=== PATIENT | male | born 1960 | race Caucasian/White ===

== ENCOUNTER 2016-10-22 09:05 | Emergency (ER) | payer BC, OTHER ==
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
[2016-10-22 10:42] VITALS: RESP 18
--- NOTE | 2016-10-22 10:48 | US ---
EXAMINATION TYPE: US scrotum with Doppler. DATE OF EXAM: 10/22/2016 COMPARISON: NONE CLINICAL HISTORY: 56-year-old male Pain. EC patient with Right scrotal swelling x 3 days; heavy lifting with job; initially had right scrotal pain with touch. TECHNIQUE: Multiple sonographic images of the scrotum were obtained. Color Doppler and spectral wavef orm analysis of the testicular arteries and veins. FINDINGS: EXAM MEASUREMENTS: TESTICLES: Right Testicle: 4.5 x 2.5 x 2.0 cm for a volume of 11.6 mL. Left Testicle: 3.6 x 2.8 x 1.8 cm for a volume of 9.3 mL. Normal homogeneous echotexture of both testes. Satisfactory arterial and venous flow on both sides. EPIDIDYMIS HEAD: Right Epididymis: 1.2 x 0.9 x 0.4 cm Left Epididymis: 1.1 x 2.4 x 1.3 cm with 2 cysts measuring up to 1 cm. Presence of hydroceles: Small amount of fluid noted inferior to right testicle with mobile internal echoes noted; pocket size = 1.8 x 2.3 x 1.4cm. Small amount of fluid is noted superior to left epididymis = 0.5 x 0.6 x 0.7cm. Presence of varicoceles: Multiple varices noted in left scrotal sac with vein at neutral = 2.6mm and with Valsalva Maneuver = 2.8mm ( normal vein size < or =2.5mm). Larger tortuous veins noted mid and lower left scrotal sac wit h one measured at 3.2mm. Patient stated has varicose veins bilateral legs. IMPRESSION: 1. No sonographic evidence for testicular torsion or epididymoorchitis. 2. Small right greater than left hydroceles containing debris. 3. Left-sided varicocele. 4. Incidental couple left epididymal head cysts measuring up to 1 cm.
[2016-10-22] MEDS ORDERED: cefTRIAXone 250 MG VIAL IM STA (11:26)
[2016-10-22] MEDS ORDERED: cefTRIAXone 1,000 MG VIAL (IM USE) IM STA (11:34)
[2016-10-22 11:49] VITALS: BP 159/95; PULSE 70; TEMP 98
== END 2016-10-22 11:49 | disposition home or self-care (01) ==
LOC: EC 09:05
DX: N45.1 Epididymitis (principal); K21.9 Gastro-esophageal reflux disease without esophagitis; E78.5 Hyperlipidemia, unspecified; I25.2 Old myocardial infarction; I10 Essential (primary) hypertension; M06.9 Rheumatoid arthritis, unspecified; F17.200 Nicotine dependence, unspecified, uncomplicated; Z86.14 Personal history of Methicillin resistant Staphylococcus aureus infection; Z79.52 Long term (current) use of systemic steroids; Z79.899 Other long term (current) drug therapy; Z88.1 Allergy status to other antibiotic agents; Z91.018 Allergy to other foods
CPT/HCPCS: 93975; 76870; 99283; 96372; J0696

== ENCOUNTER → 2017-06-02 | Outpatient (CLI) | payer OTHER ==
[2017-06-02 12:00] LABS: Basophils # (A) 0.1 k/uL (0-0.2); Basophils % (A) 1 %; Eosinophils # (A) 0.3 k/uL (0-0.7); Eosinophils % (A) 4 %; HCT 45.4 % (39.0-53.0); HGB 15.2 gm/dL (13.0-17.5); Lymphocytes % (A) 41 %; MCH 31.5 pg (25.0-35.0); MCHC 33.4 g/dL (31.0-37.0); MCV 94.2 fL (80.0-100.0); Monocytes # (A) 0.7 k/uL (0-1.0); Monocytes % (A) 10 %; Neutrophils % (A) 42 %; Platelet Count 184 k/uL (150-450); RBC 4.82 m/uL (4.30-5.90); RDW 12.6 % (11.5-15.5); WBC 7.2 k/uL (3.8-10.6)
[2017-06-02 12:17] LABS: ALT 25 U/L (21-72); AST 21 U/L (17-59); Albumin 3.7 g/dL (3.5-5.0); Alkaline Phosphatase 74 U/L (38-126); Anion Gap 10 mmol/L; Blood Urea Nitrogen 17 mg/dL (9-20); Calcium 9.1 mg/dL (8.4-10.2); Carbon Dioxide 26 mmol/L (22-30); Chloride 104 mmol/L (98-107); Glucose 103 mg/dL (74-99); Potassium 4.6 mmol/L (3.5-5.1); Sodium 140 mmol/L (137-145); Total Bilirubin 0.5 mg/dL (0.2-1.3); Total Protein 6.6 g/dL (6.3-8.2)
[2017-06-02 17:00] LABS: Vitamin D 25 Hydroxy 15.5 ng/mL (30.0-100.0)
[2017-06-02 17:03] LABS: Folate, Serum 10.3 ng/mL
== END | disposition home or self-care (01) ==
LOC: LABWHC1 11:32
PROVIDERS: ATTEND Family Medicine
DX: G40.89 Other seizures (principal); G62.9 Polyneuropathy, unspecified; L82.1 Other seborrheic keratosis; Z68.29 Body mass index [BMI] 29.0-29.9, adult
CPT/HCPCS: 36415; 80053; 82306; 82746; 84443; 85025

== ENCOUNTER → 2017-09-07 | Outpatient (CLI) | payer OTHER ==
--- NOTE | 2017-09-07 23:41 | MR ---
EXAMINATION TYPE: MR brain wo con DATE OF EXAM: 09/07/2017 COMPARISON: NONE HISTORY: Problems sleeping, tremors Standard multiplanar, multisequence MRI departmental protocol Multiplanar, multisequence images of the brain were acquired. Diffusion weighted imaging was performe d. FINDINGS: Ventricles and sulci appear normal. There is no mass effect nor midline shift. There is no evidence of cerebral edema. Brainstem appears normal. There are multiple scattered foci of increased signal at the penny-white matter junction of both cerebral hemispheres. Total number is less than 20. These measure up to 7 mm. The sella turcica appears normal. Corpus callosum has normal size. IMPRESSION: Numerous small white matter lesions. These do not have typical pattern of demyelinating disease and a re peripheral of the periventricular white matter. This is more likely chronic small vessel ischemia. No cortical infarct.
== END | disposition home or self-care (01) ==
LOC: RADMRIMAIN 20:42
PROVIDERS: ATTEND Psychiatry & Neurology Neurology
DX: G93.9 Disorder of brain, unspecified (principal); R90.82 White matter disease, unspecified; R25.9 Unspecified abnormal involuntary movements
CPT/HCPCS: 70551

== ENCOUNTER → 2018-11-24 | Outpatient (CLI) | payer OTHER ==
[2018-11-24 16:33] LABS: ALT 27 U/L (10-49); AST 21 U/L (14-35); Albumin/Globulin Ratio 1.95 (1.60-3.17); Alkaline Phosphatase 80 U/L (41-126); Bilirubin, Conjugated <0.20 mg/dL (0.20-0.40); Cholesterol 199 mg/dL (0-200); Globulin 2.2 g/dL (1.6-3.3); LDL Cholesterol,Calculated 99.8 mg/dL (0.0-131.0); Total Bilirubin 0.6 mg/dL (0.3-1.2); Total Protein 6.5 g/dL (6.2-8.2)
== END | disposition home or self-care (01) ==
LOC: LABWHC1 08:02
PROVIDERS: ATTEND Family Medicine
DX: E78.5 Hyperlipidemia, unspecified (principal); I10 Essential (primary) hypertension
CPT/HCPCS: 36415; 80061; 80076

== ENCOUNTER → 2020-04-07 | Outpatient (CLI) | payer OTHER ==
--- NOTE | 2020-04-08 10:30 | CTL ---
EXAMINATION TYPE: CT Low Dose Lung DATE OF EXAM ORDERED: 04/07/2020 HISTORY: Z 87.891. Lung cancer screening CT DLP: 67.[address] CTDI: 2.2 mGy Automated exposure control for dose reduction was used. SCREENING VISIT: 1 COMPARISON: None TECHNIQUE: Low dose computed tomography scan was performed through the chest at 1 mm thick sections a nd reconstructed images in the coronal plane at [address] DIAGNOSTIC QUALITY: Satisfactory FINDINGS: LUNG NODULES: None. LUNGS: COPD: Severity: Mild Fibrosis: Severity: None Lymph nodes: None Other findings: None RIGHT PLEURAL SPACE: Effusion: None Calcification: None Thickening: None Pneumothorax: None LEFT PLEURAL SPACE: Effusion: None Calcification: None Thickening: None Pneumothorax: None HEART: Heart Size: Normal Coronary calcification: Moderate Pericardial effusion: None OTHER FINDINGS: Upper abdomen: Unremarkable Bony thorax: There is thoracic spondylosis. Sternoclavicular joints show osteoarthritic change. Supraclavicular region: Unremarkable Other: There are changes of gynecomastia. Ascending aorta measures 4.1 cm. Pulmonary arteries mildly prominent. IMPRESSION: Negative CT LUNG RAD AND CT CHEST RECOMMENDATION: 1 year S Modifier (other clinically significant findings): Aortic aneurysm, coronary artery disease, conside r pulmonary artery hypertension
== END | disposition home or self-care (01) ==
LOC: RADCTMAIN 17:17
PROVIDERS: ATTEND Family Medicine
DX: Z12.2 Encounter for screening for malignant neoplasm of respiratory organs (principal); F17.210 Nicotine dependence, cigarettes, uncomplicated

== ENCOUNTER 2021-03-30 08:31 | Emergency (ER) | payer OTHER ==
[2021-03-30] MEDS ORDERED: ONDANSETRON 4 MG/2 ML VIAL IVP STA ×2 (09:10→12:01)
[2021-03-30] MEDS ORDERED: SODIUM CHLORIDE 0.9% 2,000 ML IV ONE (09:11)
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
--- NOTE | 2021-03-30 10:13 | XR ---
EXAMINATION TYPE: XR chest 2V DATE OF EXAM: 03/30/2021 COMPARISON: None HISTORY: 60-year-old male abdominal pain, shortness of breath, difficulty breathing TECHNIQUE: PA and lateral views FINDINGS: Heart normal size. Aorta and pulmonary vasculature within normal limits. Increased patchy peripheral interstitial opacities bilaterally. No ray consolidation or pleural effusion. IMPRESSION: Suggestion of subtle underlying peripheral interstitial infiltrates. Consider early/mild COVID pneumo michelle.
--- NOTE | 2021-03-30 10:14 | XR ---
EXAMINATION TYPE: XR KUB DATE OF EXAM: 03/30/2021 Comparison: None Clinical History: 60-year-old male Abdominal pain Findings: Lung bases are clear. No evidence for free intraperitoneal air. Scattered small air-fluid levels within both the colon and small bowel. No dilated small bowel loops. No suspicious calcifications are seen. Impression: Some scattered air-fluid levels within the small bowel and colon. Consider an enteritis or mild gener alized ileus. No evidence for free air or bowel obstruction.
[2021-03-30 10:15] LABS: Basophils % (A) 1 %; Eosinophils % (A) 0 %; HCT 49.2 % (39.0-53.0); HGB 16.8 gm/dL (13.0-17.5); Lymphocytes # (A) 1.4 k/uL (1.0-4.8); Lymphocytes % (A) 33 %; MCH 32.9 pg (25.0-35.0); MCHC 34.1 g/dL (31.0-37.0); MCV 96.3 fL (80.0-100.0); Mean Platelet Volume 7.9; Monocytes # (A) 0.5 k/uL (0-1.0); Monocytes % (A) 11 %; Neutrophils # (A) 2.3 k/uL (1.3-7.7); Neutrophils % (A) 54 %; Platelet Count 159 k/uL (150-450); RBC 5.11 m/uL (4.30-5.90); RDW 11.9 % (11.5-15.5); WBC 4.3 k/uL (3.8-10.6)
[2021-03-30 10:25] LABS: ALT 34 U/L (4-49); AST 42 U/L (17-59); African American GFR (CKD) >90 (>60 ml/min/1.73 sqM); Albumin 3.9 g/dL (3.5-5.0); Alkaline Phosphatase 76 U/L (38-126); Anion Gap 8 mmol/L; Blood Urea Nitrogen 16 mg/dL (9-20); Calcium 8.5 mg/dL (8.4-10.2); Carbon Dioxide 28 mmol/L (22-30); Chloride 99 mmol/L (98-107); Glucose 102 mg/dL (74-99); Non-African American GFR(CKD) >90 (>60 ml/min/1.73 sqM); Sodium 135 mmol/L (137-145); Total Bilirubin 0.6 mg/dL (0.2-1.3); Total Protein 6.8 g/dL (6.3-8.2)
[2021-03-30] MEDS ORDERED: DEXAMETHASONE SOD PHOSPHATE 10 MG/ML 1 ML VIAL IVP STA (11:52)
[2021-03-30 12:20] VITALS: BP 134/85; PULSE 90; RESP 18; TEMP 99
== END 2021-03-30 12:19 | disposition home or self-care (01) ==
LOC: EC 08:31
DX: U07.1 COVID-19 (principal); E86.0 Dehydration; I25.2 Old myocardial infarction; I10 Essential (primary) hypertension; E78.5 Hyperlipidemia, unspecified; J45.909 Unspecified asthma, uncomplicated; K21.9 Gastro-esophageal reflux disease without esophagitis; Z88.1 Allergy status to other antibiotic agents; Z91.018 Allergy to other foods; Z87.891 Personal history of nicotine dependence
CPT/HCPCS: 36415; 80053; 85025; 71046; 74018; 99285; 96376; 96374; 96361; J2405

== ENCOUNTER → 2021-05-24 | Outpatient (CLI) | payer OTHER ==
[2021-05-24 19:06] LABS: Basophils # (A) 0.07 X 10*3/uL (0.00-0.10); Basophils % (A) 0.8 %; Eosinophils # (A) 0.11 X 10*3/uL (0.04-0.35); Eosinophils % (A) 1.3 %; HGB 13.7 g/dL (13.0-17.0); Immature Grans, Automated 0.6 %; Lymphocytes # (A) 2.82 X 10*3/uL (0.90-5.00); Lymphocytes % (A) 33.6 %; MCH 32.1 pg (27.0-32.0); MCHC 32.6 g/dL (32.0-37.0); MCV 98.4 fL (80.0-97.0); Mean Platelet Volume 10.5 fL (9.5-12.2); Monocytes # (A) 0.76 X 10*3/uL (0.20-1.00); NRBC Per 100 WBC 0 /100 WBCS (0.0-0.0); Neutrophils # (A) 4.59 X 10*3/uL (1.80-7.70); Neutrophils % (A) 54.7 %; Platelet Count 218 X 10*3/uL (140-440); RBC 4.27 X 10*6/uL (4.40-5.60); RDW 14.1 % (11.5-14.5)
[2021-05-24 19:15] LABS: Immunoglobulin M 25.9 mg/dL (40.0-280.0)
[2021-05-24 22:06] LABS: Erythrocyte Sedimentation Rate 8 mm/Hr (0-20)
[2021-05-25 02:01] LABS: ALT 15 U/L (10-49); AST 18 U/L (14-35); Blood Urea Nitrogen 12.1 mg/dL (9.0-27.0); C Reactive Protein <0.30 mg/dL (0.00-0.80); Non-African American GFR(CKD) 91.4 (60.0-200.0)
== END | disposition home or self-care (01) ==
LOC: LABWHC1 11:49
PROVIDERS: ATTEND Internal Medicine Rheumatology
DX: M25.50 Pain in unspecified joint (principal); M06.4 Inflammatory polyarthropathy
CPT/HCPCS: 36415; 82565; 82784; 84450; 84460; 84520; 85025; 85652; 86140

== ENCOUNTER 2021-07-20 18:55 | Emergency (ER) | payer OTHER ==
[2021-07-20 19:04] VITALS: TEMP 98
[2021-07-20] MEDS ORDERED: SODIUM CHLORIDE 0.9% 1,000 ML IV ONE (19:31)
[2021-07-20] MEDS ORDERED: MORPHINE SULFATE 4 MG/ML SYRINGE IV STA ×2 (19:31→20:43)
[2021-07-20] MEDS ORDERED: ONDANSETRON 4 MG/2 ML VIAL IVP STA (19:31)
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
[2021-07-20 19:55] LABS: Chloride 104 mmol/L (98-107)
[2021-07-20 19:57] LABS: Anion Gap 8 mmol/L; Blood Urea Nitrogen 14 mg/dL (9-20); Carbon Dioxide 24 mmol/L (22-30); Glucose 99 mg/dL (74-99); Potassium 3.6 mmol/L (3.5-5.1); Sodium 136 mmol/L (137-145)
[2021-07-20 19:58] LABS: ALT 19 U/L (4-49); AST 36 U/L (17-59); African American GFR (CKD) >90 (>60 ml/min/1.73 sqM); Albumin 4.1 g/dL (3.5-5.0); Alkaline Phosphatase 76 U/L (38-126); Basophils % (A) 0 %; Calcium 8.6 mg/dL (8.4-10.2); Eosinophils # (A) 0.1 k/uL (0-0.7); Eosinophils % (A) 1 %; HCT 44.5 % (39.0-53.0); HGB 14.6 gm/dL (13.0-17.5); Lymphocytes # (A) 2.3 k/uL (1.0-4.8); Lymphocytes % (A) 17 %; MCH 32.4 pg (25.0-35.0); MCHC 32.9 g/dL (31.0-37.0); MCV 98.6 fL (80.0-100.0); Mean Platelet Volume 7.5; Monocytes # (A) 0.7 k/uL (0-1.0); Monocytes % (A) 5 %; Neutrophils # (A) 10.1 k/uL (1.3-7.7); Neutrophils % (A) 76 %; Non-African American GFR(CKD) >90 (>60 ml/min/1.73 sqM); Platelet Count 220 k/uL (150-450); RBC 4.51 m/uL (4.30-5.90); RDW 13.7 % (11.5-15.5); Total Protein 6.9 g/dL (6.3-8.2); WBC 13.4 k/uL (3.8-10.6)
[2021-07-20 20:03] LABS: Partial Thromboplastin Time 23.5 sec (22.0-30.0); Prothrombin Time 10.6 sec (9.0-12.0)
[2021-07-20 20:50] VITALS: RESP 16
--- NOTE | 2021-07-20 20:59 | XR ---
EXAMINATION TYPE: XR pelvis AP view DATE OF EXAM: 07/20/2021 CLINICAL HISTORY: Pain after injury. TECHNIQUE: A single AP view of the pelvis is obtained. COMPARISON: None. FINDINGS: There is no acute fracture/dislocation evident in the pelvis. The hip and sacroiliac join ts appear symmetric and unremarkable. Pubic symphysis is intact. The overlying soft tissue appears un remarkable. IMPRESSION: There is no acute displaced pelvic fracture.
--- NOTE | 2021-07-20 21:00 | XR ---
EXAMINATION TYPE: XR chest 1V portable DATE OF EXAM: 07/20/2021 COMPARISON: Chest x-ray March 30, 2021 HISTORY: Fall injury with pain. TECHNIQUE: Single frontal upright view of the chest is obtained. FINDINGS: Somewhat low lung volumes redemonstrated. There is no suspicious focal air space opacity, p leural effusion, or pneumothorax seen. The cardiac silhouette size is mildly enlarged on current diana dy. The osseous structures are intact. IMPRESSION: Mild cardiomegaly without acute pulmonary process.
--- NOTE | 2021-07-20 21:03 | CT ---
EXAMINATION TYPE: CT brain cspine wo con DATE OF EXAM: 07/20/2021 COMPARISON: MRI brain September 07, 2017 HISTORY: FALL FROM ROOF with headache and neck pain. CT DLP: 1556.5 mGycm. Automated Exposure Control for Dose Reduction was Utilized. TECHNIQUE: CT scan of the head and cervical spine are performed without contrast. FINDINGS: There is no acute intracranial hemorrhage, mass effect, or midline shift identified. The ventricles and sulci are within normal limits in size for patient's age. Some scattered areas of low attenuation throughout the white matter bilaterally are redemonstrated. The calvarium is intact. The globes are intact and the visualized sinuses are clear. Cervical spine is visualized in its entirety from C1 through upper thoracic levels and demonstrates l oss of normal cervical curvature without evidence of acute fracture or dislocation. Prevertebral sof t tissue appears within normal limits. The C1-C2 articulation is within normal limits on the coronal images. There is grade 1 anterolisthesis C4 on C5. There is subtle grade 1 retrolisthesis C6 on C7. Vertebral body heights are maintained. Moderate disc space narrowing C6-C7 level with moderate anter ior spurring. Posterior disc herniations annular spur disc complexes efface the anterior thecal sac C 4-C5 through the C6-C7 levels on axial images. Thyroid gland appears within normal limits. Lung apice s show no pneumothorax IMPRESSION: 1. There is no acute fracture or dislocation evident in the cervical spine. 2. No acute intracranial hemorrhage or midline shift is seen.
--- NOTE | 2021-07-20 22:02 | CT ---
EXAMINATION TYPE: CT ChestAbdPelvis w con DATE OF EXAM: 07/20/2021 COMPARISON: None. HISTORY: PAIN FROM FALL CT DLP: 1200.3 mGycm. Automated Exposure Control for Dose Reduction was Utilized. CONTRAST: CT scan of the thorax, abdomen and pelvis is performed with IV Contrast, patient injected with 100ML mL of Isovue 300. Trauma protocol. FINDINGS: LUNGS: Some faint small focal areas of groundglass opacity in the periphery of the superior aspect ri ght lower lobe axial image 27 for reference. No pleural effusion or pneumothorax seen bilaterally. No concerning nodules or masses. MEDIASTINUM: There are no greater than 1 cm hilar or mediastinal lymph nodes. No cardiomegaly peric ardial effusion is seen. Ascending aorta measures up to 3.9 cm in diameter. Coronary artery calcific ations are present which is noted marker of underlying coronary artery disease. Moderate aortic valvu lar calcifications. OTHER: Rounded subareolar gynecomastia is present bilaterally. LIVER/GB: Visualized liver is heterogeneously hypodense consistent with diffuse fatty infiltration. PANCREAS: No significant abnormality is seen. SPLEEN: No significant abnormality is seen. ADRENALS: No significant abnormality is seen. KIDNEYS: No significant abnormality is seen. BOWEL: No significant abnormality is seen. GENITAL ORGANS: No gross abnormality seen. LYMPH NODES: No greater than 1cm abdominal or pelvic lymph nodes are appreciated. OSSEOUS STRUCTURES: No significant abnormality is seen. OTHER: Mild mixed plaque in the abdominal aorta extends into branch vessels. IMPRESSION: Tiny focal areas of groundglass opacity in the periphery of the right upper lobe could r eflect edema from pulmonary contusion injury in appropriate setting. Correlate clinically. No acute d isplaced osseous fracture. No posttraumatic finding in the abdomen or pelvis identified.
[2021-07-20 22:30] VITALS: BP 144/89; PULSE 74
== END 2021-07-20 22:39 | disposition home or self-care (01) ==
LOC: EC 18:55
DX: S09.90XA Unspecified injury of head, initial encounter (principal); S16.1XXA Strain of muscle, fascia and tendon at neck level, initial encounter; S20.219A Contusion of unspecified front wall of thorax, initial encounter; I10 Essential (primary) hypertension; I25.2 Old myocardial infarction; K21.9 Gastro-esophageal reflux disease without esophagitis; Z79.1 Long term (current) use of non-steroidal anti-inflammatories (NSAID); Z87.891 Personal history of nicotine dependence; Z88.1 Allergy status to other antibiotic agents; Z91.018 Allergy to other foods; W13.2XXA Fall from, out of or through roof, initial encounter; Y92.019 Unspecified place in single-family (private) house as the place of occurrence of the external cause
CPT/HCPCS: 36415; 93005; 86900; 86901; 80053; 84484; 85025; 85610; 85730; 86850; 72170; 71045; 72125; 70450; 71260; 74177; 99285; 96374; 96375; 96376; 96361; J2270; J2405; Q9967

== ENCOUNTER 2022-04-03 02:28 | Inpatient (IN) | payer OTHER ==
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
[2022-04-03 02:50] LABS: Basophils % (A) 0 %; Eosinophils # (A) 0.1 k/uL (0-0.7); Eosinophils % (A) 1 %; HCT 42.2 % (39.0-53.0); HGB 14.3 gm/dL (13.0-17.5); Lymphocytes # (A) 0.9 k/uL (1.0-4.8); Lymphocytes % (A) 11 %; MCH 32.9 pg (25.0-35.0); MCV 96.8 fL (80.0-100.0); Mean Platelet Volume 8.3; Monocytes # (A) 0.4 k/uL (0-1.0); Monocytes % (A) 5 %; Neutrophils # (A) 7.4 k/uL (1.3-7.7); Neutrophils % (A) 83 %; Platelet Count 190 k/uL (150-450); RBC 4.36 m/uL (4.30-5.90); WBC 8.9 k/uL (3.8-10.6)
--- NOTE | 2022-04-03 02:55 | XR ---
EXAMINATION TYPE: XR chest 1V portable DATE OF EXAM: 04/03/2022 COMPARISON: 07/21/2021 HISTORY: Chest pain TECHNIQUE: Single view FINDINGS: Heart and mediastinum are normal. Lungs are clear. Diaphragm is normal. Bony thorax is inta ct. IMPRESSION: Normal chest. No change.
[2022-04-03 02:59] LABS: Partial Thromboplastin Time 23.5 sec (22.0-30.0); Prothrombin Time 10.2 sec (9.0-12.0)
[2022-04-03 03:11] LABS: ALT 20 U/L (4-49); AST 24 U/L (17-59); African American GFR (CKD) >90 (>60 ml/min/1.73 sqM); Albumin 3.7 g/dL (3.5-5.0); Alkaline Phosphatase 108 U/L (38-126); Anion Gap 7 mmol/L; Blood Urea Nitrogen 17 mg/dL (9-20); Calcium 8.3 mg/dL (8.4-10.2); Carbon Dioxide 23 mmol/L (22-30); Chloride 109 mmol/L (98-107); Glucose 130 mg/dL (74-99); Lipase 120 U/L (23-300); Magnesium 2.1 mg/dL (1.6-2.3); Non-African American GFR(CKD) >90 (>60 ml/min/1.73 sqM); Potassium 4.6 mmol/L (3.5-5.1); Sodium 139 mmol/L (137-145); Total Bilirubin 0.4 mg/dL (0.2-1.3)
[2022-04-03] MEDS ORDERED: HEPARIN SODIUM 1,000 UN/ML (10ML VL) IV ONE ×2 (04:03→14:28)
[2022-04-03] MEDS ORDERED: NITROGLYCERIN SL TABS 0.4 MG TAB SUBLINGUAL PRN ×3 (04:03→15:14)
[2022-04-03] MEDS: ASPIRIN 81 MG PO STA ×2 (04:12→07:47)
[2022-04-03] MEDS ORDERED: HEPARIN SOD,PORK IN 0.45% NACL 25,000 UNIT in 0.45% NACL 1 250ML.BAG IV SCH (04:15)
[2022-04-03 06:41] LABS: Mean Platelet Volume 8.5; Platelet Count 229 k/uL (150-450)
[2022-04-03] MEDS: METOPROLOL TARTRATE 25 MG TAB PO SCH ×2 (07:47→21:59)
[2022-04-03] MEDS: ATORVASTATIN 80 MG TAB PO SCH (07:48)
[2022-04-03] MEDS ORDERED: ALPRAZolam 0.25 MG TAB PO PRN (10:26)
[2022-04-03] MEDS ORDERED: ALPRAZolam 0.5 MG TAB PO PRN (10:26)
[2022-04-03] MEDS ORDERED: ATORVASTATIN 80 MG TAB PO STA (10:26)
[2022-04-03] MEDS ORDERED: ASPIRIN 325 MG TAB PO STA (10:26)
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
[2022-04-03 11:05] LABS: Glucose,Whole Blood 88 mg/dL (70-110)
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
[2022-04-03] MEDS ORDERED: fentaNYL (PF) 50 MCG/ML 2 ML AMP ONE (14:00)
[2022-04-03] MEDS ORDERED: HEPARIN SODIUM 1,000 UN/ML (10ML VL) ONE (14:00)
[2022-04-03] MEDS ORDERED: fentaNYL (PF) 50 MCG/1 ML VIAL IVP ONE (14:18)
[2022-04-03] MEDS ORDERED: LIDOCAINE 1% INJ 10MG/ML (5 ML VIAL-PF) SQ ONE (14:22)
[2022-04-03] MEDS ORDERED: SODIUM CHLORIDE 0.9% 1,000 ML IV ONE (14:25)
[2022-04-03] MEDS ORDERED: VERAPAMIL SYRINGE (5 MG/10 ML) INTRAARTER ONE (14:25)
[2022-04-03] MEDS ORDERED: PRASUGREL 10 MG TAB ONE (14:35)
[2022-04-03] MEDS ORDERED: PRASUGREL 10 MG TAB PO ONE (14:38)
[2022-04-03] MEDS ORDERED: IOPAMIDOL-370 125ML BTL INJ ONE (14:54)
[2022-04-03] MEDS ORDERED: IOPAMIDOL-370 100ML BTL INJ ONE (15:05)
[2022-04-03] MEDS ORDERED: RX INFO: IV CONTRAST WAS GIVEN 1 EACH MISC MISCELLANE PRN (15:14)
[2022-04-03] MEDS ORDERED: ATROPINE SULFATE 0.1 MG/ML 10ML SYRINGE IV PRN (15:14)
[2022-04-03] MEDS ORDERED: MAG HYDROX/AL HYDROX/SIMETH 30 ML CUP PO PRN (15:14)
[2022-04-03] MEDS ORDERED: ZOLPIDEM 5 MG TAB PO PRN (15:14)
[2022-04-03] MEDS ORDERED: SODIUM CHLORIDE 0.9% 1,000 ML in EMPTY BAG 1 BAG IV SCH (15:15)
--- NOTE | 2022-04-03 15:24 | P.CARDCATH ---
Date of Procedure: 04/03/22 Description of Procedure: Cardiac Catheterization: The patient is a 61-year-old female with a known history of hypertension, hyperlipidemia, chronic tobacco use and history of CAD who presented with symptoms of chest discomfort consistent with unstable angina and troponin elevation. Recommendations were made regarding cardiac catheterization, the risks and the complications were discussed with the patient who is in full understanding and agreement. Procedure Description: Patient was brought to lab support service tech in fasting semi-sedated state after receiving Fentanyl and Benadryl achieiving moderate conscious sedated state. Using Xylocaine Anesthesia and Seldinger technique, a 6-Telugu sheath was introduced in the right radial artery . Subsequently, selective coronary angiography was performed using a 5-Telugu 3.5 bend Jalil catheter. Multiple views of the coronary artery including hemiaxial views were obtained. The 5-Telugu pigtail catheter was used to cross the aortic valve and LVEDP was calculated. After removing the catheters a 6-Telugu JR4 guiding catheter was introduced into system, after cannulating the ostium of the RCA a 0.014 BMW J-wire was positioned in the distal RCA. Subsequently a 2.5 X 12 mm NC Treck was advanced and inflation at 8 fanta was done. Following that a 3.25 x 23 mm Xience myesha point was advanced but could not be advanced in the mid segment, the stent was removed and a 6-Telugu [employer] Formul[employer] catheter was advanced and with the help of the catheter the stent was advanced positioned and deployed at 16 fanta. After removing the balloon 3.5X12 mm NC Treck was advanced and one inflation at 10 fanta was done. After removing the balloon images were obtained and revealed stable successful stenting. Following that, catheter and sheath were removed. Hemostasis was obtained with deployment of TR band . There was no immediate complication. Patient was returned to room in stable condition. Of note, the patient received a total of 4000 units of intravenous heparin as well as intra-arterial verapamil. He received an oral loading dose of Effient. His ACT was monitored. He had EKG changes and chest discomfort that resolved at the end of the procedure. Findings: Left main: This is a large-size vessel, trifurcating into LAD, left circumflex and ramus intermedius, left main has no high-grade stenosis. LAD: This is a large-size vessel, tapers in the distal third, it has a 40% plaque at the ostium with mild disease in the midsegment of 20-30%, the rest of the vessel has no high-grade stenosis. Left circumflex: This is a nondominant vessel, giving rise to 2 obtuse margin branch, the left circumflex prior to the bifurcation of This major branch has a 50-60% lesion. RCA: This is a large dominant vessel, bifurcating into PDA and PLV. In the midsegment there is an ulcerated plaque with a 90% stenosis, the distal vessel has no high-grade stenosis. There is a 30% plaque at the ostium. Ramus intermedius: This is a large-size vessel that has no evidence of high- grade stenosis was mild intimal disease Left Ventriculogram: Not performed Hemodynamics: There is no gradient across the aortic valve, LVEDP was 15-18 mmHg Conclusion: 1. Critical stenosis in an ulcerated plaque in the mid RCA 2. Moderate disease in the ostium of the LAD 3. Mild to moderate disease in the left circumflex and ramus intermedius 4. Successful stenting of the mid RCA with reduction of stenosis from 90% to less than 5% Recommendations: The patient will be continued on aspirin and Effient for 1 year in addition to aggressive coronary risks modifications. The findings and the recommendations were discussed with the patient and the family and they were in full understanding and agreement. Duration of sedation is 46 minutes.
[2022-04-03] MEDS ORDERED: ALBUTEROL NEBULIZED 2.5 MG/3 ML INHALATION PRN (18:19)
[2022-04-03] MEDS: GABAPENTIN 400 MG CAP PO SCH ×2 (18:46→21:58)
[2022-04-03] MEDS: VALSARTAN 40 MG TAB PO SCH (21:59)
[2022-04-04] MEDS: PANTOPRAZOLE 40 MG TABLET PO SCH (06:30)
[2022-04-04] MEDS ORDERED: HEPARIN SODIUM,PORCINE 10,000 UNIT in SODIUM CHLORIDE 0.9% 1,000 ML IRRIGATION PRN (07:00)
[2022-04-04] MEDS ORDERED: HEPARIN SODIUM,PORCINE 2,500 UNIT in SODIUM CHLORIDE 0.9% 250 ML IRRIGATION PRN (07:00)
[2022-04-04 08:11] LABS: Mean Platelet Volume 8.5; Platelet Count 194 k/uL (150-450)
[2022-04-04 08:11] LABS: African American GFR (CKD) >90 (>60 ml/min/1.73 sqM); Anion Gap 6 mmol/L; Blood Urea Nitrogen 13 mg/dL (9-20); Calcium 8.5 mg/dL (8.4-10.2); Carbon Dioxide 22 mmol/L (22-30); Chloride 108 mmol/L (98-107); Glucose 120 mg/dL (74-99); Non-African American GFR(CKD) >90 (>60 ml/min/1.73 sqM); Potassium 4.1 mmol/L (3.5-5.1); Sodium 136 mmol/L (137-145)
[2022-04-04] MEDS: METOPROLOL TARTRATE 25 MG TAB PO SCH ×2 (08:36→19:48)
[2022-04-04] MEDS: ASPIRIN 81 MG PO SCH (08:36)
[2022-04-04] MEDS: predniSONE 10 MG TAB PO SCH (08:36)
[2022-04-04] MEDS: lisinopriL 10 MG TAB PO SCH (08:36)
[2022-04-04] MEDS: ATORVASTATIN 80 MG TAB PO SCH (08:36)
[2022-04-04] MEDS: PRASUGREL 10 MG TAB PO SCH (08:36)
[2022-04-04] MEDS: VALSARTAN 40 MG TAB PO SCH ×2 (08:37→19:48)
[2022-04-04] MEDS: valACYclovir HCL 500 MG TAB PO SCH (08:37)
[2022-04-04] MEDS ORDERED: ASPIRIN 325 MG TAB PO SCH (09:00)
--- NOTE | 2022-04-04 10:29 | P.PN ---
Subjective History of Present Illness: The patient is a 61-year-old male with known history of hypertension, hyperlipidemia and chronic tobacco use as well as a known history of CAD post myocardial infarction 20 years ago at that time was treated medically and was told he has a 60% lesion who presented with symptoms of chest discomfort. His symptoms started on Monday, exertional, reoccurred until last night at rest. He had radiation to the jaw and left arm with dyspnea. In the emergency room he was noted to have mild troponin evaluation. He felt better after he received nitroglycerin. He has been followed by Dr. Lr in the past but was last seen over a year ago. He is active physically usually without chest discomfort until recently. He has a cough and episode of dyspnea, he smokes about a pack a day and drinks about 2 beers a day. He has no history of diabetes or CHF. Medications: Lisinopril 10 mg daily, Crestor 20 mg daily 04/04 Patient seen and examined. Patient underwent heart catheterization with stenting of the RCA yesterday. Denies any further chest pain or pressure. Admits he feels well today. Slept well. Denies any lightheadedness or dizziness. Did have some asymptomatic sinus bradycardia with heart rates in the 40s overnight while sleeping. Echo performed however results pending. Physical Examination: Vitals reviewed Head: Normocephalic. Eyes: Sclerae nonicteric. Neck: Good carotid upstroke, no bruit, no jugular venous distention. Lungs: Clear to auscultation with mild decrease in the hearing change. Heart: Regular rate and rhythm, S1-S2, no S3, no rub. No murmur. Abdomen: Soft nontender, positive bowel sounds no organomegaly. Extremities: No edema, intact distal pulses. Impression: 1. NSTEMI, s/p PCI RCA 04/03 2. Prior history of CAD 3. Hypertension 4. Hyperlipidemia 5. Chronic tobacco use 6. Daily alcohol intake 7. Asymptomatic sinus bradycardia at night Plan: 1. Await echocardiogram with Doppler 2. Continue dual antiplatelets for 12 months 3. Continue to monitor until 04/05 on current regimen and likely discharge home if patient remains stable. Objective - Vital Signs Vital signs: Vital Signs Temp 98.2 F 04/04/22 08:31 Pulse 62 04/04/22 10:02 Resp 18 04/04/22 10:02 BP 150/82 04/04/22 08:31 Pulse Ox 95 04/04/22 08:31 FiO2 Intake & Output 04/03/22 04/04/22 04/04/22 18:59 06:59 18:59 Intake Total 160.331 240 Balance 160.331 240 Weight 79.379 kg 79.6 kg Intake: IV 50 Intake, IV Titration 110.331 Amount Heparin Sod,Pork in 0.45% 110.331 NaCl 25,000 unit In 0.45 % NaCl 1 250ml.bag @ 12 UNITS/KG/HR 9.525 mls/hr IV .Q24H [facility] Rx#: [id number] Oral 240 Other: Voiding Method Toilet # Voids 2 - Labs CBC & Chem 7: 04/04/22 05:34 04/04/22 07:00 Labs: Abnormal Lab Results - Last 24 Hours (Table) 04/03/22 04/03/22 04/03/22 Range/Units 12:05 12:10 16:16 APTT 32.1 H 51.8 H (22.0-30.0) sec Sodium (137-145) mmol/L Chloride (98-107) mmol/L Glucose (74-99) mg/dL Troponin I 0.087 H* (0.000-0.034) ng/mL 04/04/22 Range/Units 07:00 APTT (22.0-30.0) sec Sodium 136 L (137-145) mmol/L Chloride 108 H (98-107) mmol/L Glucose 120 H (74-99) mg/dL Troponin I (0.000-0.034) ng/mL
--- NOTE | 2022-04-04 12:28 | CA ---
Transthoracic Echo Report Name: Christ Valdez Age: 61 Gender: M : 1960 Exam Date: 04/04/2022 09:45 Exam Location: [place] [facility] Ht (in): 67 Wt (lb): 175 Ordering Physician: Kingston Gudino DO Attending/Referring Phys: [id number], Shahab Eyeglass Cutter Cynthia Gonzales, JADIEL Procedure CPT: Indications: CP Cardiac Hx: Technical Quality: Contrast 1: Total Dose (mL): Contrast 2: Total Dose (mL): MEASUREMENTS (Male / Female) Normal Values 2D ECHO LV Diastolic Diameter PLAX 4.8 cm 4.2 - 5.9 / 3.9 - 5.3 cm LV Systolic Diameter PLAX 3.4 cm IVS Diastolic Thickness 1.0 cm 0.6 - 1.0 / 0.6 - 0.9 cm LVPW Diastolic Thickness 1.1 cm 0.6 - 1.0 / 0.6 - 0.9 cm LV Relative Wall Thickness 0.4 RV Internal Dim ED PLAX 2.3 cm LA Systolic Diameter LX 3.5 cm 3.0 - 4.0 / 2.7 - 3.8 cm LA Volume 74.2 cm??? 18 - 58 / 22 - 52 cm??? M-MODE Aortic Root Diameter MM 2.6 cm LA Systolic Diameter MM 4.0 cm LA Ao Ratio MM 1.5 MV E Point Septal Separation 0.9 cm AV Cusp Separation MM 1.7 cm DOPPLER MV Area PHT 2.8 cm??? Mitral E Point Velocity 56.7 cm/s Mitral A Point Velocity 71.8 cm/s Mitral E to A Ratio 0.8 MV Deceleration Time 270.3 ms MV E' Velocity 9.1 cm/s Mitral E to MV E' Ratio 6.3 FINDINGS Left Ventricle Left ventricular ejection fraction is estimated at 55%. Mildly increased left ventricular wall thickness. Right Ventricle Normal right ventricular size and function. Right ventricular systolic pressure within normal limits. Right Atrium Normal right atrial size. Left Atrium Moderately increased left atrial volume. Mildly increased left atrial area. Mitral Valve Structurally normal mitral valve. Mild mitral regurgitation. Aortic Valve Cannot rule out bicuspid aortic valve. Aortic valve sclerosis. Tricuspid Valve Structurally normal tricuspid valve. Mild tricuspid regurgitation. Pulmonic Valve Structurally normal pulmonic valve. Pericardium Normal pericardium. Aorta Normal size aortic root and proximal ascending aorta. CONCLUSIONS Normal left ventricular dimension and systolic function Aortic sclerosis. Cannot rule out bicuspid aortic valve Previewed by: Dr. Gabe Alex MD (Electronically Signed) Final Date: 04 April 2022 12:27
[2022-04-04 14:57] VITALS: BMI 27.4
--- NOTE | 2022-04-04 16:51 | P.PN ---
Subjective Progress Note Date: 04/04/22 H&P Date: 04/03/22 Chief Complaint: Chest pain shortness of breath Mr. Valdez is a patient well-known to Dr. Pinto, presents with hypertension hyperlipidemia chronic tobacco use known history of coronary artery disease post myocardial infarction 20 years ago that time he was treated medically and was told he had a 60% lesion presents today with chest discomfort. Symptoms initiated on Monday patient complains of exertional dyspnea and chest pain recurred Monday recurred again last night. It radiated to the jaw left arm. In the emergency room he was noted to have mild troponin elevation the symptoms improved with nitroglycerin. And he has been relatively active of recent, chest discomfort shortness of breath have been new within the last week 04/04/2022 underwent cardiac catheterization with stenting of the RCA, tolerated procedure well. Echo results pending. Denies any further chest pain, palpitations or shortness of breath. Denies lightheadedness dizziness or focal deficits. Sinus bradycardia throughout the night with heart rates in the 40s, asymptomatic. Objective - Vital Signs Vital signs: Vital Signs Temp 98.2 F 04/04/22 08:31 Pulse 58 L 04/04/22 15:20 Resp 18 04/04/22 15:20 BP 119/80 04/04/22 12:03 Pulse Ox 93 L 04/04/22 12:03 FiO2 Intake & Output 04/03/22 04/04/22 04/04/22 18:59 06:59 18:59 Intake Total 160.331 358 Balance 160.331 358 Weight 79.379 kg 79.6 kg 79.6 kg Intake: IV 50 Intake, IV Titration 110.331 Amount Heparin Sod,Pork in 0.45% 110.331 NaCl 25,000 unit In 0.45 % NaCl 1 250ml.bag @ 12 UNITS/KG/HR 9.525 mls/hr IV .Q24H [facility] Rx#: [id number] Oral 358 Other: Voiding Method Toilet # Voids 2 - Exam General: [Patient awake, alert and oriented times 3. no acute distress.] HEENT: [PERRL. EOMI. No pharyngeal erythema or exudate.] Neck: Supple, no JVD Cardiac: [Heart regular in rate and rhythm. No S3. No S4. No clicks, rubs. No murmur.] Lungs: Unlabored,clear to auscultation bilaterally. Abdomen: [No mass. No organomegaly. Bowel sounds presnt and normoactive in all 4 quadrants.] Extremes: [No edema no cyanosis no claudication normal pulses Skin: [Warm and dry, No rash.] Neurologic: [No lateralizing deficits. CN II - XII grossly intact.] - Labs CBC & Chem 7: 04/04/22 05:34 04/04/22 07:00 Labs: Abnormal Lab Results - Last 24 Hours (Table) 04/03/22 04/04/22 04/04/22 Range/Units 16:16 05:34 07:00 APTT 51.8 H (22.0-30.0) sec Sodium 136 L (137-145) mmol/L Chloride 108 H (98-107) mmol/L Glucose 120 H (74-99) mg/dL Triglycerides 304.00 H (0.00-149.00) mg/dL Cholesterol 221.00 H (0.00-200.00) mg/dL VLDL Cholesterol, Calc 60.80 H (5.00-40.00) mg/dL Assessment and Plan Assessment: (1) Elevated troponin Current Visit: Yes Status: Acute Code(s): R77.8 - OTHER SPECIFIED ABNORMALITIES OF PLASMA PROTEINS SNOMED Code(s): 962709663 (2) Atypical chest pain Current Visit: Yes Status: Acute Code(s): R07.89 - OTHER CHEST PAIN SNOMED Code(s): 190864078 (3) Chest pain, NSTEMI status post PCI ,RCA Current Visit: Yes Status: Acute Code(s): R07.9 - CHEST PAIN, UNSPECIFIED SNOMED Code(s): 00952173 (4) CAD (coronary artery disease) Current Visit: No Status: Chronic Code(s): I25.10 - ATHSCL HEART DISEASE OF [place] CORONARY ARTERY W/O ANG PCTRS SNOMED Code(s): 41991418 (5) Hyperlipemia Current Visit: No Status: Chronic Code(s): E78.5 - HYPERLIPIDEMIA, UNSPECIFIED SNOMED Code(s): 32198727 (6) Hypertension Current Visit: No Status: Chronic Code(s): I10 - ESSENTIAL (PRIMARY) HYPERTENSION SNOMED Code(s): 90184601 Plan: Continue on current medication regime ,monitoring and symptomatic treatment. Maintained on dual antiplatelet therapy. Echo pending. Further medication adjustments with overnight monitoring as per cardiology. Discharge planning in progress for tomorrow ,pending final DC recommendations and clearance per cardiology. The impression and plan of care has been dictated as directed. : I performed a history and examination of this patient, discussed the same with the dictator. I agree with the dictator's note ,documented as a scribe. Any additional findings or plans will be noted.
[2022-04-04] MEDS: GABAPENTIN 400 MG CAP PO SCH (19:47)
[2022-04-05 05:49] VITALS: TEMP 98.1
[2022-04-05] MEDS: PANTOPRAZOLE 40 MG TABLET PO SCH (06:55)
[2022-04-05 07:50] LABS: Platelet Count 235 k/uL (150-450)
[2022-04-05] MEDS: ATORVASTATIN 80 MG TAB PO SCH (09:57)
[2022-04-05] MEDS: predniSONE 10 MG TAB PO SCH (09:57)
[2022-04-05] MEDS: VALSARTAN 40 MG TAB PO SCH (09:57)
[2022-04-05] MEDS: PRASUGREL 10 MG TAB PO SCH (09:57)
[2022-04-05] MEDS: lisinopriL 10 MG TAB PO SCH (09:57)
[2022-04-05] MEDS: METOPROLOL TARTRATE 25 MG TAB PO SCH (09:57)
[2022-04-05] MEDS: valACYclovir HCL 500 MG TAB PO SCH (09:57)
[2022-04-05] MEDS: ASPIRIN 81 MG PO SCH (09:57)
[2022-04-05 10:15] VITALS: BP 133/84; PULSE 62; RESP 16
--- NOTE | 2022-04-05 10:24 | P.PN ---
Subjective History of Present Illness: The patient is a 61-year-old male with known history of hypertension, hyperlipidemia and chronic tobacco use as well as a known history of CAD post myocardial infarction 20 years ago at that time was treated medically and was told he has a 60% lesion who presented with symptoms of chest discomfort. His symptoms started on Monday, exertional, reoccurred until last night at rest. He had radiation to the jaw and left arm with dyspnea. In the emergency room he was noted to have mild troponin evaluation. He felt better after he received nitroglycerin. He has been followed by Dr. Lr in the past but was last seen over a year ago. He is active physically usually without chest discomfort until recently. He has a cough and episode of dyspnea, he smokes about a pack a day and drinks about 2 beers a day. He has no history of diabetes or CHF. Medications: Lisinopril 10 mg daily, Crestor 20 mg daily 04/04 Patient seen and examined. Patient underwent heart catheterization with stenting of the RCA yesterday. Denies any further chest pain or pressure. Admits he feels well today. Slept well. Denies any lightheadedness or dizziness. Did have some asymptomatic sinus bradycardia with heart rates in the 40s overnight while sleeping. Echo performed however results pending. 04/05 Patient seen and examined. Denies any chest pain or pressure. Patient may just to go home. He is asking about going on rheumatoid arthritis medications with concern of possible blood clots. He does report a history of prior pulmonary embolism in the past. Physical Examination: Vitals reviewed Head: Normocephalic. Eyes: Sclerae nonicteric. Neck: Good carotid upstroke, no bruit, no jugular venous distention. Lungs: Clear to auscultation with mild decrease in the hearing change. Heart: Regular rate and rhythm, S1-S2, no S3, no rub. No murmur. Abdomen: Soft nontender, positive bowel sounds no organomegaly. Extremities: No edema, intact distal pulses. Impression: 1. NSTEMI, s/p PCI RCA 04/03 2. Prior history of CAD 3. Hypertension 4. Hyperlipidemia 5. Chronic tobacco use 6. Daily alcohol intake 7. Asymptomatic sinus bradycardia at night 8. History of pulmonary embolism in past Plan: Patient appears stable for discharge home. Discussed tobacco cessation. Continue dual antiplatelets. Follow-up in office in 1 week. Echo reviewed with preserved EF without significant valvular disease. Objective - Vital Signs Vital signs: Vital Signs Temp 98.1 F 04/05/22 09:55 Pulse 62 04/05/22 09:55 Resp 16 04/05/22 09:55 BP 133/84 04/05/22 09:55 Pulse Ox 99 04/05/22 09:55 FiO2 Intake & Output 04/04/22 04/05/22 04/05/22 18:59 06:59 18:59 Intake Total 596 480 Balance 596 480 Weight 79.6 kg 79.2 kg Intake: Oral 596 480 Other: Voiding Method Toilet Toilet Toilet # Voids 2 1 - Labs CBC & Chem 7: 04/05/22 07:34 04/04/22 07:00 Labs: Abnormal Lab Results - Last 24 Hours (Table) 04/04/22 Range/Units 05:34 Triglycerides 304.00 H (0.00-149.00) mg/dL Cholesterol 221.00 H (0.00-200.00) mg/dL VLDL Cholesterol, Calc 60.80 H (5.00-40.00) mg/dL
--- NOTE | 2022-04-05 15:26 | P.DS ---
Providers Date of admission: 04/03/22 04:05 Expected date of discharge: 04/05/22 Attending physician: Harris Pinto Consults: 04/03/22 04:03 Consult Physician Urgent Consulting Provider: Bao Catalan Consult Reason/Comments: cp Do you want consulting provider notified?: Yes 04/03/22 15:14 Consult Physician Routine Consulting Provider: [facility] Consult Reason/Comments: Post Interventional Patient Do you want consulting provider notified?: Already Contacted Primary care physician: Harris Pinto Hospital Course: Final Diagnoses: (1) Elevated troponin Current Visit: Yes Status: Acute Code(s): R77.8 - OTHER SPECIFIED ABNORMALITIES OF PLASMA PROTEINS SNOMED Code(s): 281683630 (2) Atypical chest pain Current Visit: Yes Status: Acute Code(s): R07.89 - OTHER CHEST PAIN SNOMED Code(s): 917033978 (3) Chest pain, NSTEMI status post PCI ,RCA Current Visit: Yes Status: Acute Code(s): R07.9 - CHEST PAIN, UNSPECIFIED SNOMED Code(s): 73515836 (4) CAD (coronary artery disease) Current Visit: No Status: Chronic Code(s): I25.10 - ATHSCL HEART DISEASE OF [place] CORONARY ARTERY W/O ANG PCTRS SNOMED Code(s): 15945510 (5) Hyperlipemia Current Visit: No Status: Chronic Code(s): E78.5 - HYPERLIPIDEMIA, UNSPECIFIED SNOMED Code(s): 73807009 (6) Hypertension Current Visit: No Status: Chronic Code(s): I10 - ESSENTIAL (PRIMARY) HYPERTENSION SNOMED Code(s): 38853780 Hospital course: H&P Date: 04/03/22 Chief Complaint: Chest pain shortness of breath Mr. Valdez is a patient well-known to Dr. Pinto, presents with hypertension hyperlipidemia chronic tobacco use known history of coronary artery disease post myocardial infarction 20 years ago that time he was treated medically and was told he had a 60% lesion presents today with chest discomfort. Symptoms initi ated on Monday patient complains of exertional dyspnea and chest pain recurred Monday recurred again last night. It radiated to the jaw left arm. In the emergency room he was noted to have mild troponin elevation the symptoms improved with nitroglycerin. And he has been relatively active of recent, chest discomfort shortness of breath have been new within the last week 04/04/2022 underwent cardiac catheterization with stenting of the RCA, tolerated procedure well. Echo results pending. Denies any further chest pain, palpitations or shortness of breath. Denies lightheadedness dizziness or focal deficits. Sinus bradycardia throughout the night with heart rates in the 40s, asymptomatic. Significant clinical improvement. Echo reviewed by cardiology reporting preserved EF without significant valvular disease and cleared for discharge. Patient will be discharged home today in stable condition with guarded prognosis. The impression and plan of care has been dictated as directed. : I performed a history and examination of this patient, discussed the same with the dictator. I agree with the dictator's note ,documented as a scribe. Any additional findings or plans will be noted. Patient Condition at Discharge: Stable Plan - Discharge Summary Discharge Rx Participant: Yes New Discharge Prescriptions: New Prasugrel [Effient] 10 mg PO DAILY #30 tab Atorvastatin [Lipitor] 80 mg PO DAILY #30 tab Nitroglycerin Sl Tabs [Nitrostat] 0.4 mg SUBLINGUAL Q5M PRN #100 tab PRN Reason: Chest Pain Valsartan [Diovan] 40 mg PO BID #60 tab Aspirin EC [Ecotrin Low Dose] 81 mg PO DAILY #30 tab Metoprolol Tartrate [Lopressor] 25 mg PO BID #60 tab Continue valACYclovir HCL [Valtrex] 500 mg PO DAILY Omeprazole 40 mg PO DAILY lisinopriL [Zestril] 10 mg PO DAILY HYDROcodone/APAP 7.5-325MG [[place] 7.5-325] 1 tab PO Q6HR PRN PRN Reason: Pain Mupirocin 2% Oint [Bactroban 2% Oint] 1 applic TOPICAL DAILY PRN PRN Reason: SKIN ISSUES Fluticasone/Umeclidin/Vilanter [Trelegy Ellipta 100-62.5-25] 1 puff INHALATION RT-DAILY PRN PRN Reason: Shortness Of Breath Albuterol Inhaler [Ventolin Hfa Inhaler] 2 puff INHALATION RT-QID PRN PRN Reason: Shortness Of Breath Betamethasone Dipropionate [Diprolene AF 0.05% Cream] 1 applic TOPICAL DAILY predniSONE 10 mg PO DAILY Gabapentin 2,400 mg PO HS Discontinued Valsartan 80 mg PO DAILY Discharge Medication List Omeprazole 40 mg PO DAILY 05/23/14 [History] lisinopriL [Zestril] 10 mg PO DAILY 05/23/14 [History] valACYclovir HCL [Valtrex] 500 mg PO DAILY 05/23/14 [History] predniSONE 10 mg PO DAILY 03/30/21 [History] HYDROcodone/APAP 7.5-325MG [[place] 7.5-325] 1 tab PO Q6HR PRN 07/21/21 [History] Albuterol Inhaler [Ventolin Hfa Inhaler] 2 puff INHALATION RT-QID PRN 04/03/22 [History] Betamethasone Dipropionate [Diprolene AF 0.05% Cream] 1 applic TOPICAL DAILY 04/03/22 [History] Fluticasone/Umeclidin/Vilanter [Trelegy Ellipta 100-62.5-25] 1 puff INHALATION RT-DAILY PRN 04/03/22 [History] Gabapentin 2,400 mg PO HS 04/03/22 [History] Mupirocin 2% Oint [Bactroban 2% Oint] 1 applic TOPICAL DAILY PRN 04/03/22 [History] Aspirin EC [Ecotrin Low Dose] 81 mg PO DAILY #30 tab 04/05/22 [Rx] Atorvastatin [Lipitor] 80 mg PO DAILY #30 tab 04/05/22 [Rx] Metoprolol Tartrate [Lopressor] 25 mg PO BID #60 tab 04/05/22 [Rx] Nitroglycerin Sl Tabs [Nitrostat] 0.4 mg SUBLINGUAL Q5M PRN #100 tab 04/05/22 [R x] Prasugrel [Effient] 10 mg PO DAILY #30 tab 04/05/22 [Rx] Valsartan [Diovan] 40 mg PO BID #60 tab 04/05/22 [Rx] Follow up Appointment(s)/Referral(s): Dae Garza DO [STAFF PHYSICIAN] - 1 Week (OFFICE WILL CONTACT YOU WITH APPOINTMENT DATE AND TIME.) Harris Pinto MD [Primary Care Provider] - 1 Week (PLEASE CALL AND SCHEDULE APPOINTMENT.) Patient Instructions/Handouts: *Surgery [facility] - After Heart Catheterization - Frame Changer Instructions, Metoprolol (By mouth), Aspirin (By mouth), Nitroglycerin, Rapid Release (By mouth), Atorvastatin (By mouth), Valsartan (By mouth), Prasugrel (By mouth), Heart Attack (DC), After Radial Heart Catheterization (GEN) Activity/Diet/Wound Care/Special Instructions: Smoking cessation and alcohol abstinence reinforced Discharge Disposition: HOME SELF-CARE
== END 2022-04-05 11:42 | disposition home or self-care (01) | DRG 247 ==
LOC: EC 02:28 → 3SCARD 04:05
PROVIDERS: ADMIT Family Medicine; ATTEND Family Medicine
PROC: B2111ZZ Fluoroscopy of Multiple Coronary Arteries using Low Osmolar Contrast (ICD-10-PCS; 2022-04-03)
PROC: 027034Z Dilation of Coronary Artery, One Artery with Drug-eluting Intraluminal Device, Percutaneous Approach (ICD-10-PCS; principal; 2022-04-03 13:42)
PROC: 4A023N7 Measurement of Cardiac Sampling and Pressure, Left Heart, Percutaneous Approach (ICD-10-PCS; 2022-04-03 13:42)
DX: I21.4 Non-ST elevation (NSTEMI) myocardial infarction (principal); Q23.1 Congenital insufficiency of aortic valve; I10 Essential (primary) hypertension; M06.9 Rheumatoid arthritis, unspecified; I08.1 Rheumatic disorders of both mitral and tricuspid valves; E78.5 Hyperlipidemia, unspecified; E73.9 Lactose intolerance, unspecified; F17.210 Nicotine dependence, cigarettes, uncomplicated; R05.3 Chronic cough; R00.1 Bradycardia, unspecified; F10.90 Alcohol use, unspecified, uncomplicated; I25.110 Atherosclerotic heart disease of native coronary artery with unstable angina pectoris; Z79.899 Other long term (current) drug therapy; Z79.51 Long term (current) use of inhaled steroids; Z88.1 Allergy status to other antibiotic agents; Z91.048 Other nonmedicinal substance allergy status; I25.2 Old myocardial infarction; Z91.82 Personal history of military deployment; Z86.14 Personal history of Methicillin resistant Staphylococcus aureus infection; Z86.711 Personal history of pulmonary embolism; Z28.310 Unvaccinated for COVID-19
CPT/HCPCS: 36415; 71045; 80048; 80053; 80061; 83690; 83735; 83880; 84484; 85025; 85049; 85610; 85730; 93005; 93306; 93458; 96365; 96366; 96376; 99285

== ENCOUNTER 2022-04-14 09:16 | Day surgery (SDC) | payer OTHER ==
[~2022-04-14 09:16] MED LIST: ALPRAZolam 0.25 MG TAB PO PRN; ALPRAZolam 0.5 MG TAB PO PRN; ASPIRIN 325 MG TAB PO STA; NITROGLYCERIN SL TABS 0.4 MG TAB SUBLINGUAL PRN; SODIUM CHLORIDE 0.9% 1,000 ML in EMPTY BAG 1 BAG IV SCH
[2022-04-14 10:03] VITALS: RESP 16; TEMP 97.7
[2022-04-14] MEDS ORDERED: SODIUM CHLORIDE 0.9% 1,000 ML IV ONE (10:05)
[2022-04-14 10:13] LABS: Basophils # (A) 0.1 k/uL (0-0.2); Basophils % (A) 0 %; Eosinophils # (A) 0.2 k/uL (0-0.7); Eosinophils % (A) 2 %; HGB 14.3 gm/dL (13.0-17.5); Lymphocytes # (A) 2.2 k/uL (1.0-4.8); Lymphocytes % (A) 20 %; MCH 32.3 pg (25.0-35.0); MCHC 33.9 g/dL (31.0-37.0); MCV 95.2 fL (80.0-100.0); Mean Platelet Volume 8.3; Monocytes # (A) 0.8 k/uL (0-1.0); Monocytes % (A) 7 %; Neutrophils # (A) 7.9 k/uL (1.3-7.7); Neutrophils % (A) 70 %; Platelet Count 201 k/uL (150-450); RBC 4.42 m/uL (4.30-5.90); RDW 12.9 % (11.5-15.5); WBC 11.3 k/uL (3.8-10.6)
[2022-04-14 10:24] LABS: African American GFR (CKD) >90 (>60 ml/min/1.73 sqM); Anion Gap 3 mmol/L; Blood Urea Nitrogen 18 mg/dL (9-20); Calcium 8.5 mg/dL (8.4-10.2); Carbon Dioxide 31 mmol/L (22-30); Chloride 105 mmol/L (98-107); Glucose 86 mg/dL (74-99); Non-African American GFR(CKD) >90 (>60 ml/min/1.73 sqM); Potassium 4.2 mmol/L (3.5-5.1); Sodium 139 mmol/L (137-145)
[2022-04-14] MEDS ORDERED: VERAPAMIL 2.5 MG/ML 2 ML AMP ONE (10:35)
[2022-04-14] MEDS ORDERED: fentaNYL (PF) 50 MCG/ML 2 ML AMP ONE (10:37)
[2022-04-14] MEDS ORDERED: HEPARIN SODIUM 1,000 UN/ML (10ML VL) ONE (10:38)
[2022-04-14] MEDS ORDERED: LIDOCAINE 1% INJ 10MG/ML (5 ML VIAL-PF) SQ ONE (10:49)
[2022-04-14] MEDS ORDERED: fentaNYL (PF) 50 MCG/ML 2 ML AMP IV ONE (10:49)
[2022-04-14] MEDS ORDERED: VERAPAMIL SYRINGE (5 MG/10 ML) INTRAARTER ONE (10:51)
[2022-04-14] MEDS ORDERED: HEPARIN SODIUM 1,000 UN/ML (10ML VL) IV ONE (10:54)
[2022-04-14] MEDS ORDERED: IOPAMIDOL-370 125ML BTL INJ ONE (11:03)
[2022-04-14] MEDS ORDERED: RX INFO: IV CONTRAST WAS GIVEN 1 EACH MISC MISCELLANE PRN (11:11)
[2022-04-14] MEDS ORDERED: SODIUM CHLORIDE 0.9% 1,000 ML IV SCH (11:15)
--- NOTE | 2022-04-14 11:18 | P.CARDCATH ---
Date of Procedure: 04/14/22 Description of Procedure: Cardiac Catheterization: The patient is a 61-year-old male with a known history of CAD, status post stenting of the RCA on April 03 when he presented with acute coronary syndrome, history of hypertension, hyperlipidemia and chronic tobacco use who started complaining of chest discomfort, improved with nitroglycerin. Recommendations were made regarding cardiac catheterization, the risks and the complications were discussed with the patient who is in full understanding and agreement. Procedure Description: Patient was brought to medical laboratory technicians in fasting semi-sedated state after receiving Fentanyl and Benadryl achieiving moderate conscious sedated state. Using Xylocaine Anesthesia and Seldinger technique, a 6[place] sheath was introduced in the right radial artery . Subsequently, selective coronary angiography was performed using a 5-[place] 3.5 bend Jalil catheter. Multiple views of the coronary artery including hemiaxial views were obtained. The 5[place] pigtail catheter was used to cross the aortic valve and LVEDP was calculated. Following that, catheter and sheath were removed. Hemostasis was obtained with deployment of TR band . There was no immediate complication. Patient was returned to room in stable condition. Of note, the patient received a total of 4000 units of intravenous heparin as well as intra-arterial verapamil. Findings: Left main: This is a large size vessel, trifurcating into LAD, left circumflex and ramus intermedius, left main has no high-grade stenosis. LAD: This is a large size vessel, tapers down in the distal third, gives rise to a moderately sized diagonal branch in the mid segment. The ostium has a 50% plaque, the mid LAD has a 30% plaque the rest of the vessel has no high-grade stenosis. Left circumflex: This is a nondominant vessel giving rise to 2 small obtuse marginal branch, the proximal left circumflex has 20-30% disease RCA: This is a large dominant vessel, bifurcating distally into PDA and PLV. The stented segment is patent with no evidence of in-stent restenosis. The proximal RCA has a 20% plaque, the ostium has about a 30% stenosis. Ramus intermedius: This is a large size vessel, reaching to the apical lateral wall, has a 40-50% tubular lesion in the midsegment, the rest of the vessel has no high-grade stenosis. Left Ventriculogram: Not performed Hemodynamics: There was no gradient across the aortic valve, LVEDP was 15-18 mmHg Conclusion: 1. Patent stent in the right coronary artery 2. Moderate disease in the ostium of the LAD 3. Mild to moderate disease in the ramus intermedius and left circumflex with no progression 4. Right dominance Recommendations: At this time I will continue medical therapy with aggressive coronary risks modification. The findings and the recommendations were discussed with the patient and the family and they were in full understanding and agreement. Duration of sedation is 17 minutes.
[2022-04-14 15:33] VITALS: BP 130/71; PULSE 67
[2022-04-14] MEDS ORDERED: NON FORMULARY DRUG (Gabapentin [Gabapentin] 800 MG Tablet) PO SCH (21:00)
[2022-04-14] MEDS ORDERED: METOPROLOL TARTRATE 25 MG TAB PO SCH (21:00)
[2022-04-15] MEDS ORDERED: NON FORMULARY DRUG (Omeprazole [Omeprazole] 40 MG Capsule.Dr) PO SCH (09:00)
[2022-04-15] MEDS ORDERED: NON FORMULARY DRUG (Aspirin Ec 81 MG Tablet) PO SCH (09:00)
[2022-04-15] MEDS ORDERED: predniSONE 10 MG TAB PO SCH (09:00)
[2022-04-15] MEDS ORDERED: ATORVASTATIN 80 MG TAB PO SCH (09:00)
[2022-04-15] MEDS ORDERED: VALSARTAN 40 MG TAB PO SCH (09:00)
[2022-04-15] MEDS ORDERED: PRASUGREL 10 MG TAB PO SCH (09:00)
== END 2022-04-14 14:31 | disposition home or self-care (01) ==
LOC: CATHCVL 09:16
PROVIDERS: ATTEND Internal Medicine Interventional Cardiology
DX: I25.10 Atherosclerotic heart disease of native coronary artery without angina pectoris (principal); I24.9 Acute ischemic heart disease, unspecified; I10 Essential (primary) hypertension; F17.210 Nicotine dependence, cigarettes, uncomplicated; Z79.810 Long term (current) use of selective estrogen receptor modulators (SERMs); Z79.811 Long term (current) use of aromatase inhibitors; Z79.01 Long term (current) use of anticoagulants; Z79.02 Long term (current) use of antithrombotics/antiplatelets; Z79.899 Other long term (current) drug therapy; Z82.49 Family history of ischemic heart disease and other diseases of the circulatory system; Z79.82 Long term (current) use of aspirin; I25.2 Old myocardial infarction; Z79.891 Long term (current) use of opiate analgesic; Z79.52 Long term (current) use of systemic steroids; Z88.1 Allergy status to other antibiotic agents; K21.9 Gastro-esophageal reflux disease without esophagitis; M19.90 Unspecified osteoarthritis, unspecified site; Z98.890 Other specified postprocedural states; F10.20 Alcohol dependence, uncomplicated; Z98.61 Coronary angioplasty status; E78.2 Mixed hyperlipidemia
CPT/HCPCS: 93458; 80048; 85025; C1894; C1769; J2001; J3010; J1644; Q9967

== ENCOUNTER → 2022-05-02 | Outpatient (CLI) | payer OTHER ==
[2022-05-02 17:58] LABS: Blood Urea Nitrogen 11.9 mg/dL (9.0-27.0)
[2022-05-02 18:04] LABS: Basophils # (A) 0.07 X 10*3/uL (0.00-0.10); Basophils % (A) 0.6 %; Eosinophils # (A) 0.12 X 10*3/uL (0.04-0.35); Eosinophils % (A) 1.1 %; HCT 42.9 % (39.6-50.0); Immature Grans, Automated 0.5 %; Lymphocytes # (A) 3.33 X 10*3/uL (0.90-5.00); Lymphocytes % (A) 30.6 %; MCH 31.4 pg (27.0-32.0); MCHC 32.6 g/dL (32.0-37.0); MCV 96.2 fL (80.0-97.0); Mean Platelet Volume 10.3 fL (9.5-12.2); Monocytes # (A) 0.62 X 10*3/uL (0.20-1.00); Monocytes % (A) 5.7 %; NRBC Per 100 WBC 0 /100 WBCS (0.0-0.0); Neutrophils % (A) 61.5 %; Platelet Count 207 X 10*3/uL (140-440); RBC 4.46 X 10*6/uL (4.40-5.60); RDW 12.9 % (11.5-14.5); WBC 10.89 X 10*3/uL (4.50-10.00)
[2022-05-02 18:38] LABS: Erythrocyte Sedimentation Rate 7 mm/Hr (0-20)
== END ==
LOC: LABWHC1 10:16
PROVIDERS: ATTEND Internal Medicine Rheumatology
DX: M25.50 Pain in unspecified joint (principal); M06.4 Inflammatory polyarthropathy
CPT/HCPCS: 36415; 84450; 84460; 84520; 85025; 85652

== ENCOUNTER 2022-07-25 17:59 | Inpatient (IN) | payer OTHER ==
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
[2022-07-25 19:01] LABS: ALT 22 U/L (4-49); AST 24 U/L (17-59); African American GFR (CKD) >90 (>60 ml/min/1.73 sqM); Albumin 4.1 g/dL (3.5-5.0); Alkaline Phosphatase 69 U/L (38-126); Anion Gap 11 mmol/L; Blood Urea Nitrogen 17 mg/dL (9-20); Calcium 8.5 mg/dL (8.4-10.2); Carbon Dioxide 24 mmol/L (22-30); Chloride 103 mmol/L (98-107); Glucose 87 mg/dL (74-99); Magnesium 2.1 mg/dL (1.6-2.3); Non-African American GFR(CKD) 89 (>60 ml/min/1.73 sqM); Sodium 138 mmol/L (137-145); Total Bilirubin 0.6 mg/dL (0.2-1.3); Total Protein 6.6 g/dL (6.3-8.2)
[2022-07-25 19:06] LABS: Partial Thromboplastin Time 23.3 sec (22.0-30.0); Prothrombin Time 10.8 sec (9.0-12.0)
--- NOTE | 2022-07-25 19:18 | XR ---
EXAMINATION TYPE: XR chest 2V DATE OF EXAM: 07/25/2022 COMPARISON: 04/03/2022 INDICATION: Chest pain TECHNIQUE: Frontal and lateral views of the chest are obtained. FINDINGS: The heart size is normal. The pulmonary vasculature is normal. The lungs are clear. IMPRESSION: 1. No acute pulmonary process.
[2022-07-25 19:24] LABS: Basophils # (A) 0.1 k/uL (0-0.2); Basophils % (A) 1 %; Eosinophils # (A) 0.1 k/uL (0-0.7); Eosinophils % (A) 1 %; HCT 39.4 % (39.0-53.0); HGB 13.4 gm/dL (13.0-17.5); Lymphocytes # (A) 3.2 k/uL (1.0-4.8); Lymphocytes % (A) 33 %; MCH 32.1 pg (25.0-35.0); MCHC 34.1 g/dL (31.0-37.0); MCV 94.1 fL (80.0-100.0); Mean Platelet Volume 7.4; Monocytes # (A) 0.7 k/uL (0-1.0); Monocytes % (A) 8 %; Neutrophils # (A) 5.4 k/uL (1.3-7.7); Neutrophils % (A) 55 %; Platelet Count 207 k/uL (150-450); RBC 4.18 m/uL (4.30-5.90); RDW 13.1 % (11.5-15.5); WBC 9.7 k/uL (3.8-10.6)
[2022-07-25 19:39] LABS: Potassium 3.9 mmol/L (3.5-5.1)
[2022-07-25] MEDS ORDERED: HEPARIN SODIUM 1,000 UN/ML (10ML VL) IV ONE (19:49)
[2022-07-25] MEDS ORDERED: HEPARIN SODIUM 1,000 UN/ML (10ML VL) IV PRN (19:49)
[2022-07-25] MEDS: HEPARIN SOD,PORK IN 0.45% NACL 25,000 UNIT in 0.45% NACL 1 250ML.BAG IV SCH (20:04)
[2022-07-25] MEDS ORDERED: NITROGLYCERIN SL TABS 0.4 MG TAB SUBLINGUAL PRN (20:42)
[2022-07-25] MEDS ORDERED: HYDROcodone/APAP 7.5-325MG 1 EACH TAB PO PRN (20:45)
[2022-07-25 20:46] LABS: Basophils % (A) 1 %; Eosinophils # (A) 0.1 k/uL (0-0.7); Eosinophils % (A) 2 %; HCT 38.4 % (39.0-53.0); HGB 13.1 gm/dL (13.0-17.5); Lymphocytes % (A) 37 %; MCH 32.5 pg (25.0-35.0); MCHC 34.1 g/dL (31.0-37.0); MCV 95.2 fL (80.0-100.0); Mean Platelet Volume 7.6; Monocytes # (A) 0.6 k/uL (0-1.0); Monocytes % (A) 8 %; Neutrophils # (A) 4.1 k/uL (1.3-7.7); Neutrophils % (A) 51 %; Platelet Count 193 k/uL (150-450); RBC 4.03 m/uL (4.30-5.90); RDW 13.1 % (11.5-15.5)
[2022-07-25 21:31] LABS: INR 1.2 (<1.2); Prothrombin Time 12.1 sec (9.0-12.0)
[2022-07-25 21:35] LABS: Partial Thromboplastin Time 154.7 sec (22.0-30.0)
[2022-07-25] MEDS: GABAPENTIN 400 MG CAP PO SCH (22:29)
[2022-07-25] MEDS: METOPROLOL TARTRATE 25 MG TAB PO SCH (22:30)
[2022-07-26] MEDS: SODIUM CHLORIDE 0.9% 1,000 ML IV SCH ×2 (00:28→21:04)
[2022-07-26 02:08] LABS: Basophils % (A) 0 %; Eosinophils # (A) 0.1 k/uL (0-0.7); Eosinophils % (A) 2 %; HCT 38.7 % (39.0-53.0); HGB 13.6 gm/dL (13.0-17.5); Lymphocytes % (A) 42 %; MCH 32.9 pg (25.0-35.0); MCV 93.9 fL (80.0-100.0); Mean Platelet Volume 7.9; Monocytes # (A) 0.6 k/uL (0-1.0); Monocytes % (A) 8 %; Neutrophils # (A) 3.1 k/uL (1.3-7.7); Neutrophils % (A) 44 %; Platelet Count 188 k/uL (150-450); RBC 4.13 m/uL (4.30-5.90); RDW 13.6 % (11.5-15.5); WBC 7.1 k/uL (3.8-10.6)
[2022-07-26 02:18] LABS: INR 1.1 (<1.2); Partial Thromboplastin Time 41.6 sec (22.0-30.0); Prothrombin Time 11.4 sec (9.0-12.0)
[2022-07-26] MEDS: HEPARIN SOD,PORK IN 0.45% NACL 25,000 UNIT in 0.45% NACL 1 250ML.BAG IV SCH ×2 (02:32→20:25)
[2022-07-26] MEDS ORDERED: AMINOPHYLLINE 500 MG/20 ML VIAL IV PRN (09:05)
[2022-07-26] MEDS ORDERED: REGADENOSON 0.4 MG/5 ML SYRINGE IV PRN (09:05)
[2022-07-26] MEDS ORDERED: CAFFEINE CITRATE 60 MG/3 ML VIAL IV PRN (09:05)
--- NOTE | 2022-07-26 12:09 | CONS ---
CONSULTATION HISTORY OF PRESENT ILLNESS: Christ Valdez is a gentleman, who has a known history of CAD, previous mid RCA stent, and his last catheterization from March 2022, revealed 50% ostial LAD, 45% mid ramus, and 30% proximal circumflex disease. His RCA was stented on April 03, 2022. It was patent on April 14. He came into the hospital with complaints of nondescript burning sensation in the neck, and he took nitroglycerins and did not seem to get immediate relief. However, he came in with these symptoms. He is resting comfortably. His troponins are normal. He is a fairly active person and does quite a bit of physical work. He has history of hypertension and hyperlipidemia as well. At the time of my evaluation, he is asymptomatic and resting comfortably. PAST MEDICAL HISTORY: 1. CAD with a history of previous PCI of mid RCA with moderate disease in other vessels. Procedure was performed on April 03, 2022. 2. Hypertension. 3. Hyperlipidemia. MEDICATIONS AT HOME: Include: 1. Imdur 30 mg daily. 2. Lipitor 80 mg daily. 3. Aspirin 81 mg daily. 4. Hydrochlorothiazide 25 mg daily. 5. Metoprolol tartrate 25 mg b.i.d. 6. Prasugrel 10 mg daily. 7. Omeprazole 20 mg daily. PHYSICAL EXAMINATION: VITAL SIGNS: Blood pressure is 130/80. Pulse rate is 60 per minute, regular. HEENT: Unremarkable. Fundus was not examined by me. NECK: Supple. No JVD. I do not hear a carotid bruit. There is no thyromegaly. HEART: Reveals S1 and S2 heard normally. No significant murmurs. LUNGS: Reveal bilateral decent air entry. ABDOMEN: Soft and nontender. EXTREMITIES: Lower extremities reveal normal pulses. No edema. CENTRAL NERVOUS SYSTEM: Normal. DIAGNOSTIC STUDIES: EKG revealed sinus mechanism, no acute changes. LABORATORY DATA: Reveal that his 3 sets of troponins are normal. Hemoglobin, platelet count, and renal function are also within normal limits. His troponin profile is flat with 0.05, 0.06, and 0.04. IMPRESSION: 1. Chest pain syndrome. 2. History of coronary artery disease with prior right coronary artery percutaneous coronary intervention with moderate disease in other vessels. 3. Hypertension. 4. Hyperlipidemia. RECOMMENDATIONS: I am recommending that we will do a Lexiscan stress test, and based on the findings, I will make further recommendations. If abnormal, I will perform cardiac catheterization. If it is normal, he will be discharged home. Discussed my thoughts in detail with the patient. Advised to continue his current medical regimen for now. ARMOND / MIGUEL ANGEL: [id number] /
[2022-07-26] MEDS: PANTOPRAZOLE 40 MG TABLET PO SCH (12:18)
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
--- NOTE | 2022-07-26 12:23 | NM ---
EXAMINATION TYPE: NM stress lexiscan cardiolite DATE OF EXAM: 07/26/2022 COMPARISON: NONE HISTORY: Chest pain TECHNIQUE: After the intravenous administration of 10.06 mCi Tc 99m Sestamibi - Cardiolite resting S PECT images acquired 45 minutes post injection. The patient received 0.4mg Lexiscan, 24.7 mCi Tc 99m Sestamibi - Stress images obtained [address] injection FINDINGS: Review of stress and rest SPECT images demonstrates stress-induced reversibility involving the apical septal and anteroapical portion of the myocardium with additional areas of fixed defect to suggest p rior infarction. Corresponding wall motion reduction.. Gated analysis an estimated left ventricular ejection fraction of 63 %. Report called to the patient's nurse 12:20 PM 07/26/2022. IMPRESSION: A large area of fixed defect involving the myocardial septum with areas of stress-induced reversible ischemia suspected involving the apical septal and apical anterior portion of the myocardium.
[2022-07-26] MEDS: ASPIRIN 325 MG TAB PO SCH (12:29)
[2022-07-26] MEDS: ATORVASTATIN 80 MG TAB PO SCH (12:29)
[2022-07-26] MEDS: VALSARTAN 80 MG TAB PO SCH (12:29)
[2022-07-26] MEDS: METOPROLOL TARTRATE 25 MG TAB PO SCH ×2 (12:29→20:48)
[2022-07-26] MEDS ORDERED: NITROGLYCERIN SL TABS 0.4 MG TAB SUBLINGUAL PRN (13:33)
[2022-07-26] MEDS ORDERED: ALPRAZolam 0.25 MG TAB PO PRN (13:33)
[2022-07-26] MEDS ORDERED: ALPRAZolam 0.5 MG TAB PO PRN (13:33)
[2022-07-26] MEDS ORDERED: ASPIRIN 325 MG TAB PO STA (13:33)
--- NOTE | 2022-07-26 14:37 | US ---
EXAMINATION TYPE: US carotid duplex BILAT DATE OF EXAM: 07/26/2022 COMPARISON: NONE CLINICAL HISTORY: history of PVD. Hx of PVD. Current smoker, hypertension,hyperlipidemia. TECHNIQUE: Carotid duplex ultrasound examination. Indirect Doppler criteria was utilized. 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 Stenosis seen within left proxi mal ICA. Elevated velocity up to 448.2 cm/s at proximal left ICA. ICA/CCA ratio was 6.0 on the left . Plaque seen within bilateral bulbs and bifurcations. IMPRESSION: Bilateral atherosclerotic plaque with findings suggestive of a gravity than 70% severe stenosis of th e proximal left ICA. Criteria for Assigning % of Stenosis / Diameter reduction (Estimation based on the indirect measurements of the internal carotid artery velocities (ICA PSV). 1. Normal (no stenosis)=ICA PSV < 125 cm/s: ratio < 2.0: ICA EDV<40 cm/s. 2. Less than 50% stenosis=ICA PSV < 125 cm/s: ratio < 2.0: ICA EDV<40 cm/s. 3. 50 to 69% stenosis=ICA PSV of 125 to 230 cm/s: ration 2.0 ? 4.0: ICA EDV 40-100 cm/s. 4. Greater than 70% stenosis to near occlusion= ICA PSV > 230 cm/s: ratio > 4.0: ICA EDV > 100 cm/s. 5. Near occlusion= ICA PSV velocities may be low or undetectable: variable ratio and ICA EDV. 6. Total occlusion=unable to detect flow.
[2022-07-26 15:55] LABS: Chol/HDL Ratio 3.25 Ratio; LDL Cholesterol,Calculated 55.8 mg/dL (0.0-131.0)
--- NOTE | 2022-07-26 18:25 | CA ---
Lexiscan Nuclear Stress Test Report Name: Christ Valdez Exam Date: 07/26/2022 10:33 Exam Location: [facility] Ht (in): 67 Wt (lb): 193 BSA: 1.99 Ordering Phys: Trinity Navas Referring Phys: [id number], Technologist: DERIC,, Age: 62 Gender: M : 1960 Procedure CPT: Indications: Reflex order-Stress test ICD-10 Codes: Patient History: Chest pain Medications: Meds past 24 hrs: Pretest Chest Pain: STRESS TEST Lexiscan Protocol Exercise Duration (min:sec): 01:[address] Depressions (mm): Angina Score: Quarles Score: Resting HR (bpm): 56 Peak HR (bpm): 89 Resting BP (mmHg): 152 / 81 Peak BP (mmHg): 139 / 72 MPHR: 157 Target HR: 133 % MPHR: 57 METS: 1.0 Total Dose: Peak Dose: Atropine: Double Product: 99508 BP Response: Stress Termination: INFUSION COMPLETE Stress Symptoms: STOMACH ACHE Stress Summary: ECG ANALYSIS Resting ECG: Stress ECG: CONCLUSIONS Lexiscan Cardilate stress test Baseline 12-lead EKG showed sinus mechanism with early repolarization abnormality inferolaterally Baseline heart rate 56 beats a minute, Baseline blood pressure 152/81 mmHg No significant change in heart rate. Normal blood pressure response Patient complained of abdominal discomfort There was no procedures for ischemia 1 sinus pauses noted, asymptomatic Nuclear portion will be reported separately Dr. Manish Modi MD (Electronically Signed) Final Date: 26 July 2022 18:24
[2022-07-26] MEDS: GABAPENTIN 400 MG CAP PO SCH (20:26)
[2022-07-27] MEDS ORDERED: ASPIRIN 325 MG TAB PO ONE (05:00)
[2022-07-27] MEDS ORDERED: ATORVASTATIN 80 MG TAB PO ONE (05:00)
[2022-07-27 06:19] LABS: Glucose,Whole Blood 111 mg/dL (70-110)
[2022-07-27] MEDS: ASPIRIN 325 MG TAB PO SCH ×2 (06:59→13:39)
[2022-07-27] MEDS: ATORVASTATIN 80 MG TAB PO SCH ×2 (06:59→13:39)
[2022-07-27] MEDS ORDERED: HEPARIN SODIUM,PORCINE 10,000 UNIT in SODIUM CHLORIDE 0.9% 1,000 ML IRRIGATION PRN (07:00)
[2022-07-27] MEDS ORDERED: HEPARIN SODIUM,PORCINE 2,500 UNIT in SODIUM CHLORIDE 0.9% 250 ML IRRIGATION PRN (07:00)
[2022-07-27] MEDS: METOPROLOL TARTRATE 25 MG TAB PO SCH ×2 (07:03→20:17)
[2022-07-27] MEDS: VALSARTAN 80 MG TAB PO SCH (07:03)
[2022-07-27] MEDS: PANTOPRAZOLE 40 MG TABLET PO SCH (07:03)
--- NOTE | 2022-07-27 11:32 | P.PN ---
Subjective Progress Note Date: 07/27/22 History of present illness: This is a 62-year-old patient of Dr. Valderrama with past medical history of CAD with previous RCA stent March 2022 with cardiac catheterization revealed 50% ostial LAD, 45% mid ramus and 30% proximal circumflex disease. RCA was stented on 04/03/2022. He had a repeat catheterization on April 14 which showed patent stent. Patient presented to the hospital with burning sensation in the neck and took nitroglycerin that seemed to give him some relief. Yesterday, patient underwent a stress test which came back abnormal and he is scheduled for cardiac catheterization today with Dr. Catalan. Carotid ultrasound revealed bilateral plaque 70% severe stenosis of the proximal left ICA. Assessment: Chest pain syndrome with abnormal Lexiscan stress test History of coronary artery disease and prior PCI with moderate disease in other vessels Hypertension Hyperlipidemia Plan: Patient is scheduled for cardiac catheterization today Further recommendations to follow based upon clinical course Nurse practitioner note has been reviewed, I agree with documented findings and plan of care. Patient was seen and examined. Objective - Vital Signs Vital signs: Vital Signs Temp 97.9 F 07/27/22 11:07 Pulse 46 L 07/27/22 11:07 Resp 18 07/27/22 11:07 BP 115/65 07/27/22 11:07 Pulse Ox 97 07/27/22 11:07 FiO2 Intake & Output 07/26/22 07/27/22 07/27/22 18:59 06:59 18:59 Intake Total 180 210.147 Balance 180 210.147 Intake: Intake, IV Titration 210.147 Amount Heparin Sod,Pork in 0.45% 210.147 NaCl 25,000 unit In 0.45 % NaCl 1 250ml.bag @ 11. 423 UNITS/KG/HR 10 mls/hr IV .Q24H [facility] Rx#: [id number] Oral 180 0 Other: Voiding Method Toilet Toilet # Voids 1 1 - Labs CBC & Chem 7: 07/26/22 01:36 07/25/22 18:35 Labs: Abnormal Lab Results - Last 24 Hours (Table) 07/26/22 07/26/22 07/27/22 Range/Units 08:40 18:36 03:02 APTT 36.1 H 67.8 H (22.0-30.0) sec POC Glucose (mg/dL) (70-110) mg/dL Triglycerides 296.00 H (0.00-149.00) mg/dL VLDL Cholesterol, Calc 59.20 H (5.00-40.00) mg/dL 07/27/22 Range/Units 06:18 APTT (22.0-30.0) sec POC Glucose (mg/dL) 111 H (70-110) mg/dL Triglycerides (0.00-149.00) mg/dL VLDL Cholesterol, Calc (5.00-40.00) mg/dL
[2022-07-27] MEDS ORDERED: ALPRAZolam 0.25 MG TAB PO PRN (13:28)
[2022-07-27] MEDS: HEPARIN SOD,PORK IN 0.45% NACL 25,000 UNIT in 0.45% NACL 1 250ML.BAG IV SCH (13:28)
[2022-07-27] MEDS ORDERED: ALPRAZolam 0.5 MG TAB PO PRN (13:28)
[2022-07-27] MEDS ORDERED: NITROGLYCERIN SL TABS 0.4 MG TAB SUBLINGUAL PRN (13:28)
--- NOTE | 2022-07-27 15:42 | P.PN ---
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 Reports PCP was attempting to acquire insurance authorization for carotid Doppler. Denies diaphoresis ,fever or chills. Denies nausea, vomiting, diarrhea or abdominal pain. Reports since March he has taken over 100 nitroglycerin sublinguals in addition to being on his long-acting Imdur. Reports he has decreased his nicotine intake from 2 packs a day to 1 pack a day, usually drinks 2-3 beers sometimes 5 daily. Reports strong family history of CAD, father with CABG, aneurysms and carotid stenosis. Chest x-ray reported no acute pulmonary process. EKG reported sinus rhythm, troponin 0.054, 0.061, 0.044. Afebrile, normal WBC. Hemoglobin 13.6, platelets 188, MCV 93.9, INR 1.1, sodium 138, potassium 3.9, bicarb 24, BUN 17, creatinine 0.91, magnesium 2.1. Evaluated by cardiology, patient is scheduled for Lexiscan stress test, carotid Doppler. 08/26/2022 yesterday completed Lexiscan stress test-reported abnormal. Scheduled for cardiac catheterization today. Carotid ultrasound reported bilateral plaque 70% severe stenosis of the proximal left ICA. Maintained on heparin drip. Denies any further chest pain while at rest. Objective - Vital Signs Vital signs: Vital Signs Temp 97.9 F 07/27/22 11:07 Pulse 46 L 07/27/22 11:07 Resp 18 07/27/22 13:20 BP 115/65 07/27/22 11:07 Pulse Ox 97 07/27/22 11:07 FiO2 Intake & Output 04/11/23 04/12/23 04/12/23 18:59 06:59 18:59 Intake Total 180 210.147 750 Balance 180 210.147 750 Intake: Intake, IV Titration 210.147 250 Amount Heparin Sod,Pork in 0.45% 210.147 250 NaCl 25,000 unit In 0.45 % NaCl 1 250ml.bag @ 11. 423 UNITS/KG/HR 10 mls/hr IV .Q24H [facility] Rx#: [id number] Oral 180 0 500 Other: Voiding Method Toilet Toilet # Voids 1 1 1 - Exam - Exam General: Sitting up at side of bed, alert and oriented 3, no acute distress HEENT: [Atraumatic ,PERRL. EOMI. ] Neck: Supple, no JVD Cardiac: [Heart regular in rate and rhythm. No S3. No S4. No clicks, rubs. No m urmur.] Lungs: Unlabored,clear to auscultation bilaterally. Abdomen: [No mass. No organomegaly. Bowel sounds presnt and normoactive in all 4 quadrants.] Extremes: [No edema no cyanosis, normal pulses Skin: [Warm and dry, No rash.] Neurologic: [ CN II - XII grossly intact. No focal deficits] - Labs CBC & Chem 7: 07/26/22 01:36 07/25/22 18:35 Labs: Abnormal Lab Results - Last 24 Hours (Table) 07/26/22 07/26/22 07/27/22 Range/Units 08:40 18:36 03:02 APTT 36.1 H 67.8 H (22.0-30.0) sec POC Glucose (mg/dL) (70-110) mg/dL Triglycerides 296.00 H (0.00-149.00) mg/dL VLDL Cholesterol, Calc 59.20 H (5.00-40.00) mg/dL 07/27/22 07/27/22 Range/Units 06:18 10:43 APTT 74.2 H (22.0-30.0) sec POC Glucose (mg/dL) 111 H (70-110) mg/dL Triglycerides (0.00-149.00) mg/dL VLDL Cholesterol, Calc (5.00-40.00) mg/dL Assessment and Plan Assessment: Chest pain, midsternal With bilateral carotid burning pressure ,elevated tro ponins, abnormal Lexiscan stress test, cardiac catheterization pending CAD, history of recent NSTEMI,s/p PCI RCA 04/03/22 Proximal left ICA 70% severe stenosis Hypertension Hyperlipidemia Gastroesophageal reflux disease Obesity, BMI 30.4 Ongoing nicotine dependence, decreased from 2 packs to 1 pack per day Daily alcohol intake History of PE Plan: Continue on current medication regime ,monitoring and symptomatic treatment. Maintain anticoagulation with heparin drip. Cardiac catheterization pending. Smoking cessation reinforced. Vascular surgery consulted for carotid stenosis. Prognosis guarded given multiple complex medical issues. The impression and plan of care has been dictated as directed. : I performed a history and examination of this patient, discussed the same with the dictator. I agree with the dictator's note ,documented as a scribe. Any additional findings or plans will be noted.
[2022-07-27] MEDS: GABAPENTIN 400 MG CAP PO SCH (20:17)
[2022-07-27] MEDS: predniSONE 10 MG TAB PO SCH (20:17)
[2022-07-27] MEDS ORDERED: ISOSORBIDE MONONITRATE ER 30 MG TAB.ER.24H PO SCH (21:00)
[2022-07-28] MEDS ORDERED: ATORVASTATIN 80 MG TAB PO ONE (05:00)
[2022-07-28] MEDS ORDERED: ASPIRIN 325 MG TAB PO ONE (05:00)
[2022-07-28] MEDS: METOPROLOL TARTRATE 25 MG TAB PO SCH ×4 (05:40→20:58)
[2022-07-28] MEDS: HEPARIN SOD,PORK IN 0.45% NACL 25,000 UNIT in 0.45% NACL 1 250ML.BAG IV SCH ×2 (05:41→10:45)
[2022-07-28] MEDS: SODIUM CHLORIDE 0.9% 1,000 ML IV SCH ×2 (05:41→18:11)
[2022-07-28 06:08] LABS: Glucose,Whole Blood 140 mg/dL (70-110)
[2022-07-28] MEDS: PANTOPRAZOLE 40 MG TABLET PO SCH (06:27)
[2022-07-28] MEDS: VALSARTAN 80 MG TAB PO SCH (06:28)
[2022-07-28] MEDS ORDERED: VERAPAMIL 2.5 MG/ML 2 ML AMP ONE (06:52)
[2022-07-28] MEDS ORDERED: fentaNYL (PF) 50 MCG/ML 2 ML AMP ONE (06:52)
[2022-07-28] MEDS ORDERED: HEPARIN SODIUM 1,000 UN/ML (10ML VL) ONE (06:52)
[2022-07-28] MEDS ORDERED: fentaNYL (PF) 50 MCG/ML 2 ML AMP IVP ONE (07:00)
[2022-07-28] MEDS ORDERED: HEPARIN SODIUM,PORCINE 2,500 UNIT in SODIUM CHLORIDE 0.9% 250 ML IRRIGATION PRN (07:00)
[2022-07-28] MEDS ORDERED: SODIUM CHLORIDE 0.9% 1,000 ML IV ONE (07:00)
[2022-07-28] MEDS ORDERED: HEPARIN SODIUM,PORCINE 10,000 UNIT in SODIUM CHLORIDE 0.9% 1,000 ML IRRIGATION PRN (07:00)
[2022-07-28] MEDS ORDERED: LIDOCAINE 1% INJ 10MG/ML (5 ML VIAL-PF) SQ ONE (07:02)
[2022-07-28] MEDS ORDERED: VERAPAMIL SYRINGE (5 MG/10 ML) INTRAARTER ONE (07:03)
[2022-07-28] MEDS ORDERED: HEPARIN SODIUM 1,000 UN/ML (10ML VL) IVP ONE (07:07)
[2022-07-28] MEDS ORDERED: SODIUM CHLORIDE 0.9% 1,000 ML IV SCH (07:30)
[2022-07-28] MEDS ORDERED: RX INFO: IV CONTRAST WAS GIVEN 1 EACH MISC MISCELLANE PRN (07:30)
[2022-07-28] MEDS ORDERED: HEPARIN SODIUM 1,000 UN/ML (10ML VL) IV PRN (07:32)
--- NOTE | 2022-07-28 07:41 | P.CARDCATH ---
Date of Procedure: 07/28/22 Description of Procedure: Cardiac Catheterization: The patient is a 62-year-old male with a known history of CAD, status post inferior wall myocardial infarction in March 2022, history of hypertension, hyperlipidemia and diabetes mellitus who presented with non-STEMI and had an abnormal MPI. Recommendations were made regarding cardiac catheterization, the risks and the complications were discussed with the patient who is in full understanding and agreement. Procedure Description: Patient was brought to can labeler in fasting semi-sedated state after receiving Fentanyl and Benadryl achieiving moderate conscious sedated state. Using Xylocaine Anesthesia and Seldinger technique, a 6-[place] sheath was introduced in the right radial artery . Subsequently, selective coronary angiography was performed using a 5-[place] 3.5 bend Jalil catheter. Multiple views of the coronary artery including hemiaxial views were obtained. The 5-[place] right Jalil catheter was used to cross the aortic valve and LVEDP was calculated. Following that, catheter and sheath were removed. Hemostasis was obtained with deployment of TR band . There was no immediate complication. Patient was returned to room in stable condition. Of note, the patient received a total of 4500 units of intravenous heparin as well as intra-arterial verapamil. Findings: Fluoroscopy: Calcifications involving the coronary arteries was noted Left main: This is a large size vessel, trifurcating into LAD, left circumflex and ramus intermedius, the left main has 10-20% plaque distally LAD: This is a large sided vessel, reaching to the apex giving rise to moderately sized diagonal branch in the mid segment, the ostium of the left circ umflex has 99% stenosis with slow flow that improved after intra-coronary nitroglycerin. There is another plaque prior to the septal hotel administrative assistant takeoff of about 50%. The rest of the vessel has no evidence of high-grade stenosis Left circumflex: This is a nondominant vessel giving rise to 2 obtuse marginal branch the proximal left circumflex has 95% stenosis, the rest of the vessel has no high-grade stenosis RCA: This is a large dominant vessel, bifurcating into PDA and PLV. The stented segment in the mid RCA is patent. There is a 30% plaque in the midsegment, the rest of the vessel has no high-grade stenosis. Ramus intermedius: This is a large size vessel reaching to the apical lateral wall of the proximal segment of the ramus intermedius has a 60-70% stenosis Collaterals: There is septal collateral from the right PDA towards the LAD Left Ventriculogram: Not performed Hemodynamics: There was no gradient across the aortic valve , LVEDP was 12-15 mmHg Conclusion: 1. Severe stenosis involving the ostium of the LAD and the proximal left circumflex 2. Significant disease in the ramus intermedius 3. Mild disease in the RCA with patent stent 4. 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 The findings and the recommendations were discussed with the patient and the family and they were in full understanding and agreement. Duration of sedation is 17 minutes.
[2022-07-28 08:47] LABS: Basophils % (A) 0 %; Eosinophils # (A) 0.1 k/uL (0-0.7); Eosinophils % (A) 2 %; HCT 39.1 % (39.0-53.0); HGB 13.3 gm/dL (13.0-17.5); Lymphocytes # (A) 1.7 k/uL (1.0-4.8); Lymphocytes % (A) 24 %; MCH 32.6 pg (25.0-35.0); MCHC 33.9 g/dL (31.0-37.0); Mean Platelet Volume 7.9; Monocytes # (A) 0.5 k/uL (0-1.0); Monocytes % (A) 7 %; Neutrophils # (A) 4.6 k/uL (1.3-7.7); Neutrophils % (A) 65 %; Platelet Count 168 k/uL (150-450); RBC 4.08 m/uL (4.30-5.90); RDW 13.6 % (11.5-15.5)
[2022-07-28] MEDS ORDERED: MD COMMUNICATION TO PHARMACY 1 EACH MISC PO ONE ×2 (08:56→16:27)
[2022-07-28] MEDS ORDERED: PRASUGREL 10 MG TAB PO SCH (09:00)
[2022-07-28 09:05] LABS: INR 1.1 (<1.2); Partial Thromboplastin Time 89.6 sec (22.0-30.0); Prothrombin Time 11.1 sec (9.0-12.0)
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
[2022-07-28] MEDS: NITROGLYCERIN OINT 1 INCH/GM PACKET TOPICAL SCH ×3 (10:44→23:58)
[2022-07-28] MEDS: NICOTINE 21MG/24HR PATCH TRANSDERM SCH (10:44)
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
[2022-07-28 11:46] LABS: ALT 21 U/L (4-49); AST 24 U/L (17-59); African American GFR (CKD) >90 (>60 ml/min/1.73 sqM); Albumin 3.7 g/dL (3.5-5.0); Alkaline Phosphatase 64 U/L (38-126); Anion Gap 6 mmol/L; Blood Urea Nitrogen 15 mg/dL (9-20); Calcium 8.2 mg/dL (8.4-10.2); Carbon Dioxide 22 mmol/L (22-30); Chloride 109 mmol/L (98-107); Glucose 117 mg/dL (74-99); Non-African American GFR(CKD) >90 (>60 ml/min/1.73 sqM); Potassium 4.7 mmol/L (3.5-5.1); Sodium 137 mmol/L (137-145); Total Bilirubin 0.8 mg/dL (0.2-1.3)
--- NOTE | 2022-07-28 12:02 | P.PN ---
Subjective Progress Note Date: 07/28/22 H&P Date: 07/26/22 Chief Complaint: Chest pain History and Physical and Discharge Summary: This is a 62-year-old gentleman, works for [employer], with past medical history significant for recent NSTEMI,S/P PCI RCA 04/03/22,CAD, preserved EF ,hypertension, hyperlipidemia, chronic nicotine dependence, daily alcohol of 2-3 beers daily and multiple other medical issues presented to the ER with complaints of ongoing worsening midsternal and anterior neck including carotid burning pressure-"all occurring at the same time together -no radiation, occurs with climbing stairs, bending over,-feels like previous heart attack" since March. Reports PCP was attempting to acquire insurance authorization for carotid Doppler. Denies diaphoresis ,fever or chills. Denies nausea, vomiting, diarrhea or abdominal pain. Reports since March he has taken over 100 nitroglycerin sublinguals in addition to being on his long-acting Imdur. Reports he has decreased his nicotine intake from 2 packs a day to 1 pack a day, usually drinks 2-3 beers sometimes 5 daily. Reports strong family history of CAD, father with CABG, aneurysms and carotid stenosis. Chest x-ray reported no acute pulmonary process. EKG reported sinus rhythm, troponin 0.054, 0.061, 0.044. Afebrile, normal WBC. Hemoglobin 13.6, platelets 188, MCV 93.9, INR 1.1, sodium 138, potassium 3.9, bicarb 24, BUN 17, creatinine 0.91, magnesium 2.1. Evaluated by cardiology, patient is scheduled for Lexiscan stress test, carotid Doppler. 08/26/2022 yesterday completed Lexiscan stress test-reported abnormal. Scheduled for cardiac catheterization today. Carotid ultrasound reported bilateral plaque 70% severe stenosis of the proximal left ICA. Maintained on heparin drip. Denies any further chest pain while at rest. 07/28/2022 completed cardiac catheterization this morning, reporting severe stenosis involving the ostium of the LAD in the proximal left circumflex, significant disease in the ramus intermedius, mild disease in the RCA with pat ent stent and collaterals from the right coronary artery through the septals attendant [employer]. Cardiothoracic surgery consulted regarding further evaluation for CABG. maintained on heparin drip.Evaluated by vascular surgery regarding left high-grade ICA stenosis greater than 70% per carotid duplex. Renal function stable postcardiac catheterization and CTA of head and neck ordered as per vascular surgery. Denies chest pain, palpitations or shortness of breath. Objective - Vital Signs Vital signs: Vital Signs Temp 97.2 F L 07/28/22 07:48 Pulse 59 L 07/28/22 10:02 Resp 16 07/28/22 10:02 BP 123/59 07/28/22 08:55 Pulse Ox 95 07/28/22 08:10 FiO2 Intake & Output 07/27/22 07/28/22 07/28/22 18:59 06:59 18:59 Intake Total 868 438.957 50 Output Total 300 300 Balance 868 138.957 -250 Intake: IV 50 Intake, IV Titration 250 218.957 Amount Heparin Sod,Pork in 0.45% 250 218.957 NaCl 25,000 unit In 0.45 % NaCl 1 250ml.bag @ 11. 423 UNITS/KG/HR 10 mls/hr IV .Q24H [facility] Rx#: [id number] Oral 618 220 Output: Urine 300 300 Other: Voiding Method Toilet Toilet # Voids 1 2 - Exam - Exam General: Laying in bed, alert and oriented 3, no acute distress HEENT: [Atraumatic ,PERRL. EOMI. ] Neck: Supple, no JVD Cardiac: [Heart regular in rate and rhythm. No S3. No S4. No clicks, rubs. No murmur.] Lungs: Unlabored,clear to auscultation bilaterally. Abdomen: [Soft,No mass. No organomegaly.+BS. No guarding, no rigidity. Extremes: [No edema no cyanosis, normal pulses Skin: [Warm and dry, No rash.] Neurologic: [ CN II - XII grossly intact. No focal deficits] - Labs CBC & Chem 7: 07/28/22 08:34 07/25/22 18:35 Labs: Abnormal Lab Results - Last 24 Hours (Table) 07/27/22 07/28/22 07/28/22 Range/Units 10:43 06:06 08:34 RBC (4.30-5.90) m/uL APTT 74.2 H 89.6 H (22.0-30.0) sec POC Glucose (mg/dL) 140 H (70-110) mg/dL 07/28/22 Range/Units 08:34 RBC 4.08 L (4.30-5.90) m/uL APTT (22.0-30.0) sec POC Glucose (mg/dL) (70-110) mg/dL Assessment and Plan Assessment: Chest pain, midsternal With bilateral carotid burning pressure ,elevated troponins, abnormal Lexiscan stress test, cardiac catheterization reporting severe stenosis involving the ostium of the LAD and proximal left circumflex with significant disease in the ramus intermedius NSTEMI this admission CAD, history of recent NSTEMI,s/p PCI RCA 04/03/22 Proximal left ICA 70% severe stenosis Hypertension Hyperlipidemia Gastroesophageal reflux disease Obesity, BMI 30.4 Ongoing nicotine dependence, decreased from 2 packs to 1 pack per day, smoking cessation reinforced COPD, stable Daily alcohol dependence History of PE Plan: Continue on current medication regime ,monitoring and symptomatic treatment. CTS evaluation in progress. Maintain anticoagulation with heparin drip. CTA head and neck pending as per vascular surgery.Smoking cessation reinforced.Prognosis guarded given multiple complex medical issues. The impression and plan of care has been dictated as directed. : I performed a history and examination of this patient, discussed the same with the dictator. I agree with the dictator's note ,documented as a scribe. Any additional findings or plans will be noted.
[2022-07-28 12:51] LABS: Magnesium 2.4 mg/dL (1.6-2.3)
--- NOTE | 2022-07-28 14:57 | P.PN ---
Subjective Progress Note Date: 07/28/22 History of present illness: This is a 62-year-old patient of Dr. Valderrama with past medical history of CAD with previous RCA stent March 2022 with cardiac catheterization revealed 50% ostial LAD, 45% mid ramus and 30% proximal circumflex disease. RCA was stented on 04/03/2022. He had a repeat catheterization on April 14 which showed patent stent. Patient presented to the hospital with burning sensation in the neck and took nitroglycerin that seemed to give him some relief. Yesterday, patient underwent a stress test which came back abnormal and he is scheduled for cardiac catheterization today with Dr. Catalan. Carotid ultrasound revealed bilateral plaque 70% severe stenosis of the proximal left ICA. 07/28 Yesterday, patient underwent cardiac catheterization with Dr. Catalan which found severe stenosis involving the ostium of the LAD and proximal left circumflex. Significant disease in the ramus intermedius. Mild disease in the RCA with patent stent. Collaterals from the right coronary artery through the septals or freighter. Recommendation was for cardiothoracic surgery evaluation for CABG. Patient is seen today on the cardiac stepdown unit. Has been seen by cardiothoracic team Physical Examination Gen: This is a 62-year-old male sitting on the edge of the bed. Appears to be in no acute distress. HEENT: Head is atraumatic, normocephalic. Pupils equal, round. Sclerae is anicteric. NECK: Supple. No JVD. LUNGS: Bilateral air entry. No intercostal retractions. HEART: Regular rate and rhythm. No murmur. ABDOMEN: Soft. Bowel sounds are present. No masses. No tenderness. EXTREMITIES: No pedal edema. Dorsalis pedis palpable bilaterally. NEUROLOGICAL: Patient is awake, alert and oriented x3. Assessment: Chest pain syndrome with abnormal Lexiscan stress test secondary to multivessel coronary artery disease found on heart catheterization History of coronary artery disease and prior PCI with moderate disease in other vessels Hypertension Hyperlipidemia Carotid artery disease, 70% stenosis of the proximal left ICA Plan: Continue current cardiac medications Obtain 2-D echocardiogram today Further recommendations to follow based upon clinical course Nurse practitioner note has been reviewed, I agree with documented findings and plan of care. Patient was seen and examined. Objective - Vital Signs Vital signs: Vital Signs Temp 97.2 F L 07/28/22 07:48 Pulse 51 L 07/28/22 08:10 Resp 16 07/28/22 08:10 BP 127/67 07/28/22 08:10 Pulse Ox 95 07/28/22 08:10 FiO2 Intake & Output 07/27/22 07/28/22 07/28/22 18:59 06:59 18:59 Intake Total 868 438.957 50 Output Total 300 300 Balance 868 138.957 -250 Intake: IV 50 Intake, IV Titration 250 218.957 Amount Heparin Sod,Pork in 0.45% 250 218.957 NaCl 25,000 unit In 0.45 % NaCl 1 250ml.bag @ 11. 423 UNITS/KG/HR 10 mls/hr IV .Q24H [facility] Rx#: [id number] Oral 618 220 Output: Urine 300 300 Other: Voiding Method Toilet Toilet # Voids 1 2 - Labs CBC & Chem 7: 07/28/22 08:34 07/28/22 10:39 Labs: Abnormal Lab Results - Last 24 Hours (Table) 07/27/22 07/28/22 07/28/22 Range/Units 10:43 06:06 08:34 RBC 4.08 L (4.30-5.90) m/uL APTT 74.2 H (22.0-30.0) sec POC Glucose (mg/dL) 140 H (70-110) mg/dL
--- NOTE | 2022-07-28 15:55 | CA ---
Transthoracic Echo Report Name: Christ Valdez Age: 62 Gender: M : 1960 Exam Date: 07/28/2022 09:18 Exam Location: [facility] Ht (in): 67 Wt (lb): 194 Ordering Physician: Trinity Navas Attending/Referring Phys: [id number], Yosef Superintendent [employer] Moon Brown RDCS Procedure CPT: Indications: LVH Cardiac Hx: Technical Quality: Fair Contrast 1: Total Dose (mL): Contrast 2: Total Dose (mL): MEASUREMENTS (Male / Female) Normal Values M-MODE Aortic Root Diameter MM 2.9 cm AV Cusp Separation MM 1.7 cm DOPPLER AV Peak Velocity 194.2 cm/s AV Peak Gradient 15.1 mmHg LVOT Peak Velocity 146.0 cm/s LVOT Peak Gradient 8.5 mmHg MV Area PHT 3.5 cm??? MR Peak Velocity 354.2 cm/s MR Peak Gradient 50.2 mmHg Mitral E Point Velocity 84.2 cm/s Mitral A Point Velocity 110.6 cm/s Mitral E to A Ratio 0.8 MV Deceleration Time 217.1 ms FINDINGS Left Ventricle Left ventricular cavity size normal. Left ventricular wall thickness normal. Left ventricular ejection fraction is estimated at 55-60 %. Right Ventricle Normal right ventricular size. Normal right ventricular global systolic function. Right ventricular systolic pressure within normal limits. Right Atrium Normal right atrial size. Left Atrium Normal left atrial size. Mitral Valve Structurally normal mitral valve. Mild mitral regurgitation. Aortic Valve Trileaflet aortic valve. Aortic valve sclerosis. No aortic regurgitation. No aortic stenosis. Tricuspid Valve Structurally normal tricuspid valve. Pulmonic Valve Structurally normal pulmonic valve. Pericardium No pericardial or pleural effusion. Aorta Normal size aortic root and proximal ascending aorta. CONCLUSIONS Normal LV systolic function Previewed by: Dr. Manish Modi MD (Electronically Signed) Final Date: 28 July 2022 15:54
[2022-07-28 15:56] LABS: Hepatitis A Antibody IgM Nonreactive (Nonreactive); Hepatitis B Core IgM Nonreactive (Nonreactive); Hepatitis B Surface Antigen Nonreactive (Nonreactive); Hepatitis C IgG Antibody Nonreactive (Nonreactive)
[2022-07-28 16:03] LABS: Appearance,Urine Clear (Clear); Bilirubin,Urine Negative (Negative); Blood,Urine Negative (Negative); Color,Urine Yellow; Glucose,Urine (UA) Negative (Negative); Ketones,Urine Negative (Negative); Leukocyte Esterase,Urine Negative (Negative); Nitrite,Urine Negative (Negative); Protein,Urine Negative (Negative); Specific Gravity,Urine 1.038 (1.001-1.035); Urobilinogen,Urine <2.0 mg/dL (<2.0)
[2022-07-28] MEDS: SIMETHICONE 80 MG CHEWABLE PO SCH ×2 (16:42→20:58)
--- NOTE | 2022-07-28 18:00 | P.PN ---
Progress Note - Text Progress Note Date: 07/28/22 A 5 m walk test was completed with the patient, tolerated well without any complaints, time 1: 2.55 seconds, time 2: 1.87 seconds, time 3: 1.97 seconds.
--- NOTE | 2022-07-28 20:56 | XR ---
EXAMINATION TYPE: XR KUB DATE OF EXAM: 07/28/2022 4:57 PM CLINICAL HISTORY: Pain TECHNIQUE: 2 upright views COMPARISON: None. FINDINGS: Scattered gas is seen in non-distended small bowel loops. Gas and fecal material is seen in non-distended colon. There is no visceromegaly, pneumoperitoneum, or abnormal calcification apprecia andre. The lung bases are clear and the osseous structures are intact. IMPRESSION: No acute radiographic process, although mildly prominent colonic stool volume noted.
[2022-07-28] MEDS: predniSONE 10 MG TAB PO SCH (20:59)
[2022-07-28] MEDS: GABAPENTIN 400 MG CAP PO SCH (20:59)
[2022-07-28] MEDS: MUPIROCIN 2% OINT 22 GM TUBE NASAL SCH (20:59)
--- NOTE | 2022-07-29 08:42 | US ---
EXAMINATION TYPE: US vein mapping BIL DATE OF EXAM: 07/28/2022 2:30 PM COMPARISON: NONE CLINICAL HISTORY: PreOp Cardiac Surgery. Pre op cardiac surgery. SIDE PERFORMED: Bilateral TECHNIQUE: Lower extremity saphenous vein is examined and measured utilizing real time linear array sonography. Patient History: Hx of multiple heart attacks* Smoker: Yes Heart Disease: Yes Previous DVT: Pt states he had a blood clot in his lung. Vascular Surgery: Discoloration: No Hypertension: Yes Diabetes: No Paralysis: Pt states numbness in feet. Varicosities: No Edema: No DUPLEX FINDINGS: Greater Saphenous: Color flow seen Measurements in mm: Right Greater Saphenous: Groin: 6.5 x 4.5 mm High Thigh: 4.7 x 3.3 mm Mid Thigh: 3.8 x 2.9 mm Above Knee: 4.6 x 3.2 mm Knee: 2.3 x 1.8 mm Below Knee: 4.2 x 3.2 mm Mid Calf: 3.5 x 2.6 mm At Ankle: 3.4 x 3.0 mm Left Greater Saphenous: Groin: 5.6 x 5.2 mm High Thigh: 4.6 x 3.5 mm Mid Thigh: 4.4 x 3.3 mm Above Knee: 4.8 x 3.6 mm Knee: 4.5 x 3.2 mm Below Knee: 3.3 x 2.7 mm Mid Calf: 4.0 x 2.9 mm At Ankle: 4.6 x 3.4 mm No thrombosis of the bilateral greater saphenous veins. IMPRESSION: 1. Bilateral GSV measurements listed above. 2. Performing surgeon to determine viability as conduit.
[2022-07-29] MEDS: METOPROLOL TARTRATE 25 MG TAB PO SCH ×3 (08:46→21:50)
[2022-07-29] MEDS: VALSARTAN 80 MG TAB PO SCH (08:46)
[2022-07-29] MEDS: NICOTINE 21MG/24HR PATCH TRANSDERM SCH (08:46)
[2022-07-29] MEDS: MULTIVITAMINS, THERA 1 EACH TAB PO SCH (08:46)
[2022-07-29] MEDS: VITAMIN A 10,000 UNIT (3000 MCG) CAPSULE PO SCH (08:46)
[2022-07-29] MEDS: NITROGLYCERIN OINT 1 INCH/GM PACKET TOPICAL SCH ×2 (08:46→17:03)
[2022-07-29] MEDS: ATORVASTATIN 80 MG TAB PO SCH (08:46)
[2022-07-29] MEDS: FOLIC ACID 1 MG TAB PO SCH (08:46)
[2022-07-29] MEDS: ASPIRIN 81 MG PO SCH (08:46)
[2022-07-29] MEDS: SIMETHICONE 80 MG CHEWABLE PO SCH ×3 (08:47→18:01)
[2022-07-29] MEDS: MUPIROCIN 2% OINT 22 GM TUBE NASAL SCH ×2 (08:49→21:50)
[2022-07-29] MEDS: HEPARIN SOD,PORK IN 0.45% NACL 25,000 UNIT in 0.45% NACL 1 250ML.BAG IV SCH (08:54)
--- NOTE | 2022-07-29 08:54 | P.PN ---
Subjective Progress Note Date: 07/29/22 Principal diagnosis: Coronary artery disease, non-STEMI this admission, left internal carotid stenosis greater than 70%. History of coronary artery disease with previous PCI to the RCA 03/2022, hypertension, hyperlipidemia, pulmonary embolism, rheumatoid arthritis on chronic Rituxan and prednisone, obstructive sleep apnea without home CPAP use, chronic ongoing tobacco dependence, COPD, PTSD as [place] war , peripheral neuropathy, COVID-19 infection in 2020, irritable bowel syndrome, GERD, family history of premature coronary artery disease (father diagnosed with myocardial infarction 44 years old) The patient was seen and examined this morning sitting up in bed in the cardiac stepdown unit in no acute distress eating breakfast. Denies any current chest pain or shortness of breath. No new questions regarding surgery. Anticipate CTA of the head and neck today to evaluate left carotid stenosis. No other new concerns. Objective - Vital Signs Vital signs: Vital Signs Temp 97.9 F 07/29/22 07:28 Pulse 61 07/29/22 07:28 Resp 16 07/29/22 07:28 BP 139/67 07/29/22 07:28 Pulse Ox 96 07/29/22 07:28 FiO2 Intake & Output 07/28/22 07/29/22 07/29/22 18:59 06:59 18:59 Intake Total 361.144 Output Total 500 Balance -138.856 Intake: IV 50 Intake, IV Titration 75.144 Amount Heparin Sod,Pork in 0.45% 75.144 NaCl 25,000 unit In 0.45 % NaCl 1 250ml.bag @ 11. 36 UNITS/KG/HR 9.997 mls/ hr IV .Q24H [facility] Rx#: [id number] Oral 236 Output: Urine 500 Other: Voiding Method Toilet - Exam CONSTITUTIONAL: Appears comfortable, cooperative, no acute distress RESPIRATORY: Lungs sounds diminished bilaterally. Respirations even, nonlabored. Currently on room air with oxygen saturation 96%. Able to achieve 2000 mL on incentive spirometry. Strong cough. CARDIOVASCULAR: S1, S2 present. Regular rate and rhythm, sinus rhythm on telemetry. Palpable peripheral pulses bilaterally. No edema present. No calf pain or tenderness noted. GASTROINTESTINAL: Abdomen soft, nontender, nondistended. Active bowel sounds present 4 quadrants. Tolerating diet. GENITOURINARY: Continues to void INTEGUMENTARY: Skin is warm and dry with evidence of good perfusion NEUROLOGIC: Cranial nerves II through XII intact MUSKULOSKELETAL: Able to move all extremities, strength equal bilaterally, gait normal PSYCHIATRIC: Alert and oriented to person place and time, appropriate affect, intact judgment and insight - Labs CBC & Chem 7: 07/28/22 08:34 07/28/22 10:39 Labs: Abnormal Lab Results - Last 24 Hours (Table) 07/28/22 07/28/22 07/28/22 Range/Units 08:34 08:34 10:39 RBC 4.08 L (4.30-5.90) m/uL APTT 89.6 H (22.0-30.0) sec Chloride 109 H (98-107) mmol/L Glucose 117 H (74-99) mg/dL Calcium 8.2 L (8.4-10.2) mg/dL Magnesium (1.6-2.3) mg/dL Total Protein 6.0 L (6.3-8.2) g/dL Ur Specific [place] (1.001-1.035) 07/28/22 07/28/22 07/28/22 Range/Units 10:39 15:23 16:46 RBC (4.30-5.90) m/uL APTT 33.3 H (22.0-30.0) sec Chloride (98-107) mmol/L Glucose (74-99) mg/dL Calcium (8.4-10.2) mg/dL Magnesium 2.4 H (1.6-2.3) mg/dL Total Protein (6.3-8.2) g/dL Ur Specific [place] 1.038 H (1.001-1.035) 07/28/22 Range/Units 23:20 RBC (4.30-5.90) m/uL APTT 73.9 H (22.0-30.0) sec Chloride (98-107) mmol/L Glucose (74-99) mg/dL Calcium (8.4-10.2) mg/dL Magnesium (1.6-2.3) mg/dL Total Protein (6.3-8.2) g/dL Ur Specific [place] (1.001-1.035) Microbiology - Last 24 Hours (Table) 07/28/22 16:33 Nasal Screen MRSA/MSSA - Preliminary Nasal Swab Assessment and Plan Assessment: Coronary artery disease, non-STEMI this admission Left internal carotid stenosis greater than 70% per Doppler History of coronary artery disease with previous PCI to the RCA 03/2022 Hypertension Hyperlipidemia, treated, cholesterol 166, LDL 55.8, triglycerides 296 Pulmonary embolism Rheumatoid arthritis on chronic Rituxan and prednisone Obstructive sleep apnea without home CPAP use Chronic ongoing tobacco dependence COPD, FEV1 74% of predicted PTSD as [place] war Peripheral neuropathy COVID-19 infection in 2020 Irritable bowel syndrome GERD Family history of premature coronary artery disease (father diagnosed with myocardial infarction 44 years old) Plan: Our plan is tentatively for coronary artery bypass surgery on August [address] Johns, however this is dependent on vascular surgeons plan for left internal carotid stenosis CTA of the head and neck to be completed today Continue to maximize medical therapy with aspirin, statin, beta hiram, continue to hold Effient Continue preoperative teaching Encourage incentive spirometry use Increase activity as tolerated Smoking cessation counseling and education provided Monitor for EtOH withdrawal Medical management of other comorbidities per internal medicine, cardiology, vascular More recommendations to follow
[2022-07-29] MEDS: PANTOPRAZOLE 40 MG TABLET PO SCH (08:58)
[2022-07-29 09:06] LABS: Basophils % (A) 0 %; Eosinophils # (A) 0.1 k/uL (0-0.7); Eosinophils % (A) 2 %; HCT 38.5 % (39.0-53.0); HGB 12.7 gm/dL (13.0-17.5); Lymphocytes # (A) 2.1 k/uL (1.0-4.8); Lymphocytes % (A) 29 %; MCHC 32.9 g/dL (31.0-37.0); MCV 97.1 fL (80.0-100.0); Mean Platelet Volume 7.8; Monocytes # (A) 0.5 k/uL (0-1.0); Monocytes % (A) 7 %; Neutrophils # (A) 4.5 k/uL (1.3-7.7); Neutrophils % (A) 61 %; Platelet Count 175 k/uL (150-450); RBC 3.97 m/uL (4.30-5.90); RDW 13.2 % (11.5-15.5); WBC 7.4 k/uL (3.8-10.6)
[2022-07-29 09:20] LABS: Prothrombin Time 10.5 sec (9.0-12.0)
--- NOTE | 2022-07-29 09:49 | P.PN ---
Subjective Progress Note Date: 07/29/22 Principal diagnosis: Carotid stenosis, coronary artery disease Patient was seen and examined today as a follow-up. He states no acute changes through the night. He denies any shortness of breath or chest pain. No focal deficits. Kidney function came back within normal limits. Cardiothoracic surgical team following for workup for CABG. Objective - Vital Signs Vital signs: Vital Signs Temp 97.9 F 07/29/22 07:28 Pulse 61 07/29/22 08:29 Resp 16 07/29/22 07:28 BP 139/67 07/29/22 07:28 Pulse Ox 96 07/29/22 07:28 FiO2 Intake & Output 07/28/22 07/29/22 07/29/22 18:59 06:59 18:59 Intake Total 361.144 292.856 Output Total 500 Balance -138.856 292.856 Intake: IV 50 Intake, IV Titration 75.144 174.856 Amount Heparin Sod,Pork in 0.45% 75.144 174.856 NaCl 25,000 unit In 0.45 % NaCl 1 250ml.bag @ 11. 36 UNITS/KG/HR 9.997 mls/ hr IV .Q24H [facility] Rx#: [id number] Oral 236 118 Output: Urine 500 Other: Voiding Method Toilet - Exam General appearance: The patient is alert, oriented, appears in no acute distress. HET: Head is normocephalic and atraumatic. Pupils are equal and reactive. Neck: Supple. No audible carotid bruit. Heart: Regular. Lungs: Equal expansion, normal respiratory effort. Abdomen: Soft, nontender, nondistended. Extremities: Normal skin color and turgor. No cyanosis, rash, ulceration, clubbing, or edema. Radial and pedal pulses are 2/4 bilaterally. Neurological: No focal deficits. Alert and oriented. - Labs CBC & Chem 7: 07/28/22 08:34 07/28/22 10:39 Labs: Abnormal Lab Results - Last 24 Hours (Table) 07/28/22 07/28/22 07/28/22 Range/Units 10:39 10:39 15:23 APTT (22.0-30.0) sec Chloride 109 H (98-107) mmol/L Glucose 117 H (74-99) mg/dL Calcium 8.2 L (8.4-10.2) mg/dL Magnesium 2.4 H (1.6-2.3) mg/dL Total Protein 6.0 L (6.3-8.2) g/dL Ur Specific [place] 1.038 H (1.001-1.035) 07/28/22 07/28/22 07/29/22 Range/Units 16:46 23:20 08:46 APTT 33.3 H 73.9 H 47.6 H (22.0-30.0) sec Chloride (98-107) mmol/L Glucose (74-99) mg/dL Calcium (8.4-10.2) mg/dL Magnesium (1.6-2.3) mg/dL Total Protein (6.3-8.2) g/dL Ur Specific [place] (1.001-1.035) Microbiology - Last 24 Hours (Table) 07/28/22 16:33 Nasal Screen MRSA/MSSA - Preliminary Nasal Swab Assessment and Plan Assessment: 1. Coronary artery disease, status post previous PCI of mid LAD March 2022, abnormal cardiac catheterization with severe stenosis involving the ostium of the LAD and proximal left circumflex with significant disease in the ramus intermedius 2. Left high-grade ICA stenosis greater than 70% per carotid duplex 3. Non-ST elevated myocardial infarction this admission 4. COPD 5. Hypertension 6. Hyperlipidemia 7. Nicotine dependence 8. Alcohol dependence Plan: 1. Continue with recommendations from cardiology 2. CT angiogram head and neck ordered 3. Smoking cessation 4. Await recommendations from cardiothoracic surgical team 5. Further recommendations forthcoming from vascular surgeon 6. Thank you for this consultation, we will continue to follow. The impression and plan of care has been dictated as directed. Dr. Hong I performed a history and examination of this patient, discussed the same with the dictator. I agree with the dictator's note ,documented as a scribe. Any additional findings or plans will be noted.
--- NOTE | 2022-07-29 11:11 | CT ---
EXAMINATION TYPE: CT angio head neck CT DLP: 1779.8 mGycm, Automated exposure control for dose reduction was used. DATE OF EXAM: 07/29/2022 10:57 AM COMPARISON: CT brain C-spine 07/20/2021, MRI brain 09/07/2017. Carotid ultrasound 07/26/2022 CLINICAL INDICATION:Male, 62 years old with history of carotid stenosis, CAD; PHH, stenosis TECHNIQUE: Axially acquired helical CT angiogram of the head and neck was obtained with contrast util izing 75 cc of Isovue-[address] head was performed without intravenous contr ast. Axial images are supplemented with 3D reconstructions which were post-processed at an [email or web address] workstation. NASCET criteria used. FINDINGS: CT HEAD: No evidence of acute intracranial hemorrhage, mass effect, or midline shift. The ventricles, sulci, a nd cisterns are unremarkable. No acute osseous abnormality. CTA HEAD: The visualized portions of the internal carotid arteries, middle cerebral arteries, anterior cerebral arteries, and posterior cerebral arteries are patent. The basilar and vertebral arteries are patent. CTA NECK: Right Carotid System: The common carotid artery and external carotid artery are patent. The carotid bifurcation demonstrate s moderate atherosclerotic plaque with less than 50% stenosis at the origin of the internal carotid a rtery. Moderate stenosis of the cavernous portion of the right internal carotid artery secondary to c alcific plaque. Left Carotid System: The common carotid artery and external carotid artery are patent. The carotid bifurcation demonstrate s moderate atherosclerotic plaque with approximately 60 % stenosis at the origin of the internal villalba tid artery. Moderate stenosis of the cavernous portion of the left internal carotid artery secondary to calcific plaque. Vertebral arteries are patent without evidence hemodynamically significant stenosis. There is a three-vessel aortic arch. The origins of the great vessels are patent. Mild stenosis of th e origin of the left common carotid artery secondary to noncalcified plaque. Ectasia of the ascending thoracic aorta measuring up to 3.8 cm. Right thyroid lobe 1.3 cm hypodense nodule. IMPRESSION: 1. Approximately 60 % stenosis at the origin of the left internal carotid artery. 2. Less than 50% stenosis of the origin of the right internal carotid artery. 3. No evidence of intracranial high-grade stenosis or intracranial aneurysm.
[2022-07-29] MEDS ORDERED: polyethylene glycoL 3350 17 GM POWD.PACK PO STA (11:21)
--- NOTE | 2022-07-29 11:30 | P.PN ---
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 Reports PCP was attempting to acquire insurance authorization for carotid Doppler. Denies diaphoresis ,fever or chills. Denies nausea, vomiting, diarrhea or abdominal pain. Reports since March he has taken over 100 nitroglycerin sublinguals in addition to being on his long-acting Imdur. Reports he has decreased his nicotine intake from 2 packs a day to 1 pack a day, usually drinks 2-3 beers sometimes 5 daily. Reports strong family history of CAD, father with CABG, aneurysms and carotid stenosis. Chest x-ray reported no acute pulmonary process. EKG reported sinus rhythm, troponin 0.054, 0.061, 0.044. Afebrile, normal WBC. Hemoglobin 13.6, platelets 188, MCV 93.9, INR 1.1, sodium 138, potassium 3.9, bicarb 24, BUN 17, creatinine 0.91, magnesium 2.1. Evaluated by cardiology, patient is scheduled for Lexiscan stress test, carotid Doppler. 08/26/2022 yesterday completed Lexiscan stress test-reported abnormal. Scheduled for cardiac catheterization today. Carotid ultrasound reported bilateral plaque 70% severe stenosis of the proximal left ICA. Maintained on heparin drip. Denies any further chest pain while at rest. 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 Cardiothoracic surgery consulted regarding further evaluation for CABG. maintained on heparin drip.Evaluated by vascular surgery regarding left high-grade ICA stenosis greater than 70% per carotid duplex. Renal function stable postcardiac catheterization and CTA of head and neck ordered as per vascular surgery. Denies chest pain, palpitations or shortness of breath. 07/29/2022 workup in progress for CABG on Monday as per CTS. Echo reporting normal LV systolic function, EF 55-60% . Telemetry sinus rhythm. denies chest pain, palpitations or shortness of breath. Denies lightheadedness, dizziness or focal deficits. Head/Neck CTA pending. KUB reporting no acute radiographic process, mildly prominent colonic stool volume noted. Objective - Vital Signs Vital signs: Vital Signs Temp 97.9 F 07/29/22 07:28 Pulse 61 07/29/22 08:29 Resp 16 07/29/22 07:28 BP 139/67 07/29/22 07:28 Pulse Ox 96 07/29/22 07:28 FiO2 Intake & Output 07/28/22 07/29/22 07/29/22 18:59 06:59 18:59 Intake Total 361.144 292.856 Output Total 500 Balance -138.856 292.856 Intake: IV 50 Intake, IV Titration 75.144 174.856 Amount Heparin Sod,Pork in 0.45% 75.144 174.856 NaCl 25,000 unit In 0.45 % NaCl 1 250ml.bag @ 11. 36 UNITS/KG/HR 9.997 mls/ hr IV .Q24H [facility] Rx#: [id number] Oral 236 118 Output: Urine 500 Other: Voiding Method Toilet - Exam - Exam General: Sitting up in bed, alert and oriented 3, no acute distress HEENT: [Atraumatic ,PERRL. EOMI. ] Neck: Supple, no JVD Cardiac: [Heart regular in rate and rhythm. No S3. No S4. No clicks, rubs. No mu rmur.] Lungs: Unlabored,clear to auscultation bilaterally. Abdomen: [Soft, nontender, nondistended .No mass. No organomegaly.+BS. No guarding, no rigidity. Extremes: [No edema no cyanosis, normal pulses Skin: [Warm and dry, No rash.] Neurologic: [ CN II - XII grossly intact. No focal deficits] - Labs CBC & Chem 7: 07/29/22 08:46 07/28/22 10:39 Labs: Abnormal Lab Results - Last 24 Hours (Table) 07/28/22 07/28/22 07/28/22 Range/Units 10:39 10:39 15:23 RBC (4.30-5.90) m/uL Hgb (13.0-17.5) gm/dL Hct (39.0-53.0) % APTT (22.0-30.0) sec Chloride 109 H (98-107) mmol/L Glucose 117 H (74-99) mg/dL Calcium 8.2 L (8.4-10.2) mg/dL Magnesium 2.4 H (1.6-2.3) mg/dL Total Protein 6.0 L (6.3-8.2) g/dL Ur Specific [place] 1.038 H (1.001-1.035) 07/28/22 07/28/22 07/29/22 Range/Units 16:46 23:20 08:46 RBC 3.97 L (4.30-5.90) m/uL Hgb 12.7 L (13.0-17.5) gm/dL Hct 38.5 L (39.0-53.0) % APTT 33.3 H 73.9 H (22.0-30.0) sec Chloride (98-107) mmol/L Glucose (74-99) mg/dL Calcium (8.4-10.2) mg/dL Magnesium (1.6-2.3) mg/dL Total Protein (6.3-8.2) g/dL Ur Specific [place] (1.001-1.035) 07/29/22 Range/Units 08:46 RBC (4.30-5.90) m/uL Hgb (13.0-17.5) gm/dL Hct (39.0-53.0) % APTT 47.6 H (22.0-30.0) sec Chloride (98-107) mmol/L Glucose (74-99) mg/dL Calcium (8.4-10.2) mg/dL Magnesium (1.6-2.3) mg/dL Total Protein (6.3-8.2) g/dL Ur Specific [place] (1.001-1.035) Microbiology - Last 24 Hours (Table) 07/28/22 16:33 Nasal Screen MRSA/MSSA - Preliminary Nasal Swab Assessment and Plan Assessment: Chest pain, midsternal With bilateral carotid burning pressure ,elevated troponins, abnormal Lexiscan stress test, cardiac catheterization reporting severe stenosis involving the ostium of the LAD and proximal left circumflex with significant disease in the ramus intermedius NSTEMI this admission CAD, history of recent NSTEMI,s/p PCI RCA 04/03/22 Proximal left ICA 70% severe stenosis Hypertension Hyperlipidemia Gastroesophageal reflux disease Obesity, BMI 30.4 Ongoing nicotine dependence, decreased from 2 packs to 1 pack per day, smoking cessation reinforced COPD, stable Daily alcohol dependence, monitor for Etoh withdrawal. History of PE Plan: Continue on current medication regime ,monitoring and symptomatic treatment. CTS workup in progress.CTA head and neck pending. Vascular surgery and CTS coordinating -CABG tentatively scheduled for Tuesday 08/01. Maintain anticoagulation with heparin drip. Smoking cessation reinforced.Prognosis guarded given multiple complex medical issues. The impression and plan of care has been dictated as directed. : I performed a history and examination of this patient, discussed the same with the dictator. I agree with the dictator's note ,documented as a scribe. Any additional findings or plans will be noted.
[2022-07-29] MEDS ORDERED: LORazepam 1 MG TAB PO PRN (13:07)
[2022-07-29] MEDS ORDERED: LORazepam 2 MG/ML INJ IV PRN (13:07)
[2022-07-29] MEDS ORDERED: LORazepam 0.5 MG TAB PO PRN (13:07)
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
[2022-07-29] MEDS: THIAMINE 100 MG TAB PO SCH (13:26)
--- NOTE | 2022-07-29 13:49 | P.PN ---
Subjective Progress Note Date: 07/29/22 History of present illness: This is a 62-year-old patient of Dr. Valderrama with past medical history of CAD with previous RCA stent March 2022 with cardiac catheterization revealed 50% ostial LAD, 45% mid ramus and 30% proximal circumflex disease. RCA was stented on 04/03/2022. He had a repeat catheterization on April 14 which showed patent stent. Patient presented to the hospital with burning sensation in the neck and took nitroglycerin that seemed to give him some relief. Yesterday, patient underwent a stress test which came back abnormal and he is scheduled for cardiac catheterization today with Dr. Catalan. Carotid ultrasound revealed bilateral plaque 70% severe stenosis of the proximal left ICA. 07/28 Yesterday, patient underwent cardiac catheterization with Dr. Catalan which found severe stenosis involving the ostium of the LAD and proximal left circumflex. Significant disease in the ramus intermedius. Mild disease in the RCA with patent stent. Collaterals from the right coronary artery through the septals or freighter. Recommendation was for cardiothoracic surgery evaluation for CABG. Patient is seen today on the cardiac stepdown unit. Has been seen by cardiothoracic team 07/29 No new concerns from the patient. He is scheduled for CABG on Tuesday 08/01. He is currently on heparin drip along with aspirin, statin, beta hiram and ARB. Patient is seen by vascular surgery as well for carotid artery disease. CT angiogram of the head and neck revealed partially 60% stenosis at the origin of the left internal carotid artery, less than 50% stenosis on the right coronary artery. No evidence of intracranial high-grade stenosis or intracranial aneurysm. Physical Examination Gen: This is a 62-year-old male sitting on the edge of the bed. Appears to be in no acute distress. HEENT: Head is atraumatic, normocephalic. Pupils equal, round. Sclerae is anicteric. NECK: Supple. No JVD. LUNGS: Bilateral air entry. No intercostal retractions. HEART: Regular rate and rhythm. No murmur. ABDOMEN: Soft. Bowel sounds are present. No masses. No tenderness. EXTREMITIES: No pedal edema. Dorsalis pedis palpable bilaterally. NEUROLOGICAL: Patient is awake, alert and oriented x3. Assessment: Chest pain syndrome, non-ST elevated NE with abnormal Lexiscan stress test secondary to multivessel coronary artery disease found on heart catheterization History of coronary artery disease and prior PCI with moderate disease in other vessels Hypertension Hyperlipidemia Carotid artery disease, 70% stenosis of the proximal left ICA COPD Tobacco use and dependence Alcohol dependence Plan: Continue current cardiac medications Smoking cessation Patient scheduled for CABG on 08/01 Further recommendations to follow based upon clinical course Nurse practitioner note has been reviewed, I agree with documented findings and plan of care. Patient was seen and examined. Objective - Vital Signs Vital signs: Vital Signs Temp 97.9 F 07/29/22 07:28 Pulse 61 07/29/22 08:29 Resp 16 07/29/22 07:28 BP 139/67 07/29/22 07:28 Pulse Ox 96 07/29/22 07:28 FiO2 Intake & Output 07/28/22 07/29/22 07/29/22 18:59 06:59 18:59 Intake Total 361.144 292.856 Output Total 500 Balance -138.856 292.856 Intake: IV 50 Intake, IV Titration 75.144 174.856 Amount Heparin Sod,Pork in 0.45% 75.144 174.856 NaCl 25,000 unit In 0.45 % NaCl 1 250ml.bag @ 11. 36 UNITS/KG/HR 9.997 mls/ hr IV .Q24H [facility] Rx#: [id number] Oral 236 118 Output: Urine 500 Other: Voiding Method Toilet - Labs CBC & Chem 7: 07/29/22 08:46 07/28/22 10:39 Labs: Abnormal Lab Results - Last 24 Hours (Table) 07/28/22 07/28/22 07/28/22 Range/Units 08:34 10:39 10:39 APTT 89.6 H (22.0-30.0) sec Chloride 109 H (98-107) mmol/L Glucose 117 H (74-99) mg/dL Calcium 8.2 L (8.4-10.2) mg/dL Magnesium 2.4 H (1.6-2.3) mg/dL Total Protein 6.0 L (6.3-8.2) g/dL Ur Specific [place] (1.001-1.035) 07/28/22 07/28/22 07/28/22 Range/Units 15:23 16:46 23:20 APTT 33.3 H 73.9 H (22.0-30.0) sec Chloride (98-107) mmol/L Glucose (74-99) mg/dL Calcium (8.4-10.2) mg/dL Magnesium (1.6-2.3) mg/dL Total Protein (6.3-8.2) g/dL Ur Specific [place] 1.038 H (1.001-1.035) Microbiology - Last 24 Hours (Table) 07/28/22 16:33 Nasal Screen MRSA/MSSA - Preliminary Nasal Swab
[2022-07-29] MEDS: SODIUM CHLORIDE 0.9% 1,000 ML IV SCH (18:02)
--- NOTE | 2022-07-29 19:18 | US ---
EXAMINATION TYPE: US arterial LE single level DATE OF EXAM: 07/28/2022 7:57 PM CLINICAL HISTORY: Ankle Brachial Index (VON) . Left Brachial Pressure: 102 Ankle-Brachial Indices: Right: 1.22 Left: 1.18 Toe Brachial Indices: Right: Machine malfunction, the machine could not warp picker the wave when trying to get the pressure Left: 1.24 Multiphasic waveforms bilaterally with monophasic waveforms involving both digits. IMPRESSION: Normal ankle brachial index bilaterally. Normal toe brachial index on the left.
[2022-07-29] MEDS: SENNOSIDES-DOCUSATE SODIUM 1 EACH TAB PO SCH (21:50)
[2022-07-29] MEDS: predniSONE 10 MG TAB PO SCH (21:50)
[2022-07-29] MEDS: GABAPENTIN 400 MG CAP PO SCH (21:50)
[2022-07-30] MEDS: NITROGLYCERIN OINT 1 INCH/GM PACKET TOPICAL SCH ×3 (00:20→17:11)
[2022-07-30] MEDS: SIMETHICONE 80 MG CHEWABLE PO SCH ×5 (00:22→20:24)
[2022-07-30] MEDS: HEPARIN SOD,PORK IN 0.45% NACL 25,000 UNIT in 0.45% NACL 1 250ML.BAG IV SCH (08:01)
--- NOTE | 2022-07-30 08:46 | P.PN ---
Subjective Progress Note Date: 07/30/22 Principal diagnosis: Coronary artery disease, non-STEMI this admission, left internal carotid stenosis. History of coronary artery disease with previous PCI to the RCA 03/2022, hypertension, hyperlipidemia, pulmonary embolism, rheumatoid arthritis on chronic Rituxan and prednisone, obstructive sleep apnea without home CPAP use, chronic ongoing tobacco dependence, COPD, PTSD as [place] war , peripheral neuropathy, COVID-19 infection in 2020, irritable bowel syndrome, GERD, family history of premature coronary artery disease (father diagnosed with myocardial infarction 44 years old) The patient was seen and examined this morning sitting up in bed in the cardiac stepdown unit in no acute distress eating breakfast. Denies any current chest pain or shortness of breath, did admit to mild chest pain after getting out of shower yesterday before nitro paste was re-applied, patient did take his own NTG SL with relief. CTA of head and neck was completed yesterday demonstrating 60% stenosis of the left ICA, no need for surgical intervention at this time. Anticipates CABG Monday with Dr. Johns. No new questions regarding surgery. No other new concerns. Objective - Vital Signs Vital signs: Vital Signs Temp 97.5 F L 07/30/22 03:18 Pulse 57 L 07/30/22 03:18 Resp 16 07/30/22 03:18 BP 108/62 07/30/22 03:18 Pulse Ox 97 07/30/22 03:18 FiO2 Intake & Output 07/29/22 07/30/22 07/30/22 18:59 06:59 18:59 Intake Total 1068.856 250 Balance 1068.856 250 Intake: Intake, IV Titration 174.856 250 Amount Heparin Sod,Pork in 0.45% 174.856 250 NaCl 25,000 unit In 0.45 % NaCl 1 250ml.bag @ 11. 36 UNITS/KG/HR 9.997 mls/ hr IV .Q24H [facility] Rx#: [id number] Oral 894 Other: Voiding Method Toilet - Exam CONSTITUTIONAL: Appears comfortable, cooperative, no acute distress RESPIRATORY: Lungs sounds diminished bilaterally. Respirations even, nonla bored. Currently on room air with oxygen saturation 97%. Able to achieve 1500 mL on incentive spirometry. Strong cough. CARDIOVASCULAR: S1, S2 present. Regular rate and rhythm, sinus rhythm on telemetry. Palpable peripheral pulses bilaterally. No edema present. No calf pain or tenderness noted. GASTROINTESTINAL: Abdomen soft, nontender, nondistended. Active bowel sounds present 4 quadrants. Tolerating diet. GENITOURINARY: Continues to void INTEGUMENTARY: Skin is warm and dry with evidence of good perfusion NEUROLOGIC: Cranial nerves II through XII intact MUSKULOSKELETAL: Able to move all extremities, strength equal bilaterally, gait normal PSYCHIATRIC: Alert and oriented to person place and time, appropriate affect, intact judgment and insight - Labs CBC & Chem 7: 07/29/22 08:46 07/28/22 10:39 Labs: Abnormal Lab Results - Last 24 Hours (Table) 07/29/22 07/29/22 07/30/22 Range/Units 08:46 08:46 07:37 RBC 3.97 L (4.30-5.90) m/uL Hgb 12.7 L (13.0-17.5) gm/dL Hct 38.5 L (39.0-53.0) % APTT 47.6 H 40.4 H (22.0-30.0) sec Microbiology - Last 24 Hours (Table) 07/28/22 16:33 Nasal Screen MRSA/MSSA - Preliminary Nasal Swab Assessment and Plan Assessment: Coronary artery disease, non-STEMI this admission Left internal carotid stenosis greater than 70% per Doppler, 60% per CTA of the head and neck History of coronary artery disease with previous PCI to the RCA 03/2022 Hypertension Hyperlipidemia, treated, cholesterol 166, LDL 55.8, triglycerides 296 Pulmonary embolism Rheumatoid arthritis on chronic Rituxan and prednisone Obstructive sleep apnea without home CPAP use Chronic ongoing tobacco dependence COPD, FEV1 74% of predicted PTSD as [place] war Peripheral neuropathy COVID-19 infection in 2020 Irritable bowel syndrome GERD Family history of premature coronary artery disease (father diagnosed with myocardial infarction 44 years old) Plan: Our plan is for coronary artery bypass surgery with left internal mammary artery and left radial artery on August [address] Johns Continue to maximize medical therapy with aspirin, statin, beta hiram, continue to hold Effient. Recommend holding ARB to prevent intra/post operative vasoplegia Continue preoperative teaching Encourage incentive spirometry use Increase activity as tolerated Smoking cessation counseling and education provided Monitor for EtOH withdrawal, CIWA protocol Medical management of other comorbidities per internal medicine, cardiology, vascular More recommendations to follow
--- NOTE | 2022-07-30 09:54 | P.PN ---
Subjective Progress Note Date: 07/30/22 Principal diagnosis: Patient awake alert oriented 3 in good spirits, CABG pending Monday, recent echo normal LV function EF 55-60. Current EKG sinus rhythm currently denying chest pain denying shortness of breath denying heart palpitations denying lightheadedness Objective - Vital Signs Vital signs: Vital Signs Temp 97.5 F L 07/30/22 03:18 Pulse 57 L 07/30/22 03:18 Resp 16 07/30/22 03:18 BP 108/62 07/30/22 03:18 Pulse Ox 97 07/30/22 03:18 FiO2 Intake & Output 07/29/22 07/30/22 07/30/22 18:59 06:59 18:59 Intake Total 1068.856 250 Balance 1068.856 250 Intake: Intake, IV Titration 174.856 250 Amount Heparin Sod,Pork in 0.45% 174.856 250 NaCl 25,000 unit In 0.45 % NaCl 1 250ml.bag @ 11. 36 UNITS/KG/HR 9.997 mls/ hr IV .Q24H [facility] Rx#: [id number] Oral 894 Other: Voiding Method Toilet - Exam General: [Patient awake, alert and oriented times 3. Patient in no acute distress.] HEENT: [PERRL. EOMI. No pharyngeal erythema or exudate.] Neck: [No adenopathy.] Cardiac: [Heart regular in rate and rhythm. No S3. No S4. No clicks, rubs. No murmur.] Lungs: [Clear to auscultation bilaterally.] Abdomen: [No mass. No organomegaly. Bowel sounds presnt and normoactive in all 4 quadrants.] Extremes: [No edema no cyanosis no claudication normal pulses] : Normal male genitalia Musculoskeletal: [No joint erythema, edema or tenderness.] Skin: [No rash.] Neurologic: [No lateralizing deficits. CN II - XII grossly intact.] Lymphatic: [No adenopathy.] - Labs CBC & Chem 7: 07/29/22 08:46 07/28/22 10:39 Labs: Abnormal Lab Results - Last 24 Hours (Table) 07/29/22 07/30/22 Range/Units 08:46 07:37 RBC 3.97 L (4.30-5.90) m/uL Hgb 12.7 L (13.0-17.5) gm/dL Hct 38.5 L (39.0-53.0) % APTT 40.4 H (22.0-30.0) sec Microbiology - Last 24 Hours (Table) 07/28/22 16:33 Nasal Screen MRSA/MSSA - Final Nasal Swab Assessment and Plan (1) Acute chest pain Current Visit: Yes Status: Acute Code(s): R07.9 - CHEST PAIN, UNSPECIFIED SNOMED Code(s): 522853739 (2) Elevated troponin Current Visit: Yes Status: Acute Code(s): R77.8 - OTHER SPECIFIED ABNORMALITIES OF PLASMA PROTEINS SNOMED Code(s): 824705437 (3) Unstable angina pectoris Current Visit: Yes Status: Acute Code(s): I20.0 - UNSTABLE ANGINA SNOMED Code(s): 4715029 (4) Acute non-ST elevation myocardial infarction (NSTEMI) Current Visit: No Status: Acute Code(s): I21.4 - NON-ST ELEVATION (NSTEMI) MYOCARDIAL INFARCTION SNOMED Code(s): 040841162 (5) Atypical chest pain Current Visit: No Status: Acute Code(s): R07.89 - OTHER CHEST PAIN SNOMED Code(s): 264308846 (6) CAD (coronary artery disease) Current Visit: No Status: Chronic Code(s): I25.10 - ATHSCL HEART DISEASE OF [place] CORONARY ARTERY W/O ANG PCTRS SNOMED Code(s): 87836104 (7) Hypertension Current Visit: No Status: Chronic Code(s): I10 - ESSENTIAL (PRIMARY) H YPERTENSION SNOMED Code(s): 65474526 Plan: Coronary artery disease, chest pain, elevated troponins Abnormal Lexiscan scan triple vessel disease noted Non-STEMI this admission Hypertension Hyperlipidemia Obesity, BMI 30.4 Nicotine dependence COPD currently stable Current plan: CABG tentatively scheduled for Monday, possible carotid endarte rectomy, vascular surgery involved Time with Patient: Greater than 30
[2022-07-30] MEDS: ASPIRIN 81 MG PO SCH (10:26)
[2022-07-30] MEDS: MULTIVITAMINS, THERA 1 EACH TAB PO SCH (10:26)
[2022-07-30] MEDS: ATORVASTATIN 80 MG TAB PO SCH (10:26)
[2022-07-30] MEDS: FOLIC ACID 1 MG TAB PO SCH (10:26)
[2022-07-30] MEDS: PANTOPRAZOLE 40 MG TABLET PO SCH (10:26)
[2022-07-30] MEDS: NICOTINE 21MG/24HR PATCH TRANSDERM SCH (10:27)
[2022-07-30] MEDS: METOPROLOL TARTRATE 25 MG TAB PO SCH ×3 (10:27→21:16)
[2022-07-30] MEDS: THIAMINE 100 MG TAB PO SCH (10:27)
[2022-07-30] MEDS: VALSARTAN 80 MG TAB PO SCH (10:31)
[2022-07-30] MEDS: VITAMIN A 10,000 UNIT (3000 MCG) CAPSULE PO SCH (10:31)
[2022-07-30] MEDS: MUPIROCIN 2% OINT 22 GM TUBE NASAL SCH ×2 (10:35→20:25)
--- NOTE | 2022-07-30 11:45 | P.PN ---
Subjective Progress Note Date: 07/30/22 Principal diagnosis: Coronary disease. Pulmonary consult dated 07/29/2022. 62-year-old male seen in consultation today, room 368. The patient is apparently scheduled to have a bypass surgery on Monday, and also, is scheduled to have left carotid artery surgery as well. I'm asked to see the patient for preoperative clearance. The patient did smoke on and off for about 30 years. I did see his pulmonary function tests earlier this week, and his numbers look excellent, and based on his FEV1 and MVV, the patient was thought to be at no increased operative risk. His history includes among other things coronavirus infection and subsequent pulmonary embolism, pneumonia, and previous myocardial infarction with stent. The patient's currently on room air. The patient's ge tting saline at 20 mL an hour, and IV heparin via protocol. Clinically, the patient looks great. Current labs include a white count 7.4, hemoglobin 12.7, hematocrit 38.5, and platelet count is normal. PTT is 47.6. Sodium 137, potassium 4.7, chlorides 109, CO2 22, BUN and creatinine were both normal. Urine was negative. Chest x-ray was normal. Progress note dated 07/30/2022. 62-year-old male seen yesterday in consultation. The patient is seen in room 368. He's on room air. He is receiving IV heparin. The patient is scheduled to have carotid artery surgery, as well as bypass grafting, this coming August 01. He had pulmonary function tests, which showed excellent lung functi on, and based on his FEV1, and MVV, the patient is at no increased operative risk. This is despite the fact that he smoked for about 30 years. No new labs today other than a PTT of 40.4. Objective - Vital Signs Vital signs: Vital Signs Temp 97.5 F L 07/30/22 03:18 Pulse 57 L 07/30/22 03:18 Resp 16 07/30/22 03:18 BP 108/62 07/30/22 03:18 Pulse Ox 97 07/30/22 03:18 FiO2 Intake & Output 07/29/22 07/30/22 07/30/22 18:59 06:59 18:59 Intake Total 1068.856 250 Balance 1068.856 250 Intake: Intake, IV Titration 174.856 250 Amount Heparin Sod,Pork in 0.45% 174.856 250 NaCl 25,000 unit In 0.45 % NaCl 1 250ml.bag @ 11. 36 UNITS/KG/HR 9.997 mls/ hr IV .Q24H [facility] Rx#: [id number] Oral 894 Other: Voiding Method Toilet - Exam No acute distress, oriented 3. No respiratory difficulty or distress. Room air saturation is 97 %. HEENT examination is grossly unremarkable. Neck supple. Full range of motion. No adenopathy thyromegaly or neck vein distention. Cardiovascular examination reveals regular rhythm rate. S1-S2 normal. No S3 or S4. No discernible murmur noted. Heart rate is 57 bpm. Lungs reveal clear breath sounds. Breath sounds are equal bilaterally. No adventitious lung sounds including wheezes rhonchi or crackles. Abdomen soft bowel sounds are heard. No masses or tenderness. Extremities are intact. No cyanosis clubbing or edema. Skin is without rash or lesion. Neurologic examination is brief but nonfocal. - Labs CBC & Chem 7: 07/29/22 08:46 07/28/22 10:39 Labs: Abnormal Lab Results - Last 24 Hours (Table) 07/30/22 Range/Units 07:37 APTT 40.4 H (22.0-30.0) sec Microbiology - Last 24 Hours (Table) 07/28/22 16:33 Nasal Screen MRSA/MSSA - Final Nasal Swab Assessment and Plan Assessment: No evidence of chronic lung disease, despite 30 years of tobacco use. CAD, with anticipated bypass surgery, on 08/01/2022. Left carotid artery stenosis. History of CAD with previous stent placement. History of hypertension. History of hyperlipidemia. History of myocardial infarction. History of rheumatoid arthritis. Gastroesophageal reflux disease. History of PTSD. Plan: Plan dated 07/29/2022. The patient is apparently going to have a procedure on his left carotid artery, and bypass surgery, on 08/01/2022. Pulmonary function tests were completed, and evaluated by me. The patient's FEV1 and MVV were both excellent, and would predict, no increased operative risk from a major surgical procedure. Labs, x-r ays, medications are reviewed. The patient has been smoking on and off for 30+ years. We will continue to follow and make recommendations where appropriate. Prognosis is guarded. Plan dated 07/30/2022. The patient's on room air. He is receiving saline at KVO and IV heparin via protocol. No new labs to report. The patient's lung function have been reviewed. Based on those lung function, the patient said no increased operative risk for surgery on Monday. We will continue to follow make recommendations along the way. Time with Patient: Less than 30
--- NOTE | 2022-07-30 11:54 | P.PN ---
Progress Note - Text Progress Note Date: 07/29/22 Imaging was reviewed. This agree with CT angiogram findings a less than 60%, given velocities of greater than 400 and ratio of greater than 6 along with significant calcific disease at the bulb and proximal internal carotid artery, would suggest a likely greater than 70% stenosis, however this time does remain asymptomatic. Would consider diagnostic angiogram versus going forward with combo procedure versus cardiothoracic recommendations per their data and criteria.
--- NOTE | 2022-07-30 13:49 | P.PN ---
Subjective Progress Note Date: 07/30/22 Patient seen and examined. No complaints. No changes. No new symptomatic issues. No unilateral weakness or other strokelike symptoms. Objective - Vital Signs Vital signs: Vital Signs Temp 97.5 F L 07/30/22 03:18 Pulse 57 L 07/30/22 03:18 Resp 16 07/30/22 03:18 BP 108/62 07/30/22 03:18 Pulse Ox 97 07/30/22 03:18 FiO2 Intake & Output 07/29/22 07/30/22 07/30/22 18:59 06:59 18:59 Intake Total 1068.856 250 47.178 Balance 1068.856 250 47.178 Intake: Intake, IV Titration 174.856 250 47.178 Amount Heparin Sod,Pork in 0.45% 174.856 250 47.178 NaCl 25,000 unit In 0.45 % NaCl 1 250ml.bag @ 11. 36 UNITS/KG/HR 9.997 mls/ hr IV .Q24H [facility] Rx#: [id number] Oral 894 Other: Voiding Method Toilet - Exam No acute distress sitting at the bedside. Nitropatch on chest. Normal mood and affect. Cranial nerves II through XII grossly intact. - Labs CBC & Chem 7: 07/29/22 08:46 07/28/22 10:39 Labs: Abnormal Lab Results - Last 24 Hours (Table) 07/30/22 Range/Units 07:37 APTT 40.4 H (22.0-30.0) sec Microbiology - Last 24 Hours (Table) 07/28/22 16:33 Nasal Screen MRSA/MSSA - Final Nasal Swab Assessment and Plan Assessment: High-grade left internal carotid artery stenosis, greater than 70% Symptomatic coronary artery disease Plan: Discussion had with patient regarding CT findings as well as ultrasound findings. Also discussed with cardiothoracic that we believe the imaging actually supports greater than 70% stenosis however the carotid remains asymptomatic at this time and due to the precarious nature of his cardiac disease the cardio thoracic surgeon feels it is beneficial to undergo cardiac intervention at this time and not as a combination procedure. We will be able to follow up afterwards or be available should further intervention be required. This is all discussed with the patient is seemingly understands.
--- NOTE | 2022-07-30 13:52 | US ---
EXAMINATION TYPE: Pre-Operative Non-Invasive Evaluation of the hand for Potential Radial Artery Nico , Measurements only DATE OF EXAM: 07/30/2022 1:21 PM CLINICAL INDICATION: Male, 62 years old with history of quality and size preop cabg; Pre-Op SIDE PERFORMED: Left TECHNIQUE: Radial artery is measured utilizing real time linear array sonography. Dominant hand: Right Duplex Findings: Radial Artery: Color flow seen Measurements in mm, transverse view: Left Radial: Proximal: 3.2 x 2.9 mm Mid: 2.9 x 3.5 mm Distal: 2.8 x 3.6 mm IMPRESSION: 1. Left radial artery measurements listed above. 2. Performing surgeon to determine viability as conduit.
--- NOTE | 2022-07-30 14:18 | P.PN ---
Subjective Progress Note Date: 07/30/22 History of present illness: This is a 62-year-old patient of Dr. Valderrama with past medical history of CAD with previous RCA stent March 2022 with cardiac catheterization revealed 50% ostial LAD, 45% mid ramus and 30% proximal circumflex disease. RCA was stented on 04/03/2022. He had a repeat catheterization on April 14 which showed patent stent. Patient presented to the hospital with burning sensation in the neck and took nitroglycerin that seemed to give him some relief. Yesterday, patient underwent a stress test which came back abnormal and he is scheduled for cardiac catheterization today with Dr. Catalan. Carotid ultrasound revealed bilateral plaque 70% severe stenosis of the proximal left ICA. 07/28 Yesterday, patient underwent cardiac catheterization with Dr. Catalan which found severe stenosis involving the ostium of the LAD and proximal left circumflex. Significant disease in the ramus intermedius. Mild disease in the RCA with patent stent. Collaterals from the right coronary artery through the septals or freighter. Recommendation was for cardiothoracic surgery evaluation for CABG. Patient is seen today on the cardiac stepdown unit. Has been seen by cardiothoracic team 07/29 No new concerns from the patient. He is scheduled for CABG on Tuesday 08/01. He is currently on heparin drip along with aspirin, statin, beta hiram and ARB. Patient is seen by vascular surgery as well for carotid artery disease. CT angiogram of the head and neck revealed partially 60% stenosis at the origin of the left internal carotid artery, less than 50% stenosis on the right coronary artery. No evidence of intracranial high-grade stenosis or intracranial aneurysm. 07/30 He is doing well, ambulatory in his room. Denies any chest pain or shortness of breath at this time. Physical Examination Gen: This is a 62-year-old male sitting on the edge of the bed. Appears to be in no acute distress. HEENT: Head is atraumatic, normocephalic. Pupils equal, round. Sclerae is an icteric. NECK: Supple. No JVD. LUNGS: Clear. No intercostal retractions. HEART: Regular rate and rhythm. No murmur. ABDOMEN: Soft. Bowel sounds are present. No masses. No tenderness. EXTREMITIES: No pedal edema. Dorsalis pedis palpable bilaterally. NEUROLOGICAL: Patient is awake, alert and oriented x3. Assessment: Chest pain syndrome, non-ST elevated IL with abnormal Lexiscan stress test secondary to multivessel coronary artery disease found on heart catheterization History of coronary artery disease and prior PCI with moderate disease in other vessels Hypertension Hyperlipidemia Carotid artery disease, 70% stenosis of the proximal left ICA COPD Tobacco use and dependence Alcohol dependence Plan: Patient is scheduled for CABG on 08/01. Continue current cardiac medications. Smoking cessation was strongly emphasized. We will follow. Nurse practitioner note has been reviewed, I agree with documented findings and plan of care. Patient was seen and examined. Objective - Vital Signs Vital signs: Vital Signs Temp 97.5 F L 07/30/22 03:18 Pulse 57 L 07/30/22 03:18 Resp 16 07/30/22 03:18 BP 108/62 07/30/22 03:18 Pulse Ox 97 07/30/22 03:18 FiO2 Intake & Output 07/29/22 07/30/22 07/30/22 18:59 06:59 18:59 Intake Total 1068.856 250 Balance 1068.856 250 Intake: Intake, IV Titration 174.856 250 Amount Heparin Sod,Pork in 0.45% 174.856 250 NaCl 25,000 unit In 0.45 % NaCl 1 250ml.bag @ 11. 36 UNITS/KG/HR 9.997 mls/ hr IV .Q24H [facility] Rx#: [id number] Oral 894 Other: Voiding Method Toilet - Labs CBC & Chem 7: 07/29/22 08:46 07/28/22 10:39 Labs: Abnormal Lab Results - Last 24 Hours (Table) 07/30/22 Range/Units 07:37 APTT 40.4 H (22.0-30.0) sec Microbiology - Last 24 Hours (Table) 07/28/22 16:33 Nasal Screen MRSA/MSSA - Final Nasal Swab
[2022-07-30] MEDS: hydrALAZINE HCL 25 MG TAB PO SCH (20:24)
[2022-07-30] MEDS: predniSONE 10 MG TAB PO SCH (20:24)
[2022-07-30] MEDS: GABAPENTIN 400 MG CAP PO SCH (20:25)
[2022-07-30] MEDS: SENNOSIDES-DOCUSATE SODIUM 1 EACH TAB PO SCH (20:25)
[2022-07-31] MEDS: HEPARIN SOD,PORK IN 0.45% NACL 25,000 UNIT in 0.45% NACL 1 250ML.BAG IV SCH (02:08)
[2022-07-31] MEDS: SODIUM CHLORIDE 0.9% 1,000 ML IV SCH ×2 (02:09→21:28)
--- NOTE | 2022-07-31 08:38 | P.PN ---
Subjective Progress Note Date: 07/31/22 Principal diagnosis: Coronary artery disease, non-STEMI this admission, left internal carotid stenosis. History of coronary artery disease with previous PCI to the RCA 03/2022, hypertension, hyperlipidemia, pulmonary embolism, rheumatoid arthritis on chronic Rituxan and prednisone, obstructive sleep apnea without home CPAP use, chronic ongoing tobacco dependence, COPD, PTSD as [place] war , peripheral neuropathy, COVID-19 infection in 2020, irritable bowel syndrome, GERD, family history of premature coronary artery disease (father diagnosed with myocardial infarction 44 years old) The patient was seen and examined this morning sitting up in bed in the cardiac stepdown unit in no acute distress. Denies any current chest pain or shortness of breath. Anticipates CABG tomorrow with Dr. Johns. No new questions regarding surgery. No other new concerns. Objective - Vital Signs Vital signs: Vital Signs Temp 97.6 F 07/31/22 04:00 Pulse 70 07/31/22 04:00 Resp 16 07/31/22 04:00 BP 156/86 07/31/22 04:00 Pulse Ox 96 07/31/22 04:00 FiO2 Intake & Output 07/30/22 07/31/22 07/31/22 18:59 06:59 18:59 Intake Total 365.178 202.822 Balance 365.178 202.822 Intake: Intake, IV Titration 247.178 202.822 Amount Heparin Sod,Pork in 0.45% 47.178 202.822 NaCl 25,000 unit In 0.45 % NaCl 1 250ml.bag @ 11. 36 UNITS/KG/HR 9.997 mls/ hr IV .Q24H [facility] Rx#: [id number] Sodium Chloride 0.9% 1, 200 000 ml @ 20 mls/hr IV . Q24H [facility] Rx#:[id number] Oral 118 Other: Voiding Method Toilet Toilet - Exam CONSTITUTIONAL: Appears comfortable, cooperative, no acute distress RESPIRATORY: Lungs sounds diminished bilaterally. Respirations even, nonlabored. Currently on room air with oxygen saturation 96%. Able to achieve 1500 mL on incentive spirometry. Strong cough. CARDIOVASCULAR: S1, S2 present. Regular rate and rhythm, sinus rhythm on telemetry. Palpable peripheral pulses bilaterally. No edema present. No calf pain or tenderness noted. GASTROINTESTINAL: Abdomen soft, nontender, nondistended. Active bowel sounds present 4 quadrants. Tolerating diet. GENITOURINARY: Continues to void INTEGUMENTARY: Skin is warm and dry with evidence of good perfusion NEUROLOGIC: Cranial nerves II through XII intact MUSKULOSKELETAL: Able to move all extremities, strength equal bilaterally, gait normal PSYCHIATRIC: Alert and oriented to person place and time, appropriate affect, intact judgment and insight - Labs CBC & Chem 7: 07/29/22 08:46 07/28/22 10:39 Labs: Abnormal Lab Results - Last 24 Hours (Table) 07/30/22 Range/Units 17:21 APTT 54.5 H (22.0-30.0) sec Microbiology - Last 24 Hours (Table) 07/28/22 16:33 Nasal Screen MRSA/MSSA - Final Nasal Swab Assessment and Plan Assessment: Coronary artery disease, non-STEMI this admission Left internal carotid stenosis greater than 70% per Doppler, 60% per CTA of the head and neck (although felt to be >70% per vascular and Dr. Johns) History of coronary artery disease with previous PCI to the RCA 03/2022 Hypertension Hyperlipidemia, treated, cholesterol 166, LDL 55.8, triglycerides 296 Pulmonary embolism Rheumatoid arthritis on chronic Rituxan and prednisone Obstructive sleep apnea without home CPAP use Chronic ongoing tobacco dependence COPD, FEV1 74% of predicted PTSD as [place] war Peripheral neuropathy COVID-19 infection in 2020 Irritable bowel syndrome GERD Family history of premature coronary artery disease (father diagnosed with myocardial infarction 44 years old) Plan: Our plan is for coronary artery bypass surgery with left internal mammary artery and left radial artery with ligation of left atrial appendage on July [address] Johns Continue to maximize medical therapy with aspirin, statin, beta hiram, continue to hold Effient. ARB discontinued to prevent intra/post operative vasoplegia, hydralazine added Continue preoperative teaching Encourage incentive spirometry use Increase activity as tolerated Smoking cessation counseling and education provided Monitor for EtOH withdrawal, CIWA protocol Medical management of other comorbidities per internal medicine, cardiology, vascular More recommendations to follow
[2022-07-31] MEDS: NITROGLYCERIN OINT 1 INCH/GM PACKET TOPICAL SCH ×3 (08:47→16:52)
[2022-07-31] MEDS: SIMETHICONE 80 MG CHEWABLE PO SCH ×4 (08:47→22:15)
[2022-07-31] MEDS: FOLIC ACID 1 MG TAB PO SCH (08:47)
[2022-07-31] MEDS: ATORVASTATIN 80 MG TAB PO SCH (08:47)
[2022-07-31] MEDS: ASPIRIN 81 MG PO SCH (08:48)
[2022-07-31] MEDS: PANTOPRAZOLE 40 MG TABLET PO SCH (08:48)
[2022-07-31] MEDS: VITAMIN A 10,000 UNIT (3000 MCG) CAPSULE PO SCH (08:48)
[2022-07-31] MEDS: THIAMINE 100 MG TAB PO SCH (08:48)
[2022-07-31] MEDS: METOPROLOL TARTRATE 25 MG TAB PO SCH ×3 (08:48→21:28)
[2022-07-31] MEDS: hydrALAZINE HCL 25 MG TAB PO SCH ×2 (08:48→21:27)
[2022-07-31 09:59] LABS: HCT 38.5 % (39.0-53.0); HGB 13.2 gm/dL (13.0-17.5); MCH 32.9 pg (25.0-35.0); MCHC 34.3 g/dL (31.0-37.0); MCV 95.8 fL (80.0-100.0); Mean Platelet Volume 9.6; Platelet Count 161 k/uL (150-450); RBC 4.01 m/uL (4.30-5.90); RDW 13.7 % (11.5-15.5); WBC 8.4 k/uL (3.8-10.6)
[2022-07-31 10:08] LABS: Partial Thromboplastin Time 55.2 sec (22.0-30.0); Prothrombin Time 10.5 sec (9.0-12.0)
[2022-07-31 10:13] LABS: African American GFR (CKD) >90 (>60 ml/min/1.73 sqM); Anion Gap 8 mmol/L; Blood Urea Nitrogen 11 mg/dL (9-20); Carbon Dioxide 26 mmol/L (22-30); Chloride 105 mmol/L (98-107); Glucose 97 mg/dL (74-99); Magnesium 2.1 mg/dL (1.6-2.3); Non-African American GFR(CKD) 85 (>60 ml/min/1.73 sqM); Potassium 3.9 mmol/L (3.5-5.1); Sodium 139 mmol/L (137-145)
[2022-07-31] MEDS: MUPIROCIN 2% OINT 22 GM TUBE NASAL SCH ×2 (12:22→21:28)
[2022-07-31] MEDS: NICOTINE 21MG/24HR PATCH TRANSDERM SCH (12:22)
[2022-07-31] MEDS: MULTIVITAMINS, THERA 1 EACH TAB PO SCH (12:22)
--- NOTE | 2022-07-31 12:30 | P.PN ---
Subjective Progress Note Date: 07/31/22 Principal diagnosis: Coronary disease. Pulmonary consult dated 07/29/2022. 62-year-old male seen in consultation today, room 368. The patient is apparently scheduled to have a bypass surgery on Monday, and also, is scheduled to have left carotid artery surgery as well. I'm asked to see the patient for preoperative clearance. The patient did smoke on and off for about 30 years. I did see his pulmonary function tests earlier this week, and his numbers look excellent, and based on his FEV1 and MVV, the patient was thought to be at no increased operative risk. His history includes among other things coronavirus infection and subsequent pulmonary embolism, pneumonia, and previous myocardial infarction with stent. The patient's currently on room air. The patient's ge tting saline at 20 mL an hour, and IV heparin via protocol. Clinically, the patient looks great. Current labs include a white count 7.4, hemoglobin 12.7, hematocrit 38.5, and platelet count is normal. PTT is 47.6. Sodium 137, potassium 4.7, chlorides 109, CO2 22, BUN and creatinine were both normal. Urine was negative. Chest x-ray was normal. Progress note dated 07/30/2022. 62-year-old male seen yesterday in consultation. The patient is seen in room 368. He's on room air. He is receiving IV heparin. The patient is scheduled to have carotid artery surgery, as well as bypass grafting, this coming August 01. He had pulmonary function tests, which showed excellent lung functi on, and based on his FEV1, and MVV, the patient is at no increased operative risk. This is despite the fact that he smoked for about 30 years. No new labs today other than a PTT of 40.4. Progress note dated 07/31/2022. 62-year-old male seen in room 368. The patient is scheduled to have bypass s urgery tomorrow. The patient's on room air. The patient's receiving IV heparin via protocol, and getting saline at 10 mL an hour. The patient was to have some carotid artery surgery as well on the left side, but he tells us today, that he is not going to have that surgery. Anyway, lung function that were done a couple days ago were excellent. White count 8.4, hemoglobin 13.2, hematocrit 38.5, with a normal platelet count. PTT is 55.2. Sodium 139, potassium 3.9, chlorides 105, CO2 26, BUN 11, and creatinine 0.95. Objective - Vital Signs Vital signs: Vital Signs Temp 97.8 F 07/31/22 08:45 Pulse 70 07/31/22 11:00 Resp 16 07/31/22 11:00 BP 123/71 07/31/22 11:00 Pulse Ox 96 07/31/22 11:00 FiO2 Intake & Output 07/30/22 07/31/22 07/31/22 18:59 06:59 18:59 Intake Total 365.178 202.822 360 Balance 365.178 202.822 360 Intake: Intake, IV Titration 247.178 202.822 Amount Heparin Sod,Pork in 0.45% 47.178 202.822 NaCl 25,000 unit In 0.45 % NaCl 1 250ml.bag @ 11. 36 UNITS/KG/HR 9.997 mls/ hr IV .Q24H [facility] Rx#: [id number] Sodium Chloride 0.9% 1, 200 000 ml @ 20 mls/hr IV . Q24H [facility] Rx#:[id number] Oral 118 360 Other: Voiding Method Toilet Toilet Toilet - Exam No acute distress, oriented 3. No respiratory difficulty or distress. Room air saturation is 96 %. HEENT examination is grossly unremarkable. Neck supple. Full range of motion. No adenopathy thyromegaly or neck vein distention. Cardiovascular examination reveals regular rhythm rate. S1-S2 normal. No S3 or S4. No discernible murmur noted. Heart rate is 70 bpm. Lungs reveal clear breath sounds. Breath sounds are equal bilaterally. No adventitious lung sounds including wheezes rhonchi or crackles. Abdomen soft bowel sounds are heard. No masses or tenderness. Extremities are intact. No cyanosis clubbing or edema. Skin is without rash or lesion. Neurologic examination is brief but nonfocal. - Labs CBC & Chem 7: 07/31/22 08:33 07/31/22 08:33 Labs: Abnormal Lab Results - Last 24 Hours (Table) 07/30/22 07/31/22 07/31/22 Range/Units 17:21 08:33 08:33 RBC 4.01 L (4.30-5.90) m/uL Hct 38.5 L (39.0-53.0) % APTT 54.5 H (22.0-30.0) sec Crossmatch See Detail 07/31/22 Range/Units 08:33 RBC (4.30-5.90) m/uL Hct (39.0-53.0) % APTT 55.2 H (22.0-30.0) sec Crossmatch Microbiology - Last 24 Hours (Table) 07/28/22 16:33 Nasal Screen MRSA/MSSA - Final Nasal Swab Assessment and Plan Assessment: No evidence of chronic lung disease, despite 30 years of tobacco use. CAD, with anticipated bypass surgery, on 08/01/2022. Left carotid artery stenosis. History of CAD with previous stent placement. History of hypertension. History of hyperlipidemia. History of myocardial infarction. History of rheumatoid arthritis. Gastroesophageal reflux disease. History of PTSD. Plan: Plan dated 07/29/2022. The patient is apparently going to have a procedure on his left carotid artery, and bypass surgery, on 08/01/2022. Pulmonary function tests were completed, and evaluated by me. The patient's FEV1 and MVV were both excellent, and would predict, no increased operative risk from a major surgical procedure. Labs, x- rays, medications are reviewed. The patient has been smoking on and off for 30+ years. We will continue to follow and make recommendations where appropriate. Prognosis is guarded. Plan dated 07/30/2022. The patient's on room air. He is receiving saline at KVO and IV heparin via protocol. No new labs to report. The patient's lung function have been reviewed. Based on those lung function, the patient said no increased operative risk for surgery on Monday. We will continue to follow make recommendations along the way. Plan dated 07/31/2022. The patient's currently on room air. He continues on IV heparin. The plan is to have him undergo bypass grafting tomorrow, 08/01/2022. Initially, the plan was to deal with the left carotid artery stenosis, but apparently its severity is thought to be less than when initially evaluated. We will continue to follow the patient make recommendations along the way. He had prior lung function which are excellent. Based on the FEV1 and MVV, the patient is thought to be at NO increased operative risk. Time with Patient: Less than 30
--- NOTE | 2022-07-31 13:11 | P.PN ---
Subjective Progress Note Date: 07/31/22 Principal diagnosis: Patient awake alert oriented 3 in good spirits, CABG pending Monday, recent echo normal LV function EF 55-60. Current EKG sinus rhythm currently denying chest pain denying shortness of breath denying heart palpitations denying lightheadedness Entire family is visiting with patient, currently doing well pending CABG tomorrow As above Objective - Vital Signs Vital signs: Vital Signs Temp 97.8 F 07/31/22 08:45 Pulse 70 07/31/22 11:00 Resp 16 07/31/22 11:00 BP 123/71 07/31/22 11:00 Pulse Ox 96 07/31/22 11:00 FiO2 Intake & Output 07/30/22 07/31/22 07/31/22 18:59 06:59 18:59 Intake Total 365.178 202.822 360 Balance 365.178 202.822 360 Intake: Intake, IV Titration 247.178 202.822 Amount Heparin Sod,Pork in 0.45% 47.178 202.822 NaCl 25,000 unit In 0.45 % NaCl 1 250ml.bag @ 11. 36 UNITS/KG/HR 9.997 mls/ hr IV .Q24H [facility] Rx#: [id number] Sodium Chloride 0.9% 1, 200 000 ml @ 20 mls/hr IV . Q24H [facility] Rx#:[id number] Oral 118 360 Other: Voiding Method Toilet Toilet Toilet - Exam General: [Patient awake, alert and oriented times 3. Patient in no acute distress.] HEENT: [PERRL. EOMI. No pharyngeal erythema or exudate.] Neck: [No adenopathy.] Cardiac: [Heart regular in rate and rhythm. No S3. No S4. No clicks, rubs. No murmur.] Lungs: [Clear to auscultation bilaterally.] Abdomen: [No mass. No organomegaly. Bowel sounds presnt and normoactive in all 4 quadrants.] Extremes: [No edema no cyanosis no claudication normal pulses] : Normal male genitalia Musculoskeletal: [No joint erythema, edema or tenderness.] Skin: [No rash.] Neurologic: [No lateralizing deficits. CN II - XII grossly intact.] Lymphatic: [No adenopathy.] - Labs CBC & Chem 7: 07/31/22 08:33 07/31/22 08:33 Labs: Abnormal Lab Results - Last 24 Hours (Table) 07/30/22 07/31/22 07/31/22 Range/Units 17:21 08:33 08:33 RBC 4.01 L (4.30-5.90) m/uL Hct 38.5 L (39.0-53.0) % APTT 54.5 H (22.0-30.0) sec Crossmatch See Detail 07/31/22 Range/Units 08:33 RBC (4.30-5.90) m/uL Hct (39.0-53.0) % APTT 55.2 H (22.0-30.0) sec Crossmatch Assessment and Plan (1) Acute chest pain Current Visit: Yes Status: Acute Code(s): R07.9 - CHEST PAIN, UNSPECIFIED SNOMED Code(s): 245289995 (2) Elevated troponin Current Visit: Yes Status: Acute Code(s): R77.8 - OTHER SPECIFIED ABNORMALITIES OF PLASMA PROTEINS SNOMED Code(s): 571966628 (3) Unstable angina pectoris Current Visit: Yes Status: Acute Code(s): I20.0 - UNSTABLE ANGINA SNOMED Code(s): 6913753 (4) Acute non-ST elevation myocardial infarction (NSTEMI) Current Visit: No Status: Acute Code(s): I21.4 - NON-ST ELEVATION (NSTEMI) MYOCARDIAL INFARCTION SNOMED Code(s): 891043604 (5) Atypical chest pain Current Visit: No Status: Acute Code(s): R07.89 - OTHER CHEST PAIN SNOMED Code(s): 444908353 (6) CAD (coronary artery disease) Current Visit: No Status: Chronic Code(s): I25.10 - ATHSCL HEART DISEASE OF [place] CORONARY ARTERY W/O ANG PCTRS SNOMED Code(s): 30506149 (7) Hypertension Current Visit: No Status: Chronic Code(s): I10 - ESSENTIAL (PRIMARY) HYPERTENSION SNOMED Code(s): 34759362 Plan: Coronary artery disease, chest pain, elevated troponins Abnormal Lexiscan scan triple vessel disease noted Non-STEMI this admission Hypertension Hyperlipidemia Obesity, BMI 30.4 Nicotine dependence COPD currently stable Current plan: CABG tentatively scheduled for Monday, possible carotid endarterectomy, vascular surgery involved Time with Patient: Greater than 30
--- NOTE | 2022-07-31 14:06 | P.PN ---
Subjective Progress Note Date: 07/31/22 History of present illness: This is a 62-year-old patient of Dr. Valderrama with past medical history of CAD with previous RCA stent March 2022 with cardiac catheterization revealed 50% ostial LAD, 45% mid ramus and 30% proximal circumflex disease. RCA was stented on 04/03/2022. He had a repeat catheterization on April 14 which showed patent stent. Patient presented to the hospital with burning sensation in the neck and took nitroglycerin that seemed to give him some relief. Yesterday, patient underwent a stress test which came back abnormal and he is scheduled for cardiac catheterization today with Dr. Catalan. Carotid ultrasound revealed bilateral plaque 70% severe stenosis of the proximal left ICA. 07/28 Yesterday, patient underwent cardiac catheterization with Dr. Catalan which found severe stenosis involving the ostium of the LAD and proximal left circumflex. Significant disease in the ramus intermedius. Mild disease in the RCA with patent stent. Collaterals from the right coronary artery through the septals or freighter. Recommendation was for cardiothoracic surgery evaluation for CABG. Patient is seen today on the cardiac stepdown unit. Has been seen by cardiothoracic team 07/29 No new concerns from the patient. He is scheduled for CABG on Tuesday 08/01. He is currently on heparin drip along with aspirin, statin, beta hiram and ARB. Patient is seen by vascular surgery as well for carotid artery disease. CT angiogram of the head and neck revealed partially 60% stenosis at the origin of the left internal carotid artery, less than 50% stenosis on the right coronary artery. No evidence of intracranial high-grade stenosis or intracranial aneurysm. 07/30 He is doing well, ambulatory in his room. Denies any chest pain or shortness of breath at this time. 07/31 Denies any chest pain or shortness of breath. He is anxious about procedure tomorrow but questions answered. Physical Examination Gen: This is a 62-year-old male sitting on the edge of the bed. Appears to be in no acute distress. HEENT: Head is atraumatic, normocephalic. Pupils equal, round. Sclerae is anicteric. NECK: Supple. No JVD. LUNGS: Clear. No intercostal retractions. HEART: Regular rate and rhythm. No murmur. ABDOMEN: Soft. Bowel sounds are present. No masses. No tenderness. EXTREMITIES: Trace pedal edema. Dorsalis pedis palpable bilaterally. NEUROLOGICAL: Patient is awake, alert and oriented x3. Assessment: Chest pain syndrome, non-ST elevated NE with abnormal Lexiscan stress test secondary to multivessel coronary artery disease found on heart catheterization History of coronary artery disease and prior PCI with moderate disease in other vessels Hypertension Hyperlipidemia Carotid artery disease, 60% stenosis of the proximal left ICA COPD Tobacco use and dependence Alcohol dependence Plan: No new issues overnight. Continue current regimen. Patient is scheduled for CABG tomorrow 08/01. Continue current cardiac medications. Smoking cessation was strongly emphasized. NPO after midnight. We will follow. Objective - Vital Signs Vital signs: Vital Signs Temp 97.8 F 07/31/22 08:45 Pulse 71 07/31/22 08:45 Resp 18 07/31/22 08:45 BP 146/91 07/31/22 08:45 Pulse Ox 97 07/31/22 08:45 FiO2 Intake & Output 07/30/22 07/31/22 07/31/22 18:59 06:59 18:59 Intake Total 365.178 202.822 Balance 365.178 202.822 Intake: Intake, IV Titration 247.178 202.822 Amount Heparin Sod,Pork in 0.45% 47.178 202.822 NaCl 25,000 unit In 0.45 % NaCl 1 250ml.bag @ 11. 36 UNITS/KG/HR 9.997 mls/ hr IV .Q24H [facility] Rx#: [id number] Sodium Chloride 0.9% 1, 200 000 ml @ 20 mls/hr IV . Q24H [facility] Rx#:[id number] Oral 118 Other: Voiding Method Toilet Toilet - Labs CBC & Chem 7: 07/31/22 08:33 07/31/22 08:33 Labs: Abnormal Lab Results - Last 24 Hours (Table) 07/30/22 Range/Units 17:21 APTT 54.5 H (22.0-30.0) sec Microbiology - Last 24 Hours (Table) 07/28/22 16:33 Nasal Screen MRSA/MSSA - Final Nasal Swab
[2022-07-31] MEDS: SENNOSIDES-DOCUSATE SODIUM 1 EACH TAB PO SCH (21:27)
[2022-07-31] MEDS: GABAPENTIN 400 MG CAP PO SCH (21:27)
[2022-07-31] MEDS: predniSONE 10 MG TAB PO SCH (21:27)
[2022-08-01] MEDS: NITROGLYCERIN OINT 1 INCH/GM PACKET TOPICAL SCH (01:37)
[2022-08-01] MEDS ORDERED: LACTATED RINGERS 1,000 ML IV SCH (05:00)
[2022-08-01] MEDS ORDERED: PAPAVERINE 360 MG in SODIUM CHLORIDE 0.9% 90 ML IV ONE (05:00)
[2022-08-01] MEDS ORDERED: ceFAZolin 1,000 MG in SODIUM CHLORIDE 0.9% IRRIGATIO 1,000 ML IRRIGATION ONE (05:00)
[2022-08-01] MEDS ORDERED: NITROGLYCERIN-D5W PMX 25 MG/250 ML BTL IV ONE ×2 (05:00→07:36)
[2022-08-01] MEDS ORDERED: NOREPINEPHRINE 4 MG in SODIUM CHLORIDE 0.9% 250 ML IV SCH (05:00)
[2022-08-01] MEDS ORDERED: CALCIUM CHLORIDE 100 MG/ML 10 ML SYRINGE IVP ONE (05:00)
[2022-08-01] MEDS ORDERED: CLEVIDIPINE BUTYRATE 25 MG in EMPTY BAG 1 BAG IV SCH ×2 (05:00→14:45)
[2022-08-01] MEDS ORDERED: CHLORHEXIDINE GLUCONATE 15 ML CUP MUCOUS MEM ONE (05:00)
[2022-08-01] MEDS ORDERED: HEPARIN SODIUM 1,000 UN/ML (10ML VL) IV ONE (05:00)
[2022-08-01] MEDS ORDERED: SODIUM BICARB 8.4% 50 ML SYR (1 MEQ/ML) IV ONE (05:00)
[2022-08-01] MEDS ORDERED: ASPIRIN 325 MG TAB PO ONE (05:00)
[2022-08-01] MEDS ORDERED: ELECTROLYTE-A SOLUTION 1,000 ML with POTASSIUM CHLORIDE 100 MEQ, MAGNESIUM SULFATE 16 M... IV ONE ×5 (05:00)
[2022-08-01] MEDS ORDERED: PROTAMINE SULFATE 10 MG/ML 25 ML VIAL IV ONE ×2 (05:00→07:36)
[2022-08-01] MEDS ORDERED: ALBUMIN HUMAN 25% 50 ML in EMPTY BAG 1 BAG IVPB ONE (05:00)
[2022-08-01] MEDS ORDERED: PHENYLEPHRINE 40 MG in SODIUM CHLORIDE 0.9% 250 ML IV ONE (05:00)
[2022-08-01] MEDS ORDERED: ATORVASTATIN 10 MG TAB PO ONE (05:00)
[2022-08-01] MEDS ORDERED: MANNITOL 25% 12.5 GM/50 ML VIAL IV ONE ×2 (05:00)
[2022-08-01] MEDS ORDERED: PHENYLEPHRINE 10 MG/ML VIAL IV ONE (05:00)
[2022-08-01] MEDS ORDERED: ELECTROLYTE-A SOLUTION 1,000 ML with POTASSIUM CHLORIDE 40 MEQ, MAGNESIUM SULFATE 16 ME... IV ONE ×5 (05:00)
[2022-08-01] MEDS ORDERED: HEPARIN SODIUM,PORCINE 5,000 UNIT in SODIUM CHLORIDE 0.9% 500 ML 500 ML IV ONE (05:00)
[2022-08-01] MEDS ORDERED: ALBUMIN HUMAN 5% 500 ML in EMPTY BAG 1 BAG IVPB ONE ×6 (05:00)
[2022-08-01] MEDS ORDERED: MAGNESIUM SULFATE 16.24 MEQ in EMPTY SYRINGE 1 SYR IV ONE (05:00)
[2022-08-01] MEDS ORDERED: TRANEXAMIC ACID 2,000 MG in SODIUM CHLORIDE 0.9% 80 ML IV ONE (05:00)
[2022-08-01] MEDS ORDERED: METOPROLOL TARTRATE 12.5 MG TAB PO ONE (05:00)
[2022-08-01] MEDS ORDERED: NITROGLYCERIN-D5W PMX 50 MG in DEXTROSE/WATER 1 250ML.BAG IV SCH ×2 (05:00→14:45)
[2022-08-01] MEDS ORDERED: DILTIAZEM 125 MG in SODIUM CHLORIDE 0.9% 100 ML IV SCH ×2 (05:00→14:45)
[2022-08-01] MEDS ORDERED: INSULIN REGULAR 100 UNIT in SODIUM CHLORIDE 0.9% 100 ML IV SCH ×2 (05:00→14:45)
[2022-08-01] MEDS ORDERED: PROTAMINE SULFATE 250 MG in EMPTY BAG 1 BAG IV ONE (05:00)
[2022-08-01 05:53] LABS: Glucose,Whole Blood 127 mg/dL (70-110)
[2022-08-01] MEDS ORDERED: IV FLUID CONTINUATION 600 ML IV ONE (06:08)
[2022-08-01] MEDS ORDERED: HEPARIN SODIUM,PORCINE 5,000 UNIT/ML 1 ML VIAL ONE (07:36)
[2022-08-01] MEDS ORDERED: HYDROCORTISONE SUCCINATE 100 MG/2 ML VIAL ONE (07:36)
[2022-08-01] MEDS ORDERED: WATER FOR INJECTION, STERILE 10 ML VIAL IV ONE (07:36)
[2022-08-01] MEDS ORDERED: VECURONIUM 10 MG VIAL IV ONE (07:36)
[2022-08-01] MEDS ORDERED: PROPOFOL 10 MG/ML 20 ML VIAL IV ONE (07:36)
[2022-08-01] MEDS ORDERED: fentaNYL (PF) 50 MCG/ML 50 ML VIAL ONE (07:36)
[2022-08-01] MEDS ORDERED: MAGNESIUM SULFATE 4 MEQ/ML 10ML VIAL ONE (07:36)
[2022-08-01] MEDS ORDERED: CALCIUM CHLORIDE 100 MG/ML 10 ML SYRINGE ONE (07:36)
[2022-08-01] MEDS ORDERED: LIDOCAINE 1% INJ 10MG/ML (20 ML MDV) ONE (07:36)
[2022-08-01] MEDS ORDERED: PHENYLEPHRINE-0.9% NACL SYG 1,000 MCG/10 ML SYRINGE ONE (07:36)
[2022-08-01] MEDS ORDERED: MIDAZOLAM HCL 10 MG/10 ML VIAL ONE (07:36)
[2022-08-01] MEDS ORDERED: HEPARIN SODIUM,PORCINE 10,000 UNIT/ML 1 ML VIAL ONE (07:36)
[2022-08-01] MEDS ORDERED: TRANEXAMIC ACID IN NACL,ISO-OS 1,000 MG/100 ML BAG ONE (07:36)
[2022-08-01] MEDS ORDERED: ePHEDrine 50 MG/ML 1 ML VIAL ONE (07:36)
[2022-08-01] MEDS ORDERED: HYDROCORTISONE SUCCINATE 100 MG/2 ML VIAL IV ONE (08:00)
[2022-08-01 08:23] LABS: ABG Base Excess -0.1 mmol/L; ABG Glucose Whole Blood 100 mg/dL (75-99); ABG HCO3 26 mmol/L (21-25); ABG Hematocrit 38 % (34.0-46.0); ABG Ionized Calcium 4.8 mg/dL (4.5-5.3); ABG Lactic Acid Whole Blood 1.1 mmol/L (0.5-1.6); ABG Oxygen Saturation 99.7 % (94-97); ABG PCO2 49 mmHg (35-45); ABG PH 7.34 (7.35-7.45); ABG PO2 228 mmHg (83-108); ABG Potassium Whole Blood 4.5 mmol/L (3.4-4.5); ABG Sodium Whole Blood 143 mmol/L (135-146); ABG TCO2 28 mmol/L (19-24)
--- NOTE | 2022-08-01 09:49 | P.ANPRN ---
Procedure Note - Anesthesia - Invasive Line Right Central Line Time Out Performed: Yes ([id number]) Date of Procedure: 08/01/22 Time of Procedure: 07:08 Location of Patient: Phase I Preparation: Sterile Prep, Sterile Dressing Arterial Line Location: Radial (right) Central Line Location: Internal Jugular Ultrasound Used: Yes Purpose - Visualization and Identification of Vasculature: Yes Needle Guage: 18g angio Image Stored and Saved: Yes Narrative: Central line placement per sterile protocol utilized. +local +angio +jwire +uneventful dilation and introduction right IJ cordis. Bled and flushed. Sterile protocol
--- NOTE | 2022-08-01 09:51 | P.ANPRN ---
Procedure Note - Anesthesia - Invasive Line Right [place] Time Out Performed: Yes ([id number]) Date of Procedure: 08/01/22 Time of Procedure: 07:24 Location of Patient: Phase I Preparation: Sterile Prep, Sterile Dressing [place] Line Location: Internal Jugular (right) Ultrasound Used: No Purpose - Visualization and Identification of Vasculature: No Image Stored and Saved: No Narrative: Central line placement per sterile protocol utilized. swan floated in sheath under sterile protocol in one attempt to PA. Wedge at 53cm. b/d. W/d 6 cm to 47cm.
--- NOTE | 2022-08-01 09:52 | P.ANPRN ---
Procedure Note - Anesthesia - YURIY Intraop Pre Bypass YURIY Intraop - Anesthesia Indication: CABG Date of Procedure: 08/01/22 Pre-operative Diagnosis: CAD Post-operative Diagnosis: Same Surgeon: Prakash Johns Ejection Fraction: Normal Regional Wall Motion Abnormalities: None Left Ventricle Hypertrophy: No R. Ventricle Function: Normal Anatomy: Trileaflet Aortic Stenosis: None Aortic Regurgitation: None Mitral Stenosis: None Mitral Regurgitation: Trace Tricuspid Stenosis: None Tricuspid Regurgitation: None Pulmonic Regurgitation: None R. Atrial Dilation: No L. Atrial Dilation: No Aortic Dissection: No
[2022-08-01 10:11] LABS: ABG Base Excess -0.3 mmol/L; ABG Glucose Whole Blood 108 mg/dL (75-99); ABG HCO3 25 mmol/L (21-25); ABG Hematocrit 35 % (34.0-46.0); ABG Ionized Calcium 4.7 mg/dL (4.5-5.3); ABG Lactic Acid Whole Blood 1.3 mmol/L (0.5-1.6); ABG PCO2 45 mmHg (35-45); ABG PH 7.36 (7.35-7.45); ABG PO2 144 mmHg (83-108); ABG Potassium Whole Blood 4.8 mmol/L (3.4-4.5); ABG Sodium Whole Blood 142 mmol/L (135-146); ABG TCO2 27 mmol/L (19-24)
--- NOTE | 2022-08-01 11:04 | P.PN ---
Subjective Progress Note Date: 08/01/22 Principal diagnosis: Coronary disease. Pulmonary consult dated 07/29/2022. 62-year-old male seen in consultation today, room 368. The patient is apparently scheduled to have a bypass surgery on Monday, and also, is scheduled to have left carotid artery surgery as well. I'm asked to see the patient for preoperative clearance. The patient did smoke on and off for about 30 years. I did see his pulmonary function tests earlier this week, and his numbers look excellent, and based on his FEV1 and MVV, the patient was thought to be at no increased operative risk. His history includes among other things coronavirus infection and subsequent pulmonary embolism, pneumonia, and previous myocardial infarction with stent. The patient's currently on room air. The patient's ge tting saline at 20 mL an hour, and IV heparin via protocol. Clinically, the patient looks great. Current labs include a white count 7.4, hemoglobin 12.7, hematocrit 38.5, and platelet count is normal. PTT is 47.6. Sodium 137, potassium 4.7, chlorides 109, CO2 22, BUN and creatinine were both normal. Urine was negative. Chest x-ray was normal. Progress note dated 07/30/2022. 62-year-old male seen yesterday in consultation. The patient is seen in room 368. He's on room air. He is receiving IV heparin. The patient is scheduled to have carotid artery surgery, as well as bypass grafting, this coming August 01. He had pulmonary function tests, which showed excellent lung functi on, and based on his FEV1, and MVV, the patient is at no increased operative risk. This is despite the fact that he smoked for about 30 years. No new labs today other than a PTT of 40.4. Progress note dated 07/31/2022. 62-year-old male seen in room 368. The patient is scheduled to have bypass s urgery tomorrow. The patient's on room air. The patient's receiving IV heparin via protocol, and getting saline at 10 mL an hour. The patient was to have some carotid artery surgery as well on the left side, but he tells us today, that he is not going to have that surgery. Anyway, lung function that were done a couple days ago were excellent. White count 8.4, hemoglobin 13.2, hematocrit 38.5, with a normal platelet count. PTT is 55.2. Sodium 139, potassium 3.9, chlorides 105, CO2 26, BUN 11, and creatinine 0.95. Progress note dated 08/01/2022. This is a 62-year-old male scheduled for bypass surgery today. Clinically he's been stable. His lung function have been excellent. Up until the time of surgery he was on IV heparin. He was not requiring any supplemental oxygen. In addition, his bedside spirometry were excellent. No labs today. Lab from July 31 have been reviewed. Objective - Vital Signs Vital signs: Vital Signs Temp 97.8 F 07/31/22 20:00 Pulse 55 L 08/01/22 06:13 Resp 18 08/01/22 06:13 BP 122/68 08/01/22 06:13 Pulse Ox 96 08/01/22 06:13 FiO2 Intake & Output 07/31/22 08/01/22 08/01/22 18:59 06:59 18:59 Intake Total 1320 54 Balance 1320 54 Intake: IV 54 Oral 1320 Other: Voiding Method Toilet Toilet # Voids 1 2 # Bowel Movements 0 - Exam No acute distress, oriented 3. No respiratory difficulty or distress. Room air saturation is 97 %. HEENT examination is grossly unremarkable. Neck supple. Full range of motion. No adenopathy thyromegaly or neck vein distention. Cardiovascular examination reveals regular rhythm rate. S1-S2 normal. No S3 or S4. No discernible murmur noted. Heart rate is 65 bpm. Lungs reveal clear breath sounds. Breath sounds are equal bilaterally. No adventitious lung sounds including wheezes rhonchi or crackles. Abdomen soft bowel sounds are heard. No masses or tenderness. Extremities are intact. No cyanosis clubbing or edema. Skin is without rash or lesion. Neurologic examination is brief but nonfocal. - Labs CBC & Chem 7: 07/31/22 08:33 07/31/22 08:33 Labs: Abnormal Lab Results - Last 24 Hours (Table) 07/31/22 08/01/22 Range/Units 08:33 05:51 POC Glucose (mg/dL) 127 H (70-110) mg/dL Crossmatch See Detail Assessment and Plan Assessment: No evidence of chronic lung disease, despite 30 years of tobacco use. CAD, with anticipated bypass surgery, on 08/01/2022. Left carotid artery stenosis. History of CAD with previous stent placement. History of hypertension. History of hyperlipidemia. History of myocardial infarction. History of rheumatoid arthritis. Gastroesophageal reflux disease. History of PTSD. Plan: Plan dated 07/29/2022. The patient is apparently going to have a procedure on his left carotid artery, and bypass surgery, on 08/01/2022. Pulmonary function tests were completed, and evaluated by me. The patient's FEV1 and MVV were both excellent, and would predict, no increased operative risk from a major surgical procedure. Labs, x- rays, medications are reviewed. The patient has been smoking on and off for 30+ years. We will continue to follow and make recommendations where appropriate. Prognosis is guarded. Plan dated 07/30/2022. The patient's on room air. He is receiving saline at KVO and IV heparin via protocol. No new labs to report. The patient's lung function have been revie mon. Based on those lung function, the patient said no increased operative risk for surgery on Monday. We will continue to follow make recommendations along the way. Plan dated 07/31/2022. The patient's currently on room air. He continues on IV heparin. The plan is to have him undergo bypass grafting tomorrow, 08/01/2022. Initially, the plan was to deal with the left carotid artery stenosis, but apparently its severity is thought to be less than when initially evaluated. We will continue to follow the patient make recommendations along the way. He had prior lung function which are excellent. Based on the FEV1 and MVV, the patient is thought to be at NO increased operative risk. Plan dated 08/01/2022. The patient is to have surgery today. The patient is stable from the pulmonary standpoint. His lung function were excellent. The patient was not requiring any supplemental oxygen. He does smoke about a pack a day for 30 years. The patient will be seen after surgery. No additional recommendations are made at this time. Time with Patient: Less than 30
[2022-08-01 11:17] LABS: ABG Base Excess 1.7 mmol/L; ABG Glucose Whole Blood 100 mg/dL (75-99); ABG HCO3 26 mmol/L (21-25); ABG Hematocrit 26 % (34.0-46.0); ABG PCO2 40 mmHg (35-45); ABG PH 7.43 (7.35-7.45); ABG Potassium Whole Blood 4.4 mmol/L (3.4-4.5); ABG Sodium Whole Blood 145 mmol/L (135-146); ABG TCO2 27 mmol/L (19-24)
[2022-08-01 11:48] LABS: ABG Base Excess 2.2 mmol/L; ABG Glucose Whole Blood 107 mg/dL (75-99); ABG HCO3 27 mmol/L (21-25); ABG Hematocrit 26 % (34.0-46.0); ABG Ionized Calcium 4.1 mg/dL (4.5-5.3); ABG PCO2 41 mmHg (35-45); ABG PH 7.42 (7.35-7.45); ABG Sodium Whole Blood 142 mmol/L (135-146); ABG TCO2 28 mmol/L (19-24)
--- NOTE | 2022-08-01 12:08 | P.PN ---
Progress Note - Text Progress Note Date: 08/01/22 Patient not seen, in OR for CABG. The impression and plan of care has been dictated as directed. : I performed a history and examination of this patient, discussed the same with the dictator. I agree with the dictator's note ,documented as a scribe. Any additional findings or plans will be noted.
[2022-08-01 12:21] LABS: ABG Base Excess 1.1 mmol/L; ABG Glucose Whole Blood 118 mg/dL (75-99); ABG HCO3 26 mmol/L (21-25); ABG Hematocrit 26 % (34.0-46.0); ABG Ionized Calcium 4.1 mg/dL (4.5-5.3); ABG PCO2 41 mmHg (35-45); ABG PH 7.41 (7.35-7.45); ABG Potassium Whole Blood 5.5 mmol/L (3.4-4.5); ABG Sodium Whole Blood 141 mmol/L (135-146); ABG TCO2 27 mmol/L (19-24)
[2022-08-01 12:55] LABS: ABG Base Excess -0.3 mmol/L; ABG Glucose Whole Blood 139 mg/dL (75-99); ABG HCO3 25 mmol/L (21-25); ABG Ionized Calcium 4.1 mg/dL (4.5-5.3); ABG PCO2 45 mmHg (35-45); ABG PH 7.36 (7.35-7.45); ABG PO2 401 mmHg (83-108); ABG Potassium Whole Blood 5.5 mmol/L (3.4-4.5); ABG Sodium Whole Blood 141 mmol/L (135-146); ABG TCO2 27 mmol/L (19-24)
[2022-08-01 13:57] LABS: ABG Base Excess -1.9 mmol/L; ABG Glucose Whole Blood 153 mg/dL (75-99); ABG HCO3 25 mmol/L (21-25); ABG Hematocrit 26 % (34.0-46.0); ABG Oxygen Saturation 99.7 % (94-97); ABG PCO2 49 mmHg (35-45); ABG PH 7.31 (7.35-7.45); ABG PO2 215 mmHg (83-108); ABG Potassium Whole Blood 4.2 mmol/L (3.4-4.5); ABG Sodium Whole Blood 143 mmol/L (135-146); ABG TCO2 26 mmol/L (19-24)
[2022-08-01 14:08] LABS: ABG PO2 >420 mmHg (83-108)
[2022-08-01 14:09] LABS: ABG Lactic Acid Whole Blood 2.2 mmol/L (0.5-1.6); ABG PO2 >420 mmHg (83-108)
[2022-08-01 14:11] LABS: ABG PO2 >420 mmHg (83-108)
[2022-08-01 14:18] LABS: ABG Lactic Acid Whole Blood 2.8 mmol/L (0.5-1.6)
[2022-08-01 14:19] LABS: ABG Hematocrit 24 % (34.0-46.0); ABG Lactic Acid Whole Blood 3.5 mmol/L (0.5-1.6)
[2022-08-01 14:23] LABS: ABG Lactic Acid Whole Blood 3.3 mmol/L (0.5-1.6)
[2022-08-01] MEDS ORDERED: BENZOCAINE/MENTHOL LOZENG 1 EACH LOZENGE MUCOUS MEM PRN (14:45)
[2022-08-01] MEDS ORDERED: IPRATROPIUM-ALBUTEROL 3 ML NEB INHALATION PRN (14:45)
[2022-08-01] MEDS ORDERED: DEXTROSE 5% IN WATER 100 ML with AMIODARONE 150 MG IV PRN (14:45)
[2022-08-01] MEDS ORDERED: DEXTROSE 50% SYRINGE 50 ML IVP PRN ×2 (14:45)
[2022-08-01] MEDS ORDERED: hydrALAZINE HCL 20 MG/ML 1 ML VIAL IVP PRN (14:45)
[2022-08-01] MEDS ORDERED: Potassium Replacement Protocol 1 EACH MISC MISCELLANE PRN (14:45)
[2022-08-01] MEDS ORDERED: AMIODARONE 360 MG in DEXTROSE 5% IN WATER 200 ML IV PRN ×2 (14:45)
[2022-08-01] MEDS ORDERED: Magnesium Replacement Protocol 1 EACH MISC MISCELLANE PRN (14:45)
[2022-08-01] MEDS ORDERED: AMIODARONE 450 MG in DEXTROSE 5% IN WATER 250 ML IV PRN ×2 (14:45)
[2022-08-01] MEDS ORDERED: DEXMEDETOMIDINE/0.9% NACL(PMX) 400 MCG in EMPTY BAG 1 BAG IV SCH (14:45)
[2022-08-01] MEDS ORDERED: ONDANSETRON 4 MG/2 ML VIAL IVP PRN (14:45)
[2022-08-01] MEDS: SODIUM CHLORIDE 0.9% 1,000 ML IV SCH (15:00)
--- NOTE | 2022-08-01 15:09 | P.OP ---
Date of Procedure: 08/01/22 Preoperative Diagnosis: Coronary artery disease status post recent stent to his RCA in March 2022, non-ST elevation myocardial infarction, preserved left ventricular function, hypertension, hyperlipidemia, rheumatoid arthritis on steroids, current smoker, left ICA stenosis of around 70%. Postoperative Diagnosis: Same Procedure(s) Performed: 1Triple-vessel coronary artery bypass grafting using the in situ left internal mammary artery to the left anterior descending artery, left radial artery from the aorta to the ramus intermedius artery, reverse saphenous vein graft from the aorta to the RCA and to the proximal posterior descending artery 2Exclusion of the left atrial appendage using a 35 mm AtriCure clip 3Intraoperative graft flow measurement using the KOEZY system 4Endoscopic harvesting of the left radial artery and the left greater saphenous vein 5Intraoperative transesophageal echocardiogram and epi-aortic ultrasound Anesthesia: STEVE Surgeon: Prakash Johns Catering Truck Driver #1: Art Blake Catering Truck Driver #2: Jayden Segundo Estimated Blood Loss (ml): 500 Pathology: none sent Condition: stable Disposition: ICU Indications for Procedure: Patient is a 62's old gentleman who had a recent stent to his RCA in March 2022. He also had a remote history of myocardial infarction 2000. He presented with chest pain and was ruled in for non-ST elevation myocardial infarction. Cardiac catheterization followed and that showed significant disease in the proximal left anterior descending artery with COOPER 1 flow and disease in the ramus intermedius artery with very small distal marginals and a patent stent however there might be some beginning of an in-stent restenosis. Patient has history of rheumatoid arthritis and is on steroids. He was on Effient for his recent stent and we awaited 5 days before proceeding with coronary artery bypass grafting. The STS risk was discussed with him the understood it and agreed to proceed. We discussed the case with cardiology and decision was made to implant the vein graft on the right coronary artery despite the absence of significant flow-limiting lesion at this point. Operative Findings: Internal myocardial vessels. Both conduits. Excellent graft flow measurement at the end of the case. Preserved left ventricular function and no significant valvular abnormality Description of Procedure: Patient had a right internal jugular [place]-Emanuel catheter and a right radial arterial line placed in the preoperative holding area.. Pressure was 52/26 index of 2.4 with a blood pressure 155/83. He had his baseline sinus bradycardia at 50. Subsequently was brought to the operating room where general endotracheal anesthesia was induced uneventfully. He received 100 mg of hydrocortisone intravenously. The received 2 g of cefazolin intravenously. Hong catheter was inserted. The chest abdomen and both lower extremity and the left upper extremity were prepped and draped using ChloraPrep. Ioban was used to cover the skin. Transesophageal echocardiogram confirmed the preoperative finding of preserved left ventricular function and no significant valvular abnormalities. Midline sternotomy was performed and Jean Marie was used. The bone was profusely bleeding probably Due to remaining Effient in the system. The left hemisternum was elevated and the left internal mammary artery was harvested in a semi-sk eletonized fashion. The left pleura was intentionally opened in this process and was drained with a 19-Irish Will drain. There was a clip injury at the base of the first intercostal branch of the mammary artery and that required diligent repair with Prolene 7/0 buttressed with autologous pericardium with control of the bleeding and preserved excellent pulsatile flow from the end of the mammary. The same setting the left radial artery was initially exposed at the wrist and a clamping trial revealed preserved signal in the left index O2 saturation probe. Subsequently the radial artery was harvested endoscopically. The forearm incisions were closed over a drain. The radial artery was prepared by incising the fascia all along its volar aspect and clipping all its branches. It was of excellent quality around 3 mm in diameter. Also in the same setting the left greater saphenous vein was harvested endoscopically from groin to just below knee level. This was done of the administration of 2000 units of heparin. The vein was prepared by tying all its branches. The leg incisions were closed over a drain. The vein appeared to be of good quality around 4 m in diameter. Ankeney retractor was used. Mediastinal fat was transected between 2 ties and epi-aortic scanning revealed absence of atheroma and the ascending aorta. Pericardium was opened in an inverted T fashion and pericardial cradle was created. Findings included a normal soft aorta and a normal size heart with evidence of diffuse coronary artery disease. After systemic heparinization and placement of respective pledgeted pursestring aortic cannulation with a 21-Irish soft flow cannula and venous cannulation via the right is appendage with a 3 stage 29-Irish cannula was performed. Antegrade as well as retrograde cold plegic catheter were placed. Cardio. Bypass was initiated and with the heart empty and beating well at the target. The left anterior descending artery was intramyocardial and emerged di stally. I could identify the middle branching of the ramus intermedius artery which went intramyocardial which would be the sites for bypass. the right coronary artery with some disease at the level of the bifurcation and the anastomosis would be into the distal RCA and into the posterior descending artery. Aorta was clamped and during aortic clamping myocardial protection was achieved with initial dose of 1 L of antegrade cold blood could appear to followed by 400 mL of retrograde cold blood could appear to. All subsequent doses were given retrograde at 15 minutes interval last dose was warm blood via the retrograde route as well performing the last proximal anastomosis. We started by excluding the left atrial appendage by deploying and AtriCure clip 35mm at its base. The first distal anastomosis was 2 and a good segment of vein and the right coronary artery which was opened just before its bifurcation and the arteriotomy was extended into a plaque at the proximal aspect of the posterior descending artery into healthy vessel and the anastomosis was completed using running Prolene 70 in a continuous fashion. The second distal anastomosis to the radial artery was of good quality and the 1.5 m thin-walled middle branch of the ramus intermedius artery just before it went intramyocardial using Prolene 70 in continuous fashion. The third and last the syndesmosis was between the in situ left internal mammary artery that passed and a deep groove the left pleuropericardial fat and anastomosis of the distal left anterior descending artery which was around 1.25 m in diameter thin-walled using Prolene 70 in continuous fashion. Rewarming was started as a punched out 2 buttons of the ascending aorta for millimeter each in the 2 proximal anastomosis of the vein graft and the radial artery were completed using running Prolene respectively. De-airing maneuvers were done and with the patient in Trendelenburg position the aorta was unclamped. He is soon after regained spontaneous sinus rhythm. To mention that with The pressure high on bypass in view of his known left ICA stenosis. The distal anastomosis at the toe of the radial artery required one horizontal mattress 7-0 Prolene with control of active bleeding. After on 15 minutes of reperfusion we were able to wean off cardiac bypass initially with some vasopressor support that was eventually stopped. At this point we proceeded at graft flow measurements using the medISTIM system. A 4 mm probe was selected and the flow into the vein graft to the RCA was 114 mL/m, pulsatility index of 1.4 diastolic filling of 68%. The flow into the radial artery to the ramus intermedius artery was 70 mL/m, pulsatility index of 1.8 diastolic filling of 61%. The flow into the left internal mammary artery to the left anterior descending artery was 43 mL/m, pulsatility index of 1.7 diastolic filling of 66% showing excellent functioning graft. With that we stopped the pump suckers and gave test dose followed by full dose protamine. Decannulation followed. The venous cannulation site required reinforcement with running 4-0 Prolene. 2 monopolar atrial pacer wires were affixed to the respective portion of the right atrium. No ventricular pacing wire was placed. 219-Irish Will drain was left substernally. Mediastinal and pericardial fat were estimated over the graft aorta and partially over the right ventricle. After ensuring adequate hemostasis and hemodynamics and after correct sponge instrument and needle count the sternum was closed using 5 [id number] [place] cable after interposing fibrillar between the sternal edges. Thorough irrigation with cefazolin followed. The rest of the closure proceeded in layers. Skin glue was applied. Patient received 700 mL of Cell Saver blood chest to the ICU on nitroglycerin with excellent with an MX.
[2022-08-01 15:10] LABS: Glucose,Whole Blood 116 mg/dL (70-110)
--- NOTE | 2022-08-01 15:22 | P.PN ---
Subjective Progress Note Date: 08/01/22 PROGRESS NOTE The patient is a 62-year-old male with a known history of CAD, underwent CABG today. He is in the ICU intubated and sedated. He is in sinus mechanism with paced atrium. He received a GUIDRY to the LAD and radial to the ramus saphenous vein grafts to the RCA into the PDA with closure of the left atrial appendage. Medications: Aspirin, Lipitor 40 mg daily, IV Cardizem, Plavix 75 mg daily, metoprolol 12.5 mg twice a day PHYSICAL EXAMINATION: Blood pressure 122/60 heart rate 55, intubated and sedated LUNGS: Clear to auscultation HEART: Regular rate and rhythm, S1, S2. No S3. No systolic murmur ABDOMEN: Soft, nontender, no organomegaly EXTREMETIES: No edema, Joey wrap in place IMPRESSION: 1. Status post CABG 2. History of hypertension 3. History of hyperlipidemia 4. History of carotid obstructive disease PLAN: 1. Routine postoperative care and hopefully wean and extubate soon 2. Adjust the dose of beta hiram as tolerated 3. Continue statin 4. Depending on his progress further recommendations will be made Objective - Vital Signs Vital signs: Vital Signs Temp 97.8 F 07/31/22 20:00 Pulse 55 L 08/01/22 06:13 Resp 18 08/01/22 06:13 BP 122/68 08/01/22 06:13 Pulse Ox 96 08/01/22 06:13 FiO2 100 08/01/22 15:07 Intake & Output 07/31/22 08/01/22 08/01/22 18:59 06:59 18:59 Intake Total 1320 54 Output Total 1250 Balance 1320 -1196 Weight 88 kg Intake: IV 54 Oral 1320 Output: Urine 900 Estimated Blood Loss 350 Other: Voiding Method Toilet Toilet # Voids 1 2 # Bowel Movements 0 - Labs CBC & Chem 7: 07/31/22 08:33 07/31/22 08:33 Labs: Abnormal Lab Results - Last 24 Hours (Table) 07/31/22 08/01/22 08/01/22 Range/Units 08:33 05:51 15:04 POC Glucose (mg/dL) 127 H 116 H (70-110) mg/dL Crossmatch See Detail
--- NOTE | 2022-08-01 15:42 | XR ---
EXAMINATION TYPE: XR chest 1V portable DATE OF EXAM: 08/01/2022 COMPARISON: 07/25/2022 HISTORY: Postop cardiac surgery TECHNIQUE: Single frontal view of the chest is obtained. FINDINGS: There is a right IJ approach [place]-Emanuel catheter with tip likely in the distal right pulmonary artery/ interlobar artery. There is an endotracheal tube terminating approximately 4 cm from the carlos, orog astric tube which extends just past the diaphragm with proximal sidehole located in the distal esopha valorie, multiple median sternotomy wires, and a left atrial appendage clip. The heart size is unchanged. There is prominent vascular distention. There is soft tissue gas within the left axilla and chest wall. There is no appreciable pneumothorax. There are low inspiratory lung volumes. There are increased linear opacities at the left lung base. There is no focal consolidation. IMPRESSION: 1. Hypoventilatory changes without acute cardiopulmonary process. 2. [place]-Emanuel catheter tip likely in the distal right main/interlobar pulmonary artery. 3. Orogastric tube tip at the GE junction. The critical results of this examination were discussed with the patient's nurse, Lorrie, by myself on 08/01/2022 at 1540 hours using 2 patient identifiers.
[2022-08-01 15:47] LABS: Basophils % (A) 0 %; Eosinophils # (A) 0.1 k/uL (0-0.7); Eosinophils % (A) 0 %; HCT 30.5 % (39.0-53.0); Lymphocytes # (A) 0.7 k/uL (1.0-4.8); Lymphocytes % (A) 6 %; MCH 32.5 pg (25.0-35.0); MCHC 33.1 g/dL (31.0-37.0); MCV 98.3 fL (80.0-100.0); Mean Platelet Volume 8.6; Monocytes # (A) 0.8 k/uL (0-1.0); Monocytes % (A) 7 %; Neutrophils # (A) 10.4 k/uL (1.3-7.7); Neutrophils % (A) 87 %; RDW 13.3 % (11.5-15.5)
[2022-08-01 15:52] LABS: ABG Base Excess 0.5 mmol/L; ABG HCO3 26 mmol/L (21-25); ABG Oxygen Saturation 97.3 % (94-97); ABG PCO2 48 mmHg (35-45); ABG PH 7.35 (7.35-7.45); ABG PO2 90 mmHg (83-108); ABG TCO2 28 mmol/L (19-24); Allen Test Performed? Yes
[2022-08-01 15:55] LABS: HGB 10.1 gm/dL (13.0-17.5)
[2022-08-01 15:56] LABS: Glucose,Whole Blood 96 mg/dL (70-110)
[2022-08-01] MEDS ORDERED: IPRATROPIUM-ALBUTEROL 3 ML NEB INHALATION SCH (16:00)
[2022-08-01 16:02] LABS: INR 1.3 (<1.2); Ionized Calcium 5.1 mg/dL (4.5-5.3); Partial Thromboplastin Time 37.9 sec (22.0-30.0); Prothrombin Time 13.1 sec (9.0-12.0)
[2022-08-01 16:11] LABS: ALT 22 U/L (4-49); AST 45 U/L (17-59); African American GFR (CKD) >90 (>60 ml/min/1.73 sqM); Albumin 2.5 g/dL (3.5-5.0); Alkaline Phosphatase 32 U/L (38-126); Anion Gap 3 mmol/L; Blood Urea Nitrogen 14 mg/dL (9-20); Calcium 7.8 mg/dL (8.4-10.2); Carbon Dioxide 26 mmol/L (22-30); Chloride 111 mmol/L (98-107); Glucose 93 mg/dL (74-99); Magnesium 2.6 mg/dL (1.6-2.3); Non-African American GFR(CKD) >90 (>60 ml/min/1.73 sqM); Platelet Count 72 k/uL (150-450); Potassium 4.3 mmol/L (3.5-5.1); Sodium 140 mmol/L (137-145); Total Bilirubin 0.8 mg/dL (0.2-1.3); Total Protein 4.1 g/dL (6.3-8.2)
[2022-08-01 17:16] LABS: Glucose,Whole Blood 155 mg/dL (70-110)
[2022-08-01] MEDS: ALBUMIN HUMAN 5% 250 ML in EMPTY BAG 1 BAG IVPB PRN ×5 (17:21→18:51)
[2022-08-01] MEDS: VITAMIN A 10,000 UNIT (3000 MCG) CAPSULE PO SCH (17:23)
[2022-08-01] MEDS: FOLIC ACID 1 MG TAB PO SCH (17:23)
[2022-08-01] MEDS: MULTIVITAMINS, THERA 1 EACH TAB PO SCH (17:23)
[2022-08-01] MEDS: THIAMINE 100 MG TAB PO SCH (17:23)
[2022-08-01] MEDS: NICOTINE 21MG/24HR PATCH TRANSDERM SCH (17:23)
[2022-08-01 18:14] LABS: Glucose,Whole Blood 130 mg/dL (70-110)
[2022-08-01] MEDS: ACETAMINOPHEN IV (For NPO) 1,000 MG in EMPTY BAG 1 BAG IVPB SCH ×2 (18:23→23:12)
[2022-08-01] MEDS: HEPARIN SODIUM,PORCINE/PF 5,000 UNIT/0.5 ML SYRINGE SQ SCH (18:23)
[2022-08-01 18:28] LABS: Basophils % (A) 0 %; Eosinophils % (A) 0 %; HCT 28.7 % (39.0-53.0); HGB 9.4 gm/dL (13.0-17.5); Lymphocytes # (A) 0.8 k/uL (1.0-4.8); Lymphocytes % (A) 7 %; MCH 32.2 pg (25.0-35.0); MCHC 32.6 g/dL (31.0-37.0); MCV 98.6 fL (80.0-100.0); Mean Platelet Volume 8.6; Monocytes # (A) 0.6 k/uL (0-1.0); Monocytes % (A) 6 %; Neutrophils % (A) 87 %; RBC 2.91 m/uL (4.30-5.90); RDW 13.4 % (11.5-15.5); WBC 11.6 k/uL (3.8-10.6)
[2022-08-01 18:31] LABS: Platelet Count 87 k/uL (150-450)
[2022-08-01 19:01] LABS: Glucose,Whole Blood 121 mg/dL (70-110)
[2022-08-01] MEDS: IPRATROPIUM-ALBUTEROL 3 ML NEB INHALATION SCH (19:44)
[2022-08-01 20:07] LABS: Glucose,Whole Blood 112 mg/dL (70-110)
[2022-08-01 20:57] LABS: Glucose,Whole Blood 130 mg/dL (70-110)
[2022-08-01 21:24] LABS: ABG Base Excess -2.1 mmol/L; ABG HCO3 24 mmol/L (21-25); ABG Oxygen Saturation 94.5 % (94-97); ABG PCO2 45 mmHg (35-45); ABG PH 7.33 (7.35-7.45); ABG PO2 72 mmHg (83-108); ABG TCO2 25 mmol/L (19-24); Allen Test Performed? Yes
[2022-08-01 21:34] LABS: Basophils % (A) 0 %; Eosinophils % (A) 0 %; HCT 25.4 % (39.0-53.0); HGB 8.3 gm/dL (13.0-17.5); Lymphocytes # (A) 1.8 k/uL (1.0-4.8); Lymphocytes % (A) 16 %; MCH 32.5 pg (25.0-35.0); MCHC 32.8 g/dL (31.0-37.0); MCV 98.9 fL (80.0-100.0); Mean Platelet Volume 9.2; Monocytes # (A) 0.7 k/uL (0-1.0); Monocytes % (A) 7 %; Neutrophils # (A) 8.4 k/uL (1.3-7.7); Neutrophils % (A) 76 %; RBC 2.57 m/uL (4.30-5.90); RDW 13.4 % (11.5-15.5); WBC 11.1 k/uL (3.8-10.6)
[2022-08-01 21:51] LABS: Platelet Count 80 k/uL (150-450)
[2022-08-01] MEDS: MORPHINE SULFATE 2 MG/ML SYRINGE IVP PRN (21:56)
[2022-08-01] MEDS ORDERED: HYDROCORTISONE SUCCINATE 100 MG/2 ML VIAL IV STA (22:02)
[2022-08-01] MEDS: predniSONE 10 MG TAB PO SCH (22:02)
[2022-08-01] MEDS: METOPROLOL TARTRATE 12.5 MG TAB PO SCH (22:02)
[2022-08-01 22:12] LABS: Glucose,Whole Blood 147 mg/dL (70-110)
[2022-08-01 23:08] LABS: Glucose,Whole Blood 138 mg/dL (70-110)
[2022-08-02 00:09] LABS: Glucose,Whole Blood 131 mg/dL (70-110)
[2022-08-02] MEDS: HEPARIN SODIUM,PORCINE/PF 5,000 UNIT/0.5 ML SYRINGE SQ SCH (00:15)
[2022-08-02] MEDS: MORPHINE SULFATE 2 MG/ML SYRINGE IVP PRN ×2 (00:28→04:06)
[2022-08-02 01:11] LABS: Glucose,Whole Blood 150 mg/dL (70-110)
[2022-08-02] MEDS ORDERED: HYDROcodone/APAP 7.5-325MG 1 EACH TAB PO PRN (01:34)
[2022-08-02 01:58] LABS: Glucose,Whole Blood 157 mg/dL (70-110)
[2022-08-02] MEDS: HYDROcodone/APAP 10-325MG 1 EACH TAB PO PRN ×6 (02:31→23:32)
[2022-08-02 03:21] LABS: Glucose,Whole Blood 146 mg/dL (70-110)
[2022-08-02 03:58] LABS: Glucose,Whole Blood 134 mg/dL (70-110)
[2022-08-02 04:34] LABS: Basophils % (A) 0 %; Eosinophils % (A) 0 %; HCT 26.5 % (39.0-53.0); HGB 8.7 gm/dL (13.0-17.5); Lymphocytes # (A) 1.2 k/uL (1.0-4.8); Lymphocytes % (A) 11 %; MCH 32.5 pg (25.0-35.0); MCHC 32.8 g/dL (31.0-37.0); MCV 99.1 fL (80.0-100.0); Monocytes # (A) 0.8 k/uL (0-1.0); Monocytes % (A) 7 %; Neutrophils # (A) 8.6 k/uL (1.3-7.7); Neutrophils % (A) 81 %; RBC 2.68 m/uL (4.30-5.90); RDW 13.5 % (11.5-15.5); WBC 10.7 k/uL (3.8-10.6)
[2022-08-02 04:43] LABS: Ionized Calcium 4.7 mg/dL (4.5-5.3)
[2022-08-02 04:44] LABS: Platelet Count 93 k/uL (150-450)
[2022-08-02 04:56] LABS: Glucose,Whole Blood 128 mg/dL (70-110)
[2022-08-02 05:18] LABS: ALT 22 U/L (4-49); AST 54 U/L (17-59); African American GFR (CKD) >90 (>60 ml/min/1.73 sqM); Albumin 3.5 g/dL (3.5-5.0); Alkaline Phosphatase 30 U/L (38-126); Anion Gap 9 mmol/L; Blood Urea Nitrogen 19 mg/dL (9-20); Calcium 7.6 mg/dL (8.4-10.2); Carbon Dioxide 24 mmol/L (22-30); Chloride 107 mmol/L (98-107); Glucose 121 mg/dL (74-99); Magnesium 2.3 mg/dL (1.6-2.3); Non-African American GFR(CKD) 83 (>60 ml/min/1.73 sqM); Sodium 140 mmol/L (137-145); Total Bilirubin 0.7 mg/dL (0.2-1.3); Total Protein 5.1 g/dL (6.3-8.2)
[2022-08-02] MEDS: METOCLOPRAMIDE 5 MG/ML 2 ML VIAL IVP PRN ×2 (05:35→21:31)
[2022-08-02] MEDS: ALBUMIN HUMAN 5% 250 ML in EMPTY BAG 1 BAG IVPB PRN ×2 (05:52→10:56)
[2022-08-02 05:59] LABS: Glucose,Whole Blood 127 mg/dL (70-110)
[2022-08-02 07:09] LABS: Glucose,Whole Blood 118 mg/dL (70-110)
--- NOTE | 2022-08-02 07:14 | P.PN ---
Subjective Progress Note Date: 08/02/22 PROGRESS NOTE The patient is a 62-year-old male with a known history of CAD, underwent CABG today. He is in the ICU intubated and sedated. He is in sinus mechanism with paced atrium. He received a GUIDRY to the LAD and radial to the ramus saphenous vein grafts to the RCA into the PDA with closure of the left atrial appendage. The patient is extubated, sitting up in the chair. He is complaining of sor eness in the chest. He is in sinus mechanism. Hemodynamically he stable on no vasopressors. He denies any dizziness or palpitations. He has no nausea or vomiting. Medications: Aspirin, Lipitor 40 mg daily, IV Cardizem, Plavix 75 mg daily, metoprolol 12.5 mg twice a day PHYSICAL EXAMINATION: Blood pressure 106/50 heart rate 70, LUNGS: Clear to auscultation with mild decrease in the breath sounds at the bases HEART: Regular rate and rhythm, S1, S2. No S3. No systolic murmur, rub noted ABDOMEN: Soft, nontender, no organomegaly EXTREMETIES: No edema, IMPRESSION: 1. Status post CABG, stable extubated 2. History of hypertension 3. History of hyperlipidemia 4. History of carotid obstructive disease PLAN: 1. Increase physical activity and continue incentive spirometry 2. Follow blood pressure and adjust the dose of beta hiram accordingly 3. Follow renal functions 4. Depending on his progress further recommendations will be made Objective - Vital Signs Vital signs: Vital Signs Temp 99.3 F 08/02/22 04:00 Pulse 76 08/02/22 07:00 Resp 25 H 08/02/22 07:00 BP 94/65 08/02/22 06:00 Pulse Ox 96 08/02/22 07:00 FiO2 50 08/01/22 21:02 Intake & Output 08/01/22 08/02/22 08/02/22 18:59 06:59 18:59 Intake Total 3737.952 8343.945 589 Output Total 1960 1020 75 Balance -601.214 642.945 514 Weight 88 kg 93.5 kg Intake: IV 1320 1578 589 ACETAMINOPHEN IV (For NPO 100 100 ) 1,000 mg In Empty Bag 1 bag @ 400 mls/hr IVPB Q6HR [facility] Rx#:[id number] Albumin Human 5% 500 ml 750 500 500 In Empty Bag 1 bag @ 250 mls/hr IVPB ONCE ONE Rx#: [id number] CO/CI 80 220 30 PRESSURE BAGS 36 108 9 Sodium Chloride 0.9% 1, 200 600 50 000 ml @ 50 mls/hr IV . Q20H [facility] Rx#:[id number] ceFAZolin 2 gm In Sodium 100 50 Chloride 0.9% 50 ml @ 100 mls/hr IVPB Q8HR [facility] Rx# :[id number] Intake, IV Titration 38.786 84.945 Amount Dexmedetomidine/0.9% NaCl 11.844 (Pmx) 400 mcg In Empty Bag 1 bag @ Titrate IV . Q0M [facility] Rx#:[id number] Insulin Regular 100 unit 0.682 17.573 In Sodium Chloride 0.9% 100 ml @ Per Protocol IV .Q0M [facility] Rx#:[id number] propofoL 1,000 mg In 38.104 55.528 Empty Bag 1 bag @ Titrate IV .Q0M [facility] Rx#: [id number] Output: Chest Tube Drainage 410 428 50 Chest Tube Mediastinal 260 230 30 Left pleural chest tube 150 198 20 Drainage 40 Left Wrist 40 Urine 1200 552 25 Estimated Blood Loss 350 Other: Voiding Method Indwelling Catheter Indwelling Catheter ABP, PAP, CO, CI - Last Documented Arterial Blood Pressure 106/52 Pulmonary Artery Pressure 39/13 Cardiac Output 6.3 Cardiac Index 3.2 - Labs CBC & Chem 7: 08/02/22 03:57 08/02/22 03:57 Labs: Abnormal Lab Results - Last 24 Hours (Table) 07/31/22 08/01/22 08/01/22 Range/Units 08:33 08:30 10:13 WBC (3.8-10.6) k/uL RBC (4.30-5.90) m/uL Hgb (13.0-17.5) gm/dL Hct (39.0-53.0) % Plt Count (150-450) k/uL Neutrophils # (1.3-7.7) k/uL Lymphocytes # (1.0-4.8) k/uL PT (9.0-12.0) sec INR (<1.2) APTT (22.0-30.0) sec ABG pH 7.34 L (7.35-7.45) ABG pCO2 49 H (35-45) mmHg ABG pO2 228 H 144 H (83-108) mmHg ABG HCO3 26 H (21-25) mmol/L ABG Total CO2 28 H 27 H (19-24) mmol/L ABG O2 Saturation 99.7 H 99.0 H (94-97) % ABG Hematocrit (34.0-46.0) % ABG Potassium 4.8 H (3.4-4.5) mmol/L ABG Ionized Calcium (4.5-5.3) mg/dL ABG Glucose 100 H 108 H (75-99) mg/dL ABG Lactic Acid (0.5-1.6) mmol/L Hemoglobin 12.3 L 11.3 L (13.0-17.5) gm/dL Chloride (98-107) mmol/L Glucose (74-99) mg/dL POC Glucose (mg/dL) (70-110) mg/dL Calcium (8.4-10.2) mg/dL Magnesium (1.6-2.3) mg/dL Alkaline Phosphatase (38-126) U/L Total Protein (6.3-8.2) g/dL Albumin (3.5-5.0) g/dL Arterial Blood Potassium 4.8 H (3.4-4.5) mmol/L Arterial Blood Glucose 100 H 108 H (75-99) mg/dL Crossmatch See Detail 08/01/22 08/01/22 08/01/22 Range/Units 11:50 12:23 12:57 WBC (3.8-10.6) k/uL RBC (4.30-5.90) m/uL Hgb (13.0-17.5) gm/dL Hct (39.0-53.0) % Plt Count (150-450) k/uL Neutrophils # (1.3-7.7) k/uL Lymphocytes # (1.0-4.8) k/uL PT (9.0-12.0) sec INR (<1.2) APTT (22.0-30.0) sec ABG pH (7.35-7.45) ABG pCO2 (35-45) mmHg ABG pO2 >420 H >420 H >420 H (83-108) mmHg ABG HCO3 26 H 27 H 26 H (21-25) mmol/L ABG Total CO2 27 H 28 H 27 H (19-24) mmol/L ABG O2 Saturation 100.0 H 100.0 H 100.0 H (94-97) % ABG Hematocrit 26 L 26 L 26 L (34.0-46.0) % ABG Potassium 5.0 H 5.5 H (3.4-4.5) mmol/L ABG Ionized Calcium 4.0 L 4.1 L 4.1 L (4.5-5.3) mg/dL ABG Glucose 100 H 107 H 118 H (75-99) mg/dL ABG Lactic Acid 2.0 H 2.2 H* 2.8 H* (0.5-1.6) mmol/L Hemoglobin 8.4 L 8.5 L 8.4 L (13.0-17.5) gm/dL Chloride (98-107) mmol/L Glucose (74-99) mg/dL POC Glucose (mg/dL) (70-110) mg/dL Calcium (8.4-10.2) mg/dL Magnesium (1.6-2.3) mg/dL Alkaline Phosphatase (38-126) U/L Total Protein (6.3-8.2) g/dL Albumin (3.5-5.0) g/dL Arterial Blood Potassium 5.0 H 5.5 H (3.4-4.5) mmol/L Arterial Blood Glucose 100 H 107 H 118 H (75-99) mg/dL Crossmatch 08/01/22 08/01/22 08/01/22 Range/Units 12:57 13:59 15:04 WBC (3.8-10.6) k/uL RBC (4.30-5.90) m/uL Hgb (13.0-17.5) gm/dL Hct (39.0-53.0) % Plt Count (150-450) k/uL Neutrophils # (1.3-7.7) k/uL Lymphocytes # (1.0-4.8) k/uL PT (9.0-12.0) sec INR (<1.2) APTT (22.0-30.0) sec ABG pH 7.31 L (7.35-7.45) ABG pCO2 49 H (35-45) mmHg ABG pO2 401 H 215 H (83-108) mmHg ABG HCO3 (21-25) mmol/L ABG Total CO2 27 H 26 H (19-24) mmol/L ABG O2 Saturation 100.0 H 99.7 H (94-97) % ABG Hematocrit 24 L 26 L (34.0-46.0) % ABG Potassium 5.5 H (3.4-4.5) mmol/L ABG Ionized Calcium 4.1 L (4.5-5.3) mg/dL ABG Glucose 139 H 153 H (75-99) mg/dL ABG Lactic Acid 3.5 H* 3.3 H* (0.5-1.6) mmol/L Hemoglobin 7.8 L 8.4 L (13.0-17.5) gm/dL Chloride (98-107) mmol/L Glucose (74-99) mg/dL POC Glucose (mg/dL) 116 H (70-110) mg/dL Calcium (8.4-10.2) mg/dL Magnesium (1.6-2.3) mg/dL Alkaline Phosphatase (38-126) U/L Total Protein (6.3-8.2) g/dL Albumin (3.5-5.0) g/dL Arterial Blood Potassium 5.5 H (3.4-4.5) mmol/L Arterial Blood Glucose 139 H 153 H (75-99) mg/dL Crossmatch 08/01/22 08/01/22 08/01/22 Range/Units 15:10 15:10 15:10 WBC 12.0 H (3.8-10.6) k/uL RBC 3.10 L (4.30-5.90) m/uL Hgb 10.1 L D (13.0-17.5) gm/dL Hct 30.5 L (39.0-53.0) % Plt Count 72 L D (150-450) k/uL Neutrophils # 10.4 H (1.3-7.7) k/uL Lymphocytes # 0.7 L (1.0-4.8) k/uL PT 13.1 H (9.0-12.0) sec INR 1.3 H (<1.2) APTT 37.9 H (22.0-30.0) sec ABG pH (7.35-7.45) ABG pCO2 (35-45) mmHg ABG pO2 (83-108) mmHg ABG HCO3 (21-25) mmol/L ABG Total CO2 (19-24) mmol/L ABG O2 Saturation (94-97) % ABG Hematocrit (34.0-46.0) % ABG Potassium (3.4-4.5) mmol/L ABG Ionized Calcium (4.5-5.3) mg/dL ABG Glucose (75-99) mg/dL ABG Lactic Acid (0.5-1.6) mmol/L Hemoglobin (13.0-17.5) gm/dL Chloride 111 H (98-107) mmol/L Glucose (74-99) mg/dL POC Glucose (mg/dL) (70-110) mg/dL Calcium 7.8 L (8.4-10.2) mg/dL Magnesium 2.6 H (1.6-2.3) mg/dL Alkaline Phosphatase 32 L (38-126) U/L Total Protein 4.1 L (6.3-8.2) g/dL Albumin 2.5 L (3.5-5.0) g/dL Arterial Blood Potassium (3.4-4.5) mmol/L Arterial Blood Glucose (75-99) mg/dL Crossmatch 08/01/22 08/01/22 08/01/22 Range/Units 15:47 17:15 18:12 WBC (3.8-10.6) k/uL RBC (4.30-5.90) m/uL Hgb (13.0-17.5) gm/dL Hct (39.0-53.0) % Plt Count (150-450) k/uL Neutrophils # (1.3-7.7) k/uL Lymphocytes # (1.0-4.8) k/uL PT (9.0-12.0) sec INR (<1.2) APTT (22.0-30.0) sec ABG pH (7.35-7.45) ABG pCO2 48 H (35-45) mmHg ABG pO2 (83-108) mmHg ABG HCO3 26 H (21-25) mmol/L ABG Total CO2 28 H (19-24) mmol/L ABG O2 Saturation 97.3 H (94-97) % ABG Hematocrit (34.0-46.0) % ABG Potassium (3.4-4.5) mmol/L ABG Ionized Calcium (4.5-5.3) mg/dL ABG Glucose (75-99) mg/dL ABG Lactic Acid (0.5-1.6) mmol/L Hemoglobin (13.0-17.5) gm/dL Chloride (98-107) mmol/L Glucose (74-99) mg/dL POC Glucose (mg/dL) 155 H 130 H (70-110) mg/dL Calcium (8.4-10.2) mg/dL Magnesium (1.6-2.3) mg/dL Alkaline Phosphatase (38-126) U/L Total Protein (6.3-8.2) g/dL Albumin (3.5-5.0) g/dL Arterial Blood Potassium (3.4-4.5) mmol/L Arterial Blood Glucose (75-99) mg/dL Crossmatch 08/01/22 08/01/22 08/01/22 Range/Units 18:20 18:59 20:07 WBC 11.6 H (3.8-10.6) k/uL RBC 2.91 L (4.30-5.90) m/uL Hgb 9.4 L (13.0-17.5) gm/dL Hct 28.7 L (39.0-53.0) % Plt Count 87 L (150-450) k/uL Neutrophils # 10.0 H (1.3-7.7) k/uL Lymphocytes # 0.8 L (1.0-4.8) k/uL PT (9.0-12.0) sec INR (<1.2) APTT (22.0-30.0) sec ABG pH (7.35-7.45) ABG pCO2 (35-45) mmHg ABG pO2 (83-108) mmHg ABG HCO3 (21-25) mmol/L ABG Total CO2 (19-24) mmol/L ABG O2 Saturation (94-97) % ABG Hematocrit (34.0-46.0) % ABG Potassium (3.4-4.5) mmol/L ABG Ionized Calcium (4.5-5.3) mg/dL ABG Glucose (75-99) mg/dL ABG Lactic Acid (0.5-1.6) mmol/L Hemoglobin (13.0-17.5) gm/dL Chloride (98-107) mmol/L Glucose (74-99) mg/dL POC Glucose (mg/dL) 121 H 112 H (70-110) mg/dL Calcium (8.4-10.2) mg/dL Magnesium (1.6-2.3) mg/dL Alkaline Phosphatase (38-126) U/L Total Protein (6.3-8.2) g/dL Albumin (3.5-5.0) g/dL Arterial Blood Potassium (3.4-4.5) mmol/L Arterial Blood Glucose (75-99) mg/dL Crossmatch 08/01/22 08/01/22 08/01/22 Range/Units 20:56 21:20 21:20 WBC 11.1 H (3.8-10.6) k/uL RBC 2.57 L (4.30-5.90) m/uL Hgb 8.3 L (13.0-17.5) gm/dL Hct 25.4 L (39.0-53.0) % Plt Count 80 L (150-450) k/uL Neutrophils # 8.4 H (1.3-7.7) k/uL Lymphocytes # (1.0-4.8) k/uL PT (9.0-12.0) sec INR (<1.2) APTT (22.0-30.0) sec ABG pH 7.33 L (7.35-7.45) ABG pCO2 (35-45) mmHg ABG pO2 72 L (83-108) mmHg ABG HCO3 (21-25) mmol/L ABG Total CO2 25 H (19-24) mmol/L ABG O2 Saturation (94-97) % ABG Hematocrit (34.0-46.0) % ABG Potassium (3.4-4.5) mmol/L ABG Ionized Calcium (4.5-5.3) mg/dL ABG Glucose (75-99) mg/dL ABG Lactic Acid (0.5-1.6) mmol/L Hemoglobin (13.0-17.5) gm/dL Chloride (98-107) mmol/L Glucose (74-99) mg/dL POC Glucose (mg/dL) 130 H (70-110) mg/dL Calcium (8.4-10.2) mg/dL Magnesium (1.6-2.3) mg/dL Alkaline Phosphatase (38-126) U/L Total Protein (6.3-8.2) g/dL Albumin (3.5-5.0) g/dL Arterial Blood Potassium (3.4-4.5) mmol/L Arterial Blood Glucose (75-99) mg/dL Crossmatch 08/01/22 08/01/22 08/01/22 Range/Units 22:07 22:54 23:57 WBC (3.8-10.6) k/uL RBC (4.30-5.90) m/uL Hgb (13.0-17.5) gm/dL Hct (39.0-53.0) % Plt Count (150-450) k/uL Neutrophils # (1.3-7.7) k/uL Lymphocytes # (1.0-4.8) k/uL PT (9.0-12.0) sec INR (<1.2) APTT (22.0-30.0) sec ABG pH (7.35-7.45) ABG pCO2 (35-45) mmHg ABG pO2 (83-108) mmHg ABG HCO3 (21-25) mmol/L ABG Total CO2 (19-24) mmol/L ABG O2 Saturation (94-97) % ABG Hematocrit (34.0-46.0) % ABG Potassium (3.4-4.5) mmol/L ABG Ionized Calcium (4.5-5.3) mg/dL ABG Glucose (75-99) mg/dL ABG Lactic Acid (0.5-1.6) mmol/L Hemoglobin (13.0-17.5) gm/dL Chloride (98-107) mmol/L Glucose (74-99) mg/dL POC Glucose (mg/dL) 147 H 138 H 131 H (70-110) mg/dL Calcium (8.4-10.2) mg/dL Magnesium (1.6-2.3) mg/dL Alkaline Phosphatase (38-126) U/L Total Protein (6.3-8.2) g/dL Albumin (3.5-5.0) g/dL Arterial Blood Potassium (3.4-4.5) mmol/L Arterial Blood Glucose (75-99) mg/dL Crossmatch 08/02/22 08/02/22 08/02/22 Range/Units 00:59 01:55 03:07 WBC (3.8-10.6) k/uL RBC (4.30-5.90) m/uL Hgb (13.0-17.5) gm/dL Hct (39.0-53.0) % Plt Count (150-450) k/uL Neutrophils # (1.3-7.7) k/uL Lymphocytes # (1.0-4.8) k/uL PT (9.0-12.0) sec INR (<1.2) APTT (22.0-30.0) sec ABG pH (7.35-7.45) ABG pCO2 (35-45) mmHg ABG pO2 (83-108) mmHg ABG HCO3 (21-25) mmol/L ABG Total CO2 (19-24) mmol/L ABG O2 Saturation (94-97) % ABG Hematocrit (34.0-46.0) % ABG Potassium (3.4-4.5) mmol/L ABG Ionized Calcium (4.5-5.3) mg/dL ABG Glucose (75-99) mg/dL ABG Lactic Acid (0.5-1.6) mmol/L Hemoglobin (13.0-17.5) gm/dL Chloride (98-107) mmol/L Glucose (74-99) mg/dL POC Glucose (mg/dL) 150 H 157 H 146 H (70-110) mg/dL Calcium (8.4-10.2) mg/dL Magnesium (1.6-2.3) mg/dL Alkaline Phosphatase (38-126) U/L Total Protein (6.3-8.2) g/dL Albumin (3.5-5.0) g/dL Arterial Blood Potassium (3.4-4.5) mmol/L Arterial Blood Glucose (75-99) mg/dL Crossmatch 08/02/22 08/02/22 08/02/22 Range/Units 03:56 03:57 03:57 WBC 10.7 H (3.8-10.6) k/uL RBC 2.68 L (4.30-5.90) m/uL Hgb 8.7 L (13.0-17.5) gm/dL Hct 26.5 L (39.0-53.0) % Plt Count 93 L (150-450) k/uL Neutrophils # 8.6 H (1.3-7.7) k/uL Lymphocytes # (1.0-4.8) k/uL PT (9.0-12.0) sec INR (<1.2) APTT (22.0-30.0) sec ABG pH (7.35-7.45) ABG pCO2 (35-45) mmHg ABG pO2 (83-108) mmHg ABG HCO3 (21-25) mmol/L ABG Total CO2 (19-24) mmol/L ABG O2 Saturation (94-97) % ABG Hematocrit (34.0-46.0) % ABG Potassium (3.4-4.5) mmol/L ABG Ionized Calcium (4.5-5.3) mg/dL ABG Glucose (75-99) mg/dL ABG Lactic Acid (0.5-1.6) mmol/L Hemoglobin (13.0-17.5) gm/dL Chloride (98-107) mmol/L Glucose 121 H (74-99) mg/dL POC Glucose (mg/dL) 134 H (70-110) mg/dL Calcium 7.6 L (8.4-10.2) mg/dL Magnesium (1.6-2.3) mg/dL Alkaline Phosphatase 30 L (38-126) U/L Total Protein 5.1 L (6.3-8.2) g/dL Albumin (3.5-5.0) g/dL Arterial Blood Potassium (3.4-4.5) mmol/L Arterial Blood Glucose (75-99) mg/dL Crossmatch 08/02/22 08/02/22 08/02/22 Range/Units 04:55 05:58 06:57 WBC (3.8-10.6) k/uL RBC (4.30-5.90) m/uL Hgb (13.0-17.5) gm/dL Hct (39.0-53.0) % Plt Count (150-450) k/uL Neutrophils # (1.3-7.7) k/uL Lymphocytes # (1.0-4.8) k/uL PT (9.0-12.0) sec INR (<1.2) APTT (22.0-30.0) sec ABG pH (7.35-7.45) ABG pCO2 (35-45) mmHg ABG pO2 (83-108) mmHg ABG HCO3 (21-25) mmol/L ABG Total CO2 (19-24) mmol/L ABG O2 Saturation (94-97) % ABG Hematocrit (34.0-46.0) % ABG Potassium (3.4-4.5) mmol/L ABG Ionized Calcium (4.5-5.3) mg/dL ABG Glucose (75-99) mg/dL ABG Lactic Acid (0.5-1.6) mmol/L Hemoglobin (13.0-17.5) gm/dL Chloride (98-107) mmol/L Glucose (74-99) mg/dL POC Glucose (mg/dL) 128 H 127 H 118 H (70-110) mg/dL Calcium (8.4-10.2) mg/dL Magnesium (1.6-2.3) mg/dL Alkaline Phosphatase (38-126) U/L Total Protein (6.3-8.2) g/dL Albumin (3.5-5.0) g/dL Arterial Blood Potassium (3.4-4.5) mmol/L Arterial Blood Glucose (75-99) mg/dL Crossmatch
--- NOTE | 2022-08-02 08:11 | P.PN ---
Subjective Progress Note Date: 08/02/22 On today's evaluation of 07/02/2022, the patient's postop day #1. The patient underwent three-vessel bypass surgery and the patient was weaned off the mechanical ventilator and the patient was extubated without any major difficulties. This morning she is on oxygen at 5 L nasal cannula and his pulse ox is currently at 93%. His chest x-ray showing some atelectatic changes in the left lung base. There is a large gastric bubble. [place] catheter still in place. There is thoracotomy wires over day mid chest area. The patient is using the incentive spirometer. The patient is falling approximately 500 mL on his incentive spirometer. Pain is under adequate control. In terms of chest tubes, the patient has 2 mediastinal chest tubes and 1 left lower chest tube. No evidence of air leak. Output from the chest tubes have been noted and there are minimal at this point in time. Note that the patient underwent GUIDRY to LAD and radial 2 the ramus and saphenous vein graft to RCA and closure of the left atrial appendage was also done. His current cardiac rhythm is normal sinus rhythm. No underlying arrhythmias at this point in time. Blood work from today shows hemoglobin of 8.7, the discomfort of 10.7, electrolytes all within normal limits. Blood sugars at 118. Objective - Vital Signs Vital signs: Vital Signs Temp 99.3 F 08/02/22 04:00 Pulse 86 08/02/22 08:00 Resp 19 08/02/22 08:00 BP 94/65 08/02/22 06:00 Pulse Ox 96 08/02/22 08:00 FiO2 50 08/01/22 21:02 Intake & Output 08/01/22 08/02/22 08/02/22 18:59 06:59 18:59 Intake Total 0582.436 8754.945 589 Output Total 1960 1020 75 Balance -601.214 642.945 514 Weight 88 kg 93.5 kg Intake: IV 1320 1578 589 ACETAMINOPHEN IV (For NPO 100 100 ) 1,000 mg In Empty Bag 1 bag @ 400 mls/hr IVPB Q6HR [facility] Rx#:[id number] Albumin Human 5% 500 ml 750 500 500 In Empty Bag 1 bag @ 250 mls/hr IVPB ONCE ONE Rx#: [id number] CO/CI 80 220 30 PRESSURE BAGS 36 108 9 Sodium Chloride 0.9% 1, 200 600 50 000 ml @ 50 mls/hr IV . Q20H [facility] Rx#:[id number] ceFAZolin 2 gm In Sodium 100 50 Chloride 0.9% 50 ml @ 100 mls/hr IVPB Q8HR [facility] Rx# :[id number] Intake, IV Titration 38.786 84.945 Amount Dexmedetomidine/0.9% NaCl 11.844 (Pmx) 400 mcg In Empty Bag 1 bag @ Titrate IV . Q0M [facility] Rx#:[id number] Insulin Regular 100 unit 0.682 17.573 In Sodium Chloride 0.9% 100 ml @ Per Protocol IV .Q0M [facility] Rx#:[id number] propofoL 1,000 mg In 38.104 55.528 Empty Bag 1 bag @ Titrate IV .Q0M [facility] Rx#: [id number] Output: Chest Tube Drainage 410 428 50 Chest Tube Mediastinal 260 230 30 Left pleural chest tube 150 198 20 Drainage 40 Left Wrist 40 Urine 1200 552 25 Estimated Blood Loss 350 Other: Voiding Method Indwelling Catheter Indwelling Catheter ABP, PAP, CO, CI - Last Documented Arterial Blood Pressure 119/56 Pulmonary Artery Pressure 45/16 Cardiac Output 6.3 Cardiac Index 3.2 - Exam Calm and comfortable on 5 L of oxygen by nasal cannula Head exam was generally normal. There was no scleral icterus or corneal arcus. Mucous membranes were moist. Neck was supple and without jugular venous distension, thyromegaly, or carotid bruits. Carotids were easily palpable bilaterally. There was no adenopathy. The patient has a [place] in the [place] catheter in the right IJ. Cardiac output is 6.3 with an index of 3.2. The pulmonary artery pressures are 42/16 Cardiac exam revealed the PMI to be normally situated and sized. The rhythm was regular and no extrasystoles were noted during several minutes of auscultation. The first and second heart sounds were normal and physiologic splitting of the second heart sound was noted. There were no murmurs, rubs, clicks, or gallops. Thoracotomy scars of dry clean and intact Lungs were clear to auscultation and percussion, and with normal diaphragmatic excursion. No wheezes or rales were noted. The patient has 2 mediastinal and one pleural chest tube on the left Abdominal exam revealed normal bowel sounds. The abdomen was soft, non-tender, and without masses, organomegaly, or appreciable enlargement of the abdominal aorta. Examination of the extremities revealed easily palpable radial, femoral and pedal pulses. There was no cyanosis, clubbing or edema. Surgical one-sided over the left radial and left lower extremity are dry clean and intact and the patient has a DOLORES drain in his left upper extremity. Examination of the skin revealed no evidence of significant rashes, suspicious appearing nevi or other concerning lesions. - Labs CBC & Chem 7: 08/02/22 03:57 08/02/22 03:57 Labs: Abnormal Lab Results - Last 24 Hours (Table) 07/31/22 08/01/22 08/01/22 Range/Units 08:33 08:30 10:13 WBC (3.8-10.6) k/uL RBC (4.30-5.90) m/uL Hgb (13.0-17.5) gm/dL Hct (39.0-53.0) % Plt Count (150-450) k/uL Neutrophils # (1.3-7.7) k/uL Lymphocytes # (1.0-4.8) k/uL PT (9.0-12.0) sec INR (<1.2) APTT (22.0-30.0) sec ABG pH 7.34 L (7.35-7.45) ABG pCO2 49 H (35-45) mmHg ABG pO2 228 H 144 H (83-108) mmHg ABG HCO3 26 H (21-25) mmol/L ABG Total CO2 28 H 27 H (19-24) mmol/L ABG O2 Saturation 99.7 H 99.0 H (94-97) % ABG Hematocrit (34.0-46.0) % ABG Potassium 4.8 H (3.4-4.5) mmol/L ABG Ionized Calcium (4.5-5.3) mg/dL ABG Glucose 100 H 108 H (75-99) mg/dL ABG Lactic Acid (0.5-1.6) mmol/L Hemoglobin 12.3 L 11.3 L (13.0-17.5) gm/dL Chloride (98-107) mmol/L Glucose (74-99) mg/dL POC Glucose (mg/dL) (70-110) mg/dL Calcium (8.4-10.2) mg/dL Magnesium (1.6-2.3) mg/dL Alkaline Phosphatase (38-126) U/L Total Protein (6.3-8.2) g/dL Albumin (3.5-5.0) g/dL Arterial Blood Potassium 4.8 H (3.4-4.5) mmol/L Arterial Blood Glucose 100 H 108 H (75-99) mg/dL Crossmatch See Detail 08/01/22 08/01/22 08/01/22 Range/Units 11:50 12:23 12:57 WBC (3.8-10.6) k/uL RBC (4.30-5.90) m/uL Hgb (13.0-17.5) gm/dL Hct (39.0-53.0) % Plt Count (150-450) k/uL Neutrophils # (1.3-7.7) k/uL Lymphocytes # (1.0-4.8) k/uL PT (9.0-12.0) sec INR (<1.2) APTT (22.0-30.0) sec ABG pH (7.35-7.45) ABG pCO2 (35-45) mmHg ABG pO2 >420 H >420 H >420 H (83-108) mmHg ABG HCO3 26 H 27 H 26 H (21-25) mmol/L ABG Total CO2 27 H 28 H 27 H (19-24) mmol/L ABG O2 Saturation 100.0 H 100.0 H 100.0 H (94-97) % ABG Hematocrit 26 L 26 L 26 L (34.0-46.0) % ABG Potassium 5.0 H 5.5 H (3.4-4.5) mmol/L ABG Ionized Calcium 4.0 L 4.1 L 4.1 L (4.5-5.3) mg/dL ABG Glucose 100 H 107 H 118 H (75-99) mg/dL ABG Lactic Acid 2.0 H 2.2 H* 2.8 H* (0.5-1.6) mmol/L Hemoglobin 8.4 L 8.5 L 8.4 L (13.0-17.5) gm/dL Chloride (98-107) mmol/L Glucose (74-99) mg/dL POC Glucose (mg/dL) (70-110) mg/dL Calcium (8.4-10.2) mg/dL Magnesium (1.6-2.3) mg/dL Alkaline Phosphatase (38-126) U/L Total Protein (6.3-8.2) g/dL Albumin (3.5-5.0) g/dL Arterial Blood Potassium 5.0 H 5.5 H (3.4-4.5) mmol/L Arterial Blood Glucose 100 H 107 H 118 H (75-99) mg/dL Crossmatch 08/01/22 08/01/22 08/01/22 Range/Units 12:57 13:59 15:04 WBC (3.8-10.6) k/uL RBC (4.30-5.90) m/uL Hgb (13.0-17.5) gm/dL Hct (39.0-53.0) % Plt Count (150-450) k/uL Neutrophils # (1.3-7.7) k/uL Lymphocytes # (1.0-4.8) k/uL PT (9.0-12.0) sec INR (<1.2) APTT (22.0-30.0) sec ABG pH 7.31 L (7.35-7.45) ABG pCO2 49 H (35-45) mmHg ABG pO2 401 H 215 H (83-108) mmHg ABG HCO3 (21-25) mmol/L ABG Total CO2 27 H 26 H (19-24) mmol/L ABG O2 Saturation 100.0 H 99.7 H (94-97) % ABG Hematocrit 24 L 26 L (34.0-46.0) % ABG Potassium 5.5 H (3.4-4.5) mmol/L ABG Ionized Calcium 4.1 L (4.5-5.3) mg/dL ABG Glucose 139 H 153 H (75-99) mg/dL ABG Lactic Acid 3.5 H* 3.3 H* (0.5-1.6) mmol/L Hemoglobin 7.8 L 8.4 L (13.0-17.5) gm/dL Chloride (98-107) mmol/L Glucose (74-99) mg/dL POC Glucose (mg/dL) 116 H (70-110) mg/dL Calcium (8.4-10.2) mg/dL Magnesium (1.6-2.3) mg/dL Alkaline Phosphatase (38-126) U/L Total Protein (6.3-8.2) g/dL Albumin (3.5-5.0) g/dL Arterial Blood Potassium 5.5 H (3.4-4.5) mmol/L Arterial Blood Glucose 139 H 153 H (75-99) mg/dL Crossmatch 08/01/22 08/01/22 08/01/22 Range/Units 15:10 15:10 15:10 WBC 12.0 H (3.8-10.6) k/uL RBC 3.10 L (4.30-5.90) m/uL Hgb 10.1 L D (13.0-17.5) gm/dL Hct 30.5 L (39.0-53.0) % Plt Count 72 L D (150-450) k/uL Neutrophils # 10.4 H (1.3-7.7) k/uL Lymphocytes # 0.7 L (1.0-4.8) k/uL PT 13.1 H (9.0-12.0) sec INR 1.3 H (<1.2) APTT 37.9 H (22.0-30.0) sec ABG pH (7.35-7.45) ABG pCO2 (35-45) mmHg ABG pO2 (83-108) mmHg ABG HCO3 (21-25) mmol/L ABG Total CO2 (19-24) mmol/L ABG O2 Saturation (94-97) % ABG Hematocrit (34.0-46.0) % ABG Potassium (3.4-4.5) mmol/L ABG Ionized Calcium (4.5-5.3) mg/dL ABG Glucose (75-99) mg/dL ABG Lactic Acid (0.5-1.6) mmol/L Hemoglobin (13.0-17.5) gm/dL Chloride 111 H (98-107) mmol/L Glucose (74-99) mg/dL POC Glucose (mg/dL) (70-110) mg/dL Calcium 7.8 L (8.4-10.2) mg/dL Magnesium 2.6 H (1.6-2.3) mg/dL Alkaline Phosphatase 32 L (38-126) U/L Total Protein 4.1 L (6.3-8.2) g/dL Albumin 2.5 L (3.5-5.0) g/dL Arterial Blood Potassium (3.4-4.5) mmol/L Arterial Blood Glucose (75-99) mg/dL Crossmatch 08/01/22 08/01/22 08/01/22 Range/Units 15:47 17:15 18:12 WBC (3.8-10.6) k/uL RBC (4.30-5.90) m/uL Hgb (13.0-17.5) gm/dL Hct (39.0-53.0) % Plt Count (150-450) k/uL Neutrophils # (1.3-7.7) k/uL Lymphocytes # (1.0-4.8) k/uL PT (9.0-12.0) sec INR (<1.2) APTT (22.0-30.0) sec ABG pH (7.35-7.45) ABG pCO2 48 H (35-45) mmHg ABG pO2 (83-108) mmHg ABG HCO3 26 H (21-25) mmol/L ABG Total CO2 28 H (19-24) mmol/L ABG O2 Saturation 97.3 H (94-97) % ABG Hematocrit (34.0-46.0) % ABG Potassium (3.4-4.5) mmol/L ABG Ionized Calcium (4.5-5.3) mg/dL ABG Glucose (75-99) mg/dL ABG Lactic Acid (0.5-1.6) mmol/L Hemoglobin (13.0-17.5) gm/dL Chloride (98-107) mmol/L Glucose (74-99) mg/dL POC Glucose (mg/dL) 155 H 130 H (70-110) mg/dL Calcium (8.4-10.2) mg/dL Magnesium (1.6-2.3) mg/dL Alkaline Phosphatase (38-126) U/L Total Protein (6.3-8.2) g/dL Albumin (3.5-5.0) g/dL Arterial Blood Potassium (3.4-4.5) mmol/L Arterial Blood Glucose (75-99) mg/dL Crossmatch 08/01/22 08/01/22 08/01/22 Range/Units 18:20 18:59 20:07 WBC 11.6 H (3.8-10.6) k/uL RBC 2.91 L (4.30-5.90) m/uL Hgb 9.4 L (13.0-17.5) gm/dL Hct 28.7 L (39.0-53.0) % Plt Count 87 L (150-450) k/uL Neutrophils # 10.0 H (1.3-7.7) k/uL Lymphocytes # 0.8 L (1.0-4.8) k/uL PT (9.0-12.0) sec INR (<1.2) APTT (22.0-30.0) sec ABG pH (7.35-7.45) ABG pCO2 (35-45) mmHg ABG pO2 (83-108) mmHg ABG HCO3 (21-25) mmol/L ABG Total CO2 (19-24) mmol/L ABG O2 Saturation (94-97) % ABG Hematocrit (34.0-46.0) % ABG Potassium (3.4-4.5) mmol/L ABG Ionized Calcium (4.5-5.3) mg/dL ABG Glucose (75-99) mg/dL ABG Lactic Acid (0.5-1.6) mmol/L Hemoglobin (13.0-17.5) gm/dL Chloride (98-107) mmol/L Glucose (74-99) mg/dL POC Glucose (mg/dL) 121 H 112 H (70-110) mg/dL Calcium (8.4-10.2) mg/dL Magnesium (1.6-2.3) mg/dL Alkaline Phosphatase (38-126) U/L Total Protein (6.3-8.2) g/dL Albumin (3.5-5.0) g/dL Arterial Blood Potassium (3.4-4.5) mmol/L Arterial Blood Glucose (75-99) mg/dL Crossmatch 08/01/22 08/01/22 08/01/22 Range/Units 20:56 21:20 21:20 WBC 11.1 H (3.8-10.6) k/uL RBC 2.57 L (4.30-5.90) m/uL Hgb 8.3 L (13.0-17.5) gm/dL Hct 25.4 L (39.0-53.0) % Plt Count 80 L (150-450) k/uL Neutrophils # 8.4 H (1.3-7.7) k/uL Lymphocytes # (1.0-4.8) k/uL PT (9.0-12.0) sec INR (<1.2) APTT (22.0-30.0) sec ABG pH 7.33 L (7.35-7.45) ABG pCO2 (35-45) mmHg ABG pO2 72 L (83-108) mmHg ABG HCO3 (21-25) mmol/L ABG Total CO2 25 H (19-24) mmol/L ABG O2 Saturation (94-97) % ABG Hematocrit (34.0-46.0) % ABG Potassium (3.4-4.5) mmol/L ABG Ionized Calcium (4.5-5.3) mg/dL ABG Glucose (75-99) mg/dL ABG Lactic Acid (0.5-1.6) mmol/L Hemoglobin (13.0-17.5) gm/dL Chloride (98-107) mmol/L Glucose (74-99) mg/dL POC Glucose (mg/dL) 130 H (70-110) mg/dL Calcium (8.4-10.2) mg/dL Magnesium (1.6-2.3) mg/dL Alkaline Phosphatase (38-126) U/L Total Protein (6.3-8.2) g/dL Albumin (3.5-5.0) g/dL Arterial Blood Potassium (3.4-4.5) mmol/L Arterial Blood Glucose (75-99) mg/dL Crossmatch 08/01/22 08/01/22 08/01/22 Range/Units 22:07 22:54 23:57 WBC (3.8-10.6) k/uL RBC (4.30-5.90) m/uL Hgb (13.0-17.5) gm/dL Hct (39.0-53.0) % Plt Count (150-450) k/uL Neutrophils # (1.3-7.7) k/uL Lymphocytes # (1.0-4.8) k/uL PT (9.0-12.0) sec INR (<1.2) APTT (22.0-30.0) sec ABG pH (7.35-7.45) ABG pCO2 (35-45) mmHg ABG pO2 (83-108) mmHg ABG HCO3 (21-25) mmol/L ABG Total CO2 (19-24) mmol/L ABG O2 Saturation (94-97) % ABG Hematocrit (34.0-46.0) % ABG Potassium (3.4-4.5) mmol/L ABG Ionized Calcium (4.5-5.3) mg/dL ABG Glucose (75-99) mg/dL ABG Lactic Acid (0.5-1.6) mmol/L Hemoglobin (13.0-17.5) gm/dL Chloride (98-107) mmol/L Glucose (74-99) mg/dL POC Glucose (mg/dL) 147 H 138 H 131 H (70-110) mg/dL Calcium (8.4-10.2) mg/dL Magnesium (1.6-2.3) mg/dL Alkaline Phosphatase (38-126) U/L Total Protein (6.3-8.2) g/dL Albumin (3.5-5.0) g/dL Arterial Blood Potassium (3.4-4.5) mmol/L Arterial Blood Glucose (75-99) mg/dL Crossmatch 08/02/22 08/02/22 08/02/22 Range/Units 00:59 01:55 03:07 WBC (3.8-10.6) k/uL RBC (4.30-5.90) m/uL Hgb (13.0-17.5) gm/dL Hct (39.0-53.0) % Plt Count (150-450) k/uL Neutrophils # (1.3-7.7) k/uL Lymphocytes # (1.0-4.8) k/uL PT (9.0-12.0) sec INR (<1.2) APTT (22.0-30.0) sec ABG pH (7.35-7.45) ABG pCO2 (35-45) mmHg ABG pO2 (83-108) mmHg ABG HCO3 (21-25) mmol/L ABG Total CO2 (19-24) mmol/L ABG O2 Saturation (94-97) % ABG Hematocrit (34.0-46.0) % ABG Potassium (3.4-4.5) mmol/L ABG Ionized Calcium (4.5-5.3) mg/dL ABG Glucose (75-99) mg/dL ABG Lactic Acid (0.5-1.6) mmol/L Hemoglobin (13.0-17.5) gm/dL Chloride (98-107) mmol/L Glucose (74-99) mg/dL POC Glucose (mg/dL) 150 H 157 H 146 H (70-110) mg/dL Calcium (8.4-10.2) mg/dL Magnesium (1.6-2.3) mg/dL Alkaline Phosphatase (38-126) U/L Total Protein (6.3-8.2) g/dL Albumin (3.5-5.0) g/dL Arterial Blood Potassium (3.4-4.5) mmol/L Arterial Blood Glucose (75-99) mg/dL Crossmatch 08/02/22 08/02/22 08/02/22 Range/Units 03:56 03:57 03:57 WBC 10.7 H (3.8-10.6) k/uL RBC 2.68 L (4.30-5.90) m/uL Hgb 8.7 L (13.0-17.5) gm/dL Hct 26.5 L (39.0-53.0) % Plt Count 93 L (150-450) k/uL Neutrophils # 8.6 H (1.3-7.7) k/uL Lymphocytes # (1.0-4.8) k/uL PT (9.0-12.0) sec INR (<1.2) APTT (22.0-30.0) sec ABG pH (7.35-7.45) ABG pCO2 (35-45) mmHg ABG pO2 (83-108) mmHg ABG HCO3 (21-25) mmol/L ABG Total CO2 (19-24) mmol/L ABG O2 Saturation (94-97) % ABG Hematocrit (34.0-46.0) % ABG Potassium (3.4-4.5) mmol/L ABG Ionized Calcium (4.5-5.3) mg/dL ABG Glucose (75-99) mg/dL ABG Lactic Acid (0.5-1.6) mmol/L Hemoglobin (13.0-17.5) gm/dL Chloride (98-107) mmol/L Glucose 121 H (74-99) mg/dL POC Glucose (mg/dL) 134 H (70-110) mg/dL Calcium 7.6 L (8.4-10.2) mg/dL Magnesium (1.6-2.3) mg/dL Alkaline Phosphatase 30 L (38-126) U/L Total Protein 5.1 L (6.3-8.2) g/dL Albumin (3.5-5.0) g/dL Arterial Blood Potassium (3.4-4.5) mmol/L Arterial Blood Glucose (75-99) mg/dL Crossmatch 08/02/22 08/02/22 08/02/22 Range/Units 04:55 05:58 06:57 WBC (3.8-10.6) k/uL RBC (4.30-5.90) m/uL Hgb (13.0-17.5) gm/dL Hct (39.0-53.0) % Plt Count (150-450) k/uL Neutrophils # (1.3-7.7) k/uL Lymphocytes # (1.0-4.8) k/uL PT (9.0-12.0) sec INR (<1.2) APTT (22.0-30.0) sec ABG pH (7.35-7.45) ABG pCO2 (35-45) mmHg ABG pO2 (83-108) mmHg ABG HCO3 (21-25) mmol/L ABG Total CO2 (19-24) mmol/L ABG O2 Saturation (94-97) % ABG Hematocrit (34.0-46.0) % ABG Potassium (3.4-4.5) mmol/L ABG Ionized Calcium (4.5-5.3) mg/dL ABG Glucose (75-99) mg/dL ABG Lactic Acid (0.5-1.6) mmol/L Hemoglobin (13.0-17.5) gm/dL Chloride (98-107) mmol/L Glucose (74-99) mg/dL POC Glucose (mg/dL) 128 H 127 H 118 H (70-110) mg/dL Calcium (8.4-10.2) mg/dL Magnesium (1.6-2.3) mg/dL Alkaline Phosphatase (38-126) U/L Total Protein (6.3-8.2) g/dL Albumin (3.5-5.0) g/dL Arterial Blood Potassium (3.4-4.5) mmol/L Arterial Blood Glucose (75-99) mg/dL Crossmatch Assessment and Plan Plan: Multivessel coronary artery disease, post thoracotomy and bypass surgery. The patient's surgery was done on 08/01/2022 and the patient is currently postop day #1. The patient underwent three-vessel bypass surgery including GUIDRY to LAD and radial 2 ramus and saphenous vein graft to RCA. Post thoracotomy, currently on 5 L of oxygen by nasal cannula. The patient has to mediastinal and one left pleural chest tube in place. The patient was weaned off the mechanical ventilator the next abated without any major difficulties. Left carotid artery stenosis. History of CAD with previous stent placement. History of hypertension. History of hyperlipidemia. History of myocardial infarction. History of rheumatoid arthritis. Gastroesophageal reflux disease. History of PTSD. Plan Continue the use of incentive spirometer Hemodynamic parameters are all stable and the patient is on no pressors. The [place] catheter can be removed today Monitor the output from the chest tubes Measures of the chest tube is per cardiothoracic surgery Electrolytes are all within normal limits Pain is under adequate control and the patient is using the incentive spirometer Continue aspirin and Plavix Continue metoprolol 12.5 mg by mouth twice a day [place] for pain control Discontinue the insulin drip and put the patient on a insulin sliding scale coverage. We'll continue to follow
[2022-08-02 08:24] LABS: Glucose,Whole Blood 116 mg/dL (70-110)
[2022-08-02] MEDS: IPRATROPIUM-ALBUTEROL 3 ML NEB INHALATION SCH ×4 (08:26→19:57)
[2022-08-02] MEDS: ASPIRIN 81 MG PO SCH (08:35)
[2022-08-02] MEDS: FOLIC ACID 1 MG TAB PO SCH (08:36)
[2022-08-02] MEDS: THIAMINE 100 MG TAB PO SCH (08:36)
[2022-08-02] MEDS: MULTIVITAMINS, THERA 1 EACH TAB PO SCH (08:36)
[2022-08-02] MEDS: ATORVASTATIN 40 MG TAB PO SCH (08:36)
[2022-08-02] MEDS: CLOPIDOGREL 75 MG TAB PO SCH (08:36)
[2022-08-02] MEDS: METOPROLOL TARTRATE 12.5 MG TAB PO SCH ×2 (08:36→21:32)
[2022-08-02] MEDS: VITAMIN A 10,000 UNIT (3000 MCG) CAPSULE PO SCH (08:36)
[2022-08-02] MEDS: KETOROLAC 15 MG/ML 1 ML VIAL IVP SCH ×4 (08:38→23:33)
--- NOTE | 2022-08-02 08:48 | P.PN ---
Subjective Progress Note Date: 08/02/22 Principal diagnosis: Coronary artery disease, non-STEMI this admission, left internal carotid stenosis. History of coronary artery disease with previous PCI to the RCA 03/2022, hypertension, hyperlipidemia, pulmonary embolism, rheumatoid arthritis on chronic Rituxan and prednisone, obstructive sleep apnea without home CPAP use, chronic ongoing tobacco dependence, COPD, PTSD as [place] war , peripheral neuropathy, COVID-19 infection in 2020, irritable bowel syndrome, GERD, family history of premature coronary artery disease (father diagnosed with myocardial infarction 44 years old) POD #1 triple vessel coronary artery bypass grafting using the in situ left internal mammary artery to left anterior descending artery, left radial artery from the aorta to the ramus intermedius artery, reverse saphenous vein graft from the aorta to the RCA and to the proximal posterior descending artery, exclusion of the left atrial appendage using a 35 mm AtriCure clip, intraoperat jailyn graft flow measurements using the 3rd Planetstim system, endoscopic harvesting of the left radial artery and the left greater saphenous vein, intraoperative transesophageal echocardiogram and epi-aortic ultrasound Postoperative acute blood loss anemia and thrombocytopenia, expected given hemodilution and cardiopulmonary bypass pump The patient was seen and examined [place] sitting up in a recliner in the intensive care unit in no acute distress although does complain of some postsurgical pain. He was extubated successfully last night at 21:50. Currently in sinus rhythm, hemodynamically stable although blood pressures are a little soft. Not on any pressors or inotropes at this point. Chest x-ray, labs reviewed. Right internal jugular Vidalia/Cordis, right radial arterial line, mediastinal/left pleural chest tubes all remain. No other new concerns. Objective - Vital Signs Vital signs: Vital Signs Temp 99.3 F 08/02/22 04:00 Pulse 86 08/02/22 08:00 Resp 19 08/02/22 08:00 BP 94/65 08/02/22 06:00 Pulse Ox 93 L 08/02/22 08:28 FiO2 50 08/01/22 21:02 Intake & Output 08/01/22 08/02/22 08/02/22 18:59 06:59 18:59 Intake Total 3618.305 8700.945 589 Output Total 1960 1020 75 Balance -601.214 642.945 514 Weight 88 kg 93.5 kg Intake: IV 1320 1578 589 ACETAMINOPHEN IV (For NPO 100 100 ) 1,000 mg In Empty Bag 1 bag @ 400 mls/hr IVPB Q6HR [facility] Rx#:[id number] Albumin Human 5% 500 ml 750 500 500 In Empty Bag 1 bag @ 250 mls/hr IVPB ONCE ONE Rx#: [id number] CO/CI 80 220 30 PRESSURE BAGS 36 108 9 Sodium Chloride 0.9% 1, 200 600 50 000 ml @ 50 mls/hr IV . Q20H [facility] Rx#:[id number] ceFAZolin 2 gm In Sodium 100 50 Chloride 0.9% 50 ml @ 100 mls/hr IVPB Q8HR [facility] Rx# :[id number] Intake, IV Titration 38.786 84.945 Amount Dexmedetomidine/0.9% NaCl 11.844 (Pmx) 400 mcg In Empty Bag 1 bag @ Titrate IV . Q0M [facility] Rx#:[id number] Insulin Regular 100 unit 0.682 17.573 In Sodium Chloride 0.9% 100 ml @ Per Protocol IV .Q0M [facility] Rx#:[id number] propofoL 1,000 mg In 38.104 55.528 Empty Bag 1 bag @ Titrate IV .Q0M [facility] Rx#: [id number] Output: Chest Tube Drainage 410 428 50 Chest Tube Mediastinal 260 230 30 Left pleural chest tube 150 198 20 Drainage 40 Left Wrist 40 Urine 1200 552 25 Estimated Blood Loss 350 Other: Voiding Method Indwelling Catheter Indwelling Catheter ABP, PAP, CO, CI - Last Documented Arterial Blood Pressure 119/56 Pulmonary Artery Pressure 45/16 Cardiac Output 6.3 Cardiac Index 3.2 - Exam CONSTITUTIONAL: Appears comfortable, cooperative, no acute distress RESPIRATORY: Lungs sounds diminished bilaterally. Respirations even, nonlabored. Currently on 5 L nasal cannula with oxygen saturation 96%. Able to achieve 500 mL on incentive spirometry. Strong nonproductive cough. CARDIOVASCULAR: S1, S2 present. Regular rate and rhythm, sinus rhythm on telemetry. Sternum stable. Palpable peripheral pulses bilaterally. No edema present. No calf pain or tenderness noted. Heart hugger in place with patient demonstrating appropriate use. Antiembolism stockings, SCDs present. GASTROINTESTINAL: Abdomen soft, nontender, nondistended. Hypoactive bowel sounds present 4 quadrants. Tolerating minimal clear liquids. Denies flatus GENITOURINARY: Hong present draining clear, yellow urine. Output overnight 30-40 mL per hour INTEGUMENTARY: Skin is warm and dry with evidence of good perfusion. Anterior chest incision well approximated and covered with dry intact dressing. Left lower extremity EVH site well approximated without redness or drainage. Left radial artery harvest site with DOLORES drain present, minimal drainage NEUROLOGIC: Cranial nerves II through XII intact MUSKULOSKELETAL: Able to move all extremities, strength equal bilaterally PSYCHIATRIC: Alert and oriented to person place and time, appropriate affect, intact judgment and insight INVASIVE LINES AND TUBES: Mediastinal/left pleural chest tubes present and connected to wall suction, no air leaks present. Mediastinal tube with 170 mL serosanguineous drainage overnight, 530 mL since surgery. Left pleural chest tube with 155 mL serosanguineous drainage overnight, 360 mL since surgery. Atrial epicardial pacemaker wires present, connected to generator, backup rate 50 bpm. Right internal jugular Vidalia/Cordis, right radial arterial line present. Last CO/CI 7.0/3.5, PA 33/7, CVP 12. - Allied health notes Allied health notes reviewed: nursing - Labs CBC & Chem 7: 08/02/22 03:57 08/02/22 03:57 Labs: Abnormal Lab Results - Last 24 Hours (Table) 07/31/22 08/01/22 08/01/22 Range/Units 08:33 08:30 10:13 WBC (3.8-10.6) k/uL RBC (4.30-5.90) m/uL Hgb (13.0-17.5) gm/dL Hct (39.0-53.0) % Plt Count (150-450) k/uL Neutrophils # (1.3-7.7) k/uL Lymphocytes # (1.0-4.8) k/uL PT (9.0-12.0) sec INR (<1.2) APTT (22.0-30.0) sec ABG pH 7.34 L (7.35-7.45) ABG pCO2 49 H (35-45) mmHg ABG pO2 228 H 144 H (83-108) mmHg ABG HCO3 26 H (21-25) mmol/L ABG Total CO2 28 H 27 H (19-24) mmol/L ABG O2 Saturation 99.7 H 99.0 H (94-97) % ABG Hematocrit (34.0-46.0) % ABG Potassium 4.8 H (3.4-4.5) mmol/L ABG Ionized Calcium (4.5-5.3) mg/dL ABG Glucose 100 H 108 H (75-99) mg/dL ABG Lactic Acid (0.5-1.6) mmol/L Hemoglobin 12.3 L 11.3 L (13.0-17.5) gm/dL Chloride (98-107) mmol/L Glucose (74-99) mg/dL POC Glucose (mg/dL) (70-110) mg/dL Calcium (8.4-10.2) mg/dL Magnesium (1.6-2.3) mg/dL Alkaline Phosphatase (38-126) U/L Total Protein (6.3-8.2) g/dL Albumin (3.5-5.0) g/dL Arterial Blood Potassium 4.8 H (3.4-4.5) mmol/L Arterial Blood Glucose 100 H 108 H (75-99) mg/dL Crossmatch See Detail 08/01/22 08/01/22 08/01/22 Range/Units 11:50 12:23 12:57 WBC (3.8-10.6) k/uL RBC (4.30-5.90) m/uL Hgb (13.0-17.5) gm/dL Hct (39.0-53.0) % Plt Count (150-450) k/uL Neutrophils # (1.3-7.7) k/uL Lymphocytes # (1.0-4.8) k/uL PT (9.0-12.0) sec INR (<1.2) APTT (22.0-30.0) sec ABG pH (7.35-7.45) ABG pCO2 (35-45) mmHg ABG pO2 >420 H >420 H >420 H (83-108) mmHg ABG HCO3 26 H 27 H 26 H (21-25) mmol/L ABG Total CO2 27 H 28 H 27 H (19-24) mmol/L ABG O2 Saturation 100.0 H 100.0 H 100.0 H (94-97) % ABG Hematocrit 26 L 26 L 26 L (34.0-46.0) % ABG Potassium 5.0 H 5.5 H (3.4-4.5) mmol/L ABG Ionized Calcium 4.0 L 4.1 L 4.1 L (4.5-5.3) mg/dL ABG Glucose 100 H 107 H 118 H (75-99) mg/dL ABG Lactic Acid 2.0 H 2.2 H* 2.8 H* (0.5-1.6) mmol/L Hemoglobin 8.4 L 8.5 L 8.4 L (13.0-17.5) gm/dL Chloride (98-107) mmol/L Glucose (74-99) mg/dL POC Glucose (mg/dL) (70-110) mg/dL Calcium (8.4-10.2) mg/dL Magnesium (1.6-2.3) mg/dL Alkaline Phosphatase (38-126) U/L Total Protein (6.3-8.2) g/dL Albumin (3.5-5.0) g/dL Arterial Blood Potassium 5.0 H 5.5 H (3.4-4.5) mmol/L Arterial Blood Glucose 100 H 107 H 118 H (75-99) mg/dL Crossmatch 08/01/22 08/01/22 08/01/22 Range/Units 12:57 13:59 15:04 WBC (3.8-10.6) k/uL RBC (4.30-5.90) m/uL Hgb (13.0-17.5) gm/dL Hct (39.0-53.0) % Plt Count (150-450) k/uL Neutrophils # (1.3-7.7) k/uL Lymphocytes # (1.0-4.8) k/uL PT (9.0-12.0) sec INR (<1.2) APTT (22.0-30.0) sec ABG pH 7.31 L (7.35-7.45) ABG pCO2 49 H (35-45) mmHg ABG pO2 401 H 215 H (83-108) mmHg ABG HCO3 (21-25) mmol/L ABG Total CO2 27 H 26 H (19-24) mmol/L ABG O2 Saturation 100.0 H 99.7 H (94-97) % ABG Hematocrit 24 L 26 L (34.0-46.0) % ABG Potassium 5.5 H (3.4-4.5) mmol/L ABG Ionized Calcium 4.1 L (4.5-5.3) mg/dL ABG Glucose 139 H 153 H (75-99) mg/dL ABG Lactic Acid 3.5 H* 3.3 H* (0.5-1.6) mmol/L Hemoglobin 7.8 L 8.4 L (13.0-17.5) gm/dL Chloride (98-107) mmol/L Glucose (74-99) mg/dL POC Glucose (mg/dL) 116 H (70-110) mg/dL Calcium (8.4-10.2) mg/dL Magnesium (1.6-2.3) mg/dL Alkaline Phosphatase (38-126) U/L Total Protein (6.3-8.2) g/dL Albumin (3.5-5.0) g/dL Arterial Blood Potassium 5.5 H (3.4-4.5) mmol/L Arterial Blood Glucose 139 H 153 H (75-99) mg/dL Crossmatch 08/01/22 08/01/22 08/01/22 Range/Units 15:10 15:10 15:10 WBC 12.0 H (3.8-10.6) k/uL RBC 3.10 L (4.30-5.90) m/uL Hgb 10.1 L D (13.0-17.5) gm/dL Hct 30.5 L (39.0-53.0) % Plt Count 72 L D (150-450) k/uL Neutrophils # 10.4 H (1.3-7.7) k/uL Lymphocytes # 0.7 L (1.0-4.8) k/uL PT 13.1 H (9.0-12.0) sec INR 1.3 H (<1.2) APTT 37.9 H (22.0-30.0) sec ABG pH (7.35-7.45) ABG pCO2 (35-45) mmHg ABG pO2 (83-108) mmHg ABG HCO3 (21-25) mmol/L ABG Total CO2 (19-24) mmol/L ABG O2 Saturation (94-97) % ABG Hematocrit (34.0-46.0) % ABG Potassium (3.4-4.5) mmol/L ABG Ionized Calcium (4.5-5.3) mg/dL ABG Glucose (75-99) mg/dL ABG Lactic Acid (0.5-1.6) mmol/L Hemoglobin (13.0-17.5) gm/dL Chloride 111 H (98-107) mmol/L Glucose (74-99) mg/dL POC Glucose (mg/dL) (70-110) mg/dL Calcium 7.8 L (8.4-10.2) mg/dL Magnesium 2.6 H (1.6-2.3) mg/dL Alkaline Phosphatase 32 L (38-126) U/L Total Protein 4.1 L (6.3-8.2) g/dL Albumin 2.5 L (3.5-5.0) g/dL Arterial Blood Potassium (3.4-4.5) mmol/L Arterial Blood Glucose (75-99) mg/dL Crossmatch 08/01/22 08/01/22 08/01/22 Range/Units 15:47 17:15 18:12 WBC (3.8-10.6) k/uL RBC (4.30-5.90) m/uL Hgb (13.0-17.5) gm/dL Hct (39.0-53.0) % Plt Count (150-450) k/uL Neutrophils # (1.3-7.7) k/uL Lymphocytes # (1.0-4.8) k/uL PT (9.0-12.0) sec INR (<1.2) APTT (22.0-30.0) sec ABG pH (7.35-7.45) ABG pCO2 48 H (35-45) mmHg ABG pO2 (83-108) mmHg ABG HCO3 26 H (21-25) mmol/L ABG Total CO2 28 H (19-24) mmol/L ABG O2 Saturation 97.3 H (94-97) % ABG Hematocrit (34.0-46.0) % ABG Potassium (3.4-4.5) mmol/L ABG Ionized Calcium (4.5-5.3) mg/dL ABG Glucose (75-99) mg/dL ABG Lactic Acid (0.5-1.6) mmol/L Hemoglobin (13.0-17.5) gm/dL Chloride (98-107) mmol/L Glucose (74-99) mg/dL POC Glucose (mg/dL) 155 H 130 H (70-110) mg/dL Calcium (8.4-10.2) mg/dL Magnesium (1.6-2.3) mg/dL Alkaline Phosphatase (38-126) U/L Total Protein (6.3-8.2) g/dL Albumin (3.5-5.0) g/dL Arterial Blood Potassium (3.4-4.5) mmol/L Arterial Blood Glucose (75-99) mg/dL Crossmatch 08/01/22 08/01/22 08/01/22 Range/Units 18:20 18:59 20:07 WBC 11.6 H (3.8-10.6) k/uL RBC 2.91 L (4.30-5.90) m/uL Hgb 9.4 L (13.0-17.5) gm/dL Hct 28.7 L (39.0-53.0) % Plt Count 87 L (150-450) k/uL Neutrophils # 10.0 H (1.3-7.7) k/uL Lymphocytes # 0.8 L (1.0-4.8) k/uL PT (9.0-12.0) sec INR (<1.2) APTT (22.0-30.0) sec ABG pH (7.35-7.45) ABG pCO2 (35-45) mmHg ABG pO2 (83-108) mmHg ABG HCO3 (21-25) mmol/L ABG Total CO2 (19-24) mmol/L ABG O2 Saturation (94-97) % ABG Hematocrit (34.0-46.0) % ABG Potassium (3.4-4.5) mmol/L ABG Ionized Calcium (4.5-5.3) mg/dL ABG Glucose (75-99) mg/dL ABG Lactic Acid (0.5-1.6) mmol/L Hemoglobin (13.0-17.5) gm/dL Chloride (98-107) mmol/L Glucose (74-99) mg/dL POC Glucose (mg/dL) 121 H 112 H (70-110) mg/dL Calcium (8.4-10.2) mg/dL Magnesium (1.6-2.3) mg/dL Alkaline Phosphatase (38-126) U/L Total Protein (6.3-8.2) g/dL Albumin (3.5-5.0) g/dL Arterial Blood Potassium (3.4-4.5) mmol/L Arterial Blood Glucose (75-99) mg/dL Crossmatch 08/01/22 08/01/22 08/01/22 Range/Units 20:56 21:20 21:20 WBC 11.1 H (3.8-10.6) k/uL RBC 2.57 L (4.30-5.90) m/uL Hgb 8.3 L (13.0-17.5) gm/dL Hct 25.4 L (39.0-53.0) % Plt Count 80 L (150-450) k/uL Neutrophils # 8.4 H (1.3-7.7) k/uL Lymphocytes # (1.0-4.8) k/uL PT (9.0-12.0) sec INR (<1.2) APTT (22.0-30.0) sec ABG pH 7.33 L (7.35-7.45) ABG pCO2 (35-45) mmHg ABG pO2 72 L (83-108) mmHg ABG HCO3 (21-25) mmol/L ABG Total CO2 25 H (19-24) mmol/L ABG O2 Saturation (94-97) % ABG Hematocrit (34.0-46.0) % ABG Potassium (3.4-4.5) mmol/L ABG Ionized Calcium (4.5-5.3) mg/dL ABG Glucose (75-99) mg/dL ABG Lactic Acid (0.5-1.6) mmol/L Hemoglobin (13.0-17.5) gm/dL Chloride (98-107) mmol/L Glucose (74-99) mg/dL POC Glucose (mg/dL) 130 H (70-110) mg/dL Calcium (8.4-10.2) mg/dL Magnesium (1.6-2.3) mg/dL Alkaline Phosphatase (38-126) U/L Total Protein (6.3-8.2) g/dL Albumin (3.5-5.0) g/dL Arterial Blood Potassium (3.4-4.5) mmol/L Arterial Blood Glucose (75-99) mg/dL Crossmatch 08/01/22 08/01/22 08/01/22 Range/Units 22:07 22:54 23:57 WBC (3.8-10.6) k/uL RBC (4.30-5.90) m/uL Hgb (13.0-17.5) gm/dL Hct (39.0-53.0) % Plt Count (150-450) k/uL Neutrophils # (1.3-7.7) k/uL Lymphocytes # (1.0-4.8) k/uL PT (9.0-12.0) sec INR (<1.2) APTT (22.0-30.0) sec ABG pH (7.35-7.45) ABG pCO2 (35-45) mmHg ABG pO2 (83-108) mmHg ABG HCO3 (21-25) mmol/L ABG Total CO2 (19-24) mmol/L ABG O2 Saturation (94-97) % ABG Hematocrit (34.0-46.0) % ABG Potassium (3.4-4.5) mmol/L ABG Ionized Calcium (4.5-5.3) mg/dL ABG Glucose (75-99) mg/dL ABG Lactic Acid (0.5-1.6) mmol/L Hemoglobin (13.0-17.5) gm/dL Chloride (98-107) mmol/L Glucose (74-99) mg/dL POC Glucose (mg/dL) 147 H 138 H 131 H (70-110) mg/dL Calcium (8.4-10.2) mg/dL Magnesium (1.6-2.3) mg/dL Alkaline Phosphatase (38-126) U/L Total Protein (6.3-8.2) g/dL Albumin (3.5-5.0) g/dL Arterial Blood Potassium (3.4-4.5) mmol/L Arterial Blood Glucose (75-99) mg/dL Crossmatch 08/02/22 08/02/22 08/02/22 Range/Units 00:59 01:55 03:07 WBC (3.8-10.6) k/uL RBC (4.30-5.90) m/uL Hgb (13.0-17.5) gm/dL Hct (39.0-53.0) % Plt Count (150-450) k/uL Neutrophils # (1.3-7.7) k/uL Lymphocytes # (1.0-4.8) k/uL PT (9.0-12.0) sec INR (<1.2) APTT (22.0-30.0) sec ABG pH (7.35-7.45) ABG pCO2 (35-45) mmHg ABG pO2 (83-108) mmHg ABG HCO3 (21-25) mmol/L ABG Total CO2 (19-24) mmol/L ABG O2 Saturation (94-97) % ABG Hematocrit (34.0-46.0) % ABG Potassium (3.4-4.5) mmol/L ABG Ionized Calcium (4.5-5.3) mg/dL ABG Glucose (75-99) mg/dL ABG Lactic Acid (0.5-1.6) mmol/L Hemoglobin (13.0-17.5) gm/dL Chloride (98-107) mmol/L Glucose (74-99) mg/dL POC Glucose (mg/dL) 150 H 157 H 146 H (70-110) mg/dL Calcium (8.4-10.2) mg/dL Magnesium (1.6-2.3) mg/dL Alkaline Phosphatase (38-126) U/L Total Protein (6.3-8.2) g/dL Albumin (3.5-5.0) g/dL Arterial Blood Potassium (3.4-4.5) mmol/L Arterial Blood Glucose (75-99) mg/dL Crossmatch 08/02/22 08/02/22 08/02/22 Range/Units 03:56 03:57 03:57 WBC 10.7 H (3.8-10.6) k/uL RBC 2.68 L (4.30-5.90) m/uL Hgb 8.7 L (13.0-17.5) gm/dL Hct 26.5 L (39.0-53.0) % Plt Count 93 L (150-450) k/uL Neutrophils # 8.6 H (1.3-7.7) k/uL Lymphocytes # (1.0-4.8) k/uL PT (9.0-12.0) sec INR (<1.2) APTT (22.0-30.0) sec ABG pH (7.35-7.45) ABG pCO2 (35-45) mmHg ABG pO2 (83-108) mmHg ABG HCO3 (21-25) mmol/L ABG Total CO2 (19-24) mmol/L ABG O2 Saturation (94-97) % ABG Hematocrit (34.0-46.0) % ABG Potassium (3.4-4.5) mmol/L ABG Ionized Calcium (4.5-5.3) mg/dL ABG Glucose (75-99) mg/dL ABG Lactic Acid (0.5-1.6) mmol/L Hemoglobin (13.0-17.5) gm/dL Chloride (98-107) mmol/L Glucose 121 H (74-99) mg/dL POC Glucose (mg/dL) 134 H (70-110) mg/dL Calcium 7.6 L (8.4-10.2) mg/dL Magnesium (1.6-2.3) mg/dL Alkaline Phosphatase 30 L (38-126) U/L Total Protein 5.1 L (6.3-8.2) g/dL Albumin (3.5-5.0) g/dL Arterial Blood Potassium (3.4-4.5) mmol/L Arterial Blood Glucose (75-99) mg/dL Crossmatch 08/02/22 08/02/22 08/02/22 Range/Units 04:55 05:58 06:57 WBC (3.8-10.6) k/uL RBC (4.30-5.90) m/uL Hgb (13.0-17.5) gm/dL Hct (39.0-53.0) % Plt Count (150-450) k/uL Neutrophils # (1.3-7.7) k/uL Lymphocytes # (1.0-4.8) k/uL PT (9.0-12.0) sec INR (<1.2) APTT (22.0-30.0) sec ABG pH (7.35-7.45) ABG pCO2 (35-45) mmHg ABG pO2 (83-108) mmHg ABG HCO3 (21-25) mmol/L ABG Total CO2 (19-24) mmol/L ABG O2 Saturation (94-97) % ABG Hematocrit (34.0-46.0) % ABG Potassium (3.4-4.5) mmol/L ABG Ionized Calcium (4.5-5.3) mg/dL ABG Glucose (75-99) mg/dL ABG Lactic Acid (0.5-1.6) mmol/L Hemoglobin (13.0-17.5) gm/dL Chloride (98-107) mmol/L Glucose (74-99) mg/dL POC Glucose (mg/dL) 128 H 127 H 118 H (70-110) mg/dL Calcium (8.4-10.2) mg/dL Magnesium (1.6-2.3) mg/dL Alkaline Phosphatase (38-126) U/L Total Protein (6.3-8.2) g/dL Albumin (3.5-5.0) g/dL Arterial Blood Potassium (3.4-4.5) mmol/L Arterial Blood Glucose (75-99) mg/dL Crossmatch 08/02/22 Range/Units 08:22 WBC (3.8-10.6) k/uL RBC (4.30-5.90) m/uL Hgb (13.0-17.5) gm/dL Hct (39.0-53.0) % Plt Count (150-450) k/uL Neutrophils # (1.3-7.7) k/uL Lymphocytes # (1.0-4.8) k/uL PT (9.0-12.0) sec INR (<1.2) APTT (22.0-30.0) sec ABG pH (7.35-7.45) ABG pCO2 (35-45) mmHg ABG pO2 (83-108) mmHg ABG HCO3 (21-25) mmol/L ABG Total CO2 (19-24) mmol/L ABG O2 Saturation (94-97) % ABG Hematocrit (34.0-46.0) % ABG Potassium (3.4-4.5) mmol/L ABG Ionized Calcium (4.5-5.3) mg/dL ABG Glucose (75-99) mg/dL ABG Lactic Acid (0.5-1.6) mmol/L Hemoglobin (13.0-17.5) gm/dL Chloride (98-107) mmol/L Glucose (74-99) mg/dL POC Glucose (mg/dL) 116 H (70-110) mg/dL Calcium (8.4-10.2) mg/dL Magnesium (1.6-2.3) mg/dL Alkaline Phosphatase (38-126) U/L Total Protein (6.3-8.2) g/dL Albumin (3.5-5.0) g/dL Arterial Blood Potassium (3.4-4.5) mmol/L Arterial Blood Glucose (75-99) mg/dL Crossmatch - Imaging and Cardiology Chest x-ray: report reviewed, image reviewed Assessment and Plan Assessment: Coronary artery disease, non-STEMI this admission, status post three-vessel CABG Left internal carotid stenosis greater than 70% per Doppler, 60% per CTA of the head and neck (although felt to be >70% per vascular and Dr. Johns) History of coronary artery disease with previous PCI to the RCA 03/2022 Hypertension Hyperlipidemia, treated, cholesterol 166, LDL 55.8, triglycerides 296 Pulmonary embolism Rheumatoid arthritis on chronic Rituxan and prednisone Obstructive sleep apnea without home CPAP use Chronic ongoing tobacco dependence COPD, FEV1 74% of predicted PTSD as [place] war Peripheral neuropathy COVID-19 infection in 2020 Irritable bowel syndrome GERD Family history of premature coronary artery disease (father diagnosed with myocardial infarction 44 years old) Postoperative acute blood loss anemia and thrombocytopenia, expected Plan: Continue to maximize medical therapy with low-dose aspirin, Plavix, statin, beta hiram. Will increase beta hiram therapy as tolerated Wean O2 as tolerated. Encourage incentive spirometry use 10 times every hour while awake. Bronchodilators per pulmonology Increase activity, ambulate as tolerated, PT/OT/cardiac rehab consulted Will monitor daily labs and x-rays. Electrolyte replacement per protocol. No Lasix today GI/DVT prophylaxis. DC subcu heparin, Arixtra added Pain controlled current medication regimen. Toradol and fentanyl added for better pain control Insulin management per internal medicine service. Patient is not diabetic, hemoglobin A1c 6% Discontinue [place]. Connect Cordis to continuous CVP monitoring. Will discontinue DOLORES drain Smoking cessation counseling and education reinforcement Monitor for EtOH withdrawal, CIWA protocol Continue chest tubes for another 24 hours Continue Hong catheter for another 24 hours for strict accurate intake and output Daily weights More recommendations to follow
--- NOTE | 2022-08-02 08:56 | XR ---
EXAMINATION TYPE: XR chest 1V portable DATE OF EXAM: 08/02/2022 COMPARISON: 08/01/2022 HISTORY: Postoperative cardiac surgery TECHNIQUE: Single frontal view of the chest is obtained. FINDINGS: There are multiple overlying cardiac leads. There are multiple median sternotomy wires, a left atrial appendage clip, and a right IJ approach [place] catheter with tip likely in the right main pulmona ry artery. There is been removal of the previously seen endotracheal and orogastric tubes. The heart size is unchanged. The cardiac mediastinal silhouette is unchanged. There are low inspirato ry lung volumes. There are linear and patchy opacities at the left lung base. The right lung is relat ively clear. There is no significant pleural effusion. There is no pneumothorax. There is redemonstra tion of a few linear lucencies within the left axillary region, compatible with soft tissue gas, whic h is improved when compared to previous examination. IMPRESSION: Hypoventilatory changes with slight interval worsening of left basilar atelectasis.
[2022-08-02] MEDS ORDERED: bisacodyL 10 MG SUPP RECTAL PRN (09:00)
[2022-08-02] MEDS ORDERED: MAGNESIUM HYDROXIDE 2,400 MG/10 ML CUP PO PRN (09:00)
[2022-08-02] MEDS ORDERED: METOPROLOL TARTRATE 12.5 MG TAB PO SCH (09:00)
[2022-08-02] MEDS ORDERED: PANTOPRAZOLE 40 MG/10 ML VIAL IVP SCH (09:00)
[2022-08-02] MEDS ORDERED: ASPIRIN 325 MG TAB PO SCH (09:00)
[2022-08-02 10:06] LABS: Glucose,Whole Blood 113 mg/dL (70-110)
[2022-08-02] MEDS: FONDAPARINUX 2.5 MG/0.5 ML SYRINGE SQ SCH (10:10)
[2022-08-02] MEDS: SODIUM CHLORIDE 0.9% 1,000 ML IV SCH (10:58)
[2022-08-02 12:12] LABS: Glucose,Whole Blood 167 mg/dL (70-110)
[2022-08-02 13:05] LABS: Glucose,Whole Blood 131 mg/dL (70-110)
[2022-08-02] MEDS: MIDODRINE 5 MG TAB PO SCH ×2 (13:27→23:32)
[2022-08-02 14:59] LABS: Glucose,Whole Blood 117 mg/dL (70-110)
--- NOTE | 2022-08-02 15:17 | P.PN ---
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 Reports PCP was attempting to acquire insurance authorization for carotid Doppler. Denies diaphoresis ,fever or chills. Denies nausea, vomiting, diarrhea or abdominal pain. Reports since March he has taken over 100 nitroglycerin sublinguals in addition to being on his long-acting Imdur. Reports he has decreased his nicotine intake from 2 packs a day to 1 pack a day, usually drinks 2-3 beers sometimes 5 daily. Reports strong family history of CAD, father with CABG, aneurysms and carotid stenosis. Chest x-ray reported no acute pulmonary process. EKG reported sinus rhythm, troponin 0.054, 0.061, 0.044. Afebrile, normal WBC. Hemoglobin 13.6, platelets 188, MCV 93.9, INR 1.1, sodium 138, potassium 3.9, bicarb 24, BUN 17, creatinine 0.91, magnesium 2.1. Evaluated by cardiology, patient is scheduled for Lexiscan stress test, carotid Doppler. 08/26/2022 yesterday completed Lexiscan stress test-reported abnormal. Scheduled for cardiac catheterization today. Carotid ultrasound reported bilateral plaque 70% severe stenosis of the proximal left ICA. Maintained on heparin drip. Denies any further chest pain while at rest. 07/28/2022 completed cardiac catheterization this morning, reporting severe stenosis involving the ostium of the LAD in the proximal left circumflex, significant disease in the ramus intermedius, mild disease in the RCA with pat ent stent and collaterals from the right coronary artery through the septals storage battery charger. Cardiothoracic surgery consulted regarding further evaluation for CABG. maintained on heparin drip.Evaluated by vascular surgery regarding left high-grade ICA stenosis greater than 70% per carotid duplex. Renal function stable postcardiac catheterization and CTA of head and neck ordered as per vascular surgery. Denies chest pain, palpitations or shortness of breath. 07/29/2022 workup in progress for CABG on Monday as per CTS. Echo reporting normal LV systolic function, EF 55-60% . Telemetry sinus rhythm. denies chest pain, palpitations or shortness of breath. Denies lightheadedness, dizziness or focal deficits. Head/Neck CTA pending. KUB reporting no acute radiographic process, mildly prominent colonic stool volume noted. 08/02/2022 status post CABG, postop day #1. Extubated last night. Maintaining O2 sats in the low to mid 90s on 5 L nasal cannula. Chest x-ray reporting few linear lucencies within the left axillary region compatible with soft tissue gas, improved, slight interval worsening of left basilar atelectasis . Incentive spirometer up to 500 .Cardiac output 7.7, cardiac index 3.9. Telemetry sinus rhythm. Pain currently controlled. Blood sugars stable on insulin drip. Objective - Vital Signs Vital signs: Vital Signs Temp 99.7 F H 08/02/22 12:00 Pulse 68 08/02/22 15:00 Resp 17 08/02/22 15:00 BP 103/66 08/02/22 15:00 Pulse Ox 95 08/02/22 15:00 FiO2 50 08/01/22 21:02 Intake & Output 08/01/22 08/02/22 08/02/22 18:59 06:59 18:59 Intake Total 3110.145 3881.945 2376.277 Output Total 1960 1020 545 Balance -601.214 650.277 1689.277 Weight 88 kg 93.5 kg Intake: IV 1320 1578 1366 ACETAMINOPHEN IV (For NPO 100 100 ) 1,000 mg In Empty Bag 1 bag @ 400 mls/hr IVPB Q6HR [facility] Rx#:[id number] Albumin Human 5% 500 ml 750 500 750 In Empty Bag 1 bag @ 250 mls/hr IVPB ONCE ONE Rx#: [id number] CO/CI 80 220 50 PRESSURE BAGS 36 108 66 Sodium Chloride 0.9% 1, 200 600 400 000 ml @ 50 mls/hr IV . Q20H [facility]AN Rx#:[id number] ceFAZolin 2 gm In Sodium 100 50 100 Chloride 0.9% 50 ml @ 100 mls/hr IVPB Q8HR NHAN Rx# :[id number] Intake, IV Titration 38.786 84.945 10.277 Amount Dexmedetomidine/0.9% NaCl 11.844 (Pmx) 400 mcg In Empty Bag 1 bag @ Titrate IV . Q0M NHAN Rx#:[id number] Insulin Regular 100 unit 0.682 17.573 10.277 In Sodium Chloride 0.9% 100 ml @ Per Protocol IV .Q0M NHAN Rx#:[id number] propofoL 1,000 mg In 38.104 55.528 Empty Bag 1 bag @ Titrate IV .Q0M NHAN Rx#: [id number] Oral 1000 Output: Chest Tube Drainage 410 428 350 Chest Tube Mediastinal 260 230 120 Left pleural chest tube 150 198 230 Drainage 40 Left Wrist 40 Urine 1200 552 195 Estimated Blood Loss 350 Other: Voiding Method Indwelling Catheter Indwelling Catheter Indwelling Catheter ABP, PAP, CO, CI - Last Documented Arterial Blood Pressure 104/44 Pulmonary Artery Pressure 33/7 Cardiac Output 7.7 Cardiac Index 3.9 - Exam - Exam General: Sitting up in chair, waiting. However alert and oriented 3, no acute distress HEENT: [Atraumatic ,PERRL. EOMI. ] Neck: Supple, no JVD Cardiac: [Heart regular in rate and rhythm. No S3. No S4. No clicks, rubs. No murmur.] Lungs: Unlabored,clear to auscultation bilaterally, bilateral bases diminished. Mediastinal chest tubes 2 and one pleural chest tube present. Abdomen: [Soft, nontender, nondistended .No mass. No organomegaly.+BS. No guarding, no rigidity. Extremes: [No edema no cyanosis, normal pulses Skin: [Warm and dry, No rash.] Neurologic: [ CN II - XII grossly intact. No focal deficits] - Labs CBC & Chem 7: 08/02/22 03:57 08/02/22 03:57 Labs: Abnormal Lab Results - Last 24 Hours (Table) 07/31/22 08/01/22 08/01/22 Range/Units 08:33 08:30 10:13 WBC (3.8-10.6) k/uL RBC (4.30-5.90) m/uL Hgb (13.0-17.5) gm/dL Hct (39.0-53.0) % Plt Count (150-450) k/uL Neutrophils # (1.3-7.7) k/uL Lymphocytes # (1.0-4.8) k/uL PT (9.0-12.0) sec INR (<1.2) APTT (22.0-30.0) sec ABG pH 7.34 L (7.35-7.45) ABG pCO2 49 H (35-45) mmHg ABG pO2 228 H 144 H (83-108) mmHg ABG HCO3 26 H (21-25) mmol/L ABG Total CO2 28 H 27 H (19-24) mmol/L ABG O2 Saturation 99.7 H 99.0 H (94-97) % ABG Hematocrit (34.0-46.0) % ABG Potassium 4.8 H (3.4-4.5) mmol/L ABG Ionized Calcium (4.5-5.3) mg/dL ABG Glucose 100 H 108 H (75-99) mg/dL ABG Lactic Acid (0.5-1.6) mmol/L Hemoglobin 12.3 L 11.3 L (13.0-17.5) gm/dL Chloride (98-107) mmol/L Glucose (74-99) mg/dL POC Glucose (mg/dL) (70-110) mg/dL Calcium (8.4-10.2) mg/dL Magnesium (1.6-2.3) mg/dL Alkaline Phosphatase (38-126) U/L Total Protein (6.3-8.2) g/dL Albumin (3.5-5.0) g/dL Arterial Blood Potassium 4.8 H (3.4-4.5) mmol/L Arterial Blood Glucose 100 H 108 H (75-99) mg/dL Crossmatch See Detail 08/01/22 08/01/22 08/01/22 Range/Units 11:50 12:23 12:57 WBC (3.8-10.6) k/uL RBC (4.30-5.90) m/uL Hgb (13.0-17.5) gm/dL Hct (39.0-53.0) % Plt Count (150-450) k/uL Neutrophils # (1.3-7.7) k/uL Lymphocytes # (1.0-4.8) k/uL PT (9.0-12.0) sec INR (<1.2) APTT (22.0-30.0) sec ABG pH (7.35-7.45) ABG pCO2 (35-45) mmHg ABG pO2 >420 H >420 H >420 H (83-108) mmHg ABG HCO3 26 H 27 H 26 H (21-25) mmol/L ABG Total CO2 27 H 28 H 27 H (19-24) mmol/L ABG O2 Saturation 100.0 H 100.0 H 100.0 H (94-97) % ABG Hematocrit 26 L 26 L 26 L (34.0-46.0) % ABG Potassium 5.0 H 5.5 H (3.4-4.5) mmol/L ABG Ionized Calcium 4.0 L 4.1 L 4.1 L (4.5-5.3) mg/dL ABG Glucose 100 H 107 H 118 H (75-99) mg/dL ABG Lactic Acid 2.0 H 2.2 H* 2.8 H* (0.5-1.6) mmol/L Hemoglobin 8.4 L 8.5 L 8.4 L (13.0-17.5) gm/dL Chloride (98-107) mmol/L Glucose (74-99) mg/dL POC Glucose (mg/dL) (70-110) mg/dL Calcium (8.4-10.2) mg/dL Magnesium (1.6-2.3) mg/dL Alkaline Phosphatase (38-126) U/L Total Protein (6.3-8.2) g/dL Albumin (3.5-5.0) g/dL Arterial Blood Potassium 5.0 H 5.5 H (3.4-4.5) mmol/L Arterial Blood Glucose 100 H 107 H 118 H (75-99) mg/dL Crossmatch 08/01/22 08/01/22 08/01/22 Range/Units 12:57 13:59 15:04 WBC (3.8-10.6) k/uL RBC (4.30-5.90) m/uL Hgb (13.0-17.5) gm/dL Hct (39.0-53.0) % Plt Count (150-450) k/uL Neutrophils # (1.3-7.7) k/uL Lymphocytes # (1.0-4.8) k/uL PT (9.0-12.0) sec INR (<1.2) APTT (22.0-30.0) sec ABG pH 7.31 L (7.35-7.45) ABG pCO2 49 H (35-45) mmHg ABG pO2 401 H 215 H (83-108) mmHg ABG HCO3 (21-25) mmol/L ABG Total CO2 27 H 26 H (19-24) mmol/L ABG O2 Saturation 100.0 H 99.7 H (94-97) % ABG Hematocrit 24 L 26 L (34.0-46.0) % ABG Potassium 5.5 H (3.4-4.5) mmol/L ABG Ionized Calcium 4.1 L (4.5-5.3) mg/dL ABG Glucose 139 H 153 H (75-99) mg/dL ABG Lactic Acid 3.5 H* 3.3 H* (0.5-1.6) mmol/L Hemoglobin 7.8 L 8.4 L (13.0-17.5) gm/dL Chloride (98-107) mmol/L Glucose (74-99) mg/dL POC Glucose (mg/dL) 116 H (70-110) mg/dL Calcium (8.4-10.2) mg/dL Magnesium (1.6-2.3) mg/dL Alkaline Phosphatase (38-126) U/L Total Protein (6.3-8.2) g/dL Albumin (3.5-5.0) g/dL Arterial Blood Potassium 5.5 H (3.4-4.5) mmol/L Arterial Blood Glucose 139 H 153 H (75-99) mg/dL Crossmatch 08/01/22 08/01/22 08/01/22 Range/Units 15:10 15:10 15:10 WBC 12.0 H (3.8-10.6) k/uL RBC 3.10 L (4.30-5.90) m/uL Hgb 10.1 L D (13.0-17.5) gm/dL Hct 30.5 L (39.0-53.0) % Plt Count 72 L D (150-450) k/uL Neutrophils # 10.4 H (1.3-7.7) k/uL Lymphocytes # 0.7 L (1.0-4.8) k/uL PT 13.1 H (9.0-12.0) sec INR 1.3 H (<1.2) APTT 37.9 H (22.0-30.0) sec ABG pH (7.35-7.45) ABG pCO2 (35-45) mmHg ABG pO2 (83-108) mmHg ABG HCO3 (21-25) mmol/L ABG Total CO2 (19-24) mmol/L ABG O2 Saturation (94-97) % ABG Hematocrit (34.0-46.0) % ABG Potassium (3.4-4.5) mmol/L ABG Ionized Calcium (4.5-5.3) mg/dL ABG Glucose (75-99) mg/dL ABG Lactic Acid (0.5-1.6) mmol/L Hemoglobin (13.0-17.5) gm/dL Chloride 111 H (98-107) mmol/L Glucose (74-99) mg/dL POC Glucose (mg/dL) (70-110) mg/dL Calcium 7.8 L (8.4-10.2) mg/dL Magnesium 2.6 H (1.6-2.3) mg/dL Alkaline Phosphatase 32 L (38-126) U/L Total Protein 4.1 L (6.3-8.2) g/dL Albumin 2.5 L (3.5-5.0) g/dL Arterial Blood Potassium (3.4-4.5) mmol/L Arterial Blood Glucose (75-99) mg/dL Crossmatch 08/01/22 08/01/22 08/01/22 Range/Units 15:47 17:15 18:12 WBC (3.8-10.6) k/uL RBC (4.30-5.90) m/uL Hgb (13.0-17.5) gm/dL Hct (39.0-53.0) % Plt Count (150-450) k/uL Neutrophils # (1.3-7.7) k/uL Lymphocytes # (1.0-4.8) k/uL PT (9.0-12.0) sec INR (<1.2) APTT (22.0-30.0) sec ABG pH (7.35-7.45) ABG pCO2 48 H (35-45) mmHg ABG pO2 (83-108) mmHg ABG HCO3 26 H (21-25) mmol/L ABG Total CO2 28 H (19-24) mmol/L ABG O2 Saturation 97.3 H (94-97) % ABG Hematocrit (34.0-46.0) % ABG Potassium (3.4-4.5) mmol/L ABG Ionized Calcium (4.5-5.3) mg/dL ABG Glucose (75-99) mg/dL ABG Lactic Acid (0.5-1.6) mmol/L Hemoglobin (13.0-17.5) gm/dL Chloride (98-107) mmol/L Glucose (74-99) mg/dL POC Glucose (mg/dL) 155 H 130 H (70-110) mg/dL Calcium (8.4-10.2) mg/dL Magnesium (1.6-2.3) mg/dL Alkaline Phosphatase (38-126) U/L Total Protein (6.3-8.2) g/dL Albumin (3.5-5.0) g/dL Arterial Blood Potassium (3.4-4.5) mmol/L Arterial Blood Glucose (75-99) mg/dL Crossmatch 08/01/22 08/01/22 08/01/22 Range/Units 18:20 18:59 20:07 WBC 11.6 H (3.8-10.6) k/uL RBC 2.91 L (4.30-5.90) m/uL Hgb 9.4 L (13.0-17.5) gm/dL Hct 28.7 L (39.0-53.0) % Plt Count 87 L (150-450) k/uL Neutrophils # 10.0 H (1.3-7.7) k/uL Lymphocytes # 0.8 L (1.0-4.8) k/uL PT (9.0-12.0) sec INR (<1.2) APTT (22.0-30.0) sec ABG pH (7.35-7.45) ABG pCO2 (35-45) mmHg ABG pO2 (83-108) mmHg ABG HCO3 (21-25) mmol/L ABG Total CO2 (19-24) mmol/L ABG O2 Saturation (94-97) % ABG Hematocrit (34.0-46.0) % ABG Potassium (3.4-4.5) mmol/L ABG Ionized Calcium (4.5-5.3) mg/dL ABG Glucose (75-99) mg/dL ABG Lactic Acid (0.5-1.6) mmol/L Hemoglobin (13.0-17.5) gm/dL Chloride (98-107) mmol/L Glucose (74-99) mg/dL POC Glucose (mg/dL) 121 H 112 H (70-110) mg/dL Calcium (8.4-10.2) mg/dL Magnesium (1.6-2.3) mg/dL Alkaline Phosphatase (38-126) U/L Total Protein (6.3-8.2) g/dL Albumin (3.5-5.0) g/dL Arterial Blood Potassium (3.4-4.5) mmol/L Arterial Blood Glucose (75-99) mg/dL Crossmatch 08/01/22 08/01/22 08/01/22 Range/Units 20:56 21:20 21:20 WBC 11.1 H (3.8-10.6) k/uL RBC 2.57 L (4.30-5.90) m/uL Hgb 8.3 L (13.0-17.5) gm/dL Hct 25.4 L (39.0-53.0) % Plt Count 80 L (150-450) k/uL Neutrophils # 8.4 H (1.3-7.7) k/uL Lymphocytes # (1.0-4.8) k/uL PT (9.0-12.0) sec INR (<1.2) APTT (22.0-30.0) sec ABG pH 7.33 L (7.35-7.45) ABG pCO2 (35-45) mmHg ABG pO2 72 L (83-108) mmHg ABG HCO3 (21-25) mmol/L ABG Total CO2 25 H (19-24) mmol/L ABG O2 Saturation (94-97) % ABG Hematocrit (34.0-46.0) % ABG Potassium (3.4-4.5) mmol/L ABG Ionized Calcium (4.5-5.3) mg/dL ABG Glucose (75-99) mg/dL ABG Lactic Acid (0.5-1.6) mmol/L Hemoglobin (13.0-17.5) gm/dL Chloride (98-107) mmol/L Glucose (74-99) mg/dL POC Glucose (mg/dL) 130 H (70-110) mg/dL Calcium (8.4-10.2) mg/dL Magnesium (1.6-2.3) mg/dL Alkaline Phosphatase (38-126) U/L Total Protein (6.3-8.2) g/dL Albumin (3.5-5.0) g/dL Arterial Blood Potassium (3.4-4.5) mmol/L Arterial Blood Glucose (75-99) mg/dL Crossmatch 08/01/22 08/01/22 08/01/22 Range/Units 22:07 22:54 23:57 WBC (3.8-10.6) k/uL RBC (4.30-5.90) m/uL Hgb (13.0-17.5) gm/dL Hct (39.0-53.0) % Plt Count (150-450) k/uL Neutrophils # (1.3-7.7) k/uL Lymphocytes # (1.0-4.8) k/uL PT (9.0-12.0) sec INR (<1.2) APTT (22.0-30.0) sec ABG pH (7.35-7.45) ABG pCO2 (35-45) mmHg ABG pO2 (83-108) mmHg ABG HCO3 (21-25) mmol/L ABG Total CO2 (19-24) mmol/L ABG O2 Saturation (94-97) % ABG Hematocrit (34.0-46.0) % ABG Potassium (3.4-4.5) mmol/L ABG Ionized Calcium (4.5-5.3) mg/dL ABG Glucose (75-99) mg/dL ABG Lactic Acid (0.5-1.6) mmol/L Hemoglobin (13.0-17.5) gm/dL Chloride (98-107) mmol/L Glucose (74-99) mg/dL POC Glucose (mg/dL) 147 H 138 H 131 H (70-110) mg/dL Calcium (8.4-10.2) mg/dL Magnesium (1.6-2.3) mg/dL Alkaline Phosphatase (38-126) U/L Total Protein (6.3-8.2) g/dL Albumin (3.5-5.0) g/dL Arterial Blood Potassium (3.4-4.5) mmol/L Arterial Blood Glucose (75-99) mg/dL Crossmatch 08/02/22 08/02/22 08/02/22 Range/Units 00:59 01:55 03:07 WBC (3.8-10.6) k/uL RBC (4.30-5.90) m/uL Hgb (13.0-17.5) gm/dL Hct (39.0-53.0) % Plt Count (150-450) k/uL Neutrophils # (1.3-7.7) k/uL Lymphocytes # (1.0-4.8) k/uL PT (9.0-12.0) sec INR (<1.2) APTT (22.0-30.0) sec ABG pH (7.35-7.45) ABG pCO2 (35-45) mmHg ABG pO2 (83-108) mmHg ABG HCO3 (21-25) mmol/L ABG Total CO2 (19-24) mmol/L ABG O2 Saturation (94-97) % ABG Hematocrit (34.0-46.0) % ABG Potassium (3.4-4.5) mmol/L ABG Ionized Calcium (4.5-5.3) mg/dL ABG Glucose (75-99) mg/dL ABG Lactic Acid (0.5-1.6) mmol/L Hemoglobin (13.0-17.5) gm/dL Chloride (98-107) mmol/L Glucose (74-99) mg/dL POC Glucose (mg/dL) 150 H 157 H 146 H (70-110) mg/dL Calcium (8.4-10.2) mg/dL Magnesium (1.6-2.3) mg/dL Alkaline Phosphatase (38-126) U/L Total Protein (6.3-8.2) g/dL Albumin (3.5-5.0) g/dL Arterial Blood Potassium (3.4-4.5) mmol/L Arterial Blood Glucose (75-99) mg/dL Crossmatch 08/02/22 08/02/22 08/02/22 Range/Units 03:56 03:57 03:57 WBC 10.7 H (3.8-10.6) k/uL RBC 2.68 L (4.30-5.90) m/uL Hgb 8.7 L (13.0-17.5) gm/dL Hct 26.5 L (39.0-53.0) % Plt Count 93 L (150-450) k/uL Neutrophils # 8.6 H (1.3-7.7) k/uL Lymphocytes # (1.0-4.8) k/uL PT (9.0-12.0) sec INR (<1.2) APTT (22.0-30.0) sec ABG pH (7.35-7.45) ABG pCO2 (35-45) mmHg ABG pO2 (83-108) mmHg ABG HCO3 (21-25) mmol/L ABG Total CO2 (19-24) mmol/L ABG O2 Saturation (94-97) % ABG Hematocrit (34.0-46.0) % ABG Potassium (3.4-4.5) mmol/L ABG Ionized Calcium (4.5-5.3) mg/dL ABG Glucose (75-99) mg/dL ABG Lactic Acid (0.5-1.6) mmol/L Hemoglobin (13.0-17.5) gm/dL Chloride (98-107) mmol/L Glucose 121 H (74-99) mg/dL POC Glucose (mg/dL) 134 H (70-110) mg/dL Calcium 7.6 L (8.4-10.2) mg/dL Magnesium (1.6-2.3) mg/dL Alkaline Phosphatase 30 L (38-126) U/L Total Protein 5.1 L (6.3-8.2) g/dL Albumin (3.5-5.0) g/dL Arterial Blood Potassium (3.4-4.5) mmol/L Arterial Blood Glucose (75-99) mg/dL Crossmatch 08/02/22 08/02/22 08/02/22 Range/Units 04:55 05:58 06:57 WBC (3.8-10.6) k/uL RBC (4.30-5.90) m/uL Hgb (13.0-17.5) gm/dL Hct (39.0-53.0) % Plt Count (150-450) k/uL Neutrophils # (1.3-7.7) k/uL Lymphocytes # (1.0-4.8) k/uL PT (9.0-12.0) sec INR (<1.2) APTT (22.0-30.0) sec ABG pH (7.35-7.45) ABG pCO2 (35-45) mmHg ABG pO2 (83-108) mmHg ABG HCO3 (21-25) mmol/L ABG Total CO2 (19-24) mmol/L ABG O2 Saturation (94-97) % ABG Hematocrit (34.0-46.0) % ABG Potassium (3.4-4.5) mmol/L ABG Ionized Calcium (4.5-5.3) mg/dL ABG Glucose (75-99) mg/dL ABG Lactic Acid (0.5-1.6) mmol/L Hemoglobin (13.0-17.5) gm/dL Chloride (98-107) mmol/L Glucose (74-99) mg/dL POC Glucose (mg/dL) 128 H 127 H 118 H (70-110) mg/dL Calcium (8.4-10.2) mg/dL Magnesium (1.6-2.3) mg/dL Alkaline Phosphatase (38-126) U/L Total Protein (6.3-8.2) g/dL Albumin (3.5-5.0) g/dL Arterial Blood Potassium (3.4-4.5) mmol/L Arterial Blood Glucose (75-99) mg/dL Crossmatch 08/02/22 08/02/22 08/02/22 Range/Units 08:22 10:05 12:11 WBC (3.8-10.6) k/uL RBC (4.30-5.90) m/uL Hgb (13.0-17.5) gm/dL Hct (39.0-53.0) % Plt Count (150-450) k/uL Neutrophils # (1.3-7.7) k/uL Lymphocytes # (1.0-4.8) k/uL PT (9.0-12.0) sec INR (<1.2) APTT (22.0-30.0) sec ABG pH (7.35-7.45) ABG pCO2 (35-45) mmHg ABG pO2 (83-108) mmHg ABG HCO3 (21-25) mmol/L ABG Total CO2 (19-24) mmol/L ABG O2 Saturation (94-97) % ABG Hematocrit (34.0-46.0) % ABG Potassium (3.4-4.5) mmol/L ABG Ionized Calcium (4.5-5.3) mg/dL ABG Glucose (75-99) mg/dL ABG Lactic Acid (0.5-1.6) mmol/L Hemoglobin (13.0-17.5) gm/dL Chloride (98-107) mmol/L Glucose (74-99) mg/dL POC Glucose (mg/dL) 116 H 113 H 167 H (70-110) mg/dL Calcium (8.4-10.2) mg/dL Magnesium (1.6-2.3) mg/dL Alkaline Phosphatase (38-126) U/L Total Protein (6.3-8.2) g/dL Albumin (3.5-5.0) g/dL Arterial Blood Potassium (3.4-4.5) mmol/L Arterial Blood Glucose (75-99) mg/dL Crossmatch 08/02/22 08/02/22 Range/Units 13:04 14:57 WBC (3.8-10.6) k/uL RBC (4.30-5.90) m/uL Hgb (13.0-17.5) gm/dL Hct (39.0-53.0) % Plt Count (150-450) k/uL Neutrophils # (1.3-7.7) k/uL Lymphocytes # (1.0-4.8) k/uL PT (9.0-12.0) sec INR (<1.2) APTT (22.0-30.0) sec ABG pH (7.35-7.45) ABG pCO2 (35-45) mmHg ABG pO2 (83-108) mmHg ABG HCO3 (21-25) mmol/L ABG Total CO2 (19-24) mmol/L ABG O2 Saturation (94-97) % ABG Hematocrit (34.0-46.0) % ABG Potassium (3.4-4.5) mmol/L ABG Ionized Calcium (4.5-5.3) mg/dL ABG Glucose (75-99) mg/dL ABG Lactic Acid (0.5-1.6) mmol/L Hemoglobin (13.0-17.5) gm/dL Chloride (98-107) mmol/L Glucose (74-99) mg/dL POC Glucose (mg/dL) 131 H 117 H (70-110) mg/dL Calcium (8.4-10.2) mg/dL Magnesium (1.6-2.3) mg/dL Alkaline Phosphatase (38-126) U/L Total Protein (6.3-8.2) g/dL Albumin (3.5-5.0) g/dL Arterial Blood Potassium (3.4-4.5) mmol/L Arterial Blood Glucose (75-99) mg/dL Crossmatch Assessment and Plan Assessment: Chest pain, midsternal With bilateral carotid burning pressure ,elevated troponins, abnormal Lexiscan stress test, cardiac catheterization reporting s evere stenosis involving the ostium of the LAD and proximal left circumflex with significant disease in the ramus intermedius. Status post CABG 08/01/2022 secondary to multi-vessel CAD NSTEMI this admission CAD, history of recent NSTEMI,s/p PCI RCA 04/03/22 Proximal left ICA 70% severe stenosis Hypertension Hyperlipidemia Gastroesophageal reflux disease Obesity, BMI 32.3 Ongoing nicotine dependence, decreased from 2 packs to 1 pack per day, smoking cessation reinforced COPD Daily alcohol dependence, monitor for Etoh withdrawal. History of PE Plan: Continue on current medication regime ,monitoring and symptomatic treatment. Aggressive pulmonary toileting with incentive spirometer reinfor allen,smoking cessation reinforced.pain management .Prognosis guarded given multiple complex medical issues. The impression and plan of care has been dictated as directed. : I performed a history and examination of this patient, discussed the same with the dictator. I agree with the dictator's note ,documented as a scribe. Any additional findings or plans will be noted.
[2022-08-02] MEDS: fentaNYL (PF) 50 MCG/ML 2 ML AMP IVP PRN ×2 (15:50→21:31)
--- NOTE | 2022-08-02 16:50 | XR ---
EXAMINATION TYPE: XR chest 1V portable DATE OF EXAM: 08/02/2022 COMPARISON: 08/02/2022 INDICATION: Difficulty breathing TECHNIQUE: Single frontal view of the chest is obtained. FINDINGS: The heart size is enlarged. The pulmonary vasculature is normal. Left lower lobe infiltrate is present particularly for atelectasis or pneumonia. Follow-up is recomme nded. Findings are slightly worsened from the comparison earlier in the day [place] catheter is been removed. Sheath remains in position. No pneumothorax is evident. Sternotom y wires are present from CABG. IMPRESSION: 1. Worsening left lower lobe infiltrate. Continued follow-up is recommended.
[2022-08-02 16:51] LABS: Glucose,Whole Blood 134 mg/dL (70-110)
[2022-08-02] MEDS: PANTOPRAZOLE 40 MG TABLET PO SCH (18:47)
[2022-08-02 18:56] LABS: Glucose,Whole Blood 134 mg/dL (70-110)
[2022-08-02 20:03] LABS: Glucose,Whole Blood 115 mg/dL (70-110)
[2022-08-02] MEDS: predniSONE 10 MG TAB PO SCH (21:32)
[2022-08-02] MEDS: SENNOSIDES-DOCUSATE SODIUM 1 EACH TAB PO SCH (21:32)
[2022-08-02 22:09] LABS: Glucose,Whole Blood 140 mg/dL (70-110)
[2022-08-03 00:12] LABS: Glucose,Whole Blood 126 mg/dL (70-110)
[2022-08-03 01:56] LABS: Glucose,Whole Blood 125 mg/dL (70-110)
[2022-08-03 04:17] LABS: Glucose,Whole Blood 131 mg/dL (70-110)
[2022-08-03 04:39] LABS: Ionized Calcium 4.6 mg/dL (4.5-5.3)
[2022-08-03 04:41] LABS: Basophils % (A) 0 %; Eosinophils % (A) 0 %; HCT 25.9 % (39.0-53.0); HGB 8.4 gm/dL (13.0-17.5); Lymphocytes # (A) 0.7 k/uL (1.0-4.8); Lymphocytes % (A) 5 %; MCH 32.6 pg (25.0-35.0); MCHC 32.4 g/dL (31.0-37.0); MCV 100.4 fL (80.0-100.0); Mean Platelet Volume 9.8; Monocytes # (A) 1.1 k/uL (0-1.0); Monocytes % (A) 7 %; Neutrophils # (A) 12.4 k/uL (1.3-7.7); Neutrophils % (A) 86 %; RBC 2.58 m/uL (4.30-5.90); RDW 13.4 % (11.5-15.5); WBC 14.4 k/uL (3.8-10.6)
[2022-08-03 04:46] LABS: Albumin 3.4 g/dL (3.5-5.0); Calcium 7.7 mg/dL (8.4-10.2); Potassium 5.4 mmol/L (3.5-5.1); Total Bilirubin 1.1 mg/dL (0.2-1.3); Total Protein 5.3 g/dL (6.3-8.2)
[2022-08-03 04:54] LABS: ABG Base Excess -3.4 mmol/L; ABG HCO3 23 mmol/L (21-25); ABG Oxygen Saturation 93.7 % (94-97); ABG PCO2 43 mmHg (35-45); ABG PH 7.33 (7.35-7.45); ABG PO2 69 mmHg (83-108); ABG TCO2 24 mmol/L (19-24); Allen Test Performed? Yes
[2022-08-03] MEDS: ACETAMINOPHEN TAB 325 MG TAB PO PRN ×3 (05:01→22:08)
[2022-08-03 05:14] LABS: Platelet Count 99 k/uL (150-450)
[2022-08-03] MEDS: SODIUM CHLORIDE 0.9% 1,000 ML IV SCH (05:55)
[2022-08-03 05:56] LABS: Glucose,Whole Blood 132 mg/dL (70-110)
[2022-08-03] MEDS: KETOROLAC 15 MG/ML 1 ML VIAL IVP SCH (06:07)
[2022-08-03] MEDS ORDERED: SODIUM CHLORIDE 0.9% 250 ML IV ONE (07:15)
--- NOTE | 2022-08-03 07:22 | P.PN ---
Subjective Progress Note Date: 08/03/22 PROGRESS NOTE The patient is a 62-year-old male with a known history of CAD, underwent CABG today. He is in the ICU intubated and sedated. He is in sinus mechanism with paced atrium. He received a GUIDRY to the LAD and radial to the ramus saphenous vein grafts to the RCA into the PDA with closure of the left atrial appendage. The patient is extubated, sitting up in the chair. He is complaining of sor eness in the chest. He is in sinus mechanism. Hemodynamically he stable on no vasopressors. He denies any dizziness or palpitations. He has no nausea or vomiting. August 03: The patient is sitting up in the chair, awake and alert, in sinus mechanism. His blood pressure is stable. His urinary output has decreased. He denies any chest discomfort. He denies any dizziness or palpitations. His chest x-ray raised a question of left lower lobe infiltrate. He has no evidence of air leak. His blood pressure was on the low side earlier and he has been started on midodrine. His renal functions have worsened. Medications: Aspirin, Lipitor 40 mg daily, Plavix 75 mg daily, metoprolol 12.5 mg twice a day, midodrine 5 mg every 8 hours, fondaparinux 2.5 mg daily PHYSICAL EXAMINATION: Blood pressure 110/50 heart rate 60, LUNGS: Clear to auscultation with mild decrease in the breath sounds at the bases HEART: Regular rate and rhythm, S1, S2. No S3. No systolic murmur, no rub noted ABDOMEN: Soft, nontender, no organomegaly EXTREMETIES: No edema, Lab: BUN 31, creatinine 1.98, potassium 5.4, hemoglobin 8.4. IMPRESSION: 1. Status post CABG, stable extubated 2. History of hypertension 3. History of hyperlipidemia 4. History of carotid obstructive disease 5. Acute renal injury PLAN: 1. Increase physical activity and continue incentive spirometry 2. Follow blood pressure and adjust the dose of beta hiram accordingly 3. Follow renal functions 4. IV fluid bolus and follow blood pressure and urine output 5. Depending on his progress further recommendations will be made Objective - Vital Signs Vital signs: Vital Signs Temp 98.0 F 08/03/22 04:00 Pulse 66 08/03/22 07:00 Resp 21 08/03/22 07:00 BP 110/52 08/03/22 07:00 Pulse Ox 95 08/03/22 07:00 FiO2 50 08/01/22 21:02 Intake & Output 08/02/22 08/03/22 08/03/22 18:59 06:59 18:59 Intake Total 2522.230 402.935 36 Output Total 915 485 30 Balance 1607.230 -82.065 6 Weight 94.6 kg Intake: IV 1510 396 36 Albumin Human 5% 500 ml 750 In Empty Bag 1 bag @ 250 mls/hr IVPB ONCE ONE Rx#: [id number] CO/CI 50 PRESSURE BAGS 90 66 6 Sodium Chloride 0.9% 1, 520 330 30 000 ml @ 50 mls/hr IV . Q[facility]H [facility] Rx#:[id number] ceFAZolin 2 gm In Sodium 100 Chloride 0.9% 50 ml @ 100 mls/hr IVPB Q8HR [facility] Rx# :[id number] Intake, IV Titration 12.230 6.935 Amount Insulin Regular 100 unit 12.230 6.935 In Sodium Chloride 0.9% 100 ml @ Per Protocol IV .Q0M [facility] Rx#:[id number] Oral 1000 Output: Chest Tube Drainage 650 270 Chest Tube Mediastinal 160 50 Left pleural chest tube 490 220 Urine 265 215 30 Other: Voiding Method Indwelling Catheter Indwelling Catheter ABP, PAP, CO, CI - Last Documented Arterial Blood Pressure 205/205 Pulmonary Artery Pressure 33/7 Cardiac Output 7.7 Cardiac Index 3.9 - Labs CBC & Chem 7: 08/03/22 04:10 08/03/22 04:10 Labs: Abnormal Lab Results - Last 24 Hours (Table) 08/02/22 08/02/22 08/02/22 Range/Units 08:22 10:05 12:11 WBC (3.8-10.6) k/uL RBC (4.30-5.90) m/uL Hgb (13.0-17.5) gm/dL Hct (39.0-53.0) % MCV (80.0-100.0) fL Plt Count (150-450) k/uL Neutrophils # (1.3-7.7) k/uL Lymphocytes # (1.0-4.8) k/uL Monocytes # (0-1.0) k/uL ABG pH (7.35-7.45) ABG pO2 (83-108) mmHg ABG O2 Saturation (94-97) % Sodium (137-145) mmol/L Potassium (3.5-5.1) mmol/L BUN (9-20) mg/dL Creatinine (0.66-1.25) mg/dL Glucose (74-99) mg/dL POC Glucose (mg/dL) 116 H 113 H 167 H (70-110) mg/dL Calcium (8.4-10.2) mg/dL AST (17-59) U/L Total Protein (6.3-8.2) g/dL Albumin (3.5-5.0) g/dL 08/02/22 08/02/22 08/02/22 Range/Units 13:04 14:57 16:49 WBC (3.8-10.6) k/uL RBC (4.30-5.90) m/uL Hgb (13.0-17.5) gm/dL Hct (39.0-53.0) % MCV (80.0-100.0) fL Plt Count (150-450) k/uL Neutrophils # (1.3-7.7) k/uL Lymphocytes # (1.0-4.8) k/uL Monocytes # (0-1.0) k/uL ABG pH (7.35-7.45) ABG pO2 (83-108) mmHg ABG O2 Saturation (94-97) % Sodium (137-145) mmol/L Potassium (3.5-5.1) mmol/L BUN (9-20) mg/dL Creatinine (0.66-1.25) mg/dL Glucose (74-99) mg/dL POC Glucose (mg/dL) 131 H 117 H 134 H (70-110) mg/dL Calcium (8.4-10.2) mg/dL AST (17-59) U/L Total Protein (6.3-8.2) g/dL Albumin (3.5-5.0) g/dL 08/02/22 08/02/22 08/02/22 Range/Units 18:53 20:01 22:08 WBC (3.8-10.6) k/uL RBC (4.30-5.90) m/uL Hgb (13.0-17.5) gm/dL Hct (39.0-53.0) % MCV (80.0-100.0) fL Plt Count (150-450) k/uL Neutrophils # (1.3-7.7) k/uL Lymphocytes # (1.0-4.8) k/uL Monocytes # (0-1.0) k/uL ABG pH (7.35-7.45) ABG pO2 (83-108) mmHg ABG O2 Saturation (94-97) % Sodium (137-145) mmol/L Potassium (3.5-5.1) mmol/L BUN (9-20) mg/dL Creatinine (0.66-1.25) mg/dL Glucose (74-99) mg/dL POC Glucose (mg/dL) 134 H 115 H 140 H (70-110) mg/dL Calcium (8.4-10.2) mg/dL AST (17-59) U/L Total Protein (6.3-8.2) g/dL Albumin (3.5-5.0) g/dL 08/03/22 08/03/22 08/03/22 Range/Units 00:11 01:54 04:10 WBC 14.4 H (3.8-10.6) k/uL RBC 2.58 L (4.30-5.90) m/uL Hgb 8.4 L (13.0-17.5) gm/dL Hct 25.9 L (39.0-53.0) % MCV 100.4 H (80.0-100.0) fL Plt Count 99 L (150-450) k/uL Neutrophils # 12.4 H (1.3-7.7) k/uL Lymphocytes # 0.7 L (1.0-4.8) k/uL Monocytes # 1.1 H (0-1.0) k/uL ABG pH (7.35-7.45) ABG pO2 (83-108) mmHg ABG O2 Saturation (94-97) % Sodium (137-145) mmol/L Potassium (3.5-5.1) mmol/L BUN (9-20) mg/dL Creatinine (0.66-1.25) mg/dL Glucose (74-99) mg/dL POC Glucose (mg/dL) 126 H 125 H (70-110) mg/dL Calcium (8.4-10.2) mg/dL AST (17-59) U/L Total Protein (6.3-8.2) g/dL Albumin (3.5-5.0) g/dL 08/03/22 08/03/22 08/03/22 Range/Units 04:10 04:16 04:49 WBC (3.8-10.6) k/uL RBC (4.30-5.90) m/uL Hgb (13.0-17.5) gm/dL Hct (39.0-53.0) % MCV (80.0-100.0) fL Plt Count (150-450) k/uL Neutrophils # (1.3-7.7) k/uL Lymphocytes # (1.0-4.8) k/uL Monocytes # (0-1.0) k/uL ABG pH 7.33 L (7.35-7.45) ABG pO2 69 L (83-108) mmHg ABG O2 Saturation 93.7 L (94-97) % Sodium 135 L (137-145) mmol/L Potassium 5.4 H (3.5-5.1) mmol/L BUN 31 H (9-20) mg/dL Creatinine 1.98 H (0.66-1.25) mg/dL Glucose 126 H (74-99) mg/dL POC Glucose (mg/dL) 131 H (70-110) mg/dL Calcium 7.7 L (8.4-10.2) mg/dL AST 110 H (17-59) U/L Total Protein 5.3 L (6.3-8.2) g/dL Albumin 3.4 L (3.5-5.0) g/dL 08/03/22 Range/Units 05:54 WBC (3.8-10.6) k/uL RBC (4.30-5.90) m/uL Hgb (13.0-17.5) gm/dL Hct (39.0-53.0) % MCV (80.0-100.0) fL Plt Count (150-450) k/uL Neutrophils # (1.3-7.7) k/uL Lymphocytes # (1.0-4.8) k/uL Monocytes # (0-1.0) k/uL ABG pH (7.35-7.45) ABG pO2 (83-108) mmHg ABG O2 Saturation (94-97) % Sodium (137-145) mmol/L Potassium (3.5-5.1) mmol/L BUN (9-20) mg/dL Creatinine (0.66-1.25) mg/dL Glucose (74-99) mg/dL POC Glucose (mg/dL) 132 H (70-110) mg/dL Calcium (8.4-10.2) mg/dL AST (17-59) U/L Total Protein (6.3-8.2) g/dL Albumin (3.5-5.0) g/dL
[2022-08-03 08:16] LABS: Glucose,Whole Blood 129 mg/dL (70-110)
--- NOTE | 2022-08-03 08:33 | P.PN ---
Subjective Progress Note Date: 08/03/22 On today's evaluation of 08/02/2022, the patient's postop day #1. The patient underwent three-vessel bypass surgery and the patient was weaned off the mechanical ventilator and the patient was extubated without any major difficulties. This morning she is on oxygen at 5 L nasal cannula and his pulse ox is currently at 93%. His chest x-ray showing some atelectatic changes in the left lung base. There is a large gastric bubble. [place] catheter still in place. There is thoracotomy wires over day mid chest area. The patient is using the incentive spirometer. The patient is falling approximately 500 mL on his incentive spirometer. Pain is under adequate control. In terms of chest tubes, the patient has 2 mediastinal chest tubes and 1 left lower chest tube. No evidence of air leak. Output from the chest tubes have been noted and there are minimal at this point in time. Note that the patient underwent GUIDRY to LAD and radial 2 the ramus and saphenous vein graft to RCA and closure of the left atrial appendage was also done. His current cardiac rhythm is normal sinus rhythm. No underlying arrhythmias at this point in time. Blood work from today shows hemoglobin of 8.7, the discomfort of 10.7, electrolytes all within normal limits. Blood sugars at 118. On today's evaluation of 08/03/2022, the patient is postop day #2. This morning, the patient was found to be somewhat delirious. He was having episodic confusions. Nevertheless, the neurologic exam is completely nonfocal and his moldable 4 extremities without any limitation. No change in his speech. No change in his vision. The patient is currently on oxygen and is currently on 5 L nasal cannula. Is using the incentive spirometer and is falling approximately 2 50 mL on his incentive spirometer. He continues to have some chest wall pain at the surgical wound site. He continues to have 2 mediastinal chest tubes and 1 lower chest tube. Output from the chest tubes are minimal at this point in time. Urine output was in order of 20 mL an hour. He developed an acute kidney injury and today's blood work shows a creatinine of 1.98 which is up compared to her normal baseline. His BUN is at 31. His sodium level is at 135 with a potassium level of 5.4. The patient was given a bolus of 250 mL of normal sali ne. His CVP was also low. Urine output improved subsequently. His blood gas shows a pH of 7.33 with a pCO2 of 43 and pO2 of 69. The rest of the blood work shows a hemoglobin of 8.4, the WBC count is at 14.4 and a platelet count is at 99 which is essentially stable compared to yesterday. No cardiac arrhythmias. His cardiac rhythm is sinus. He is currently postop day #2. Objective - Vital Signs Vital signs: Vital Signs Temp 98.3 F 08/03/22 08:00 Pulse 65 08/03/22 08:00 Resp 20 08/03/22 08:00 BP 116/63 08/03/22 08:00 Pulse Ox 92 L 08/03/22 08:00 FiO2 50 08/01/22 21:02 Intake & Output 08/02/22 08/03/22 08/03/22 18:59 06:59 18:59 Intake Total 2522.230 402.935 72 Output Total 915 485 110 Balance 1607.230 -82.065 -38 Weight 94.6 kg Intake: IV 1510 396 72 Albumin Human 5% 500 ml 750 In Empty Bag 1 bag @ 250 mls/hr IVPB ONCE ONE Rx#: [id number] CO/CI 50 PRESSURE BAGS 90 66 12 Sodium Chloride 0.9% 1, 520 330 60 000 ml @ 50 mls/hr IV . Q20H [facility] Rx#:[id number] ceFAZolin 2 gm In Sodium 100 Chloride 0.9% 50 ml @ 100 mls/hr IVPB Q8HR [facility] Rx# :[id number] Intake, IV Titration 12.230 6.935 Amount Insulin Regular 100 unit 12.230 6.935 In Sodium Chloride 0.9% 100 ml @ Per Protocol IV .Q0M [facility] Rx#:[id number] Oral 1000 Output: Chest Tube Drainage 650 270 20 Chest Tube Mediastinal 160 50 0 Left pleural chest tube 490 220 20 Urine 265 215 90 Other: Voiding Method Indwelling Catheter Indwelling Catheter ABP, PAP, CO, CI - Last Documented Arterial Blood Pressure 205/205 Pulmonary Artery Pressure 33/7 Cardiac Output 7.7 Cardiac Index 3.9 - Exam Calm and comfortable on 5 L of oxygen by nasal cannula Head exam was generally normal. There was no scleral icterus or corneal arcus. Mucous membranes were moist. Neck was supple and without jugular venous distension, thyromegaly, or carotid bruits. Carotids were easily palpable bilaterally. There was no adenopathy. The patient has a Cordis in the right IJ. Cardiac exam revealed the PMI to be normally situated and sized. The rhythm was regular and no extrasystoles were noted during several minutes of auscultation. The first and second heart sounds were normal and physiologic splitting of the second heart sound was noted. There were no murmurs, rubs, clicks, or gallops. Thoracotomy scars of dry clean and intact Lungs were clear to auscultation and percussion, and with normal diaphragmatic excursion. No wheezes or rales were noted. The patient has 2 mediastinal and one pleural chest tube on the left Abdominal exam revealed normal bowel sounds. The abdomen was soft, non-tender, and without masses, organomegaly, or appreciable enlargement of the abdominal aorta. Examination of the extremities revealed easily palpable radial, femoral and pedal pulses. There was no cyanosis, clubbing or edema. Surgical one-sided over the left radial and left lower extremity are dry clean Examination of the skin revealed no evidence of significant rashes, suspicious appearing nevi or other concerning lesions. Neurologically, the patient is alert and oriented 1-2. No focal neurological deficit at this point in time. - Labs CBC & Chem 7: 08/03/22 04:10 08/03/22 04:10 Labs: Abnormal Lab Results - Last 24 Hours (Table) 08/02/22 08/02/22 08/02/22 Range/Units 10:05 12:11 13:04 WBC (3.8-10.6) k/uL RBC (4.30-5.90) m/uL Hgb (13.0-17.5) gm/dL Hct (39.0-53.0) % MCV (80.0-100.0) fL Plt Count (150-450) k/uL Neutrophils # (1.3-7.7) k/uL Lymphocytes # (1.0-4.8) k/uL Monocytes # (0-1.0) k/uL ABG pH (7.35-7.45) ABG pO2 (83-108) mmHg ABG O2 Saturation (94-97) % Sodium (137-145) mmol/L Potassium (3.5-5.1) mmol/L BUN (9-20) mg/dL Creatinine (0.66-1.25) mg/dL Glucose (74-99) mg/dL POC Glucose (mg/dL) 113 H 167 H 131 H (70-110) mg/dL Calcium (8.4-10.2) mg/dL AST (17-59) U/L Total Protein (6.3-8.2) g/dL Albumin (3.5-5.0) g/dL 08/02/22 08/02/22 08/02/22 Range/Units 14:57 16:49 18:53 WBC (3.8-10.6) k/uL RBC (4.30-5.90) m/uL Hgb (13.0-17.5) gm/dL Hct (39.0-53.0) % MCV (80.0-100.0) fL Plt Count (150-450) k/uL Neutrophils # (1.3-7.7) k/uL Lymphocytes # (1.0-4.8) k/uL Monocytes # (0-1.0) k/uL ABG pH (7.35-7.45) ABG pO2 (83-108) mmHg ABG O2 Saturation (94-97) % Sodium (137-145) mmol/L Potassium (3.5-5.1) mmol/L BUN (9-20) mg/dL Creatinine (0.66-1.25) mg/dL Glucose (74-99) mg/dL POC Glucose (mg/dL) 117 H 134 H 134 H (70-110) mg/dL Calcium (8.4-10.2) mg/dL AST (17-59) U/L Total Protein (6.3-8.2) g/dL Albumin (3.5-5.0) g/dL 08/02/22 08/02/22 08/03/22 Range/Units 20:01 22:08 00:11 WBC (3.8-10.6) k/uL RBC (4.30-5.90) m/uL Hgb (13.0-17.5) gm/dL Hct (39.0-53.0) % MCV (80.0-100.0) fL Plt Count (150-450) k/uL Neutrophils # (1.3-7.7) k/uL Lymphocytes # (1.0-4.8) k/uL Monocytes # (0-1.0) k/uL ABG pH (7.35-7.45) ABG pO2 (83-108) mmHg ABG O2 Saturation (94-97) % Sodium (137-145) mmol/L Potassium (3.5-5.1) mmol/L BUN (9-20) mg/dL Creatinine (0.66-1.25) mg/dL Glucose (74-99) mg/dL POC Glucose (mg/dL) 115 H 140 H 126 H (70-110) mg/dL Calcium (8.4-10.2) mg/dL AST (17-59) U/L Total Protein (6.3-8.2) g/dL Albumin (3.5-5.0) g/dL 08/03/22 08/03/22 08/03/22 Range/Units 01:54 04:10 04:10 WBC 14.4 H (3.8-10.6) k/uL RBC 2.58 L (4.30-5.90) m/uL Hgb 8.4 L (13.0-17.5) gm/dL Hct 25.9 L (39.0-53.0) % MCV 100.4 H (80.0-100.0) fL Plt Count 99 L (150-450) k/uL Neutrophils # 12.4 H (1.3-7.7) k/uL Lymphocytes # 0.7 L (1.0-4.8) k/uL Monocytes # 1.1 H (0-1.0) k/uL ABG pH (7.35-7.45) ABG pO2 (83-108) mmHg ABG O2 Saturation (94-97) % Sodium 135 L (137-145) mmol/L Potassium 5.4 H (3.5-5.1) mmol/L BUN 31 H (9-20) mg/dL Creatinine 1.98 H (0.66-1.25) mg/dL Glucose 126 H (74-99) mg/dL POC Glucose (mg/dL) 125 H (70-110) mg/dL Calcium 7.7 L (8.4-10.2) mg/dL AST 110 H (17-59) U/L Total Protein 5.3 L (6.3-8.2) g/dL Albumin 3.4 L (3.5-5.0) g/dL 08/03/22 08/03/22 08/03/22 Range/Units 04:16 04:49 05:54 WBC (3.8-10.6) k/uL RBC (4.30-5.90) m/uL Hgb (13.0-17.5) gm/dL Hct (39.0-53.0) % MCV (80.0-100.0) fL Plt Count (150-450) k/uL Neutrophils # (1.3-7.7) k/uL Lymphocytes # (1.0-4.8) k/uL Monocytes # (0-1.0) k/uL ABG pH 7.33 L (7.35-7.45) ABG pO2 69 L (83-108) mmHg ABG O2 Saturation 93.7 L (94-97) % Sodium (137-145) mmol/L Potassium (3.5-5.1) mmol/L BUN (9-20) mg/dL Creatinine (0.66-1.25) mg/dL Glucose (74-99) mg/dL POC Glucose (mg/dL) 131 H 132 H (70-110) mg/dL Calcium (8.4-10.2) mg/dL AST (17-59) U/L Total Protein (6.3-8.2) g/dL Albumin (3.5-5.0) g/dL 08/03/22 Range/Units 08:15 WBC (3.8-10.6) k/uL RBC (4.30-5.90) m/uL Hgb (13.0-17.5) gm/dL Hct (39.0-53.0) % MCV (80.0-100.0) fL Plt Count (150-450) k/uL Neutrophils # (1.3-7.7) k/uL Lymphocytes # (1.0-4.8) k/uL Monocytes # (0-1.0) k/uL ABG pH (7.35-7.45) ABG pO2 (83-108) mmHg ABG O2 Saturation (94-97) % Sodium (137-145) mmol/L Potassium (3.5-5.1) mmol/L BUN (9-20) mg/dL Creatinine (0.66-1.25) mg/dL Glucose (74-99) mg/dL POC Glucose (mg/dL) 129 H (70-110) mg/dL Calcium (8.4-10.2) mg/dL AST (17-59) U/L Total Protein (6.3-8.2) g/dL Albumin (3.5-5.0) g/dL Assessment and Plan Plan: Multivessel coronary artery disease, post thoracotomy and bypass surgery. The patient's surgery was done on 08/01/2022 and the patient is currently postop day #2. The patient underwent three-vessel bypass surgery including GUIDRY to LAD and radial 2 ramus and saphenous vein graft to RCA. Post thoracotomy, currently on 5 L of oxygen by nasal cannula. The patient has to mediastinal and one left pleural chest tube in place. The patient was weaned off the mechanical ventilator the next abated without any major difficulties. The chest x-ray showing postsurgical changes, chest is on a good location. Output is minimal at this point in time. No evidence of any air leak. Delirium, without any focal neurological changes. No agitation. Acute kidney injury, creatinine is up to 1.9 with a lower urine output. The patient was bolused with normal saline with subsequent improvement in urine output. The chest x-ray shows postsurgical changes. No evidence of any pneumonia Left carotid artery stenosis. History of CAD with previous stent placement. History of hypertension. History of hyperlipidemia. History of myocardial infarction. History of rheumatoid arthritis. Gastroesophageal reflux disease. History of PTSD. Plan Continue the use of incentive spirometer Hemodynamic parameters are all stable Mediastinal chest tube will be removed today Monitor the output from the chest tubes especially the one on the left Monitor renal function and give the patient another bolus of either colloids in the form of albumin or crystalloid Electrolytes are all within normal limits Blood gases showing a mild component of respiratory acidosis, chest x-ray reveals no evidence of a pneumonia Pain is under adequate control and the patient is using the incentive spirometer Continue aspirin and Plavix Continue metoprolol 12.5 mg by mouth twice a day [place] for pain control insulin sliding scale insulin coverage and stop the insulin drip at this point in time Monitor mental status We'll continue to follow, keep the patient ICU for now
[2022-08-03] MEDS ORDERED: ALBUMIN HUMAN 5% 250 ML in EMPTY BAG 1 BAG IVPB ONE (09:00)
--- NOTE | 2022-08-03 09:05 | P.PN ---
Subjective Progress Note Date: 08/03/22 Principal diagnosis: Coronary artery disease, non-STEMI this admission, left internal carotid stenosis. History of coronary artery disease with previous PCI to the RCA 03/2022, hypertension, hyperlipidemia, pulmonary embolism, rheumatoid arthritis on chronic Rituxan and prednisone, obstructive sleep apnea without home CPAP use, chronic ongoing tobacco dependence, COPD, PTSD as [place] war , peripheral neuropathy, COVID-19 infection in 2020, irritable bowel syndrome, GERD, family history of premature coronary artery disease (father diagnosed with myocardial infarction 44 years old) POD #2 triple vessel coronary artery bypass grafting using the in situ left internal mammary artery to left anterior descending artery, left radial artery from the aorta to the ramus intermedius artery, reverse saphenous vein graft from the aorta to the RCA and to the proximal posterior descending artery, exclusion of the left atrial appendage using a 35 mm AtriCure clip, intraoperat jailyn graft flow measurements using the Medistim system, endoscopic harvesting of the left radial artery and the left greater saphenous vein, intraoperative transesophageal echocardiogram and epi-aortic ultrasound Postoperative acute blood loss anemia and thrombocytopenia, expected given hemodilution and cardiopulmonary bypass pump The patient was seen and examined sitting up in a recliner in the intensive care unit in no acute distress. Currently in sinus rhythm, hemodynamically stable. Not on any pressors or inotropes. Has received fluid bolus per cardiology for low CVP and urine output. Patient is confused and spacey this morning, knows he's in the hospital but can't state the year or what surgery he had. Chest x- ray, labs reviewed. Right internal jugular Cordis, right radial arterial line, mediastinal/left pleural chest tubes all remain. Arterial line not working properly. No other new concerns. Objective - Vital Signs Vital signs: Vital Signs Temp 98.3 F 08/03/22 08:00 Pulse 65 08/03/22 08:00 Resp 20 08/03/22 08:00 BP 116/63 08/03/22 08:00 Pulse Ox 92 L 08/03/22 08:00 FiO2 50 08/01/22 21:02 Intake & Output 08/02/22 08/03/22 08/03/22 18:59 06:59 18:59 Intake Total 2522.230 402.935 72 Output Total 915 485 110 Balance 1607.230 -82.065 -38 Weight 94.6 kg Intake: IV 1510 396 72 Albumin Human 5% 500 ml 750 In Empty Bag 1 bag @ 250 mls/hr IVPB ONCE ONE Rx#: [id number] CO/CI 50 PRESSURE BAGS 90 66 12 Sodium Chloride 0.9% 1, 520 330 60 000 ml @ 50 mls/hr IV . Q20H [facility] Rx#:[id number] ceFAZolin 2 gm In Sodium 100 Chloride 0.9% 50 ml @ 100 mls/hr IVPB Q8HR [facility] Rx# :[id number] Intake, IV Titration 12.230 6.935 Amount Insulin Regular 100 unit 12.230 6.935 In Sodium Chloride 0.9% 100 ml @ Per Protocol IV .Q0M [facility] Rx#:[id number] Oral 1000 Output: Chest Tube Drainage 650 270 20 Chest Tube Mediastinal 160 50 0 Left pleural chest tube 490 220 20 Urine 265 215 90 Other: Voiding Method Indwelling Catheter Indwelling Catheter ABP, PAP, CO, CI - Last Documented Arterial Blood Pressure 205/205 Pulmonary Artery Pressure 33/7 Cardiac Output 7.7 Cardiac Index 3.9 - Exam CONSTITUTIONAL: Appears comfortable, cooperative, no acute distress RESPIRATORY: Lungs sounds diminished bilaterally. Respirations even, nonlabored. Currently on 5 L nasal cannula with oxygen saturation 92%. Unable to utilize incentive spirometry appropriately. Strong nonproductive cough. CARDIOVASCULAR: S1, S2 present. Regular rate and rhythm, sinus rhythm on telemetry. Sternum stable. Palpable peripheral pulses bilaterally. Trace upper extremity edema present. No calf pain or tenderness noted. Heart hugger in place with patient demonstrating appropriate use. Antiembolism stockings, SCDs present. GASTROINTESTINAL: Abdomen soft, nontender, nondistended. Hypoactive bowel sounds present 4 quadrants. Tolerating minimal diet. Positive flatus GENITOURINARY: Hong present draining clear, yellow urine. Output overnight 10-20 mL per hour, 480 mL in the last 24 hours INTEGUMENTARY: Skin is warm and dry with evidence of good perfusion. Anterior chest incision well approximated and covered with dry intact dressing. Left lower extremity EVH site well approximated without redness or drainage. Left radial artery harvest site well approximated NEUROLOGIC: Cranial nerves II through XII intact MUSKULOSKELETAL: Able to move all extremities, strength equal bilaterally PSYCHIATRIC: Alert and oriented to person place, unable to state year, unable to state surgery, appropriate affect, appears spacey INVASIVE LINES AND TUBES: Mediastinal/left pleural chest tubes present and connected to wall suction, no air leaks present. Mediastinal tube with 50 mL serosanguineous drainage overnight, 200 mL in the last 24 hours. Left pleural chest tube with 120 mL serosanguineous drainage overnight, 700 mL in the last 24 hours. Atrial epicardial pacemaker wires present, grounded. Right internal jugular Cordis, right radial arterial line present - Allied health notes Allied health notes reviewed: nursing - Labs CBC & Chem 7: 08/03/22 04:10 08/03/22 04:10 Labs: Abnormal Lab Results - Last 24 Hours (Table) 08/02/22 08/02/22 08/02/22 Range/Units 10:05 12:11 13:04 WBC (3.8-10.6) k/uL RBC (4.30-5.90) m/uL Hgb (13.0-17.5) gm/dL Hct (39.0-53.0) % MCV (80.0-100.0) fL Plt Count (150-450) k/uL Neutrophils # (1.3-7.7) k/uL Lymphocytes # (1.0-4.8) k/uL Monocytes # (0-1.0) k/uL ABG pH (7.35-7.45) ABG pO2 (83-108) mmHg ABG O2 Saturation (94-97) % Sodium (137-145) mmol/L Potassium (3.5-5.1) mmol/L BUN (9-20) mg/dL Creatinine (0.66-1.25) mg/dL Glucose (74-99) mg/dL POC Glucose (mg/dL) 113 H 167 H 131 H (70-110) mg/dL Calcium (8.4-10.2) mg/dL AST (17-59) U/L Total Protein (6.3-8.2) g/dL Albumin (3.5-5.0) g/dL 08/02/22 08/02/22 08/02/22 Range/Units 14:57 16:49 18:53 WBC (3.8-10.6) k/uL RBC (4.30-5.90) m/uL Hgb (13.0-17.5) gm/dL Hct (39.0-53.0) % MCV (80.0-100.0) fL Plt Count (150-450) k/uL Neutrophils # (1.3-7.7) k/uL Lymphocytes # (1.0-4.8) k/uL Monocytes # (0-1.0) k/uL ABG pH (7.35-7.45) ABG pO2 (83-108) mmHg ABG O2 Saturation (94-97) % Sodium (137-145) mmol/L Potassium (3.5-5.1) mmol/L BUN (9-20) mg/dL Creatinine (0.66-1.25) mg/dL Glucose (74-99) mg/dL POC Glucose (mg/dL) 117 H 134 H 134 H (70-110) mg/dL Calcium (8.4-10.2) mg/dL AST (17-59) U/L Total Protein (6.3-8.2) g/dL Albumin (3.5-5.0) g/dL 08/02/22 08/02/22 08/03/22 Range/Units 20:01 22:08 00:11 WBC (3.8-10.6) k/uL RBC (4.30-5.90) m/uL Hgb (13.0-17.5) gm/dL Hct (39.0-53.0) % MCV (80.0-100.0) fL Plt Count (150-450) k/uL Neutrophils # (1.3-7.7) k/uL Lymphocytes # (1.0-4.8) k/uL Monocytes # (0-1.0) k/uL ABG pH (7.35-7.45) ABG pO2 (83-108) mmHg ABG O2 Saturation (94-97) % Sodium (137-145) mmol/L Potassium (3.5-5.1) mmol/L BUN (9-20) mg/dL Creatinine (0.66-1.25) mg/dL Glucose (74-99) mg/dL POC Glucose (mg/dL) 115 H 140 H 126 H (70-110) mg/dL Calcium (8.4-10.2) mg/dL AST (17-59) U/L Total Protein (6.3-8.2) g/dL Albumin (3.5-5.0) g/dL 08/03/22 08/03/22 08/03/22 Range/Units 01:54 04:10 04:10 WBC 14.4 H (3.8-10.6) k/uL RBC 2.58 L (4.30-5.90) m/uL Hgb 8.4 L (13.0-17.5) gm/dL Hct 25.9 L (39.0-53.0) % MCV 100.4 H (80.0-100.0) fL Plt Count 99 L (150-450) k/uL Neutrophils # 12.4 H (1.3-7.7) k/uL Lymphocytes # 0.7 L (1.0-4.8) k/uL Monocytes # 1.1 H (0-1.0) k/uL ABG pH (7.35-7.45) ABG pO2 (83-108) mmHg ABG O2 Saturation (94-97) % Sodium 135 L (137-145) mmol/L Potassium 5.4 H (3.5-5.1) mmol/L BUN 31 H (9-20) mg/dL Creatinine 1.98 H (0.66-1.25) mg/dL Glucose 126 H (74-99) mg/dL POC Glucose (mg/dL) 125 H (70-110) mg/dL Calcium 7.7 L (8.4-10.2) mg/dL AST 110 H (17-59) U/L Total Protein 5.3 L (6.3-8.2) g/dL Albumin 3.4 L (3.5-5.0) g/dL 08/03/22 08/03/22 08/03/22 Range/Units 04:16 04:49 05:54 WBC (3.8-10.6) k/uL RBC (4.30-5.90) m/uL Hgb (13.0-17.5) gm/dL Hct (39.0-53.0) % MCV (80.0-100.0) fL Plt Count (150-450) k/uL Neutrophils # (1.3-7.7) k/uL Lymphocytes # (1.0-4.8) k/uL Monocytes # (0-1.0) k/uL ABG pH 7.33 L (7.35-7.45) ABG pO2 69 L (83-108) mmHg ABG O2 Saturation 93.7 L (94-97) % Sodium (137-145) mmol/L Potassium (3.5-5.1) mmol/L BUN (9-20) mg/dL Creatinine (0.66-1.25) mg/dL Glucose (74-99) mg/dL POC Glucose (mg/dL) 131 H 132 H (70-110) mg/dL Calcium (8.4-10.2) mg/dL AST (17-59) U/L Total Protein (6.3-8.2) g/dL Albumin (3.5-5.0) g/dL 08/03/22 Range/Units 08:15 WBC (3.8-10.6) k/uL RBC (4.30-5.90) m/uL Hgb (13.0-17.5) gm/dL Hct (39.0-53.0) % MCV (80.0-100.0) fL Plt Count (150-450) k/uL Neutrophils # (1.3-7.7) k/uL Lymphocytes # (1.0-4.8) k/uL Monocytes # (0-1.0) k/uL ABG pH (7.35-7.45) ABG pO2 (83-108) mmHg ABG O2 Saturation (94-97) % Sodium (137-145) mmol/L Potassium (3.5-5.1) mmol/L BUN (9-20) mg/dL Creatinine (0.66-1.25) mg/dL Glucose (74-99) mg/dL POC Glucose (mg/dL) 129 H (70-110) mg/dL Calcium (8.4-10.2) mg/dL AST (17-59) U/L Total Protein (6.3-8.2) g/dL Albumin (3.5-5.0) g/dL - Imaging and Cardiology Chest x-ray: image reviewed Assessment and Plan Assessment: Coronary artery disease, non-STEMI this admission, status post three-vessel CABG Left internal carotid stenosis greater than 70% per Doppler, 60% per CTA of the head and neck (although felt to be >70% per vascular and Dr. Johns) History of coronary artery disease with previous PCI to the RCA 03/2022 Hypertension Hyperlipidemia, treated, cholesterol 166, LDL 55.8, triglycerides 296 Pulmonary embolism Rheumatoid arthritis on chronic Rituxan and prednisone Obstructive sleep apnea without home CPAP use Chronic ongoing tobacco dependence COPD, FEV1 74% of predicted PTSD as [place] war Peripheral neuropathy COVID-19 infection in 2020 Irritable bowel syndrome GERD Family history of premature coronary artery disease (father diagnosed with myocardial infarction 44 years old) Postoperative acute blood loss anemia and thrombocytopenia, expected Confusion, likely narcotic induced LILIANA, likely hypovolemia induced as well as initiation of toradol Plan: Continue to maximize medical therapy with low-dose aspirin, Plavix, statin, beta hiram. Will increase beta hiram therapy as tolerated. Midodrine added yesterday for blood pressure support Wean O2 as tolerated. Encourage incentive spirometry use 10 times every hour while awake. Bronchodilators per pulmonology Increase activity, ambulate as tolerated, PT/OT/cardiac rehab consulted Will monitor daily labs and x-rays. Electrolyte replacement per protocol. No Lasix today, IV fluid bolus given by cardiology GI/DVT prophylaxis. Pain controlled current medication regimen. Toradol and fentanyl discontinued due to confusion and LILIANA Insulin management per internal medicine service. Patient is not diabetic, hemoglobin A1c 6% Smoking cessation counseling and education reinforcement Monitor for EtOH withdrawal, CIWA protocol Will discontinue mediastinal chest tubes, continue pleural chest tube for another 24 hours Continue Hong catheter for another 24 hours for strict accurate intake and out put Daily weights Reorient PRN More recommendations to follow
[2022-08-03] MEDS: IPRATROPIUM-ALBUTEROL 3 ML NEB INHALATION SCH ×4 (09:18→20:02)
--- NOTE | 2022-08-03 10:15 | XR ---
EXAMINATION TYPE: XR chest 1V portable DATE OF EXAM: 08/03/2022 COMPARISON: 08/02/2022 HISTORY: Postoperative cardiac surgery TECHNIQUE: Single frontal view of the chest is obtained. FINDINGS: There is redemonstration of a right IJ sheath, multiple median sternotomy wires, and a left atrial ap pendage clip. The heart size and cardiac mediastinal silhouette are unchanged. There are low inspiratory lung volum es. There is redemonstration of patchy and linear opacities within the left mid to lower lung zone, w hich are not significantly changed when accounting for subtle differences in degree of inspiration. T he right lung is relatively clear. There is no significant pleural effusion. There is a tiny pleural line at the left lung apex, which is new when compared to previous examinatio n. IMPRESSION: 1. Left apical pleural line, which can be seen with a tiny pneumothorax or artifact. Recommend contin ued radiographic follow-up. 2. Hypoventilatory changes with stable left basilar airspace disease. The critical results of this exam were discussed with Desiree BORGES) by myself on 08/03/2022 at 1 011 hours using 2 patient identifiers.
[2022-08-03] MEDS: MULTIVITAMINS, THERA 1 EACH TAB PO SCH (10:32)
[2022-08-03] MEDS: CLOPIDOGREL 75 MG TAB PO SCH (10:32)
[2022-08-03] MEDS: ASPIRIN 81 MG PO SCH (10:32)
[2022-08-03] MEDS: THIAMINE 100 MG TAB PO SCH (10:32)
[2022-08-03] MEDS: FOLIC ACID 1 MG TAB PO SCH (10:32)
[2022-08-03] MEDS: PANTOPRAZOLE 40 MG TABLET PO SCH ×2 (10:32→17:12)
[2022-08-03] MEDS: FERROUS SULFATE 325 MG TAB PO SCH ×2 (10:32→17:12)
[2022-08-03] MEDS: ATORVASTATIN 40 MG TAB PO SCH (10:32)
[2022-08-03] MEDS: FONDAPARINUX 2.5 MG/0.5 ML SYRINGE SQ SCH (10:33)
[2022-08-03] MEDS: VITAMIN A 10,000 UNIT (3000 MCG) CAPSULE PO SCH (10:33)
[2022-08-03] MEDS: ASCORBIC ACID 500 MG TAB PO SCH ×2 (10:33→17:12)
[2022-08-03] MEDS: MIDODRINE 5 MG TAB PO SCH ×2 (10:33→16:04)
[2022-08-03] MEDS ORDERED: ACETAMINOPHEN IV (For NPO) 1,000 MG in EMPTY BAG 1 BAG IVPB STA (11:24)
[2022-08-03] MEDS ORDERED: DEXTROSE 50% SYRINGE 50 ML IVP PRN ×2 (12:02)
[2022-08-03 12:10] LABS: Glucose,Whole Blood 123 mg/dL (70-110)
[2022-08-03] MEDS: METOPROLOL TARTRATE 12.5 MG TAB PO SCH ×2 (12:15→20:42)
[2022-08-03] MEDS: INSULIN ASPART (NovoLOG) 100 UNIT/ML VIAL SQ SCH ×3 (13:28→20:30)
[2022-08-03 18:22] LABS: Glucose,Whole Blood 128 mg/dL (70-110)
--- NOTE | 2022-08-03 18:27 | P.PN ---
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 Reports PCP was attempting to acquire insurance authorization for carotid Doppler. Denies diaphoresis ,fever or chills. Denies nausea, vomiting, diarrhea or abdominal pain. Reports since March he has taken over 100 nitroglycerin sublinguals in addition to being on his long-acting Imdur. Reports he has decreased his nicotine intake from 2 packs a day to 1 pack a day, usually drinks 2-3 beers sometimes 5 daily. Reports strong family history of CAD, father with CABG, aneurysms and carotid stenosis. Chest x-ray reported no acute pulmonary process. EKG reported sinus rhythm, troponin 0.054, 0.061, 0.044. Afebrile, normal WBC. Hemoglobin 13.6, platelets 188, MCV 93.9, INR 1.1, sodium 138, potassium 3.9, bicarb 24, BUN 17, creatinine 0.91, magnesium 2.1. Evaluated by cardiology, patient is scheduled for Lexiscan stress test, carotid Doppler. 08/26/2022 yesterday completed Lexiscan stress test-reported abnormal. Scheduled for cardiac catheterization today. Carotid ultrasound reported bilateral plaque 70% severe stenosis of the proximal left ICA. Maintained on heparin drip. Denies any further chest pain while at rest. 07/28/2022 completed cardiac catheterization this morning, reporting severe stenosis involving the ostium of the LAD in the proximal left circumflex, significant disease in the ramus intermedius, mild disease in the RCA with pat ent stent and collaterals from the right coronary artery through the septals fiberglass laminator. Cardiothoracic surgery consulted regarding further evaluation for CABG. maintained on heparin drip.Evaluated by vascular surgery regarding left high-grade ICA stenosis greater than 70% per carotid duplex. Renal function stable postcardiac catheterization and CTA of head and neck ordered as per vascular surgery. Denies chest pain, palpitations or shortness of breath. 07/29/2022 workup in progress for CABG on Monday as per CTS. Echo reporting normal LV systolic function, EF 55-60% . Telemetry sinus rhythm. denies chest pain, palpitations or shortness of breath. Denies lightheadedness, dizziness or focal deficits. Head/Neck CTA pending. KUB reporting no acute radiographic process, mildly prominent colonic stool volume noted. 08/02/2022 status post CABG, postop day #1. Extubated last night. Maintaining O2 sats in the low to mid 90s on 5 L nasal cannula. Chest x-ray reporting few linear lucencies within the left axillary region compatible with soft tissue gas, improved, slight interval worsening of left basilar atelectasis . Incentive spirometer up to 500 .Cardiac output 7.7, cardiac index 3.9. Telemetry sinus rhythm. Pain currently controlled. Blood sugars stable on insulin drip. 08/03/2022 Worsening renal function. Receiving a fluid bolus. Telemetry sinus rhythm.developed delirium early this a.m. mild confusion, suspicious at times of staff. Moves all extremities, speech clear, no facial droop no numbness or weakness. Continue O2 sats in the 90s on 5 L nasal cannula. Chest x-ray pending. Reports chest tube discomfort. Objective - Vital Signs Vital signs: Vital Signs Temp 98.7 F 08/03/22 16:00 Pulse 83 08/03/22 17:00 Resp 30 H 08/03/22 17:00 BP 137/67 08/03/22 17:00 Pulse Ox 96 08/03/22 17:00 FiO2 50 08/01/22 21:02 Intake & Output 08/02/22 08/03/22 08/03/22 18:59 06:59 18:59 Intake Total 2522.230 402.935 796 Output Total 915 485 510 Balance 1607.230 -82.065 286 Weight 94.6 kg Intake: IV 1510 396 346 Albumin Human 5% 500 ml 750 In Empty Bag 1 bag @ 250 mls/hr IVPB ONCE ONE Rx#: [id number] CO/CI 50 PRESSURE BAGS 90 66 66 Sodium Chloride 0.9% 1, 520 330 280 000 ml @ 20 mls/hr IV . Q24H [facility] Rx#:[id number] ceFAZolin 2 gm In Sodium 100 Chloride 0.9% 50 ml @ 100 mls/hr IVPB Q8HR [facility] Rx# :[id number] Intake, IV Titration 12.230 6.935 Amount Insulin Regular 100 unit 12.230 6.935 In Sodium Chloride 0.9% 100 ml @ Per Protocol IV .Q0M [facility] Rx#:[id number] Oral 1000 450 Output: Chest Tube Drainage 650 270 100 Chest Tube Mediastinal 160 50 0 Left pleural chest tube 490 220 100 Urine 265 215 410 Other: Voiding Method Indwelling Catheter Indwelling Catheter Indwelling Catheter ABP, PAP, CO, CI - Last Documented Arterial Blood Pressure 132/114 Pulmonary Artery Pressure 33/7 Cardiac Output 7.7 Cardiac Index 3.9 - Exam - Exam General: Sitting up in chair, no acute distress , fluctuating confusion HEENT: [Atraumatic ,PERRL. EOMI. ] Neck: Supple, no JVD Cardiac: [Heart regular in rate and rhythm. No S3. No S4. No clicks, rubs. No murmur.] Lungs: Unlabored,clear to auscultation bilaterally, bilateral bases diminished. chest tubes present. Abdomen: [Soft, nontender, nondistended .No mass. No organomegaly.+BS. No guarding, no rigidity. Extremes: [No edema no cyanosis, normal pulses Skin: [Warm and dry, No rash.] Neurologic: [ No focal deficits, alert and oriented 2.] - Labs CBC & Chem 7: 08/03/22 04:10 08/03/22 04:10 Labs: Abnormal Lab Results - Last 24 Hours (Table) 08/02/22 08/02/22 08/02/22 Range/Units 18:53 20:01 22:08 WBC (3.8-10.6) k/uL RBC (4.30-5.90) m/uL Hgb (13.0-17.5) gm/dL Hct (39.0-53.0) % MCV (80.0-100.0) fL Plt Count (150-450) k/uL Neutrophils # (1.3-7.7) k/uL Lymphocytes # (1.0-4.8) k/uL Monocytes # (0-1.0) k/uL ABG pH (7.35-7.45) ABG pO2 (83-108) mmHg ABG O2 Saturation (94-97) % Sodium (137-145) mmol/L Potassium (3.5-5.1) mmol/L BUN (9-20) mg/dL Creatinine (0.66-1.25) mg/dL Glucose (74-99) mg/dL POC Glucose (mg/dL) 134 H 115 H 140 H (70-110) mg/dL Calcium (8.4-10.2) mg/dL AST (17-59) U/L Total Protein (6.3-8.2) g/dL Albumin (3.5-5.0) g/dL 08/03/22 08/03/22 08/03/22 Range/Units 00:11 01:54 04:10 WBC 14.4 H (3.8-10.6) k/uL RBC 2.58 L (4.30-5.90) m/uL Hgb 8.4 L (13.0-17.5) gm/dL Hct 25.9 L (39.0-53.0) % MCV 100.4 H (80.0-100.0) fL Plt Count 99 L (150-450) k/uL Neutrophils # 12.4 H (1.3-7.7) k/uL Lymphocytes # 0.7 L (1.0-4.8) k/uL Monocytes # 1.1 H (0-1.0) k/uL ABG pH (7.35-7.45) ABG pO2 (83-108) mmHg ABG O2 Saturation (94-97) % Sodium (137-145) mmol/L Potassium (3.5-5.1) mmol/L BUN (9-20) mg/dL Creatinine (0.66-1.25) mg/dL Glucose (74-99) mg/dL POC Glucose (mg/dL) 126 H 125 H (70-110) mg/dL Calcium (8.4-10.2) mg/dL AST (17-59) U/L Total Protein (6.3-8.2) g/dL Albumin (3.5-5.0) g/dL 08/03/22 08/03/22 08/03/22 Range/Units 04:10 04:16 04:49 WBC (3.8-10.6) k/uL RBC (4.30-5.90) m/uL Hgb (13.0-17.5) gm/dL Hct (39.0-53.0) % MCV (80.0-100.0) fL Plt Count (150-450) k/uL Neutrophils # (1.3-7.7) k/uL Lymphocytes # (1.0-4.8) k/uL Monocytes # (0-1.0) k/uL ABG pH 7.33 L (7.35-7.45) ABG pO2 69 L (83-108) mmHg ABG O2 Saturation 93.7 L (94-97) % Sodium 135 L (137-145) mmol/L Potassium 5.4 H (3.5-5.1) mmol/L BUN 31 H (9-20) mg/dL Creatinine 1.98 H (0.66-1.25) mg/dL Glucose 126 H (74-99) mg/dL POC Glucose (mg/dL) 131 H (70-110) mg/dL Calcium 7.7 L (8.4-10.2) mg/dL AST 110 H (17-59) U/L Total Protein 5.3 L (6.3-8.2) g/dL Albumin 3.4 L (3.5-5.0) g/dL 08/03/22 08/03/22 08/03/22 Range/Units 05:54 08:15 12:07 WBC (3.8-10.6) k/uL RBC (4.30-5.90) m/uL Hgb (13.0-17.5) gm/dL Hct (39.0-53.0) % MCV (80.0-100.0) fL Plt Count (150-450) k/uL Neutrophils # (1.3-7.7) k/uL Lymphocytes # (1.0-4.8) k/uL Monocytes # (0-1.0) k/uL ABG pH (7.35-7.45) ABG pO2 (83-108) mmHg ABG O2 Saturation (94-97) % Sodium (137-145) mmol/L Potassium (3.5-5.1) mmol/L BUN (9-20) mg/dL Creatinine (0.66-1.25) mg/dL Glucose (74-99) mg/dL POC Glucose (mg/dL) 132 H 129 H 123 H (70-110) mg/dL Calcium (8.4-10.2) mg/dL AST (17-59) U/L Total Protein (6.3-8.2) g/dL Albumin (3.5-5.0) g/dL Assessment and Plan Assessment: Chest pain, midsternal With bilateral carotid burning pressure ,elevated tr oponins, abnormal Lexiscan stress test, cardiac catheterization reporting severe stenosis involving the ostium of the LAD and proximal left circumflex with significant disease in the ramus intermedius. Status post CABG 08/01/2022 secondary to multi-vessel CAD NSTEMI this admission Acute metabolic encephalopathy, multifactorial secondary to all the above, possibly narcotic induced Acute renal failure CAD, history of recent NSTEMI,s/p PCI RCA 04/03/22 Proximal left ICA 70% severe stenosis Hypertension Hyperlipidemia Gastroesophageal reflux disease Obesity, BMI 32.3 Ongoing nicotine dependence, decreased from 2 packs to 1 pack per day, smoking cessation reinforced COPD Daily alcohol dependence, monitor for Etoh withdrawal. History of PE Plan: Continue on current medication regime ,monitoring and symptomatic treatment. Narcotics discontinued , currently on Tylenol or pain management . Close monitoring of renal function .Maintain aggressive pulmonary toileting with incentive spirometer reinforced,smoking cessation reinforced.pain management .Prognosis guarded given multiple complex medical issues. The impression and plan of care has been dictated as directed. : I performed a history and examination of this patient, discussed the same with the dictator. I agree with the dictator's note ,documented as a scribe. Any additional findings or plans will be noted.
[2022-08-03 20:29] LABS: Glucose,Whole Blood 121 mg/dL (70-110)
[2022-08-03] MEDS: predniSONE 10 MG TAB PO SCH (20:41)
[2022-08-03] MEDS: SENNOSIDES-DOCUSATE SODIUM 1 EACH TAB PO SCH (20:42)
[2022-08-03] MEDS: LORazepam 2 MG/ML INJ IV PRN (22:30)
[2022-08-04] MEDS: MIDODRINE 5 MG TAB PO SCH ×3 (00:08→17:01)
[2022-08-04] MEDS: LORazepam 2 MG/ML INJ IV PRN ×3 (03:51→22:59)
[2022-08-04 06:16] LABS: Basophils % (A) 0 %; Eosinophils # (A) 0.1 k/uL (0-0.7); Eosinophils % (A) 1 %; HCT 24.8 % (39.0-53.0); HGB 8.1 gm/dL (13.0-17.5); Hypochromasia Slight; Lymphocytes # (A) 0.9 k/uL (1.0-4.8); Lymphocytes % (A) 11 %; MCH 33.4 pg (25.0-35.0); MCHC 32.6 g/dL (31.0-37.0); MCV 102.7 fL (80.0-100.0); Macrocytosis Slight; Mean Platelet Volume 10.3; Monocytes # (A) 0.6 k/uL (0-1.0); Monocytes % (A) 7 %; Neutrophils # (A) 6.2 k/uL (1.3-7.7); Neutrophils % (A) 79 %; RBC 2.41 m/uL (4.30-5.90); RDW 13.1 % (11.5-15.5); WBC 7.9 k/uL (3.8-10.6)
[2022-08-04 06:28] LABS: ALT 53 U/L (4-49); AST 112 U/L (17-59); African American GFR (CKD) >90 (>60 ml/min/1.73 sqM); Albumin 3.2 g/dL (3.5-5.0); Alkaline Phosphatase 64 U/L (38-126); Anion Gap 7 mmol/L; Blood Urea Nitrogen 28 mg/dL (9-20); Calcium 7.9 mg/dL (8.4-10.2); Carbon Dioxide 22 mmol/L (22-30); Chloride 106 mmol/L (98-107); Glucose 126 mg/dL (74-99); Non-African American GFR(CKD) 88 (>60 ml/min/1.73 sqM); Potassium 4.1 mmol/L (3.5-5.1); Sodium 135 mmol/L (137-145); Total Bilirubin 1.4 mg/dL (0.2-1.3); Total Protein 5.2 g/dL (6.3-8.2)
--- NOTE | 2022-08-04 06:33 | US ---
EXAMINATION TYPE: US arterial UE single level DATE OF EXAM: 07/30/2022 2:33 PM CLINICAL INDICATION: Male, 62 years old with history of PRE-OP CABG, LEFT RADIAL; Pre-Op CABG Right hand dominant Left radial only performed per Mary Grace Perez Doppler Waveforms: Left: Brachial: Multiphasic Radial: Multiphasic Ulnar: Multiphasic Left Brachial pressure: 109 Left Radial pressure: 105 Left Ulnar pressure: 110 Left: 1st digit without RA Compression: 101 2nd digit without RA compression: 99 1st digit with RA compression: 84 (-17 change) 2nd digit with RA compression: 80 (-19 change) IMPRESSION: As above.
[2022-08-04 06:38] LABS: Glucose,Whole Blood 128 mg/dL (70-110)
--- NOTE | 2022-08-04 06:42 | P.PN ---
Subjective Progress Note Date: 08/04/22 On today's evaluation of 08/02/2022, the patient's postop day #1. The patient underwent three-vessel bypass surgery and the patient was weaned off the mechanical ventilator and the patient was extubated without any major difficulties. This morning she is on oxygen at 5 L nasal cannula and his pulse ox is currently at 93%. His chest x-ray showing some atelectatic changes in the left lung base. There is a large gastric bubble. Mamou-Emanuel catheter still in place. There is thoracotomy wires over day mid chest area. The patient is using the incentive spirometer. The patient is falling approximately 500 mL on his incentive spirometer. Pain is under adequate control. In terms of chest tubes, the patient has 2 mediastinal chest tubes and 1 left lower chest tube. No evidence of air leak. Output from the chest tubes have been noted and there are minimal at this point in time. Note that the patient underwent GUIDRY to LAD and radial 2 the ramus and saphenous vein graft to RCA and closure of the left atrial appendage was also done. His current cardiac rhythm is normal sinus rhythm. No underlying arrhythmias at this point in time. Blood work from today shows hemoglobin of 8.7, the discomfort of 10.7, electrolytes all within normal limits. Blood sugars at 118. On today's evaluation of 08/03/2022, the patient is postop day #2. This morning, the patient was found to be somewhat delirious. He was having episodic confusions. Nevertheless, the neurologic exam is completely nonfocal and his moldable 4 extremities without any limitation. No change in his speech. No change in his vision. The patient is currently on oxygen and is currently on 5 L nasal cannula. Is using the incentive spirometer and is falling approximately 2 50 mL on his incentive spirometer. He continues to have some chest wall pain at the surgical wound site. He continues to have 2 mediastinal chest tubes and 1 lower chest tube. Output from the chest tubes are minimal at this point in time. Urine output was in order of 20 mL an hour. He developed an acute kidney injury and today's blood work shows a creatinine of 1.98 which is up compared to her normal baseline. His BUN is at 31. His sodium level is at 135 with a potassium level of 5.4. The patient was given a bolus of 250 mL of normal sali ne. His CVP was also low. Urine output improved subsequently. His blood gas shows a pH of 7.33 with a pCO2 of 43 and pO2 of 69. The rest of the blood work shows a hemoglobin of 8.4, the WBC count is at 14.4 and a platelet count is at 99 which is essentially stable compared to yesterday. No cardiac arrhythmias. His cardiac rhythm is sinus. He is currently postop day #2. On 08/04/2022, the patient is postop day #3. Remains confused in his mentation is not appropriate. Nevertheless, his neurologic exam remains nonfocal. He is currently sitting up on a recliner. No headaches. No seizure activity. No focal neurological deficits. Is currently on oxygen which is running at 6 L/m nasal cannula. Chest x-ray from today shows cardiomegaly. Sternal wires are intact. The patient has some left perihilar infiltrate and volume loss in the left. Note that the mediastinal chest tubes and removed and the patient has a left lower chest tube which is draining in order of 20 mL an hour and a total of 160 over the past 8-12 hours. No evidence of any air leak. His blood work from today shows normal electrolytes, his acute kidney injury is improved and the patient's BUN is at 28 with a creatinine of 0.9 and a sodium level is at 135. CBC still pending for now. Hemodynamically, he is on no pressors. He is in a normal sinus rhythm. Urine output is adequate. IV fluids are at 20 mL an hour of normal saline. The patient remains on DuoNeb nebulized treatments [id number]. He is using the incentive spirometer. He is falling approximately 500 on his incentive spirometer. He remains on a combination of aspirin and Plavix. He is on long-term prednisone therapy for his rheumatoid arthritis and this was resumed at a dose of 10 mg by mouth daily. No fever. He is on metoprolol 12.5 mg twice a day. Objective - Vital Signs Vital signs: Vital Signs Temp 98.4 F 08/04/22 00:00 Pulse 82 08/04/22 06:01 Resp 25 H 08/04/22 06:01 BP 131/73 08/04/22 06:01 Pulse Ox 100 08/04/22 06:01 FiO2 50 08/01/22 21:02 Intake & Output 0408/03/22 08/04/22 06:59 18:59 06:59 Intake Total 402.935 822 429 Output Total 485 560 740 Balance -82.065 262 -311 Weight 94.6 kg 95 kg Intake: IV 396 372 279 PRESSURE BAGS 66 72 39 Sodium Chloride 0.9% 1, 330 300 240 000 ml @ 20 mls/hr IV . Q24H [facility] Rx#:[id number] Intake, IV Titration 6.935 Amount Insulin Regular 100 unit 6.935 In Sodium Chloride 0.9% 100 ml @ Per Protocol IV .Q0M [facility] Rx#:[id number] Oral 450 150 Output: Chest Tube Drainage 270 100 180 Chest Tube Mediastinal 50 0 Left pleural chest tube 220 100 180 Urine 215 460 560 Other: Voiding Method Indwelling Catheter Indwelling Catheter Indwelling Catheter ABP, PAP, CO, CI - Last Documented Arterial Blood Pressure 132/114 Pulmonary Artery Pressure 33/7 Cardiac Output 7.7 Cardiac Index 3.9 - Exam Calm and comfortable on 6 L of oxygen by nasal cannula Head exam was generally normal. There was no scleral icterus or corneal arcus. Mucous membranes were moist. Neck was supple and without jugular venous distension, thyromegaly, or carotid bruits. Carotids were easily palpable bilaterally. There was no adenopathy. The patient has a Cordis in the right IJ. Cardiac exam revealed the PMI to be normally situated and sized. The rhythm was regular and no extrasystoles were noted during several minutes of auscultation. The first and second heart sounds were normal and physiologic splitting of the second heart sound was noted. There were no murmurs, rubs, clicks, or gallops. Thoracotomy scars of dry clean and intact Lungs were clear to auscultation and percussion, and with normal diaphragmatic excursion. No wheezes or rales were noted. The patient has 2 mediastinal and one pleural chest tube on the left Abdominal exam revealed normal bowel sounds. The abdomen was soft, non-tender, and without masses, organomegaly, or appreciable enlargement of the abdominal aorta. Examination of the extremities revealed easily palpable radial, femoral and pedal pulses. There was no cyanosis, clubbing or edema. Surgical one-sided over the left radial and left lower extremity are dry clean Examination of the skin revealed no evidence of significant rashes, suspicious appearing nevi or other concerning lesions. Neurologically, the patient is alert and oriented 1-2. No focal neurological deficit at this point in time. The patient is very sluggish and his response. Nevertheless, he follows simple commands. He is quite lethargic at this point in time. Is able to move all 4 extremities without any limitation yet his profoundly weak. - Labs CBC & Chem 7: 08/03/22 04:10 08/04/22 05:25 Labs: Abnormal Lab Results - Last 24 Hours (Table) 08/03/22 08/03/22 08/03/22 Range/Units 08:15 12:07 18:20 Sodium (137-145) mmol/L BUN (9-20) mg/dL Glucose (74-99) mg/dL POC Glucose (mg/dL) 129 H 123 H 128 H (70-110) mg/dL Calcium (8.4-10.2) mg/dL Total Bilirubin (0.2-1.3) mg/dL AST (17-59) U/L ALT (4-49) U/L Total Protein (6.3-8.2) g/dL Albumin (3.5-5.0) g/dL 08/03/22 08/04/22 Range/Units 20:28 05:25 Sodium 135 L (137-145) mmol/L BUN 28 H (9-20) mg/dL Glucose 126 H (74-99) mg/dL POC Glucose (mg/dL) 121 H (70-110) mg/dL Calcium 7.9 L (8.4-10.2) mg/dL Total Bilirubin 1.4 H (0.2-1.3) mg/dL AST 112 H (17-59) U/L ALT 53 H (4-49) U/L Total Protein 5.2 L (6.3-8.2) g/dL Albumin 3.2 L (3.5-5.0) g/dL Assessment and Plan Plan: Multivessel coronary artery disease, post thoracotomy and bypass surgery. The patient's surgery was done on 08/01/2022 and the patient is currently postop day #3. The patient underwent three-vessel bypass surgery including GUIDRY to LAD and radial 2 ramus and saphenous vein graft to RCA. Post thoracotomy, currently on 5 L of oxygen by nasal cannula. The patient has to mediastinal and one left pleural chest tube in place. The patient was weaned off the mechanical ventilator the next abated without any major difficulties. T he chest x-ray showing postsurgical changes, mediastinal chest tubes have been removed Delirium, without any focal neurological changes. No agitation. Continues to be confused and quite lethargic at this point in time. Neurologic exam remains nonfocal. Acute kidney injury, creatinine is up to 1.9 , recovered and the creatinine is normalized Left carotid artery stenosis. History of CAD with previous stent placement. History of hypertension. History of hyperlipidemia. History of myocardial infarction. History of rheumatoid arthritis. Patient has not been on long-term prednisone at 10 mg Gastroesophageal reflux disease. History of PTSD. Plan Continue the use of incentive spirometer Hemodynamic parameters are all stable Mediastinal chest tube was removed and we'll keep the left pleural chest tube in place Monitor the output from the chest tubes especially the one on the left May consider a noncontrast CAT scan of the brain discussed with the cardiothoracic team I do not see evidence of pneumonia and lungs are essentially clear Wean down FiO2 Electrolytes are all within normal limitsa Pain is under adequate control and the patient is using the incentive spirometer Continue aspirin and Plavix Continue metoprolol 12.5 mg by mouth twice a day [place] for pain control insulin sliding scale insulin coverage and stop the insulin drip at this point in time Monitor mental status We'll continue to follow, keep the patient ICU for now
[2022-08-04 06:53] LABS: Platelet Count 83 k/uL (150-450)
--- NOTE | 2022-08-04 07:15 | P.PN ---
Subjective Progress Note Date: 08/04/22 PROGRESS NOTE The patient is a 62-year-old male with a known history of CAD, underwent CABG today. He is in the ICU intubated and sedated. He is in sinus mechanism with paced atrium. He received a GUIDRY to the LAD and radial to the ramus saphenous vein grafts to the RCA into the PDA with closure of the left atrial appendage. The patient is extubated, sitting up in the chair. He is complaining of sor eness in the chest. He is in sinus mechanism. Hemodynamically he stable on no vasopressors. He denies any dizziness or palpitations. He has no nausea or vomiting. August 03: The patient is sitting up in the chair, awake and alert, in sinus mechanism. His blood pressure is stable. His urinary output has decreased. He denies any chest discomfort. He denies any dizziness or palpitations. His chest x-ray raised a question of left lower lobe infiltrate. He has no evidence of air leak. His blood pressure was on the low side earlier and he has been started on midodrine. His renal functions have worsened. August 04: The patient is sitting up in the chair awake but confused. He was agitated during tonight. He is a nonfocal. He is afebrile. He continues to be in sinus mechanism. His urine output is stable. He has no evidence of ventricle tachycardia or atrial fibrillation. He is following simple commands. No evidence of fairly. Medications: Aspirin, Lipitor 40 mg daily, Plavix 75 mg daily, metoprolol 12.5 mg twice a day, midodrine 5 mg every 8 hours, fondaparinux 2.5 mg daily PHYSICAL EXAMINATION: Blood pressure 131/70 heart rate 82, awake and confused, slow in responding LUNGS: Clear to auscultation with mild decrease in the breath sounds at the bases HEART: Regular rate and rhythm, S1, S2. No S3. No systolic murmur, no rub noted ABDOMEN: Soft, nontender, no organomegaly EXTREMETIES: No edema, Lab: BUN 28, creatinine 0.9 to, potassium 4.1, hemoglobin 8.1. IMPRESSION: 1. Status post CABG, stable extubated 2. History of hypertension 3. History of hyperlipidemia 4. History of carotid obstructive disease 5. Acute renal injury, resolved 6. Change in mental status with confusion, appears to be metabolic encephalopathy PLAN: 1. Consider computed tomography scan of the head to rule out bleeding 2. Continue present therapy 3. Continue supportive care Objective - Vital Signs Vital signs: Vital Signs Temp 98.4 F 08/04/22 00:00 Pulse 82 08/04/22 06:01 Resp 25 H 08/04/22 06:01 BP 131/73 08/04/22 06:01 Pulse Ox 100 08/04/22 06:01 FiO2 50 08/01/22 21:02 Intake & Output 08/03/22 08/04/22 08/04/22 18:59 06:59 18:59 Intake Total 822 429 Output Total 560 740 Balance 262 -311 Weight 95 kg Intake: IV 372 279 PRESSURE BAGS 72 39 Sodium Chloride 0.9% 1, 300 240 000 ml @ 20 mls/hr IV . Q24H [facility] Rx#:[id number] Oral 450 150 Output: Chest Tube Drainage 100 180 Chest Tube Mediastinal 0 Left pleural chest tube 100 180 Urine 460 560 Other: Voiding Method Indwelling Catheter Indwelling Catheter ABP, PAP, CO, CI - Last Documented Arterial Blood Pressure 132/114 Pulmonary Artery Pressure 33/7 Cardiac Output 7.7 Cardiac Index 3.9 - Labs CBC & Chem 7: 08/04/22 05:25 08/04/22 05:25 Labs: Abnormal Lab Results - Last 24 Hours (Table) 08/03/22 08/03/22 08/03/22 Range/Units 08:15 12:07 18:20 RBC (4.30-5.90) m/uL Hgb (13.0-17.5) gm/dL Hct (39.0-53.0) % MCV (80.0-100.0) fL Plt Count (150-450) k/uL Lymphocytes # (1.0-4.8) k/uL Sodium (137-145) mmol/L BUN (9-20) mg/dL Glucose (74-99) mg/dL POC Glucose (mg/dL) 129 H 123 H 128 H (70-110) mg/dL Calcium (8.4-10.2) mg/dL Total Bilirubin (0.2-1.3) mg/dL AST (17-59) U/L ALT (4-49) U/L Total Protein (6.3-8.2) g/dL Albumin (3.5-5.0) g/dL 08/03/22 08/04/22 08/04/22 Range/Units 20:28 05:25 05:25 RBC 2.41 L (4.30-5.90) m/uL Hgb 8.1 L (13.0-17.5) gm/dL Hct 24.8 L (39.0-53.0) % MCV 102.7 H (80.0-100.0) fL Plt Count 83 L (150-450) k/uL Lymphocytes # 0.9 L (1.0-4.8) k/uL Sodium 135 L (137-145) mmol/L BUN 28 H (9-20) mg/dL Glucose 126 H (74-99) mg/dL POC Glucose (mg/dL) 121 H (70-110) mg/dL Calcium 7.9 L (8.4-10.2) mg/dL Total Bilirubin 1.4 H (0.2-1.3) mg/dL AST 112 H (17-59) U/L ALT 53 H (4-49) U/L Total Protein 5.2 L (6.3-8.2) g/dL Albumin 3.2 L (3.5-5.0) g/dL 08/04/22 Range/Units 06:35 RBC (4.30-5.90) m/uL Hgb (13.0-17.5) gm/dL Hct (39.0-53.0) % MCV (80.0-100.0) fL Plt Count (150-450) k/uL Lymphocytes # (1.0-4.8) k/uL Sodium (137-145) mmol/L BUN (9-20) mg/dL Glucose (74-99) mg/dL POC Glucose (mg/dL) 128 H (70-110) mg/dL Calcium (8.4-10.2) mg/dL Total Bilirubin (0.2-1.3) mg/dL AST (17-59) U/L ALT (4-49) U/L Total Protein (6.3-8.2) g/dL Albumin (3.5-5.0) g/dL
[2022-08-04] MEDS: INSULIN ASPART (NovoLOG) 100 UNIT/ML VIAL SQ SCH ×4 (07:35→21:21)
--- NOTE | 2022-08-04 08:04 | P.PN ---
Subjective Progress Note Date: 08/04/22 Principal diagnosis: Coronary artery disease, non-STEMI this admission, left internal carotid stenosis. History of coronary artery disease with previous PCI to the RCA 03/2022, hypertension, hyperlipidemia, pulmonary embolism, rheumatoid arthritis on chronic Rituxan and prednisone, obstructive sleep apnea without home CPAP use, chronic ongoing tobacco dependence, COPD, PTSD as [place] war , peripheral neuropathy, COVID-19 infection in 2020, irritable bowel syndrome, GERD, family history of premature coronary artery disease (father diagnosed with myocardial infarction 44 years old) POD #3 triple vessel coronary artery bypass grafting using the in situ left internal mammary artery to left anterior descending artery, left radial artery from the aorta to the ramus intermedius artery, reverse saphenous vein graft from the aorta to the RCA and to the proximal posterior descending artery, exclusion of the left atrial appendage using a 35 mm AtriCure clip, intraoperat jailyn graft flow measurements using the Medistim system, endoscopic harvesting of the left radial artery and the left greater saphenous vein, intraoperative transesophageal echocardiogram and epi-aortic ultrasound Postoperative acute blood loss anemia and thrombocytopenia, expected given hemodilution and cardiopulmonary bypass pump The patient was seen and examined sitting up in a recliner in the intensive care unit. Currently in sinus rhythm, hemodynamically stable. Not on any pressors or inotropes. Patient continues to be confused and spacey, his mood has waned from sleepy/lethargic to very agitated and aggressive. electric motor repairer was placed at the bedside last night. Narcotics were discontinued yesterday except Ativan for CIWA protocol, he was given a dose this morning about 4 AM. Chest x-ray, labs reviewed. Right internal jugular Cordis, left pleural chest tube remains. Objective - Vital Signs Vital signs: Vital Signs Temp 98.4 F 08/04/22 00:00 Pulse 76 08/04/22 07:00 Resp 21 08/04/22 07:00 BP 139/76 08/04/22 07:00 Pulse Ox 99 08/04/22 07:00 FiO2 50 08/01/22 21:02 Intake & Output 08/03/22 08/04/22 08/04/22 18:59 06:59 18:59 Intake Total 822 429 23 Output Total 560 740 60 Balance 262 -311 -37 Weight 95 kg Intake: IV 372 279 23 PRESSURE BAGS 72 39 3 Sodium Chloride 0.9% 1, 300 240 20 000 ml @ 20 mls/hr IV . Q24H [facility] Rx#:[id number] Oral 450 150 Output: Chest Tube Drainage 100 180 0 Chest Tube Mediastinal 0 Left pleural chest tube 100 180 0 Urine 460 560 60 Other: Voiding Method Indwelling Catheter Indwelling Catheter ABP, PAP, CO, CI - Last Documented Arterial Blood Pressure 132/114 Pulmonary Artery Pressure 33/7 Cardiac Output 7.7 Cardiac Index 3.9 - Exam CONSTITUTIONAL: Appears comfortable, currently cooperative RESPIRATORY: Lungs sounds diminished bilaterally. Respirations even, nonlabored. Currently on 4 L nasal cannula with oxygen saturation 96%. When he does use it he is able to achieve 500 mL on incentive spirometry. Strong nonproductive cough. CARDIOVASCULAR: S1, S2 present. Regular rate and rhythm, sinus rhythm on telemetry. Sternum stable. Palpable peripheral pulses bilaterally. Trace upper extremity edema present. No calf pain or tenderness noted. Heart hugger, antiembolism stockings, SCDs present. GASTROINTESTINAL: Abdomen somewhat soft, nontender, distended. Hypoactive bowel sounds present 4 quadrants. Tolerating minimal diet. Positive flatus GENITOURINARY: Hong present draining clear, yellow urine. Output overnight 45-60 mL per hour, 1020 mL in the last 24 hours INTEGUMENTARY: Skin is warm and dry. Anterior chest incision well approximated and covered with dry intact dressing. Left lower extremity EVH site well approximated without redness or drainage. Left radial artery harvest site well approximated NEUROLOGIC: Cranial nerves II through XII intact MUSKULOSKELETAL: Able to move all extremities, strength equal bilaterally PSYCHIATRIC: Oriented to person only this morning, lethargic but does arouse to verbal stimulation INVASIVE LINES AND TUBES: Left pleural chest tubes present and connected to wall suction, no air leak present 120 mL serosanguineous drainage overnight, 320 mL in the last 24 hours. Atrial epicardial pacemaker wires present, grounded. Right internal jugular Cordis present - Allied health notes Allied health notes reviewed: nursing - Labs CBC & Chem 7: 08/04/22 05:25 08/04/22 05:25 Labs: Abnormal Lab Results - Last 24 Hours (Table) 08/03/22 08/03/22 08/03/22 Range/Units 08:15 12:07 18:20 RBC (4.30-5.90) m/uL Hgb (13.0-17.5) gm/dL Hct (39.0-53.0) % MCV (80.0-100.0) fL Plt Count (150-450) k/uL Lymphocytes # (1.0-4.8) k/uL Sodium (137-145) mmol/L BUN (9-20) mg/dL Glucose (74-99) mg/dL POC Glucose (mg/dL) 129 H 123 H 128 H (70-110) mg/dL Calcium (8.4-10.2) mg/dL Total Bilirubin (0.2-1.3) mg/dL AST (17-59) U/L ALT (4-49) U/L Total Protein (6.3-8.2) g/dL Albumin (3.5-5.0) g/dL 08/03/22 08/04/22 08/04/22 Range/Units 20:28 05:25 05:25 RBC 2.41 L (4.30-5.90) m/uL Hgb 8.1 L (13.0-17.5) gm/dL Hct 24.8 L (39.0-53.0) % MCV 102.7 H (80.0-100.0) fL Plt Count 83 L (150-450) k/uL Lymphocytes # 0.9 L (1.0-4.8) k/uL Sodium 135 L (137-145) mmol/L BUN 28 H (9-20) mg/dL Glucose 126 H (74-99) mg/dL POC Glucose (mg/dL) 121 H (70-110) mg/dL Calcium 7.9 L (8.4-10.2) mg/dL Total Bilirubin 1.4 H (0.2-1.3) mg/dL AST 112 H (17-59) U/L ALT 53 H (4-49) U/L Total Protein 5.2 L (6.3-8.2) g/dL Albumin 3.2 L (3.5-5.0) g/dL 08/04/22 Range/Units 06:35 RBC (4.30-5.90) m/uL Hgb (13.0-17.5) gm/dL Hct (39.0-53.0) % MCV (80.0-100.0) fL Plt Count (150-450) k/uL Lymphocytes # (1.0-4.8) k/uL Sodium (137-145) mmol/L BUN (9-20) mg/dL Glucose (74-99) mg/dL POC Glucose (mg/dL) 128 H (70-110) mg/dL Calcium (8.4-10.2) mg/dL Total Bilirubin (0.2-1.3) mg/dL AST (17-59) U/L ALT (4-49) U/L Total Protein (6.3-8.2) g/dL Albumin (3.5-5.0) g/dL - Imaging and Cardiology Chest x-ray: image reviewed Assessment and Plan Assessment: Coronary artery disease, non-STEMI this admission, status post three-vessel CABG Left internal carotid stenosis greater than 70% per Doppler, 60% per CTA of the head and neck (although felt to be >70% per vascular and Dr. Johns) History of coronary artery disease with previous PCI to the RCA 03/2022 Hypertension Hyperlipidemia, treated, cholesterol 166, LDL 55.8, triglycerides 296 Pulmonary embolism Rheumatoid arthritis on chronic Rituxan and prednisone Obstructive sleep apnea without home CPAP use Chronic ongoing tobacco dependence COPD, FEV1 74% of predicted PTSD as [place] war Peripheral neuropathy COVID-19 infection in 2020 Irritable bowel syndrome GERD Family history of premature coronary artery disease (father diagnosed with myocardial infarction 44 years old) Postoperative acute blood loss anemia and thrombocytopenia, expected Confusion, toxic metabolic encephalopathy, unknown etiology but may be multifactorial LILIANA, likely hypovolemia induced as well as initiation of toradol Plan: Continue to maximize medical therapy with low-dose aspirin, Plavix, statin, beta hiram. Will increase beta hiram therapy as tolerated. Continue Midodrine for blood pressure support Wean O2 as tolerated. Encourage incentive spirometry use 10 times every hour while awake. Bronchodilators per pulmonology Increase activity, ambulate as tolerated, PT/OT/cardiac rehab consulted Will monitor daily labs and x-rays. Electrolyte replacement per protocol. GI/DVT prophylaxis. Pain controlled current medication regimen Insulin management per internal medicine service. Patient is not diabetic, hemoglobin A1c 6% Smoking cessation counseling and education reinforcement Monitor for EtOH withdrawal, CIWA protocol Will discontinue left pleural chest tube Continue Hong catheter for another 24 hours for strict accurate intake and output Daily weights Reorient PRN Will send for head CT More recommendations to follow
[2022-08-04] MEDS: ATORVASTATIN 40 MG TAB PO SCH (08:40)
[2022-08-04] MEDS: MULTIVITAMINS, THERA 1 EACH TAB PO SCH (08:40)
[2022-08-04] MEDS: THIAMINE 100 MG TAB PO SCH (08:40)
[2022-08-04] MEDS: FERROUS SULFATE 325 MG TAB PO SCH ×2 (08:40→17:01)
[2022-08-04] MEDS: ASPIRIN 81 MG PO SCH (08:40)
[2022-08-04] MEDS: CLOPIDOGREL 75 MG TAB PO SCH (08:40)
[2022-08-04] MEDS: FOLIC ACID 1 MG TAB PO SCH (08:40)
[2022-08-04] MEDS: ASCORBIC ACID 500 MG TAB PO SCH ×2 (08:40→17:01)
[2022-08-04] MEDS: FONDAPARINUX 2.5 MG/0.5 ML SYRINGE SQ SCH (08:43)
[2022-08-04] MEDS: PANTOPRAZOLE 40 MG TABLET PO SCH ×2 (08:43→17:01)
[2022-08-04] MEDS: METOPROLOL TARTRATE 12.5 MG TAB PO SCH ×2 (08:43→21:43)
[2022-08-04] MEDS: SODIUM CHLORIDE 0.9% 1,000 ML IV SCH (08:44)
[2022-08-04] MEDS: VITAMIN A 10,000 UNIT (3000 MCG) CAPSULE PO SCH (08:44)
[2022-08-04] MEDS: IPRATROPIUM-ALBUTEROL 3 ML NEB INHALATION SCH ×4 (10:31→20:54)
--- NOTE | 2022-08-04 10:35 | XR ---
EXAMINATION TYPE: XR chest 1V portable DATE OF EXAM: 08/04/2022 4:54 AM COMPARISON: Chest radiographs from 08/03/2022 TECHNIQUE: XR chest 1V portable Portable AP radiograph of the chest. CLINICAL INDICATION:Male, 62 years old with history of post cardiac surgery; FINDINGS: Lungs/Pleura: Low lung volumes without evidence of sizable pneumothorax or pleural effusion. Patchy a irspace opacity is demonstrated within the left mid to lower lung. Pulmonary vascularity: Unremarkable. Heart/mediastinum: Cardiomediastinal silhouette is enlarged and stable. Left atrial appendage occlusi on devices present. Musculoskeletal: No acute osseous pathology. Midline sternotomy wires and surgical clips project over the mediastinum. Other findings: None Lines/Tubes: Redemonstration of right IJ sheath. IMPRESSION: Low lung volumes stable postsurgical changes and similar patchy airspace opacities within the left mi d to lower lung which may represent infiltrate versus atelectasis. No sizable pneumothorax.
--- NOTE | 2022-08-04 10:43 | CT ---
EXAMINATION TYPE: CT brain wo con DATE OF EXAM: 08/04/2022 COMPARISON: None INDICATION: Confusion post open heart surgery. DLP: 1276.4 mGycm, Automated exposure control for dose reduction was used. CONTRAST: None CT of the brain is performed utilizing 3 mm thick sections through the posterior fossa and 3 mm thick sections through the remaining calvarium. Study is performed within 24 hours of arrival to the hosp [facility]. No abnormal hyperdensity is present to suggest an acute intracranial hemorrhage. No mass lesion is evident. No acute infarcts are evident. Ventricles and sulci are appropriate for the patient age. Paranasal sinuses and mastoid air cells within the [id number] are clear. IMPRESSIONS: 1. No acute intracranial process. Follow-up MRI can be performed as clinically indicated.
[2022-08-04 11:27] LABS: Glucose,Whole Blood 132 mg/dL (70-110)
[2022-08-04] MEDS ORDERED: QUEtiapine 50 MG TAB PO PRN (16:34)
[2022-08-04] MEDS: ACETAMINOPHEN TAB 325 MG TAB PO PRN ×2 (17:01→21:42)
[2022-08-04 17:18] LABS: Glucose,Whole Blood 108 mg/dL (70-110)
--- NOTE | 2022-08-04 19:09 | P.PN ---
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 Reports PCP was attempting to acquire insurance authorization for carotid Doppler. Denies diaphoresis ,fever or chills. Denies nausea, vomiting, diarrhea or abdominal pain. Reports since March he has taken over 100 nitroglycerin sublinguals in addition to being on his long-acting Imdur. Reports he has decreased his nicotine intake from 2 packs a day to 1 pack a day, usually drinks 2-3 beers sometimes 5 daily. Reports strong family history of CAD, father with CABG, aneurysms and carotid stenosis. Chest x-ray reported no acute pulmonary process. EKG reported sinus rhythm, troponin 0.054, 0.061, 0.044. Afebrile, normal WBC. Hemoglobin 13.6, platelets 188, MCV 93.9, INR 1.1, sodium 138, potassium 3.9, bicarb 24, BUN 17, creatinine 0.91, magnesium 2.1. Evaluated by cardiology, patient is scheduled for Lexiscan stress test, carotid Doppler. 08/26/2022 yesterday completed Lexiscan stress test-reported abnormal. Scheduled for cardiac catheterization today. Carotid ultrasound reported bilateral plaque 70% severe stenosis of the proximal left ICA. Maintained on heparin drip. Denies any further chest pain while at rest. 07/28/2022 completed cardiac catheterization this morning, reporting severe stenosis involving the ostium of the LAD in the proximal left circumflex, significant disease in the ramus intermedius, mild disease in the RCA with pat ent stent and collaterals from the right coronary artery through the septals insights analyst. Cardiothoracic surgery consulted regarding further evaluation for CABG. maintained on heparin drip.Evaluated by vascular surgery regarding left high-grade ICA stenosis greater than 70% per carotid duplex. Renal function stable postcardiac catheterization and CTA of head and neck ordered as per vascular surgery. Denies chest pain, palpitations or shortness of breath. 07/29/2022 workup in progress for CABG on Monday as per CTS. Echo reporting normal LV systolic function, EF 55-60% . Telemetry sinus rhythm. denies chest pain, palpitations or shortness of breath. Denies lightheadedness, dizziness or focal deficits. Head/Neck CTA pending. KUB reporting no acute radiographic process, mildly prominent colonic stool volume noted. 08/02/2022 status post CABG, postop day #1. Extubated last night. Maintaining O2 sats in the low to mid 90s on 5 L nasal cannula. Chest x-ray reporting few linear lucencies within the left axillary region compatible with soft tissue gas, improved, slight interval worsening of left basilar atelectasis . Incentive spirometer up to 500 .Cardiac output 7.7, cardiac index 3.9. Telemetry sinus rhythm. Pain currently controlled. Blood sugars stable on insulin drip. 08/03/2022 Worsening renal function. Receiving a fluid bolus. Telemetry sinus rhythm.developed delirium early this a.m. mild confusion, suspicious at times of staff. Moves all extremities, speech clear, no facial droop no numbness or weakness. Continue O2 sats in the 90s on 5 L nasal cannula. Chest x-ray pending. Reports chest tube discomfort. 08/04/2022 narcotics discontinued yesterday. sleepy, delirious. Staff reports patient becomes agitated upon awakening. Last Ativan received in the early am, around 0400. [facility] protocol in place. airplane patroller at bedside. Telemetry sinus rhythm. Chest x-ray reporting low lung volumes, patchy airspace opacity's within the left mid to lower lung may represent infiltrate versus atelectasis. Pleural chest tube 1 remaining. Maintaining O2 sats in the high 90s on 4 L nasal cannula. Renal function improving. Blood sugars controlled. Objective - Vital Signs Vital signs: Vital Signs Temp 98 F 08/04/22 13:00 Pulse 77 08/04/22 13:00 Resp 39 H 08/04/22 13:00 BP 121/78 08/04/22 13:00 Pulse Ox 97 08/04/22 13:00 FiO2 50 08/01/22 21:02 Intake & Output 08/03/22 08/04/22 08/04/22 18:59 06:59 18:59 Intake Total 822 429 138 Output Total 560 740 458 Balance 262 -311 -320 Weight 95 kg 95 kg Intake: IV 372 279 138 PRESSURE BAGS 72 39 18 Sodium Chloride 0.9% 1, 300 240 120 000 ml @ 20 mls/hr IV . Q24H [facility] Rx#:[id number] Oral 450 150 Output: Chest Tube Drainage 100 180 100 Chest Tube Mediastinal 0 Left pleural chest tube 100 180 100 Urine 460 560 358 Other: Voiding Method Indwelling Catheter Indwelling Catheter Indwelling Catheter ABP, PAP, CO, CI - Last Documented Arterial Blood Pressure 132/114 Pulmonary Artery Pressure 33/7 Cardiac Output 7.7 Cardiac Index 3.9 - Exam - Exam General: Sitting up in chair, no acute distress, confused HEENT: [Atraumatic ,PERRL. EOMI. ] Neck: Supple, no JVD Cardiac: [Heart regular in rate and rhythm. No S3. No S4. No clicks, rubs. No murmur.] Lungs: Unlabored,clear to auscultation bilaterally, bilateral bases diminished. chest tubes present. Abdomen: [Soft, nontender, nondistended .No mass. No organomegaly.+BS. No guarding, no rigidity. Extremes: [No edema no cyanosis, normal pulses Skin: [Warm and dry, No rash.] Neurologic: [ No focal deficits, alert and oriented 1-2.] - Labs CBC & Chem 7: 08/04/22 05:25 08/04/22 05:25 Labs: Abnormal Lab Results - Last 24 Hours (Table) 08/03/22 08/03/22 08/04/22 Range/Units 18:20 20:28 05:25 RBC 2.41 L (4.30-5.90) m/uL Hgb 8.1 L (13.0-17.5) gm/dL Hct 24.8 L (39.0-53.0) % MCV 102.7 H (80.0-100.0) fL Plt Count 83 L (150-450) k/uL Lymphocytes # 0.9 L (1.0-4.8) k/uL Sodium (137-145) mmol/L BUN (9-20) mg/dL Glucose (74-99) mg/dL POC Glucose (mg/dL) 128 H 121 H (70-110) mg/dL Calcium (8.4-10.2) mg/dL Total Bilirubin (0.2-1.3) mg/dL AST (17-59) U/L ALT (4-49) U/L Total Protein (6.3-8.2) g/dL Albumin (3.5-5.0) g/dL 08/04/22 08/04/22 08/04/22 Range/Units 05:25 06:35 11:16 RBC (4.30-5.90) m/uL Hgb (13.0-17.5) gm/dL Hct (39.0-53.0) % MCV (80.0-100.0) fL Plt Count (150-450) k/uL Lymphocytes # (1.0-4.8) k/uL Sodium 135 L (137-145) mmol/L BUN 28 H (9-20) mg/dL Glucose 126 H (74-99) mg/dL POC Glucose (mg/dL) 128 H 132 H (70-110) mg/dL Calcium 7.9 L (8.4-10.2) mg/dL Total Bilirubin 1.4 H (0.2-1.3) mg/dL AST 112 H (17-59) U/L ALT 53 H (4-49) U/L Total Protein 5.2 L (6.3-8.2) g/dL Albumin 3.2 L (3.5-5.0) g/dL Assessment and Plan Assessment: Chest pain, midsternal With bilateral carotid burning pressure ,elevated tropon ins, abnormal Lexiscan stress test, cardiac catheterization reporting severe stenosis involving the ostium of the LAD and proximal left circumflex with significant disease in the ramus intermedius. Status post CABG 08/01/2022 secondary to multi-vessel CAD NSTEMI this admission Acute toxic,metabolic encephalopathy, multifactorial secondary to all the above, possibly narcotic induced Acute renal failure CAD, history of recent NSTEMI,s/p PCI RCA 04/03/22 Proximal left ICA 70% severe stenosis Hypertension Hyperlipidemia Gastroesophageal reflux disease Obesity, BMI 32.3 Ongoing nicotine dependence, decreased from 2 packs to 1 pack per day, smoking cessation reinforced COPD Daily alcohol dependence, monitor for Etoh withdrawal. History of PE Plan: Continue on current medication regime ,monitoring and symptomatic treatment. Brain CT pending. [facility] protocol.Maintain aggressive pulmonary toil eting with incentive spirometer reinforced,smoking cessation reinforced.Prognosis guarded given multiple complex medical issues. The impression and plan of care has been dictated as directed. : I performed a history and examination of this patient, discussed the same with the dictator. I agree with the dictator's note ,documented as a scribe. Any additional findings or plans will be noted.
[2022-08-04 20:49] LABS: Glucose,Whole Blood 123 mg/dL (70-110)
[2022-08-04 21:16] LABS: ABG Base Excess 0.4 mmol/L; ABG HCO3 24 mmol/L (21-25); ABG Oxygen Saturation 93.2 % (94-97); ABG PCO2 33 mmHg (35-45); ABG PH 7.47 (7.35-7.45); ABG PO2 60 mmHg (83-108); ABG TCO2 25 mmol/L (19-24); Allen Test Performed? Yes
[2022-08-04] MEDS: DEXMEDETOMIDINE/0.9% NACL(PMX) 400 MCG in EMPTY BAG 1 BAG IV SCH (21:33)
[2022-08-04] MEDS: predniSONE 10 MG TAB PO SCH (21:42)
[2022-08-04] MEDS: SENNOSIDES-DOCUSATE SODIUM 1 EACH TAB PO SCH (21:42)
[2022-08-05] MEDS: MIDODRINE 5 MG TAB PO SCH ×3 (01:26→18:53)
[2022-08-05 06:18] LABS: HCT 20.5 % (39.0-53.0); MCH 32.8 pg (25.0-35.0); MCV 99.2 fL (80.0-100.0); RBC 2.07 m/uL (4.30-5.90); RDW 13.3 % (11.5-15.5); WBC 6.5 k/uL (3.8-10.6)
[2022-08-05 06:21] LABS: Albumin 2.8 g/dL (3.5-5.0)
[2022-08-05 06:59] LABS: Platelet Count 86 k/uL (150-450)
[2022-08-05 07:00] LABS: HGB 6.8 gm/dL (13.0-17.5)
[2022-08-05 07:01] LABS: ALT 57 U/L (4-49); AST 82 U/L (17-59); African American GFR (CKD) >90 (>60 ml/min/1.73 sqM); Alkaline Phosphatase 71 U/L (38-126); Anion Gap 4 mmol/L; Blood Urea Nitrogen 25 mg/dL (9-20); Calcium 7.5 mg/dL (8.4-10.2); Carbon Dioxide 27 mmol/L (22-30); Chloride 108 mmol/L (98-107); Glucose 119 mg/dL (74-99); Non-African American GFR(CKD) >90 (>60 ml/min/1.73 sqM); Potassium 4.4 mmol/L (3.5-5.1); Sodium 139 mmol/L (137-145); Total Bilirubin 1.1 mg/dL (0.2-1.3); Total Protein 4.8 g/dL (6.3-8.2)
[2022-08-05] MEDS: SODIUM CHLORIDE 0.9% 1,000 ML IV SCH (07:05)
[2022-08-05] MEDS: INSULIN ASPART (NovoLOG) 100 UNIT/ML VIAL SQ SCH ×4 (07:05→21:41)
--- NOTE | 2022-08-05 07:48 | P.PN ---
Subjective Progress Note Date: 08/05/22 PROGRESS NOTE The patient is a 62-year-old male with a known history of CAD, underwent CABG today. He is in the ICU intubated and sedated. He is in sinus mechanism with paced atrium. He received a GUIDRY to the LAD and radial to the ramus saphenous vein grafts to the RCA into the PDA with closure of the left atrial appendage. The patient is extubated, sitting up in the chair. He is complaining of sor eness in the chest. He is in sinus mechanism. Hemodynamically he stable on no vasopressors. He denies any dizziness or palpitations. He has no nausea or vomiting. August 03: The patient is sitting up in the chair, awake and alert, in sinus mechanism. His blood pressure is stable. His urinary output has decreased. He denies any chest discomfort. He denies any dizziness or palpitations. His chest x-ray raised a question of left lower lobe infiltrate. He has no evidence of air leak. His blood pressure was on the low side earlier and he has been started on midodrine. His renal functions have worsened. August 04: The patient is sitting up in the chair awake but confused. He was agitated during tonight. He is a nonfocal. He is afebrile. He continues to be in sinus mechanism. His urine output is stable. He has no evidence of ventricle tachycardia or atrial fibrillation. He is following simple commands. No evidence of fairly. August 05: The patient has been confused all night, he is sleeping at this time. He has been in sinus mechanism, hemodynamically stable with no arrhythmia. He had a CAT scan of the head yesterday that showed no evidence of bleed. Medications: Aspirin, Lipitor 40 mg daily, Plavix 75 mg daily, metoprolol 12.5 mg twice a day, midodrine 5 mg every 8 hours, fondaparinux 2.5 mg daily PHYSICAL EXAMINATION: Blood pressure 112/70 heart rate 60, sleeping LUNGS: Clear to auscultation with mild decrease in the breath sounds at the bases HEART: Regular rate and rhythm, S1, S2. No S3. No systolic murmur, no rub noted ABDOMEN: Soft, nontender, no organomegaly EXTREMETIES: No edema, Lab: BUN 25, creatinine 0.87, potassium 4.4, hemoglobin 6.8. IMPRESSION: 1. Status post CABG, stable extubated 2. History of hypertension 3. History of hyperlipidemia 4. History of carotid obstructive disease 5. Acute renal injury, resolved 6. Change in mental status with confusion, appears to be metabolic encephalopathy PLAN: 1. Continue present therapy 2. Continue to follow mental status 3. Depending on his progress further recommendations will be made. Objective - Vital Signs Vital signs: Vital Signs Temp 98.7 F 08/05/22 04:00 Pulse 61 08/05/22 07:00 Resp 29 H 08/05/22 07:00 BP 112/72 08/05/22 07:00 Pulse Ox 97 08/05/22 07:00 FiO2 50 08/05/22 01:43 Intake & Output 08/04/22 08/05/22 08/05/22 18:59 06:59 18:59 Intake Total 276 329.138 40.862 Output Total 758 870 Balance -482 -540.862 40.862 Weight 95 kg 94.1 kg Intake: IV 276 270 PRESSURE BAGS 36 30 Sodium Chloride 0.9% 1, 240 240 000 ml @ 20 mls/hr IV . Q24H [facility] Rx#:[id number] Intake, IV Titration 59.138 40.862 Amount Dexmedetomidine/0.9% NaCl 59.138 40.862 (Pmx) 400 mcg In Empty Bag 1 bag @ 0.2 MCG/KG/HR 4.75 mls/hr IV .Q21H4M [facility] Rx#:[id number] Output: Chest Tube Drainage 100 320 Left pleural chest tube 100 320 Urine 658 550 Other: Voiding Method Indwelling Catheter Indwelling Catheter ABP, PAP, CO, CI - Last Documented Arterial Blood Pressure 132/114 Pulmonary Artery Pressure 33/7 Cardiac Output 7.7 Cardiac Index 3.9 - Labs CBC & Chem 7: 08/05/22 05:37 08/05/22 05:37 Labs: Abnormal Lab Results - Last 24 Hours (Table) 08/04/22 08/04/22 08/04/22 Range/Units 11:16 20:48 21:12 RBC (4.30-5.90) m/uL Hgb (13.0-17.5) gm/dL Hct (39.0-53.0) % Plt Count (150-450) k/uL ABG pH 7.47 H (7.35-7.45) ABG pCO2 33 L (35-45) mmHg ABG pO2 60 L (83-108) mmHg ABG Total CO2 25 H (19-24) mmol/L ABG O2 Saturation 93.2 L (94-97) % Chloride (98-107) mmol/L BUN (9-20) mg/dL Glucose (74-99) mg/dL POC Glucose (mg/dL) 132 H 123 H (70-110) mg/dL Calcium (8.4-10.2) mg/dL AST (17-59) U/L ALT (4-49) U/L Total Protein (6.3-8.2) g/dL Albumin (3.5-5.0) g/dL 08/05/22 08/05/22 Range/Units 05:37 05:37 RBC 2.07 L (4.30-5.90) m/uL Hgb 6.8 L* (13.0-17.5) gm/dL Hct 20.5 L (39.0-53.0) % Plt Count 86 L (150-450) k/uL ABG pH (7.35-7.45) ABG pCO2 (35-45) mmHg ABG pO2 (83-108) mmHg ABG Total CO2 (19-24) mmol/L ABG O2 Saturation (94-97) % Chloride 108 H (98-107) mmol/L BUN 25 H (9-20) mg/dL Glucose 119 H (74-99) mg/dL POC Glucose (mg/dL) (70-110) mg/dL Calcium 7.5 L (8.4-10.2) mg/dL AST 82 H (17-59) U/L ALT 57 H (4-49) U/L Total Protein 4.8 L (6.3-8.2) g/dL Albumin 2.8 L (3.5-5.0) g/dL
--- NOTE | 2022-08-05 07:54 | XR ---
EXAMINATION TYPE: XR chest 1V portable DATE OF EXAM: 08/05/2022 6:36 AM COMPARISON: Chest radiograph from one day prior. TECHNIQUE: XR chest 1V portable Frontal view of the chest. CLINICAL INDICATION:Male, 62 years old with history of post cardiac surgery; FINDINGS: Lungs/Pleura: Similar left lower lung airspace opacities. No evidence of pneumothorax or pleural effu carito. Pulmonary vascularity: Unremarkable. Heart/mediastinum: Cardiomediastinal silhouette is unremarkable. Left atrial appendage occlusion aguila ce is present. Musculoskeletal: No acute osseous pathology. Midline sternotomy wires are noted. IMPRESSION: Low lung volumes stable postsurgical changes and similar patchy airspace opacities within the left mi d to lower lung which may represent infiltrate versus atelectasis. No sizable pneumothorax.
--- NOTE | 2022-08-05 08:34 | P.PN ---
Subjective Progress Note Date: 08/05/22 Principal diagnosis: Coronary artery disease, non-STEMI this admission, left internal carotid stenosis. History of coronary artery disease with previous PCI to the RCA 03/2022, hypertension, hyperlipidemia, pulmonary embolism, rheumatoid arthritis on chronic Rituxan and prednisone, obstructive sleep apnea without home CPAP use, chronic ongoing tobacco dependence, COPD, PTSD as [place] , peripheral neuropathy, COVID-19 infection in 2020, irritable bowel syndrome, GERD, family history of premature coronary artery disease (father diagnosed with myocardial infarction 44 years old) POD #4 triple vessel coronary artery bypass grafting using the in situ left internal mammary artery to left anterior descending artery, left radial artery from the aorta to the ramus intermedius coronary artery, reverse saphenous vein graft from the aorta to the RCA to the proximal posterior descending coronary artery, exclusion of the left atrial appendage using a 35 mm AtriCure clip, intraoperative graft flow measurements using the Resolverstim system, endoscopic harvesting of the left radial artery and the left greater saphenous vein, intraoperative transesophageal echocardiogram and epi-aortic ultrasound Postoperative acute blood loss anemia and thrombocytopenia, expected given hemodilution and cardiopulmonary bypass pump The patient was seen and examined in follow-up today 08/05/2022 at his bedside in the intensive care unit. Currently is laying in bed, is sedated on Precedex drip at 0.6 mcg/kg per hour, according to the night nurse the patient was quite agitated and paranoid. He remains hemodynamically stable and is currently on no inotropic pressor support. Right IJ cordis remains in place with current CVP pressure 15 mmHg. Bedside telemetry showing normal sinus rhythm heart rate 60 BPM. Oxygen saturation are 98% on a 30% Ventimask. Laboratory results this morning show a WBC count 6.5, hemoglobin 6.8, hematocrit 20.5, platelets 86, sodium 139, potassium 4.4, BUN 25, creatinine 0.87, calcium 7.5, AST 82 and ALT 57. Ativan has been discontinued this morning as the patient is on Precedex drip. Chest x-ray was reviewed. Left pleural chest tube remains in place to low continuous wall suction -20 cm H2O. No air leak is present. Draining thin serosanguineous drainage. Objective - Vital Signs Vital signs: Vital Signs Temp 98.7 F 08/05/22 04:00 Pulse 61 08/05/22 07:00 Resp 29 H 08/05/22 07:00 BP 112/72 08/05/22 07:00 Pulse Ox 97 08/05/22 07:00 FiO2 50 08/05/22 01:43 Intake & Output 08/04/22 08/05/22 08/05/22 18:59 06:59 18:59 Intake Total 276 329.138 40.862 Output Total 758 870 Balance -482 -540.862 40.862 Weight 95 kg 94.1 kg Intake: IV 276 270 PRESSURE BAGS 36 30 Sodium Chloride 0.9% 1, 240 240 000 ml @ 20 mls/hr IV . Q24H [facility] Rx#:[id number] Intake, IV Titration 59.138 40.862 Amount Dexmedetomidine/0.9% NaCl 59.138 40.862 (Pmx) 400 mcg In Empty Bag 1 bag @ 0.2 MCG/KG/HR 4.75 mls/hr IV .Q21H4M [facility] Rx#:[id number] Output: Chest Tube Drainage 100 320 Left pleural chest tube 100 320 Urine 658 550 Other: Voiding Method Indwelling Catheter Indwelling Catheter ABP, PAP, CO, CI - Last Documented Arterial Blood Pressure 132/114 Pulmonary Artery Pressure 33/7 Cardiac Output 7.7 Cardiac Index 3.9 - Exam CONSTITUTIONAL: Currently sedated on Precedex drip. No acute apparent distress. RESPIRATORY: Lungs sounds diminished bilaterally. Respirations are symmetrical, nonlabored. Currently on 30% Ventimask with oxygen saturation 98%. Strong nonproductive loose cough. CARDIOVASCULAR: S1, S2 present. Regular rate and rhythm, sinus rhythm on telemetry. Sternum stable. Palpable peripheral pulses bilaterally. Trace upper extremity edema present. No calf pain or tenderness noted. Heart hugger, antiembolism stockings, SCDs present. GASTROINTESTINAL: Abdomen somewhat soft, nontender, slightly distended. Active bowel sounds present 4 quadrants. GENITOURINARY: Hong present draining clear, yellow urine. Output overnight 420 mL in the last 8 hours. INTEGUMENTARY: Skin is warm and dry. Midline sternal chest incision well approximated and covered with dry, intact dressing. Left lower extremity EVH site well approximated without redness or drainage. Left radial artery harvest site well approximated. NEUROLOGIC: Currently sedated on Precedex drip unable to fully assess at this time. MUSKULOSKELETAL: Able to move all extremities, strength equal bilaterally. PSYCHIATRIC: Currently sedated on Precedex drip unable to fully assess at this time. INVASIVE LINES AND TUBES: Left pleural chest tubes present and connected to wall suction, no air leak present 90 mL serosanguineous drainage overnight, 350 mL in the last 24 hours. Atrial epicardial pacemaker wires present, grounded. Right internal jugular Cordis present. - Allied health notes Allied health notes reviewed: nursing - Labs CBC & Chem 7: 08/05/22 05:37 08/05/22 05:37 Labs: Abnormal Lab Results - Last 24 Hours (Table) 08/04/22 08/04/22 08/04/22 Range/Units 11:16 20:48 21:12 RBC (4.30-5.90) m/uL Hgb (13.0-17.5) gm/dL Hct (39.0-53.0) % Plt Count (150-450) k/uL ABG pH 7.47 H (7.35-7.45) ABG pCO2 33 L (35-45) mmHg ABG pO2 60 L (83-108) mmHg ABG Total CO2 25 H (19-24) mmol/L ABG O2 Saturation 93.2 L (94-97) % Chloride (98-107) mmol/L BUN (9-20) mg/dL Glucose (74-99) mg/dL POC Glucose (mg/dL) 132 H 123 H (70-110) mg/dL Calcium (8.4-10.2) mg/dL AST (17-59) U/L ALT (4-49) U/L Total Protein (6.3-8.2) g/dL Albumin (3.5-5.0) g/dL 08/05/22 08/05/22 Range/Units 05:37 05:37 RBC 2.07 L (4.30-5.90) m/uL Hgb 6.8 L* (13.0-17.5) gm/dL Hct 20.5 L (39.0-53.0) % Plt Count 86 L (150-450) k/uL ABG pH (7.35-7.45) ABG pCO2 (35-45) mmHg ABG pO2 (83-108) mmHg ABG Total CO2 (19-24) mmol/L ABG O2 Saturation (94-97) % Chloride 108 H (98-107) mmol/L BUN 25 H (9-20) mg/dL Glucose 119 H (74-99) mg/dL POC Glucose (mg/dL) (70-110) mg/dL Calcium 7.5 L (8.4-10.2) mg/dL AST 82 H (17-59) U/L ALT 57 H (4-49) U/L Total Protein 4.8 L (6.3-8.2) g/dL Albumin 2.8 L (3.5-5.0) g/dL - Imaging and Cardiology Chest x-ray: report reviewed, image reviewed Assessment and Plan Assessment: Coronary artery disease, non-STEMI this admission, status post three-vessel CABG Left internal carotid stenosis greater than 70% per Doppler, 60% per CTA of the head and neck (although felt to be >70% per vascular and Dr. Johns) History of coronary artery disease with previous PCI to the RCA 03/2022 Hypertension Hyperlipidemia, treated, cholesterol 166, LDL 55.8, triglycerides 296 Pulmonary embolism Rheumatoid arthritis on chronic Rituxan and prednisone Obstructive sleep apnea without home CPAP use Chronic ongoing tobacco dependence COPD, FEV1 74% of predicted PTSD as [place] Peripheral neuropathy COVID-19 infection in 2020 Irritable bowel syndrome GERD Family history of premature coronary artery disease (father diagnosed with myocardial infarction 44 years old) Postoperative acute blood loss anemia and thrombocytopenia, expected Confusion, toxic metabolic encephalopathy, unknown etiology but may be multi factorial LILIANA, likely hypovolemia induced as well as initiation of toradol Plan: Continue to maximize medical therapy with low-dose aspirin, Plavix, statin, and beta hiram. Will increase beta hiram therapy as tolerated. Continue Midodrine for blood pressure support. Wean O2 as tolerated. Encourage incentive spirometry use 10 times every hour while awake. Bronchodilators per pulmonology. Increase activity, ambulate as tolerated, PT/OT/cardiac rehab following. Will monitor daily labs and chest x-rays. Electrolyte replacement per protocol. GI/DVT prophylaxis. Pain controlled current medication regimen. Insulin management per internal medicine service. Patient is not diabetic, hemoglobin A1c 6%. Smoking cessation counseling and education reinforcement. Monitor for EtOH withdrawal, CIWA protocol. Discontinue Ativan as the patient is currently on Precedex drip. Will discontinue left pleural chest tube. Remove Hong catheter. Continue record strict accurate intake and output. Daily weights. Reorient PRN. Computed tomography scan of the brain yesterday showed no acute intracranial process. More recommendations to follow based on patient's clinical course. Time with Patient: Greater than 30
[2022-08-05] MEDS: IPRATROPIUM-ALBUTEROL 3 ML NEB INHALATION SCH ×4 (08:56→20:34)
[2022-08-05 09:09] LABS: ABG Base Excess 0.8 mmol/L; ABG HCO3 25 mmol/L (21-25); ABG Oxygen Saturation 97.8 % (94-97); ABG PCO2 39 mmHg (35-45); ABG PH 7.42 (7.35-7.45); ABG PO2 91 mmHg (83-108); ABG TCO2 26 mmol/L (19-24); Allen Test Performed? Yes
--- NOTE | 2022-08-05 09:13 | P.PN ---
Subjective Progress Note Date: 08/05/22 On today's evaluation of 08/02/2022, the patient's postop day #1. The patient underwent three-vessel bypass surgery and the patient was weaned off the mechanical ventilator and the patient was extubated without any major difficulties. This morning she is on oxygen at 5 L nasal cannula and his pulse ox is currently at 93%. His chest x-ray showing some atelectatic changes in the left lung base. There is a large gastric bubble. [place]-Emanuel catheter still in place. There is thoracotomy wires over day mid chest area. The patient is using the incentive spirometer. The patient is falling approximately 500 mL on his incentive spirometer. Pain is under adequate control. In terms of chest tubes, the patient has 2 mediastinal chest tubes and 1 left lower chest tube. No evidence of air leak. Output from the chest tubes have been noted and there are minimal at this point in time. Note that the patient underwent GUIDRY to LAD and radial 2 the ramus and saphenous vein graft to RCA and closure of the left atrial appendage was also done. His current cardiac rhythm is normal sinus rhythm. No underlying arrhythmias at this point in time. Blood work from today shows hemoglobin of 8.7, the discomfort of 10.7, electrolytes all within normal limits. Blood sugars at 118. On today's evaluation of 08/03/2022, the patient is postop day #2. This morning, the patient was found to be somewhat delirious. He was having episodic confusions. Nevertheless, the neurologic exam is completely nonfocal and his moldable 4 extremities without any limitation. No change in his speech. No change in his vision. The patient is currently on oxygen and is currently on 5 L nasal cannula. Is using the incentive spirometer and is falling approximately 2 50 mL on his incentive spirometer. He continues to have some chest wall pain at the surgical wound site. He continues to have 2 mediastinal chest tubes and 1 lower chest tube. Output from the chest tubes are minimal at this point in time. Urine output was in order of 20 mL an hour. He developed an acute kidney injury and today's blood work shows a creatinine of 1.98 which is up compared to her normal baseline. His BUN is at 31. His sodium level is at 135 with a potassium level of 5.4. The patient was given a bolus of 250 mL of normal sali ne. His CVP was also low. Urine output improved subsequently. His blood gas shows a pH of 7.33 with a pCO2 of 43 and pO2 of 69. The rest of the blood work shows a hemoglobin of 8.4, the WBC count is at 14.4 and a platelet count is at 99 which is essentially stable compared to yesterday. No cardiac arrhythmias. His cardiac rhythm is sinus. He is currently postop day #2. On 08/04/2022, the patient is postop day #3. Remains confused in his mentation is not appropriate. Nevertheless, his neurologic exam remains nonfocal. He is currently sitting up on a recliner. No headaches. No seizure activity. No focal neurological deficits. Is currently on oxygen which is running at 6 L/m nasal cannula. Chest x-ray from today shows cardiomegaly. Sternal wires are intact. The patient has some left perihilar infiltrate and volume loss in the left. Note that the mediastinal chest tubes and removed and the patient has a left lower chest tube which is draining in order of 20 mL an hour and a total of 160 over the past 8-12 hours. No evidence of any air leak. His blood work from today shows normal electrolytes, his acute kidney injury is improved and the patient's BUN is at 28 with a creatinine of 0.9 and a sodium level is at 135. CBC still pending for now. Hemodynamically, he is on no pressors. He is in a normal sinus rhythm. Urine output is adequate. IV fluids are at 20 mL an hour of normal saline. The patient remains on DuoNeb nebulized treatments [id number]. He is using the incentive spirometer. He is falling approximately 500 on his incentive spirometer. He remains on a combination of aspirin and Plavix. He is on long-term prednisone therapy for his rheumatoid arthritis and this was resumed at a dose of 10 mg by mouth daily. No fever. He is on metoprolol 12.5 mg twice a day. On today's evaluation of 08/05/2022, the patient is postop day #4. The patient obviously state that he is bothered a yesterday and overnight he progressively more breathless, agitated, confused, lethargic and somnolent. He continue to follow simple commands. His neurologic exam is nonfocal. No seizure activity was noted. I started him on Precedex and Precedex was running at 0.6 mcg/kg/h. This morning, the Precedex was discontinued and the patient was more lethargic and obtunded. He has a sitter at the bedside and agitation is not significant. At same time, the patient became more hypoxic. His blood gas from yesterday showed a pH of 7.47 with a pCO2 of 33 and pO2 of 60. This was done and FiO2 of its liters. Currently is on a 50% Ventimask. Overnight, he was also given Ativan which was subsequently discontinued. He was also given Seroquel. In terms of his breathing, he seems to be slightly labored. The patient has diminished breath on the left. Chest exit from today shows a left-sided chest tube and the tube was malpositioned and there was a 20-30% pneumothorax on the left. She was manipulated. Airleak was obtained. A repeat chest x-ray is pending. Output from the chest tube is in order of 90 mL over the past 8 hours and 350 mL over the past 24 hours. He is afebrile. He has a limited cough, no significant sputum production. No evidence of any pneumonia and his chest x- ray. There is some oozing of blood around the right IJ Cordis. The [place]-Emanuel catheter Randolph removed. His cardiac rhythm is sinus. In terms of his blood work, the results from 6.5, hemoglobin is at 6.8, platelet count of 86, BUN is at 25 with a creatinine of 0.8 and a sodium of 139. Glucose is 119. Calcium calcium is 7.5. Liver enzymes are not elevated. His ability to do incentive spirometer is extremely limited. He was doing very poor on his pulmonary toileting yesterday. Surgical once is striking and intact. Pulses in the lower extremities are present. Abdomen is slightly distended. No bowel movement since his surgery. Objective - Vital Signs Vital signs: Vital Signs Temp 97.5 F L 08/05/22 08:00 Pulse 60 08/05/22 08:00 Resp 25 H 08/05/22 08:00 BP 108/64 08/05/22 08:00 Pulse Ox 99 08/05/22 08:00 FiO2 50 08/05/22 01:43 Intake & Output 08/04/22 08/05/22 08/05/22 18:59 06:59 18:59 Intake Total 276 329.138 63.862 Output Total 758 870 75 Balance -482 -540.862 -11.138 Weight 95 kg 94.1 kg Intake: IV 276 270 23 PRESSURE BAGS 36 30 3 Sodium Chloride 0.9% 1, 240 240 20 000 ml @ 20 mls/hr IV . Q24H [facility] Rx#:[id number] Intake, IV Titration 59.138 40.862 Amount Dexmedetomidine/0.9% NaCl 59.138 40.862 (Pmx) 400 mcg In Empty Bag 1 bag @ 0.2 MCG/KG/HR 4.75 mls/hr IV .Q21H4M [facility] Rx#:[id number] Output: Chest Tube Drainage 100 320 30 Left pleural chest tube 100 320 30 Urine 658 550 45 Other: Voiding Method Indwelling Catheter Indwelling Catheter Indwelling Catheter ABP, PAP, CO, CI - Last Documented Arterial Blood Pressure 132/114 Pulmonary Artery Pressure 33/7 Cardiac Output 7.7 Cardiac Index 3.9 - Exam Calm and comfortable on 50% Ventimask, obtunded, lethargic, neurologic examination is nonfocal. Head exam was generally normal. There was no scleral icterus or corneal arcus. Mucous membranes were moist. Neck was supple and without jugular venous distension, thyromegaly, or carotid bruits. Carotids were easily palpable bilaterally. There was no adenopathy. The patient has a Cordis in the right IJ. Cardiac exam revealed the PMI to be normally situated and sized. The rhythm was regular and no extrasystoles were noted during several minutes of auscultation. The first and second heart sounds were normal and physiologic splitting of the second heart sound was noted. There were no murmurs, rubs, clicks, or gallops. Thoracotomy scars of dry clean and intact Lungs were clear to auscultation and percussion, and with normal diaphragmatic excursion. No wheezes or rales were noted. The patient has a left-sided chest tube. Breath sounds are slightly diminished on the left and there is scattered rhonchi and expiratory wheezes. Abdominal exam revealed normal bowel sounds. The abdomen was soft, non-tender, and without masses, organomegaly, or appreciable enlargement of the abdominal aorta. Abdomen is slightly distended. Nontender. Examination of the extremities revealed easily palpable radial, femoral and pedal pulses. There was no cyanosis, clubbing or edema. Surgical one-sided over the left radial and left lower extremity are dry clean Examination of the skin revealed no evidence of significant rashes, suspicious appearing nevi or other concerning lesions. Neurologically, the patient is alert and oriented 1-2. No focal neurological deficit at this point in time. The patient is very sluggish and his response. Nevertheless, he follows simple commands. He is quite lethargic at this point in time. Is able to move all 4 extremities without any limitation yet his profoundly weak. - Labs CBC & Chem 7: 08/05/22 05:37 08/05/22 05:37 Labs: Abnormal Lab Results - Last 24 Hours (Table) 08/04/22 08/04/22 08/04/22 Range/Units 11:16 20:48 21:12 RBC (4.30-5.90) m/uL Hgb (13.0-17.5) gm/dL Hct (39.0-53.0) % Plt Count (150-450) k/uL ABG pH 7.47 H (7.35-7.45) ABG pCO2 33 L (35-45) mmHg ABG pO2 60 L (83-108) mmHg ABG Total CO2 25 H (19-24) mmol/L ABG O2 Saturation 93.2 L (94-97) % Chloride (98-107) mmol/L BUN (9-20) mg/dL Glucose (74-99) mg/dL POC Glucose (mg/dL) 132 H 123 H (70-110) mg/dL Calcium (8.4-10.2) mg/dL AST (17-59) U/L ALT (4-49) U/L Total Protein (6.3-8.2) g/dL Albumin (3.5-5.0) g/dL 08/05/22 08/05/22 Range/Units 05:37 05:37 RBC 2.07 L (4.30-5.90) m/uL Hgb 6.8 L* (13.0-17.5) gm/dL Hct 20.5 L (39.0-53.0) % Plt Count 86 L (150-450) k/uL ABG pH (7.35-7.45) ABG pCO2 (35-45) mmHg ABG pO2 (83-108) mmHg ABG Total CO2 (19-24) mmol/L ABG O2 Saturation (94-97) % Chloride 108 H (98-107) mmol/L BUN 25 H (9-20) mg/dL Glucose 119 H (74-99) mg/dL POC Glucose (mg/dL) (70-110) mg/dL Calcium 7.5 L (8.4-10.2) mg/dL AST 82 H (17-59) U/L ALT 57 H (4-49) U/L Total Protein 4.8 L (6.3-8.2) g/dL Albumin 2.8 L (3.5-5.0) g/dL Assessment and Plan Plan: Multivessel coronary artery disease, post thoracotomy and bypass surgery. The patient's surgery was done on 08/01/2022 and the patient is currently postop day #4. The patient underwent three-vessel bypass surgery including GUIDRY to LAD and radial 2 ramus and saphenous vein graft to RCA. Altered mentation, delirium, questionable alcoholism preoperatively along with possibility of postop delirium. CAT scan of the brain was done yesterday and was negative for any acute abnormalities. Neurologic exam remains nonfocal. Post thoracotomy, currently on 50% Ventimask and the patient suctioning adequately for now. Left-sided pneumothorax, malpositioned left-sided chest tube and adjustments were done and repeat chest x-rays to follow History of CAD with previous stent placement. History of hypertension. History of hyperlipidemia. History of myocardial infarction. History of rheumatoid arthritis. Patient has not been on long-term prednisone at 10 mg Gastroesophageal reflux disease. History of PTSD. Plan Continue the use of incentive spirometer Repeat a chest x-ray post history of manipulation Keep the left pleural chest tube in place Agree on holding the Precedex for now and monitor the mental status Obtain neurology consultation Hemodynamic parameters are all stable Discontinue the Ativan Discontinue Seroquel Stop the prednisone with the patient on IV hydrocortisone 100 mg every 8 hours Pain is under adequate control and the patient is using the incentive spirometer Continue aspirin and Plavix Continue metoprolol 12.5 mg by mouth twice a day as long as the patient is able to take his oral medications [place] for pain control insulin sliding scale insulin coverage and stop the insulin drip at this point in time Monitor mental status Monitor the hemoglobin and no transfusion now Sitter at the bedside We'll continue to follow, keep the patient ICU for now
--- NOTE | 2022-08-05 09:21 | XR ---
EXAMINATION TYPE: XR chest 1V portable DATE OF EXAM: 08/05/2022 COMPARISON: 08/05/2022 at 0602 hours HISTORY: Check left pleural chest tube TECHNIQUE: Single frontal view of the chest is obtained. FINDINGS: There are multiple median sternotomy wires and overlying cardiac leads. There is a right IJ sheath. T he reported left chest tube is not clearly visualized on current exam. There is a left atrial appenda ge clip. The heart size and cardiothymic silhouette are unchanged. There is redemonstration of patchy airspace disease at the left lung base. There is a small right apical pneumothorax which displaces the lung a pproximately 2.5 cm. There is no midline shift. There are low at 20 lung volumes. IMPRESSION: New small left apical pneumothorax. The critical results of this exam were discussed with Sherly Quezada(nurse) by myself on 08/05/2022 a t 0917 hours using 2 patient identifiers.
[2022-08-05] MEDS: DEXMEDETOMIDINE/0.9% NACL(PMX) 400 MCG in EMPTY BAG 1 BAG IV SCH (09:30)
--- NOTE | 2022-08-05 09:34 | XR ---
EXAMINATION TYPE: XR chest 1V portable DATE OF EXAM: 08/05/2022 COMPARISON: Earlier same day chest radiograph at 0847 hours HISTORY: Follow-up left chest tube placement. TECHNIQUE: Single frontal view of the chest is obtained. FINDINGS: There is a tube projecting over the left lower chest wall, which is presumed to relate to the known chest tube. There is an unchanged small left apical pneumothorax which displaces the lung i nferiorly by approximately 2.5 cm. The remainder of the exam is unchanged. IMPRESSION: Stable left apical pneumothorax.
[2022-08-05] MEDS: ASCORBIC ACID 500 MG TAB PO SCH ×2 (10:37→18:53)
[2022-08-05] MEDS: PANTOPRAZOLE 40 MG TABLET PO SCH ×2 (10:37→18:53)
[2022-08-05] MEDS: FERROUS SULFATE 325 MG TAB PO SCH ×2 (10:37→18:53)
[2022-08-05] MEDS: CLOPIDOGREL 75 MG TAB PO SCH (10:38)
[2022-08-05] MEDS: MULTIVITAMINS, THERA 1 EACH TAB PO SCH (10:38)
[2022-08-05] MEDS: ASPIRIN 81 MG PO SCH (10:38)
[2022-08-05] MEDS: THIAMINE 100 MG TAB PO SCH (10:38)
[2022-08-05] MEDS: METOPROLOL TARTRATE 12.5 MG TAB PO SCH ×2 (10:38→20:57)
[2022-08-05] MEDS: FOLIC ACID 1 MG TAB PO SCH (10:38)
[2022-08-05] MEDS: VITAMIN A 10,000 UNIT (3000 MCG) CAPSULE PO SCH (10:38)
[2022-08-05] MEDS: ATORVASTATIN 40 MG TAB PO SCH (10:38)
[2022-08-05] MEDS: FONDAPARINUX 2.5 MG/0.5 ML SYRINGE SQ SCH (11:03)
[2022-08-05 11:28] LABS: Glucose,Whole Blood 123 mg/dL (70-110)
--- NOTE | 2022-08-05 12:18 | XR ---
EXAMINATION TYPE: XR chest 1V portable DATE OF EXAM: 08/05/2022 COMPARISON: Earlier same day radiograph at 0913 hours HISTORY: Recheck left chest tube TECHNIQUE: Single frontal view of the chest is obtained. FINDINGS: There is redemonstration of a stable left pneumothorax. There is redemonstration of a catheter projec ting over the left lower chest. The remainder of the exam is unchanged when compared to earlier radio graphs. IMPRESSION: Stable left pneumothorax.
--- NOTE | 2022-08-05 13:53 | P.PN ---
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 Reports PCP was attempting to acquire insurance authorization for carotid Doppler. Denies diaphoresis ,fever or chills. Denies nausea, vomiting, diarrhea or abdominal pain. Reports since March he has taken over 100 nitroglycerin sublinguals in addition to being on his long-acting Imdur. Reports he has decreased his nicotine intake from 2 packs a day to 1 pack a day, usually drinks 2-3 beers sometimes 5 daily. Reports strong family history of CAD, father with CABG, aneurysms and carotid stenosis. Chest x-ray reported no acute pulmonary process. EKG reported sinus rhythm, troponin 0.054, 0.061, 0.044. Afebrile, normal WBC. Hemoglobin 13.6, platelets 188, MCV 93.9, INR 1.1, sodium 138, potassium 3.9, bicarb 24, BUN 17, creatinine 0.91, magnesium 2.1. Evaluated by cardiology, patient is scheduled for Lexiscan stress test, carotid Doppler. 08/26/2022 yesterday completed Lexiscan stress test-reported abnormal. Scheduled for cardiac catheterization today. Carotid ultrasound reported bilateral plaque 70% severe stenosis of the proximal left ICA. Maintained on heparin drip. Denies any further chest pain while at rest. 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 Cardiothoracic surgery consulted regarding further evaluation for CABG. maintained on heparin drip.Evaluated by vascular surgery regarding left high-grade ICA stenosis greater than 70% per carotid duplex. Renal function stable postcardiac catheterization and CTA of head and neck ordered as per vascular surgery. Denies chest pain, palpitations or shortness of breath. 07/29/2022 workup in progress for CABG on Monday as per CTS. Echo reporting normal LV systolic function, EF 55-60% . Telemetry sinus rhythm. denies chest pain, palpitations or shortness of breath. Denies lightheadedness, dizziness or focal deficits. Head/Neck CTA pending. KUB reporting no acute radiographic process, mildly prominent colonic stool volume noted. 08/02/2022 status post CABG, postop day #1. Extubated last night. Maintaining O2 sats in the low to mid 90s on 5 L nasal cannula. Chest x-ray reporting few linear lucencies within the left axillary region compatible with soft tissue gas, improved, slight interval worsening of left basilar atelectasis . Incentive spirometer up to 500 .Cardiac output 7.7, cardiac index 3.9. Telemetry sinus rhythm. Pain currently controlled. Blood sugars stable on insulin drip. 08/03/2022 Worsening renal function. Receiving a fluid bolus. Telemetry sinus rhythm.developed delirium early this a.m. mild confusion, suspicious at times of staff. Moves all extremities, speech clear, no facial droop no numbness or weakness. Continue O2 sats in the 90s on 5 L nasal cannula. Chest x-ray pending. Reports chest tube discomfort. 08/04/2022 narcotics discontinued yesterday. sleepy, delirious. Staff reports patient becomes agitated upon awakening. Last Ativan received in the early am, around 0400. CIWA protocol in place. insurance healthcare representative at bedside. Telemetry sinus rhythm. Chest x-ray reporting low lung volumes, patchy airspace opacity's within the left mid to lower lung may represent infiltrate versus atelectasis. Pleural chest tube 1 remaining. Maintaining O2 sats in the high 90s on 4 L nasal cannula. Renal function improving. Blood sugars controlled. 08/05/2022 Confusion, delirium, paranoia and agitation increased during the night, Precedex drip initiated,CIWA protocol discontinued. Telemetry sinus rhythm. Ventimask weaned off, currently maintaining O2 sats in the 90s on 4 L nasal cannula. Hemoglobin 6.8, platelets 86, no transfusion at this time as per cardiothoracic surgery. Earlier x-ray today reported a new small left apical pneumothorax , manipulated , positive air leak .Repeat chest x-ray reported stable left pneumothorax. Objective - Vital Signs Vital signs: Vital Signs Temp 97.5 F L 08/05/22 08:00 Pulse 71 08/05/22 10:00 Resp 27 H 08/05/22 10:00 BP 127/85 08/05/22 10:00 Pulse Ox 99 08/05/22 10:00 FiO2 50 08/05/22 09:14 Intake & Output 08/04/22 08/05/22 08/05/22 18:59 06:59 18:59 Intake Total 276 329.138 63.862 Output Total 758 870 75 Balance -482 -540.862 -11.138 Weight 95 kg 94.1 kg Intake: IV 276 270 23 PRESSURE BAGS 36 30 3 Sodium Chloride 0.9% 1, 240 240 20 000 ml @ 20 mls/hr IV . Q24H [facility] Rx#:[id number] Intake, IV Titration 59.138 40.862 Amount Dexmedetomidine/0.9% NaCl 59.138 40.862 (Pmx) 400 mcg In Empty Bag 1 bag @ 0.2 MCG/KG/HR 4.75 mls/hr IV .Q21H4M [facility] Rx#:[id number] Output: Chest Tube Drainage 100 320 30 Left pleural chest tube 100 320 30 Urine 658 550 45 Other: Voiding Method Indwelling Catheter Indwelling Catheter Indwelling Catheter ABP, PAP, CO, CI - Last Documented Arterial Blood Pressure 132/114 Pulmonary Artery Pressure 33/7 Cardiac Output 7.7 Cardiac Index 3.9 - Exam - Exam General: Sitting up in bed, sedated, on Precedex drip HEENT: [Atraumatic ,PERRL. EOMI. ] Neck: Supple, no JVD Cardiac: [Heart regular in rate and rhythm. No S3. No S4. No clicks, rubs. No murmur.] Lungs: Unlabored,clear to auscultation bilaterally, bilateral bases diminished. chest tube present. Abdomen: [Soft, nontender, nondistended .No mass. No organomegaly.+BS. No guarding, no rigidity. Scrotal edema. Extremes: [No edema no cyanosis, normal pulses Skin: [Warm and dry, No rash.] Neurologic: Unable to assess at this time, sedated - Labs CBC & Chem 7: 08/05/22 05:37 08/05/22 05:37 Labs: Abnormal Lab Results - Last 24 Hours (Table) 08/04/22 08/04/22 08/04/22 Range/Units 11:16 20:48 21:12 RBC (4.30-5.90) m/uL Hgb (13.0-17.5) gm/dL Hct (39.0-53.0) % Plt Count (150-450) k/uL ABG pH 7.47 H (7.35-7.45) ABG pCO2 33 L (35-45) mmHg ABG pO2 60 L (83-108) mmHg ABG Total CO2 25 H (19-24) mmol/L ABG O2 Saturation 93.2 L (94-97) % Chloride (98-107) mmol/L BUN (9-20) mg/dL Glucose (74-99) mg/dL POC Glucose (mg/dL) 132 H 123 H (70-110) mg/dL Calcium (8.4-10.2) mg/dL AST (17-59) U/L ALT (4-49) U/L Total Protein (6.3-8.2) g/dL Albumin (3.5-5.0) g/dL 08/05/22 08/05/22 08/05/22 Range/Units 05:37 05:37 09:06 RBC 2.07 L (4.30-5.90) m/uL Hgb 6.8 L* (13.0-17.5) gm/dL Hct 20.5 L (39.0-53.0) % Plt Count 86 L (150-450) k/uL ABG pH (7.35-7.45) ABG pCO2 (35-45) mmHg ABG pO2 (83-108) mmHg ABG Total CO2 26 H (19-24) mmol/L ABG O2 Saturation 97.8 H (94-97) % Chloride 108 H (98-107) mmol/L BUN 25 H (9-20) mg/dL Glucose 119 H (74-99) mg/dL POC Glucose (mg/dL) (70-110) mg/dL Calcium 7.5 L (8.4-10.2) mg/dL AST 82 H (17-59) U/L ALT 57 H (4-49) U/L Total Protein 4.8 L (6.3-8.2) g/dL Albumin 2.8 L (3.5-5.0) g/dL Assessment and Plan Assessment: Chest pain, midsternal With bilateral carotid burning pressure ,elevated tropon ins, abnormal Lexiscan stress test, cardiac catheterization reporting severe stenosis involving the ostium of the LAD and proximal left circumflex with significant disease in the ramus intermedius. Status post CABG 08/01/2022 secondary to multi-vessel CAD Left-sided pneumothorax NSTEMI this admission Acute toxic,metabolic encephalopathy, multifactorial secondary to all the above, possibly narcotic induced Acute renal failure CAD, history of recent NSTEMI,s/p PCI RCA 04/03/22 Proximal left ICA 70% severe stenosis Hypertension Hyperlipidemia Gastroesophageal reflux disease Obesity, BMI 32.3 Ongoing nicotine dependence, decreased from 2 packs to 1 pack per day, smoking cessation reinforced COPD Daily alcohol dependence, monitor for Etoh withdrawal. History of PE Plan: Continue on current medication regime ,monitoring and symptomatic treatment. ICU management as per director of recreation therapy and CTS. neurology consult in place, recommendations pending .aggressive pulmonary toileting. Prognosis guar ded given multiple complex medical issues. The impression and plan of care has been dictated as directed. : I performed a history and examination of this patient, discussed the same with the dictator. I agree with the dictator's note ,documented as a scribe. Any additional findings or plans will be noted.
--- NOTE | 2022-08-05 14:16 | XR ---
EXAMINATION TYPE: XR chest 1V DATE OF EXAM: 08/05/2022 COMPARISON: 08/05/2022 earlier exam INDICATION: Pneumothorax TECHNIQUE: Single frontal view of the chest is obtained. FINDINGS: The heart size is enlarged. The pulmonary vasculature is normal. There is a left apical pneumothorax. This appears similar to the comparison. Large infiltrates throug h the left lung. IMPRESSION: 1. Left-sided pneumothorax similar to earlier exam. Left-sided chest tube is in position. 2. Diffuse increased lung markings to the left lung
--- NOTE | 2022-08-05 14:17 | XR ---
EXAMINATION TYPE: XR chest 1V DATE OF EXAM: 08/05/2022 COMPARISON: Earlier exams INDICATION: Pneumothorax TECHNIQUE: Single frontal view of the chest is obtained. FINDINGS: The heart size is prominent. The pulmonary vasculature is normal. There is a left apical pneumothorax which appears similar to minimally enlarged. Chest tube is been r emoved. Diffuse infiltrates in the left lung. Surgical clips are present. IMPRESSION: 1. Similar to minimally increased left apical pneumothorax. 2. Diffuse increased lung markings left lung.
--- NOTE | 2022-08-05 14:17 | XR ---
EXAMINATION TYPE: XR chest 1V portable DATE OF EXAM: 08/05/2022 CLINICAL HISTORY: Chest tube insertion. Left-sided pneumothorax. TECHNIQUE: Single AP portable semiupright view of the chest is obtained. COMPARISON: Chest x-ray from earlier today FINDINGS: Stable small to moderate size left apical pneumothorax. Sternal wires and mediastinal clips along with left atrial appendage clip are all redemonstrated. Rig ht lung remains clear. Low lung volumes and cardiomegaly redemonstrated. Osseous structures are intac t. IMPRESSION: As above. No significant change from most recent study.
[2022-08-05] MEDS: HYDROCORTISONE SUCCINATE 100 MG/2 ML VIAL IV SCH (16:14)
[2022-08-05 16:37] LABS: Glucose,Whole Blood 106 mg/dL (70-110)
[2022-08-05] MEDS: ACETAMINOPHEN TAB 325 MG TAB PO PRN (20:57)
[2022-08-05] MEDS: SENNOSIDES-DOCUSATE SODIUM 1 EACH TAB PO SCH (20:57)
[2022-08-06] MEDS: MIDODRINE 5 MG TAB PO SCH (00:38)
[2022-08-06] MEDS: HYDROCORTISONE SUCCINATE 100 MG/2 ML VIAL IV SCH ×3 (00:38→16:04)
[2022-08-06] MEDS: ACETAMINOPHEN TAB 325 MG TAB PO PRN (04:04)
[2022-08-06 05:37] LABS: HCT 23.1 % (39.0-53.0); HGB 7.4 gm/dL (13.0-17.5); MCH 32.4 pg (25.0-35.0); MCHC 31.9 g/dL (31.0-37.0); MCV 101.7 fL (80.0-100.0); Macrocytosis Slight; Mean Platelet Volume 9.9; Platelet Count 130 k/uL (150-450); RBC 2.28 m/uL (4.30-5.90); RDW 13.2 % (11.5-15.5)
[2022-08-06 05:44] LABS: ALT 51 U/L (4-49); AST 49 U/L (17-59); African American GFR (CKD) >90 (>60 ml/min/1.73 sqM); Alkaline Phosphatase 76 U/L (38-126); Anion Gap 6 mmol/L; Blood Urea Nitrogen 23 mg/dL (9-20); Calcium 7.7 mg/dL (8.4-10.2); Carbon Dioxide 26 mmol/L (22-30); Chloride 110 mmol/L (98-107); Glucose 127 mg/dL (74-99); Non-African American GFR(CKD) >90 (>60 ml/min/1.73 sqM); Potassium 4.1 mmol/L (3.5-5.1); Sodium 142 mmol/L (137-145); Total Bilirubin 1.1 mg/dL (0.2-1.3); Total Protein 5.1 g/dL (6.3-8.2)
--- NOTE | 2022-08-06 06:24 | XR ---
EXAMINATION TYPE: XR chest 1V portable DATE OF EXAM: 08/06/2022 HISTORY: Pneumothorax COMPARISON: 08/05/2022 TECHNIQUE: Single view of the chest is submitted. FINDINGS: Right IJ sheath is noted to be in place. Anatomy wires in the left atrial clip noted. Left-sided pneumothorax is mildly improved estimated at 10-15%. Apical pleural distance is 2.1 cm tod ay versus 2.6 cm yesterday. Scattered Pleural-parenchymal opacities may reflect atelectasis. The heart is enlarged. IMPRESSION: 1. Left-sided pneumothorax is mildly improved and estimated at 10-15%. Apical pleural distance is 2. 1 cm today versus 2.6 cm yesterday.
[2022-08-06] MEDS: FERROUS SULFATE 325 MG TAB PO SCH ×2 (06:43→17:55)
[2022-08-06] MEDS: PANTOPRAZOLE 40 MG TABLET PO SCH ×2 (06:43→17:55)
[2022-08-06] MEDS: ASCORBIC ACID 500 MG TAB PO SCH ×2 (06:43→17:55)
[2022-08-06] MEDS: INSULIN ASPART (NovoLOG) 100 UNIT/ML VIAL SQ SCH ×4 (06:46→20:54)
[2022-08-06 07:25] LABS: Large Platelets Present; Lymphocytes # (M) 0.34 k/uL (1.0-4.8); Monocytes # (M) 0.57 k/uL (0-1.0); Neutrophils # (M) 4.79 k/uL (1.3-7.7); Neutrophils % (M) 84 %; Nucleated Red Blood Cells 1 /100 WBC (0-0); Total Cells Counted 100; WBC 5.7 k/uL (3.8-10.6)
--- NOTE | 2022-08-06 07:25 | P.CNNES ---
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 Cholesterol, Calc Arterial Blood Potassium Arterial Blood Glucose Ur Specific [place] Cross[facility] 08/02/22 08/02/22 08/03/22 20:01 22:08 00:11 WBC RBC Hgb Hct MCV Plt Count Neutrophils # Lymphocytes # Monocytes # PT INR APTT ABG pH ABG pCO2 ABG pO2 ABG HCO3 ABG Total CO2 ABG O2 Saturation ABG Hematocrit ABG Potassium ABG Ionized Calcium ABG Glucose ABG Lactic Acid Hemoglobin Sodium Potassium Chloride BUN Creatinine Glucose POC Glucose (mg/dL) 115 H 140 H 126 H Calcium Magnesium Total Bilirubin AST ALT Alkaline Phosphatase Troponin I Total Protein Albumin Triglycerides VLDL Cholesterol, Calc Arterial Blood Potassium Arterial Blood Glucose Ur Specific [place] Cross[facility] 08/03/22 08/03/22 08/03/22 01:54 04:10 04:10 WBC 14.4 H RBC 2.58 L Hgb 8.4 L Hct 25.9 L MCV 100.4 H Plt Count 99 L Neutrophils # 12.4 H Lymphocytes # 0.7 L Monocytes # 1.1 H PT INR APTT ABG pH ABG pCO2 ABG pO2 ABG HCO3 ABG Total CO2 ABG O2 Saturation ABG Hematocrit ABG Potassium ABG Ionized Calcium ABG Glucose ABG Lactic Acid Hemoglobin Sodium 135 L Potassium 5.4 H Chloride BUN 31 H Creatinine 1.98 H Glucose 126 H POC Glucose (mg/dL) 125 H Calcium 7.7 L Magnesium Total Bilirubin AST 110 H ALT Alkaline Phosphatase Troponin I Total Protein 5.3 L Albumin 3.4 L Triglycerides VLDL Cholesterol, Calc Arterial Blood Potassium Arterial Blood Glucose Ur Specific [place] Cross[facility] 08/03/22 08/03/22 08/03/22 04:16 04:49 05:54 WBC RBC Hgb Hct MCV Plt Count Neutrophils # Lymphocytes # Monocytes # PT INR APTT ABG pH 7.33 L ABG pCO2 ABG pO2 69 L ABG HCO3 ABG Total CO2 ABG O2 Saturation 93.7 L ABG Hematocrit ABG Potassium ABG Ionized Calcium ABG Glucose ABG Lactic Acid Hemoglobin Sodium Potassium Chloride BUN Creatinine Glucose POC Glucose (mg/dL) 131 H 132 H Calcium Magnesium Total Bilirubin AST ALT Alkaline Phosphatase Troponin I Total Protein Albumin Triglycerides VLDL Cholesterol, Calc Arterial Blood Potassium Arterial Blood Glucose Ur Specific [place] Cross[facility] 08/03/22 08/03/22 08/03/22 08:15 12:07 18:20 WBC RBC Hgb Hct MCV Plt Count Neutrophils # Lymphocytes # Monocytes # PT INR APTT ABG pH ABG pCO2 ABG pO2 ABG HCO3 ABG Total CO2 ABG O2 Saturation ABG Hematocrit ABG Potassium ABG Ionized Calcium ABG Glucose ABG Lactic Acid Hemoglobin Sodium Potassium Chloride BUN Creatinine Glucose POC Glucose (mg/dL) 129 H 123 H 128 H Calcium Magnesium Total Bilirubin AST ALT Alkaline Phosphatase Troponin I Total Protein Albumin Triglycerides VLDL Cholesterol, Calc Arterial Blood Potassium Arterial Blood Glucose Ur Specific [place] Cross[facility] 08/03/22 08/04/22 08/04/22 20:28 05:25 05:25 WBC RBC 2.41 L Hgb 8.1 L Hct 24.8 L MCV 102.7 H Plt Count 83 L Neutrophils # Lymphocytes # 0.9 L Monocytes # PT INR APTT ABG pH ABG pCO2 ABG pO2 ABG HCO3 ABG Total CO2 ABG O2 Saturation ABG Hematocrit ABG Potassium ABG Ionized Calcium ABG Glucose ABG Lactic Acid Hemoglobin Sodium 135 L Potassium Chloride BUN 28 H Creatinine Glucose 126 H POC Glucose (mg/dL) 121 H Calcium 7.9 L Magnesium Total Bilirubin 1.4 H AST 112 H ALT 53 H Alkaline Phosphatase Troponin I Total Protein 5.2 L Albumin 3.2 L Triglycerides VLDL Cholesterol, Calc Arterial Blood Potassium Arterial Blood Glucose Ur Specific [place] Cross[facility] 08/04/22 08/04/22 08/04/22 06:35 11:16 20:48 WBC RBC Hgb Hct MCV Plt Count Neutrophils # Lymphocytes # Monocytes # PT INR APTT ABG pH ABG pCO2 ABG pO2 ABG HCO3 ABG Total CO2 ABG O2 Saturation ABG Hematocrit ABG Potassium ABG Ionized Calcium ABG Glucose ABG Lactic Acid Hemoglobin Sodium Potassium Chloride BUN Creatinine Glucose POC Glucose (mg/dL) 128 H 132 H 123 H Calcium Magnesium Total Bilirubin AST ALT Alkaline Phosphatase Troponin I Total Protein Albumin Triglycerides VLDL Cholesterol, Calc Arterial Blood Potassium Arterial Blood Glucose Ur Specific [place] Cross[facility] 08/04/22 08/05/22 08/05/22 21:12 05:37 05:37 WBC RBC 2.07 L Hgb 6.8 L* Hct 20.5 L MCV Plt Count 86 L Neutrophils # Lymphocytes # Monocytes # PT INR APTT ABG pH 7.47 H ABG pCO2 33 L ABG pO2 60 L ABG HCO3 ABG Total CO2 25 H ABG O2 Saturation 93.2 L ABG Hematocrit ABG Potassium ABG Ionized Calcium ABG Glucose ABG Lactic Acid Hemoglobin Sodium Potassium Chloride 108 H BUN 25 H Creatinine Glucose 119 H POC Glucose (mg/dL) Calcium 7.5 L Magnesium Total Bilirubin AST 82 H ALT 57 H Alkaline Phosphatase Troponin I Total Protein 4.8 L Albumin 2.8 L Triglycerides VLDL Cholesterol, Calc Arterial Blood Potassium Arterial Blood Glucose Ur Specific [place] Cross[facility] 08/05/22 08/05/22 09:06 11:27 WBC RBC Hgb Hct MCV Plt Count Neutrophils # Lymphocytes # Monocytes # PT INR APTT ABG pH ABG pCO2 ABG pO2 ABG HCO3 ABG Total CO2 26 H ABG O2 Saturation 97.8 H ABG Hematocrit ABG Potassium ABG Ionized Calcium ABG Glucose ABG Lactic Acid Hemoglobin Sodium Potassium Chloride BUN Creatinine Glucose POC Glucose (mg/dL) 123 H Calcium Magnesium Total Bilirubin AST ALT Alkaline Phosphatase Troponin I Total Protein Albumin Triglycerides VLDL Cholesterol, Calc Arterial Blood Potassium Arterial Blood Glucose Ur Specific [place] Cross[facility] Assessment and Plan Assessment: * Altered mental status, likely due to postop delirium, with some component of metabolic encephalopathy. Examination is relatively nonfocal. * Status post CABG * Left ICA stenosis, 60% per CTA. * Hypertension * Hyperlipidemia * CAD * Rheumatoid arthritis * Anemia * Macrocytosis Plan: * Patient probably has acute delirium. Examination is nonfocal. * Patient does have history of alcoholism, also have macrocytosis, rule out some component of alcohol withdrawal. We will get collateral history from patient's family about his history of alcohol consumption. * Carotid Doppler 07/26/2022 revealed bilateral atherosclerotic plaque with findings suggestive of greater than 70% stenosis of the proximal left ICA. Antegrade flow in both vertebral arteries. * CTA of the head and neck revealed approximately 60% stenosis of the origin of the left ICA. Less than 50% stenosis of the region of the right ICA. No evidence of intracranial high-grade stenosis or intracranial aneurysm. * Vascular surgery onboard, and believe stenosis is > 70%, but was felt asymptomatic at that time. Patient will need left CEA in the near future. * 2-D echo revealed normal left ventricular systolic function with EF 55-60%, normal left atrial size. * Hemoglobin A1c 6.0 * Lipid panel with cholesterol 166, LDL 55, HDL 51 and triglycerides 296. Continue Lipitor 40 mg daily. * Ammonia <9, TSH normal. * Neurology will follow clinically. Thank you for the consult. Time with Patient: Greater than 30
[2022-08-06 07:26] LABS: Polychromasia Present
[2022-08-06] MEDS ORDERED: ACETAMINOPHEN IV (For NPO) 1,000 MG in EMPTY BAG 1 BAG IVPB STA (07:57)
--- NOTE | 2022-08-06 08:18 | P.PN ---
Subjective Progress Note Date: 08/06/22 Principal diagnosis: Coronary artery disease, non-STEMI this admission, left internal carotid stenosis. History of coronary artery disease with previous PCI to the RCA 03/2022, hypertension, hyperlipidemia, pulmonary embolism, rheumatoid arthritis on chronic Rituxan and prednisone, obstructive sleep apnea without home CPAP use, chronic ongoing tobacco dependence, COPD, PTSD as [place] war , peripheral neuropathy, COVID-19 infection in 2020, irritable bowel syndrome, GERD, family history of premature coronary artery disease (father diagnosed with myocardial infarction 44 years old) POD #5 triple vessel coronary artery bypass grafting using the in situ left internal mammary artery to left anterior descending artery, left radial artery from the aorta to the ramus intermedius coronary artery, reverse saphenous vein graft from the aorta to the RCA to the proximal posterior descending coronary artery, exclusion of the left atrial appendage using a 35 mm AtriCure clip, intraoperative graft flow measurements using the Portafarestim system, endoscopic harvesting of the left radial artery and the left greater saphenous vein, intraoperative transesophageal echocardiogram and epi-aortic ultrasound Postoperative acute blood loss anemia and thrombocytopenia, expected given hemodilution and cardiopulmonary bypass pump Patient was seen and examined today 08/06/2022 at his bedside in the intensive care unit. Currently he is sitting up to the commode, is awake, alert, oriented 3 and is in no acute apparent distress. He remains on Precedex drip at 0.1 g kilogram per hour. He remains hemodynamically stable and is currently on no inotropic pressor support. Denies any complaints of shortness of breath, although was complaining of some surgical type pain to his left chest tube insertion site, currently rating his pain 4-5 out of 10 on the pain scale. Bedside telemetry is showing normal sinus rhythm heart rate 73 bpm. Oxygen saturations are 92% on room air and he is achieving 750 mL on his incentive spirometry with encouragement. Left pleural chest tube remains in place to low continuous wall suction -20 cm H2O. No air leak is present. Draining thin se rosanguineous drainage with 110 mL of output in the last 24 hours. Laboratory results and chest x-ray results reviewed, chest x-ray continues to show a left- sided pneumothorax, mildly improved and estimated at 10-15%. Right IJ Cordis remains in place with continuous CVP monitoring, current CVP pressure 5 mmHg. Objective - Vital Signs Vital signs: Vital Signs Temp 97.8 F 08/06/22 00:00 Pulse 72 08/06/22 06:00 Resp 21 08/06/22 06:00 BP 134/77 08/06/22 06:00 Pulse Ox 96 08/06/22 06:00 FiO2 50 08/05/22 09:14 Intake & Output 08/05/22 08/06/22 08/06/22 18:59 06:59 18:59 Intake Total 547.143 230 Output Total 940 510 Balance -392.857 -280 Weight 94.1 kg 90.8 kg Intake: IV 276 230 PRESSURE BAGS 36 30 Sodium Chloride 0.9% 1, 240 200 000 ml @ 20 mls/hr IV . Q24H [facility] Rx#:[id number] Intake, IV Titration 71.143 Amount Dexmedetomidine/0.9% NaCl 71.143 (Pmx) 400 mcg In Empty Bag 1 bag @ 0.2 MCG/KG/HR 4.75 mls/hr IV .Q21H4M [facility] Rx#:[id number] Oral 200 Output: Chest Tube Drainage 220 Left pleural chest tube 220 Urine 720 510 Other: Voiding Method Indwelling Catheter Indwelling Catheter # Bowel Movements 1 ABP, PAP, CO, CI - Last Documented Arterial Blood Pressure 132/114 Pulmonary Artery Pressure 33/7 Cardiac Output 7.7 Cardiac Index 3.9 - Exam CONSTITUTIONAL: Currently on Precedex drip. Cooperative, comfortable, no acute apparent distress. RESPIRATORY: Lungs sounds diminished to his bases bilaterally. Respirations are symmetrical, nonlabored. Currently on room air oxygen saturation 92%. Achieving 750 mL on his incentive spirometry. Strong nonproductive loose cough. CARDIOVASCULAR: S1, S2 present. Regular rate and rhythm, sinus rhythm on telemetry, heart rate 73 bpm. Sternum stable. Palpable peripheral pulses bilaterally. Trace upper extremity edema present. No calf pain or tenderness noted. Heart hugger, antiembolism stockings, SCDs present. GASTROINTESTINAL: Abdomen somewhat soft, nontender, slightly distended. Active bowel sounds present 4 quadrants. Bowel movement this a.m. Tolerating oral intake. GENITOURINARY: Hong present draining clear, yellow urine. Output overnight 340 mL in the last 8 hours. INTEGUMENTARY: Skin is warm and dry. Midline sternal chest incision well approximated and covered with dry, intact dressing. Left lower extremity EVH site well approximated without redness or drainage. Left radial artery harvest site well approximated. NEUROLOGIC: No focal deficits. Precedex drip infusing at 0.1 mcg/kg per hour MUSKULOSKELETAL: Able to move all extremities, strength equal bilaterally. PSYCHIATRIC: Alert and oriented 3. Appropriate affect. INVASIVE LINES AND TUBES: Left pleural chest tubes present and connected to wall suction, no air leak present, 110 mL of thin serosanguineous drainage in th e last 24 hours. Atrial epicardial pacemaker wires present, grounded. Right internal jugular Cordis present and connected to continuous CVP monitoring, current CVP pressure 5 mmHg. - Allied health notes Allied health notes reviewed: nursing - Labs CBC & Chem 7: 08/06/22 04:34 08/06/22 04:34 Labs: Abnormal Lab Results - Last 24 Hours (Table) 08/05/22 08/05/22 08/06/22 Range/Units 09:06 11:27 04:34 RBC 2.28 L (4.30-5.90) m/uL Hgb 7.4 L (13.0-17.5) gm/dL Hct 23.1 L (39.0-53.0) % MCV 101.7 H (80.0-100.0) fL Plt Count 130 L D (150-450) k/uL Lymphocytes # (Manual) 0.34 L (1.0-4.8) k/uL Nucleated RBCs 1 H (0-0) /100 WBC ABG Total CO2 26 H (19-24) mmol/L ABG O2 Saturation 97.8 H (94-97) % Chloride (98-107) mmol/L BUN (9-20) mg/dL Glucose (74-99) mg/dL POC Glucose (mg/dL) 123 H (70-110) mg/dL Calcium (8.4-10.2) mg/dL ALT (4-49) U/L Total Protein (6.3-8.2) g/dL Albumin (3.5-5.0) g/dL 08/06/22 Range/Units 04:34 RBC (4.30-5.90) m/uL Hgb (13.0-17.5) gm/dL Hct (39.0-53.0) % MCV (80.0-100.0) fL Plt Count (150-450) k/uL Lymphocytes # (Manual) (1.0-4.8) k/uL Nucleated RBCs (0-0) /100 WBC ABG Total CO2 (19-24) mmol/L ABG O2 Saturation (94-97) % Chloride 110 H (98-107) mmol/L BUN 23 H (9-20) mg/dL Glucose 127 H (74-99) mg/dL POC Glucose (mg/dL) (70-110) mg/dL Calcium 7.7 L (8.4-10.2) mg/dL ALT 51 H (4-49) U/L Total Protein 5.1 L (6.3-8.2) g/dL Albumin 3.0 L (3.5-5.0) g/dL - Imaging and Cardiology Chest x-ray: report reviewed, image reviewed Assessment and Plan Assessment: Coronary artery disease, non-STEMI this admission, status post three-vessel CABG Left internal carotid stenosis greater than 70% per Doppler, 60% per CTA of the head and neck (although felt to be >70% per vascular and Dr. Johns) History of coronary artery disease with previous PCI to the RCA 03/2022 Hypertension Hyperlipidemia, treated, cholesterol 166, LDL 55.8, triglycerides 296 Pulmonary embolism Rheumatoid arthritis on chronic Rituxan and prednisone Obstructive sleep apnea without home CPAP use Chronic ongoing tobacco dependence COPD, FEV1 74% of predicted PTSD as [place] war Peripheral neuropathy COVID-19 infection in 2020 Irritable bowel syndrome GERD Family history of premature coronary artery disease (father diagnosed with myocardial infarction 44 years old) Postoperative acute blood loss anemia and thrombocytopenia, expected Confusion, likely secondary to metabolic encephalopathy, unknown etiology but may be multifactorial LILIANA, likely hypovolemia induced as well as initiation of toradol Left-sided apical pneumothorax Plan: Continue to maximize medical therapy with low-dose aspirin, Plavix, statin, and beta hiram. Will increase beta hiram therapy as tolerated. Discontinue Midodrine for blood pressure support. Encourage incentive spirometry use 10 times every hour while awake. Bronchodilators per pulmonology. Increase activity, ambulate as tolerated, PT/OT/cardiac rehab following. Will monitor daily labs and chest x-rays. Electrolyte replacement per protocol. GI/DVT prophylaxis. Pain controlled current medication regimen. Increase acetaminophen to 1000 mg by mouth every 6 hours when necessary pain. Insulin management per internal medicine service. Patient is not diabetic, hemoglobin A1c 6%. Importance of risk modification including smoking cessation counseling and education reinforcement the patient. Monitor for EtOH withdrawal, CIWA protocol, continue folic acid and thiamine. Discontinue Precedex drip. Continue left pleural chest tube to low continuous wall suction -20 cm H2O. Monitor for left pneumothorax resolution. Remove Hong catheter. Continue record strict accurate intake and output. Daily weights. Neurology consult noted and appreciated. Remove right IJ Cordis. More recommendations to follow based on patient's clinical course. Time with Patient: Greater than 30
[2022-08-06] MEDS: ASPIRIN 81 MG PO SCH (08:20)
[2022-08-06] MEDS: ATORVASTATIN 40 MG TAB PO SCH (08:20)
[2022-08-06] MEDS: CLOPIDOGREL 75 MG TAB PO SCH (08:20)
[2022-08-06] MEDS: FOLIC ACID 1 MG TAB PO SCH (08:20)
[2022-08-06] MEDS: IPRATROPIUM-ALBUTEROL 3 ML NEB INHALATION SCH ×4 (08:22→20:39)
[2022-08-06] MEDS: VITAMIN A 10,000 UNIT (3000 MCG) CAPSULE PO SCH (08:25)
[2022-08-06] MEDS: MULTIVITAMINS, THERA 1 EACH TAB PO SCH (08:25)
[2022-08-06] MEDS: THIAMINE 100 MG TAB PO SCH (08:25)
[2022-08-06] MEDS: METOPROLOL TARTRATE 12.5 MG TAB PO SCH ×2 (08:25→20:28)
[2022-08-06] MEDS: FONDAPARINUX 2.5 MG/0.5 ML SYRINGE SQ SCH (08:25)
--- NOTE | 2022-08-06 08:42 | P.PN ---
Subjective Progress Note Date: 08/06/22 On today's evaluation of 08/02/2022, the patient's postop day #1. The patient underwent three-vessel bypass surgery and the patient was weaned off the mechanical ventilator and the patient was extubated without any major difficulties. This morning she is on oxygen at 5 L nasal cannula and his pulse ox is currently at 93%. His chest x-ray showing some atelectatic changes in the left lung base. There is a large gastric bubble. Liebenthal-Emanuel catheter still in place. There is thoracotomy wires over day mid chest area. The patient is using the incentive spirometer. The patient is falling approximately 500 mL on his incentive spirometer. Pain is under adequate control. In terms of chest tubes, the patient has 2 mediastinal chest tubes and 1 left lower chest tube. No evidence of air leak. Output from the chest tubes have been noted and there are minimal at this point in time. Note that the patient underwent GUIDRY to LAD and radial 2 the ramus and saphenous vein graft to RCA and closure of the left atrial appendage was also done. His current cardiac rhythm is normal sinus rhythm. No underlying arrhythmias at this point in time. Blood work from today shows hemoglobin of 8.7, the discomfort of 10.7, electrolytes all within normal limits. Blood sugars at 118. On today's evaluation of 08/03/2022, the patient is postop day #2. This morning, the patient was found to be somewhat delirious. He was having episodic confusions. Nevertheless, the neurologic exam is completely nonfocal and his moldable 4 extremities without any limitation. No change in his speech. No change in his vision. The patient is currently on oxygen and is currently on 5 L nasal cannula. Is using the incentive spirometer and is falling approximately 2 50 mL on his incentive spirometer. He continues to have some chest wall pain at the surgical wound site. He continues to have 2 mediastinal chest tubes and 1 lower chest tube. Output from the chest tubes are minimal at this point in time. Urine output was in order of 20 mL an hour. He developed an acute kidney injury and today's blood work shows a creatinine of 1.98 which is up compared to her normal baseline. His BUN is at 31. His sodium level is at 135 with a potassium level of 5.4. The patient was given a bolus of 250 mL of normal sali ne. His CVP was also low. Urine output improved subsequently. His blood gas shows a pH of 7.33 with a pCO2 of 43 and pO2 of 69. The rest of the blood work shows a hemoglobin of 8.4, the WBC count is at 14.4 and a platelet count is at 99 which is essentially stable compared to yesterday. No cardiac arrhythmias. His cardiac rhythm is sinus. He is currently postop day #2. On 08/04/2022, the patient is postop day #3. Remains confused in his mentation is not appropriate. Nevertheless, his neurologic exam remains nonfocal. He is currently sitting up on a recliner. No headaches. No seizure activity. No focal neurological deficits. Is currently on oxygen which is running at 6 L/m nasal cannula. Chest x-ray from today shows cardiomegaly. Sternal wires are intact. The patient has some left perihilar infiltrate and volume loss in the left. Note that the mediastinal chest tubes and removed and the patient has a left lower chest tube which is draining in order of 20 mL an hour and a total of 160 over the past 8-12 hours. No evidence of any air leak. His blood work from today shows normal electrolytes, his acute kidney injury is improved and the patient's BUN is at 28 with a creatinine of 0.9 and a sodium level is at 135. CBC still pending for now. Hemodynamically, he is on no pressors. He is in a normal sinus rhythm. Urine output is adequate. IV fluids are at 20 mL an hour of normal saline. The patient remains on DuoNeb nebulized treatments [id number]. He is using the incentive spirometer. He is falling approximately 500 on his incentive spirometer. He remains on a combination of aspirin and Plavix. He is on long-term prednisone therapy for his rheumatoid arthritis and this was resumed at a dose of 10 mg by mouth daily. No fever. He is on metoprolol 12.5 mg twice a day. On today's evaluation of 08/05/2022, the patient is postop day #4. The patient obviously state that he is bothered a yesterday and overnight he progressively more breathless, agitated, confused, lethargic and somnolent. He continue to follow simple commands. His neurologic exam is nonfocal. No seizure activity was noted. I started him on Precedex and Precedex was running at 0.6 mcg/kg/h. This morning, the Precedex was discontinued and the patient was more lethargic and obtunded. He has a sitter at the bedside and agitation is not significant. At same time, the patient became more hypoxic. His blood gas from yesterday showed a pH of 7.47 with a pCO2 of 33 and pO2 of 60. This was done and FiO2 of its liters. Currently is on a 50% Ventimask. Overnight, he was also given Ativan which was subsequently discontinued. He was also given Seroquel. In terms of his breathing, he seems to be slightly labored. The patient has diminished breath on the left. Chest exit from today shows a left-sided chest tube and the tube was malpositioned and there was a 20-30% pneumothorax on the left. She was manipulated. Airleak was obtained. A repeat chest x-ray is pending. Output from the chest tube is in order of 90 mL over the past 8 hours and 350 mL over the past 24 hours. He is afebrile. He has a limited cough, no significant sputum production. No evidence of any pneumonia and his chest x- ray. There is some oozing of blood around the right IJ Cordis. The Liebenthal-Emanuel catheter Gilbert removed. His cardiac rhythm is sinus. In terms of his blood work, the results from 6.5, hemoglobin is at 6.8, platelet count of 86, BUN is at 25 with a creatinine of 0.8 and a sodium of 139. Glucose is 119. Calcium calcium is 7.5. Liver enzymes are not elevated. His ability to do incentive spirometer is extremely limited. He was doing very poor on his pulmonary toileting yesterday. Surgical once is striking and intact. Pulses in the lower extremities are present. Abdomen is slightly distended. No bowel movement since his surgery. 08/06/2022, postoperative day #5, much more stable, awake and alert and communicating. His mentation is essentially normalized and is currently off the Precedex. He is sitting up on a chair. There is a bowel movement today. Using the incentive spirometer. Pulling just less than the thousand. Chest x-ray from today shows a small left apical pneumothorax. Left-sided chest tube still in place and output is in order of 110 cc over the past 24 hours. Cardiac rhythm is sinus. Currently is on room air oxygen with a pulse ox of 92-93%. No other complaints otherwise for now. Blood workShowing a WBC count of 5.7 with a hemoglobin of 7.4. Sodium is at 142, BUN is at 23 with a creatinine of 0.8. Liver function tests are essentially within normal limits. No other active issues for now. He is afebrile. Abdomen is slightly distended. The patient is having adequate bowel movements. P the patient remains on aspirin and Plavix. The patient was given hydrocortisone yesterday stress dose and he was taken off the prednisone. He does not show any signs of bleeding. The right IJ Cordis is still in place. Objective - Vital Signs Vital signs: Vital Signs Temp 97.8 F 08/06/22 00:00 Pulse 70 08/06/22 08:22 Resp 21 08/06/22 06:00 BP 134/77 08/06/22 06:00 Pulse Ox 95 08/06/22 08:24 FiO2 50 08/05/22 09:14 Intake & Output 08/05/22 08/06/22 08/06/22 18:59 06:59 18:59 Intake Total 547.143 253 23 Output Total 940 550 50 Balance -392.857 -297 -27 Weight 94.1 kg 90.8 kg Intake: IV 276 253 23 PRESSURE BAGS 36 33 3 Sodium Chloride 0.9% 1, 240 220 20 000 ml @ 20 mls/hr IV . Q24H [facility] Rx#:[id number] Intake, IV Titration 71.143 Amount Dexmedetomidine/0.9% NaCl 71.143 (Pmx) 400 mcg In Empty Bag 1 bag @ 0.2 MCG/KG/HR 4.75 mls/hr IV .Q21H4M [facility] Rx#:[id number] Oral 200 Output: Chest Tube Drainage 220 Left pleural chest tube 220 Urine 720 550 50 Other: Voiding Method Indwelling Catheter Indwelling Catheter # Bowel Movements 1 ABP, PAP, CO, CI - Last Documented Arterial Blood Pressure 132/114 Pulmonary Artery Pressure 33/7 Cardiac Output 7.7 Cardiac Index 3.9 - Exam Calm and comfortable on room air oxygen, the patient is currently comfortable, alert and awake and less lethargic, neurologic examination is nonfocal. Head exam was generally normal. There was no scleral icterus or corneal arcus. Mucous membranes were moist. Neck was supple and without jugular venous distension, thyromegaly, or carotid bruits. Carotids were easily palpable bilaterally. There was no adenopathy. The patient has a Cordis in the right IJ. Cardiac exam revealed the PMI to be normally situated and sized. The rhythm was regular and no extrasystoles were noted during several minutes of auscultation. The first and second heart sounds were normal and physiologic splitting of the second heart sound was noted. There were no murmurs, rubs, clicks, or gallops. Thoracotomy scars of dry clean and intact Lungs were clear to auscultation and percussion, and with normal diaphragmatic excursion. No wheezes or rales were noted. The patient has a left-sided chest tube. Breath sounds are slightly diminished on the left and there is scattered rhonchi and expiratory wheezes. Abdominal exam revealed normal bowel sounds. The abdomen was soft, non-tender, and without masses, organomegaly, or appreciable enlargement of the abdominal aorta. Abdomen is slightly distended. Nontender. Examination of the extremities revealed easily palpable radial, femoral and pedal pulses. There was no cyanosis, clubbing or edema. Surgical one-sided over the left radial and left lower extremity are dry clean Examination of the skin revealed no evidence of significant rashes, suspicious appearing nevi or other concerning lesions. Neurologically, the patient is alert and oriented 3. No focal neurological deficit at this point in time. He is quite lethargic at this point in time. Is able to move all 4 extremities without any limitation yet his profoundly weak. His mental status is improved and the patient is currently off Precedex. - Labs CBC & Chem 7: 08/06/22 04:34 08/06/22 04:34 Labs: Abnormal Lab Results - Last 24 Hours (Table) 08/05/22 08/05/22 08/06/22 Range/Units 09:06 11:27 04:34 RBC 2.28 L (4.30-5.90) m/uL Hgb 7.4 L (13.0-17.5) gm/dL Hct 23.1 L (39.0-53.0) % MCV 101.7 H (80.0-100.0) fL Plt Count 130 L D (150-450) k/uL Lymphocytes # (Manual) 0.34 L (1.0-4.8) k/uL Nucleated RBCs 1 H (0-0) /100 WBC ABG Total CO2 26 H (19-24) mmol/L ABG O2 Saturation 97.8 H (94-97) % Chloride (98-107) mmol/L BUN (9-20) mg/dL Glucose (74-99) mg/dL POC Glucose (mg/dL) 123 H (70-110) mg/dL Calcium (8.4-10.2) mg/dL ALT (4-49) U/L Total Protein (6.3-8.2) g/dL Albumin (3.5-5.0) g/dL 08/06/22 Range/Units 04:34 RBC (4.30-5.90) m/uL Hgb (13.0-17.5) gm/dL Hct (39.0-53.0) % MCV (80.0-100.0) fL Plt Count (150-450) k/uL Lymphocytes # (Manual) (1.0-4.8) k/uL Nucleated RBCs (0-0) /100 WBC ABG Total CO2 (19-24) mmol/L ABG O2 Saturation (94-97) % Chloride 110 H (98-107) mmol/L BUN 23 H (9-20) mg/dL Glucose 127 H (74-99) mg/dL POC Glucose (mg/dL) (70-110) mg/dL Calcium 7.7 L (8.4-10.2) mg/dL ALT 51 H (4-49) U/L Total Protein 5.1 L (6.3-8.2) g/dL Albumin 3.0 L (3.5-5.0) g/dL Assessment and Plan Plan: Multivessel coronary artery disease, post thoracotomy and bypass surgery. The patient's surgery was done on 08/01/2022 and the patient is currently postop day #5. The patient underwent three-vessel bypass surgery including GUIDRY to LAD and radial 2 ramus and saphenous vein graft to RCA. Altered mentation, delirium, questionable alcoholism preoperatively along with possibility of postop delirium. CAT scan of the brain was done yesterday and was negative for any acute abnormalities. Neurologic exam remains nonfocal. Neurologically the patient is improved and the patient is currently off Precedex. Post thoracotomy, currently on room air oxygen Left-sided pneumothorax, malpositioned left-sided chest tube and adjustments were done and repeat chest x-rays to follow, unchanged on today's chest x-ray, probably a small loculated left apical pneumothorax. No evidence of any air leak. Left-sided chest tube is in place and in good location. History of CAD with previous stent placement. History of hypertension. History of hyperlipidemia. History of myocardial infarction. History of rheumatoid arthritis. Patient has not been on long-term prednisone at 10 mg Gastroesophageal reflux disease. History of PTSD. Plan Continue the use of incentive spirometer Patient is currently on room air oxygen. Mental status is improved. Keep the left-sided chest tube for another 24 hours and once output drops remove the chest tube. No need for any further intervention regarding the small left apical pneumothorax at this point in time. Keep the left pleural chest tube in place Continue aspirin and Plavix Continue metoprolol 12.5 mg by mouth twice a day as long as the patient is able to take his oral medications [place] for pain control insulin sliding scale insulin coverage and stop the insulin drip at this point in time Monitor mental status Monitor the hemoglobin and no transfusion now , hemoglobin is improved Sitter at the bedside We'll continue to follow, keep the patient ICU for now
--- NOTE | 2022-08-06 08:46 | P.PN ---
Subjective Progress Note Date: 08/06/22 PROGRESS NOTE The patient is a 62-year-old male with a known history of CAD, underwent CABG today. He is in the ICU intubated and sedated. He is in sinus mechanism with paced atrium. He received a GUIDRY to the LAD and radial to the ramus saphenous vein grafts to the RCA into the PDA with closure of the left atrial appendage. The patient is extubated, sitting up in the chair. He is complaining of sor eness in the chest. He is in sinus mechanism. Hemodynamically he stable on no vasopressors. He denies any dizziness or palpitations. He has no nausea or vomiting. August 03: The patient is sitting up in the chair, awake and alert, in sinus mechanism. His blood pressure is stable. His urinary output has decreased. He denies any chest discomfort. He denies any dizziness or palpitations. His chest x-ray raised a question of left lower lobe infiltrate. He has no evidence of air leak. His blood pressure was on the low side earlier and he has been started on midodrine. His renal functions have worsened. August 04: The patient is sitting up in the chair awake but confused. He was agitated during tonight. He is a nonfocal. He is afebrile. He continues to be in sinus mechanism. His urine output is stable. He has no evidence of ventricle tachycardia or atrial fibrillation. He is following simple commands. No evidence of fairly. August 05: The patient has been confused all night, he is sleeping at this time. He has been in sinus mechanism, hemodynamically stable with no arrhythmia. He had a CAT scan of the head yesterday that showed no evidence of bleed. August 06: The patient is more awake and alert today, sitting up in the chair. Continues to be in sinus mechanism. Complaining of his Hong catheter. He denies any dyspnea, chest discomfort, nausea or vomiting. Hemodynamically he is stable. His urinary output is stable. There is no malignant arrhythmia. He continues to have left-sided chest to Medications: Aspirin, Lipitor 40 mg daily, Plavix 75 mg daily, metoprolol 12.5 mg twice a day, midodrine 5 mg every 8 hours, fondaparinux 2.5 mg daily, Lipitor 40 mg daily PHYSICAL EXAMINATION: Blood pressure 134/70 heart rate 70, more awake and alert, less confused LUNGS: Clear to auscultation with mild decrease in the breath sounds at the bases HEART: Regular rate and rhythm, S1, S2. No S3. No systolic murmur, no rub noted ABDOMEN: Soft, nontender, no organomegaly EXTREMETIES: No edema, Lab: BUN 23, creatinine 0.83, potassium 4.1, hemoglobin 7.4. IMPRESSION: 1. Status post CABG, stable extubated 2. History of hypertension 3. History of hyperlipidemia 4. History of carotid obstructive disease 5. Acute renal injury, resolved 6. Change in mental status with confusion, appears to be metabolic encephalopathy, improving PLAN: 1. Stop midodrine 2. Remove Hong catheter 3. Increase physical activity 4. Depending on his blood pressure increased beta hiram dose. Objective - Vital Signs Vital signs: Vital Signs Temp 97.8 F 08/06/22 00:00 Pulse 70 08/06/22 08:22 Resp 21 08/06/22 06:00 BP 134/77 08/06/22 06:00 Pulse Ox 95 08/06/22 08:24 FiO2 50 08/05/22 09:14 Intake & Output 08/05/22 08/06/22 08/06/22 18:59 06:59 18:59 Intake Total 547.143 253 23 Output Total 940 550 50 Balance -392.857 -297 -27 Weight 94.1 kg 90.8 kg Intake: IV 276 253 23 PRESSURE BAGS 36 33 3 Sodium Chloride 0.9% 1, 240 220 20 000 ml @ 20 mls/hr IV . Q24H [facility] Rx#:[id number] Intake, IV Titration 71.143 Amount Dexmedetomidine/0.9% NaCl 71.143 (Pmx) 400 mcg In Empty Bag 1 bag @ 0.2 MCG/KG/HR 4.75 mls/hr IV .Q21H4M [facility] Rx#:[id number] Oral 200 Output: Chest Tube Drainage 220 Left pleural chest tube 220 Urine 720 550 50 Other: Voiding Method Indwelling Catheter Indwelling Catheter # Bowel Movements 1 ABP, PAP, CO, CI - Last Documented Arterial Blood Pressure 132/114 Pulmonary Artery Pressure 33/7 Cardiac Output 7.7 Cardiac Index 3.9 - Labs CBC & Chem 7: 08/06/22 04:34 08/06/22 04:34 Labs: Abnormal Lab Results - Last 24 Hours (Table) 04/08/05/22 08/06/22 Range/Units 09:06 11:27 04:34 RBC 2.28 L (4.30-5.90) m/uL Hgb 7.4 L (13.0-17.5) gm/dL Hct 23.1 L (39.0-53.0) % MCV 101.7 H (80.0-100.0) fL Plt Count 130 L D (150-450) k/uL Lymphocytes # (Manual) 0.34 L (1.0-4.8) k/uL Nucleated RBCs 1 H (0-0) /100 WBC ABG Total CO2 26 H (19-24) mmol/L ABG O2 Saturation 97.8 H (94-97) % Chloride (98-107) mmol/L BUN (9-20) mg/dL Glucose (74-99) mg/dL POC Glucose (mg/dL) 123 H (70-110) mg/dL Calcium (8.4-10.2) mg/dL ALT (4-49) U/L Total Protein (6.3-8.2) g/dL Albumin (3.5-5.0) g/dL 08/06/22 Range/Units 04:34 RBC (4.30-5.90) m/uL Hgb (13.0-17.5) gm/dL Hct (39.0-53.0) % MCV (80.0-100.0) fL Plt Count (150-450) k/uL Lymphocytes # (Manual) (1.0-4.8) k/uL Nucleated RBCs (0-0) /100 WBC ABG Total CO2 (19-24) mmol/L ABG O2 Saturation (94-97) % Chloride 110 H (98-107) mmol/L BUN 23 H (9-20) mg/dL Glucose 127 H (74-99) mg/dL POC Glucose (mg/dL) (70-110) mg/dL Calcium 7.7 L (8.4-10.2) mg/dL ALT 51 H (4-49) U/L Total Protein 5.1 L (6.3-8.2) g/dL Albumin 3.0 L (3.5-5.0) g/dL
[2022-08-06] MEDS ORDERED: FUROSEMIDE 10 MG/ML 2 ML VIAL IV STA (10:20)
[2022-08-06 11:27] LABS: Glucose,Whole Blood 120 mg/dL (70-110)
[2022-08-06] MEDS: SODIUM CHLORIDE 0.9% 1,000 ML IV SCH (11:28)
--- NOTE | 2022-08-06 11:58 | P.PN ---
Subjective Progress Note Date: 08/06/22 This is a 62-year-old gentleman, works for [employer], with past medical history significant for recent NSTEMI,S/P PCI RCA 04/03/22,CAD, preserved EF ,hypertension, hyperlipidemia, chronic nicotine dependence, daily alcohol of 2-3 beers daily and multiple other medical issues presented to the ER with complaints of ongoing worsening midsternal and anterior neck including carotid burning pressure-"all occurring at the same time together -no radiation, occurs with climbing stairs, bending over,-feels like previous heart attack" since March. Reports PCP was attempting to acquire insurance authorization for carotid Doppler. Denies diaphoresis ,fever or chills. Denies nausea, vomiting, diarrhea or abdominal pain. Reports since March he has taken over 1 00 nitroglycerin sublinguals in addition to being on his long-acting Imdur. Reports he has decreased his nicotine intake from 2 packs a day to 1 pack a day, usually drinks 2-3 beers sometimes 5 daily. Reports strong family history of CAD, father with CABG, aneurysms and carotid stenosis. Chest x-ray reported no acute pulmonary process. EKG reported sinus rhythm, troponin 0.054, 0.061, 0.044. Afebrile, normal WBC. Hemoglobin 13.6, platelets 188, MCV 93.9, INR 1.1, sodium 138, potassium 3.9, bicarb 24, BUN 17, creatinine 0.91, magnesium 2.1. Evaluated by cardiology, patient is scheduled for Lexiscan stress test, carotid Doppler. 08/26/2022 yesterday completed Lexiscan stress test-reported abnormal. Scheduled for cardiac catheterization today. Carotid ultrasound reported bilateral plaque 70% severe stenosis of the proximal left ICA. Maintained on heparin drip. Denies any further chest pain while at rest. 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 Cardiothoracic surgery consulted regarding further evaluation for CABG. maintained on heparin drip.Evaluated by vascular surgery regarding left high-grade ICA stenosis greater than 70% per carotid duplex. Renal function stable postcardiac catheterization and CTA of head and neck ordered as per vascular surgery. Denies chest pain, palpitations or shortness of breath. 07/29/2022 workup in progress for CABG on Monday as per CTS. Echo reporting nor mal LV systolic function, EF 55-60% . Telemetry sinus rhythm. denies chest pain, palpitations or shortness of breath. Denies lightheadedness, dizziness or focal deficits. Head/Neck CTA pending. KUB reporting no acute radiographic process, mildly prominent colonic stool volume noted. 08/02/2022 status post CABG, postop day #1. Extubated last night. Maintaining O2 sats in the low to mid 90s on 5 L nasal cannula. Chest x-ray reporting few linear lucencies within the left axillary region compatible with soft tissue gas, improved, slight interval worsening of left basilar atelectasis . I ncentive spirometer up to 500 .Cardiac output 7.7, cardiac index 3.9. Telemetry sinus rhythm. Pain currently controlled. Blood sugars stable on insulin drip. 08/03/2022 Worsening renal function. Receiving a fluid bolus. Telemetry sinus rhythm.developed delirium early this a.m. mild confusion, suspicious at times of staff. Moves all extremities, speech clear, no facial droop no numbness or w eakness. Continue O2 sats in the 90s on 5 L nasal cannula. Chest x-ray pending. Reports chest tube discomfort. 08/04/2022 narcotics discontinued yesterday. sleepy, delirious. Staff reports patient becomes agitated upon awakening. Last Ativan received in the early am, around 0400. CIWA protocol in place. overnight babysitter at bedside. Telemetry sinus rhythm. Chest x-ray reporting low lung volumes, patchy airspace opacity's within the left mid to lower lung may represent infiltrate versus atelectasis. Pleural chest tube 1 remaining. Maintaining O2 sats in the high 90s on 4 L nasal cannula. Renal function improving. Blood sugars controlled. 08/05/2022 Confusion, delirium, paranoia and agitation increased during the night, Precedex drip initiated,CIWA protocol discontinued. Telemetry sinus rhythm. Ventimask weaned off, currently maintaining O2 sats in the 90s on 4 L nasal cannula. Hemoglobin 6.8, platelets 86, no transfusion at this time as per cardiothoracic surgery. Earlier x-ray today reported a new small left apical pneumothorax , manipulated , positive air leak .Repeat chest x-ray reported stable left pneumothorax. Previous dictations above is per my nurse practitioner 08/06/2022: Patient is postoperative day #5 from 3 vessel CABG. Patient resides intensive care unit with his chest tubes in place. He had complications of pneumothorax on the left after surgery. Postoperative delirium have resolved in this patient. There is a sitter at bedside. He complains of some chest pains around his incision site and some shortness of breath with much exertion. He preston s had several bowel movements. Hong catheter is out. He is urinating on his own normally. Vital signs remained stable. She hemoglobin of 7.4 today, GFR is greater than 90. He notes from cardiology, pulmonology, vascular surgery neurology were reviewed today. Objective - Vital Signs Vital signs: Vital Signs Temp 98.1 F 08/06/22 08:00 Pulse 75 08/06/22 11:05 Resp 20 08/06/22 11:05 BP 163/87 08/06/22 11:05 Pulse Ox 92 L 08/06/22 11:05 FiO2 50 08/05/22 09:14 Intake & Output 08/05/22 08/06/22 08/06/22 18:59 06:59 18:59 Intake Total 547.143 253 103.375 Output Total 940 550 150 Balance -392.857 -297 -46.625 Weight 94.1 kg 90.8 kg Intake: IV 276 253 63 PRESSURE BAGS 36 33 3 Sodium Chloride 0.9% 1, 240 220 60 000 ml @ 20 mls/hr IV . Q24H NHAN Rx#:[id number] Intake, IV Titration 71.143 40.375 Amount Dexmedetomidine/0.9% NaCl 71.143 40.375 (Pmx) 400 mcg In Empty Bag 1 bag @ 0.2 MCG/KG/HR 4.75 mls/hr IV .Q21H4M NHAN Rx#:[id number] Oral 200 Output: Chest Tube Drainage 220 30 Left pleural chest tube 220 30 Urine 720 550 120 Other: Voiding Method Indwelling Catheter Indwelling Catheter # Bowel Movements 1 ABP, PAP, CO, CI - Last Documented Arterial Blood Pressure 132/114 Pulmonary Artery Pressure 33/7 Cardiac Output 7.7 Cardiac Index 3.9 - Exam General: The patient is awake and alert, in minimal distress, chest tubes in place. Neck: The neck is supple, there is no thyromegaly, lymphadenopathy, tenderness or JVD. Cardiovascular: S1S2 is normal, There is a regular rate and rhythm. No murmur, rub or gallop is appreciated. Respiratory: Lungs are coarse to auscultation with decreased breath sounds at the bases. respirations are non-labored, breath sounds are equal. Gastrointestinal: Soft, non-distended, non-tender abdomen without masses or organomegaly noted. There is no rebound or guarding present. Bowel sounds are unremarkable. Musculoskeletal: Normal ROM, no tenderness, There is trace pedal edema. There is no calf tenderness or swelling. No cords were appreciated. SCDs are in place Groin: He is in testes are normal, the edema is resolved from this area. Neurological: CN II-XII intact, there are no obvious motor or sensory deficits. Coordination appears grossly intact. Speech is normal. - Labs CBC & Chem 7: 08/06/22 04:34 08/06/22 04:34 Labs: Abnormal Lab Results - Last 24 Hours (Table) 08/06/22 08/06/22 08/06/22 Range/Units 04:34 04:34 11:25 RBC 2.28 L (4.30-5.90) m/uL Hgb 7.4 L (13.0-17.5) gm/dL Hct 23.1 L (39.0-53.0) % MCV 101.7 H (80.0-100.0) fL Plt Count 130 L D (150-450) k/uL Lymphocytes # (Manual) 0.34 L (1.0-4.8) k/uL Nucleated RBCs 1 H (0-0) /100 WBC Chloride 110 H (98-107) mmol/L BUN 23 H (9-20) mg/dL Glucose 127 H (74-99) mg/dL POC Glucose (mg/dL) 120 H (70-110) mg/dL Calcium 7.7 L (8.4-10.2) mg/dL ALT 51 H (4-49) U/L Total Protein 5.1 L (6.3-8.2) g/dL Albumin 3.0 L (3.5-5.0) g/dL Assessment and Plan (1) CAD (coronary artery disease) Current Visit: No Status: Chronic Code(s): I25.10 - ATHSCL HEART DISEASE OF [place] CORONARY ARTERY W/O ANG PCTRS SNOMED Code(s): 15068822 (2) S/P CABG x 3 Current Visit: Yes Status: Acute Code(s): Z95.1 - PRESENCE OF AORTOCORONARY BYPASS GRAFT SNOMED Code(s): 979941286 (3) Pneumothorax, postprocedural Current Visit: Yes Status: Acute Code(s): J95.811 - POSTPROCEDURAL PNEUMOTHORAX SNOMED Code(s): 898109707 (4) Carotid artery disease Current Visit: Yes Status: Acute Code(s): I77.9 - DISORDER OF ARTERIES AND ARTERIOLES, UNSPECIFIED SNOMED Code(s): 634714855 (5) COPD (chronic obstructive pulmonary disease) Current Visit: Yes Status: Acute Code(s): J44.9 - CHRONIC OBSTRUCTIVE PULMONARY DISEASE, UNSPECIFIED SNOMED Code(s): 05315624 (6) Encephalopathy acute Current Visit: Yes Status: Acute Code(s): G93.40 - ENCEPHALOPATHY, UNSPECIFIED SNOMED Code(s): 58974304 (7) Smoker Current Visit: Yes Status: Acute Code(s): F17.200 - NICOTINE DEPENDENCE, UNSPECIFIED, UNCOMPLICATED SNOMED Code(s): 62490615 (8) Admits to alcohol consumption Current Visit: Yes Status: Acute Code(s): Z78.9 - OTHER SPECIFIED HEALTH STATUS SNOMED Code(s): 822826801 (9) Acute chest pain Current Visit: Yes Status: Acute Code(s): R07.9 - CHEST PAIN, UNSPECIFIED SNOMED Code(s): 951520952 (10) Elevated troponin Current Visit: Yes Status: Acute Code(s): R77.8 - OTHER SPECIFIED ABNORMALITIES OF PLASMA PROTEINS SNOMED Code(s): 281409099 (11) Unstable angina pectoris Current Visit: Yes Status: Acute Code(s): I20.0 - UNSTABLE ANGINA SNOMED Code(s): 7562986 (12) Acute non-ST elevation myocardial infarction (NSTEMI) Current Visit: No Status: Acute Code(s): I21.4 - NON-ST ELEVATION (NSTEMI) MYOCARDIAL INFARCTION SNOMED Code(s): 326598468 (13) Rheumatoid arthritis Current Visit: No Status: Acute Code(s): M06.9 - RHEUMATOID ARTHRITIS, UNSPECIFIED SNOMED Code(s): 92047317 (14) Hyperlipemia Current Visit: No Status: Chronic Code(s): E78.5 - HYPERLIPIDEMIA, UNSPECIFIED SNOMED Code(s): 31378776 (15) Hypertension Current Visit: No Status: Chronic Code(s): I10 - ESSENTIAL (PRIMARY) HYPERTENSION SNOMED Code(s): 72285063 (16) S/p immunosuppressive therapy Current Visit: No Status: Chronic Code(s): Z92.25 - PERSONAL HISTORY OF IMMUNOSUPPRESSION THERAPY SNOMED Code(s): 24635430 (17) Postoperative anemia Current Visit: Yes Status: Acute Code(s): D64.9 - ANEMIA, UNSPECIFIED SNOMED Code(s): 663600784 Plan: His mentation is at baseline. Consider will continue for another 4 hours but mostly can discontinue this soon. Medications he would like her care and cardiology. Cardiovascular surgery evaluated and regular., Most likely he'll be transferred to stepdown tomorrow if he remains stable. We will reevaluate him in 24 hours.
[2022-08-06] MEDS ORDERED: LOSARTAN 25 MG TAB PO SCH (12:30)
[2022-08-06] MEDS: ACETAMINOPHEN TAB 500 MG TAB PO PRN (16:04)
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
[2022-08-06 16:24] LABS: Glucose,Whole Blood 162 mg/dL (70-110)
--- NOTE | 2022-08-06 16:43 | XR ---
EXAMINATION TYPE: XR shoulder limited LT DATE OF EXAM: 08/06/2022 CLINICAL HISTORY: pain COMPARISON: NONE TECHNIQUE: Three views of the left shoulder are obtained. FINDINGS: There is no acute fracture/dislocation evident. The acromioclavicular and glenohumeral estela int spaces appear within normal limits. Known Left apical pneumothorax. IMPRESSION: 1. There is no acute fracture or dislocation. ICD 10 NO FRACTURE, INITIAL EVALUATION
[2022-08-06] MEDS ORDERED: KETOROLAC 15 MG/ML 1 ML VIAL IVP STA (16:59)
[2022-08-06] MEDS: SENNOSIDES-DOCUSATE SODIUM 1 EACH TAB PO SCH (20:27)
[2022-08-06 20:40] LABS: Glucose,Whole Blood 150 mg/dL (70-110)
[2022-08-06] MEDS ORDERED: GABAPENTIN 400 MG CAP PO SCH (21:00)
[2022-08-07] MEDS: HYDROCORTISONE SUCCINATE 100 MG/2 ML VIAL IV SCH ×2 (00:58→08:39)
[2022-08-07] MEDS: ACETAMINOPHEN TAB 500 MG TAB PO PRN ×3 (02:53→23:14)
[2022-08-07 04:56] LABS: Basophils % (A) 0 %; Eosinophils % (A) 1 %; HCT 25.7 % (39.0-53.0); HGB 8.3 gm/dL (13.0-17.5); Hypochromasia Slight; Lymphocytes # (A) 0.6 k/uL (1.0-4.8); Lymphocytes % (A) 8 %; MCH 32.6 pg (25.0-35.0); MCHC 32.3 g/dL (31.0-37.0); MCV 101.1 fL (80.0-100.0); Macrocytosis Slight; Mean Platelet Volume 9.5; Monocytes # (A) 0.5 k/uL (0-1.0); Monocytes % (A) 6 %; Neutrophils # (A) 6.8 k/uL (1.3-7.7); Neutrophils % (A) 85 %; Platelet Count 229 k/uL (150-450); RBC 2.54 m/uL (4.30-5.90); RDW 13.5 % (11.5-15.5)
[2022-08-07 05:04] LABS: ALT 47 U/L (4-49); AST 50 U/L (17-59); African American GFR (CKD) >90 (>60 ml/min/1.73 sqM); Albumin 3.3 g/dL (3.5-5.0); Alkaline Phosphatase 77 U/L (38-126); Anion Gap 11 mmol/L; Blood Urea Nitrogen 27 mg/dL (9-20); Calcium 8.1 mg/dL (8.4-10.2); Carbon Dioxide 24 mmol/L (22-30); Chloride 108 mmol/L (98-107); Glucose 139 mg/dL (74-99); Non-African American GFR(CKD) 85 (>60 ml/min/1.73 sqM); Potassium 3.5 mmol/L (3.5-5.1); Sodium 143 mmol/L (137-145); Total Bilirubin 0.9 mg/dL (0.2-1.3); Total Protein 5.5 g/dL (6.3-8.2)
[2022-08-07] MEDS: FERROUS SULFATE 325 MG TAB PO SCH ×2 (06:55→17:00)
[2022-08-07] MEDS: POTASSIUM CHLORIDE ER 20 MEQ TAB.ER PO SCH ×2 (06:55→08:40)
[2022-08-07] MEDS: PANTOPRAZOLE 40 MG TABLET PO SCH ×3 (06:55→17:00)
[2022-08-07] MEDS: ASCORBIC ACID 500 MG TAB PO SCH ×2 (06:55→17:00)
[2022-08-07 07:01] LABS: Glucose,Whole Blood 131 mg/dL (70-110)
--- NOTE | 2022-08-07 07:05 | XR ---
EXAMINATION TYPE: XR chest 1V portable DATE OF EXAM: 08/07/2022 HISTORY: Shortness of breath. COMPARISON: 08/06/2022 TECHNIQUE: Single view of the chest is submitted. FINDINGS: Stable left upper lobe pneumothorax estimated at 10-15% with apical pleural distance of about 2.3 cm versus 2.1 cm previously. Stable cardiomegaly. Scattered pleural-parenchymal density throughout the left lung. The right lung d emonstrates improved aeration. Hilar and mediastinal structures are within normal limits. Degenerative changes are seen of the dorsal spine. IMPRESSION: 1. Postoperative changes of CABG with essentially stable left-sided pneumothorax. Scattered pleural- parenchymal opacities noted.
[2022-08-07] MEDS: INSULIN ASPART (NovoLOG) 100 UNIT/ML VIAL SQ SCH ×4 (07:41→20:32)
--- NOTE | 2022-08-07 08:17 | P.PN ---
Subjective This is a 62-year-old gentleman, works for [employer], with past medical history significant for recent NSTEMI,S/P PCI RCA 04/03/22,CAD, preserved EF ,hypertension, hyperlipidemia, chronic nicotine dependence, daily alcohol of 2-3 beers daily and multiple other medical issues presented to the ER with complaints of ongoing worsening midsternal and anterior neck including carotid burning pressure-"all occurring at the same time together -no radiation, occurs with climbing stairs, bending over,-feels like previous heart attack" since March. Reports PCP was attempting to acquire insurance authorization for carotid Doppler. Denies diaphoresis ,fever or chills. Denies nausea, vomiting, diarrhea or abdominal pain. Reports since March he has taken over 100 nitroglycerin sublinguals in addition to being on his long-acting Imdur. Reports he has decreased his nicotine intake from 2 packs a day to 1 pack a day, usually drinks 2-3 beers sometimes 5 daily. Reports strong family history of CAD, father with CABG, aneurysms and carotid stenosis. Chest x-ray reported no acute pulmonary process. EKG reported sinus rhythm, troponin 0.054, 0.061, 0.044. Afebrile, normal WBC. Hemoglobin 13.6, platelets 188, MCV 93.9, INR 1.1, sodium 138, potassium 3.9, bicarb 24, BUN 17, creatinine 0.91, magnesium 2.1. Evaluated by cardiology, patient is scheduled for Lexiscan stress test, carotid Doppler. 08/26/2022 yesterday completed Lexiscan stress test-reported abnormal. Scheduled for cardiac catheterization today. Carotid ultrasound reported bilateral plaque 70% severe stenosis of the proximal left ICA. Maintained on heparin drip. Denies any further chest pain while at rest. 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 Cardiothoracic surgery consulted regarding further evaluation for CABG. maintained on heparin drip.Evaluated by vascular surgery regarding left high-grade ICA stenosis greater than 70% per carotid duplex. Renal function stable postcardiac catheterization and CTA of head and neck ordered as per vascular surgery. Denies chest pain, palpitations or shortness of breath. 07/29/2022 workup in progress for CABG on Monday as per CTS. Echo reporting normal LV systolic function, EF 55-60% . Telemetry sinus rhythm. denies chest pain, palpitations or shortness of breath. Denies lightheadedness, dizziness or focal deficits. Head/Neck CTA pending. KUB reporting no acute radiographic process, mildly prominent colonic stool volume noted. 08/02/2022 status post CABG, postop day #1. Extubated last night. Maintaining O2 sats in the low to mid 90s on 5 L nasal cannula. Chest x-ray reporting few linear lucencies within the left axillary region compatible with soft tissue gas, improved, slight interval worsening of left basilar atelectasis . Incentive spirometer up to 500 .Cardiac output 7.7, cardiac index 3.9. Telemetry sinus rhythm. Pain currently controlled. Blood sugars stable on insulin drip. 08/03/2022 Worsening renal function. Receiving a fluid bolus. Telemetry sinus rhythm.developed delirium early this a.m. mild confusion, suspicious at times of staff. Moves all extremities, speech clear, no facial droop no numbness or weakness. Continue O2 sats in the 90s on 5 L nasal cannula. Chest x-ray pending. Reports chest tube discomfort. 08/04/2022 narcotics discontinued yesterday. sleepy, delirious. Staff reports patient becomes agitated upon awakening. Last Ativan received in the early am, around 0400. CIWA protocol in place. custody assistant at bedside. Telemetry sinus rhythm. Chest x-ray reporting low lung volumes, patchy airspace opacity's within the left mid to lower lung may represent infiltrate versus atelectasis. Pleural chest tube 1 remaining. Maintaining O2 sats in the high 90s on 4 L nasal cannula. Renal function improving. Blood sugars controlled. 08/05/2022 Confusion, delirium, paranoia and agitation increased during the night, Precedex drip initiated,CIWA protocol discontinued. Telemetry sinus rhythm. Ventimask weaned off, currently maintaining O2 sats in the 90s on 4 L nasal cannula. Hemoglobin 6.8, platelets 86, no transfusion at this time as per cardiothoracic surgery. Earlier x-ray today reported a new small left apical pneumothorax , manipulated , positive air leak .Repeat chest x-ray reported stable left pneumothorax. Previous dictations above is per my nurse practitioner 08/06/2022: Patient is postoperative day #5 from 3 vessel CABG. Patient resides intensive care unit with his chest tubes in place. He had complications of pneumothorax on the left after surgery. Postoperative delirium have resolved in this patient. There is a sitter at bedside. He complains of some chest pains around his incision site and some shortness of breath with much exertion. He has had several bowel movements. Hong catheter is out. He is urinating on his own normally. Vital signs remained stable. She hemoglobin of 7.4 today, GFR is greater than 90. He notes from cardiology, pulmonology, vascular surgery neurology were reviewed today. 08/07/2022: Patient is postoperative day 6 of a 3 vessel bypass graft. He is awake alert today. He has no significant complaints. Vital signs remained stable. Labs show a hemoglobin this morning of 8.3. Chest x-ray showing stable left-sided pneumothorax, scattered pleural parenchymal opacities noted. Postoperative changes of CABG Objective - Vital Signs Vital signs: Vital Signs Temp 98 F 08/07/22 05:00 Pulse 75 08/07/22 07:00 Resp 15 08/07/22 07:00 BP 123/89 08/07/22 07:00 Pulse Ox 93 L 08/07/22 07:00 FiO2 50 08/06/22 16:00 Intake & Output 08/06/22 08/07/22 08/07/22 18:59 06:59 18:59 Intake Total 703.375 740 Output Total 1270 565 Balance -566.625 175 Weight 91.2 kg Intake: IV 63 PRESSURE BAGS 3 Sodium Chloride 0.9% 1, 60 000 ml @ 20 mls/hr IV . Q24H [facility] Rx#:[id number] Intake, IV Titration 40.375 Amount Dexmedetomidine/0.9% NaCl 40.375 (Pmx) 400 mcg In Empty Bag 1 bag @ 0.2 MCG/KG/HR 4.75 mls/hr IV .Q21H4M [facility]AN Rx#:[id number] Oral 600 740 Output: Chest Tube Drainage 100 65 Left pleural chest tube 100 65 Urine 1170 500 Other: Voiding Method Indwelling Catheter Urinal # Voids 1 0 # Bowel Movements 1 ABP, PAP, CO, CI - Last Documented Arterial Blood Pressure 132/114 Pulmonary Artery Pressure 33/7 Cardiac Output 7.7 Cardiac Index 3.9 - Exam General: The patient is awake and alert, in minimal distress, chest tubes in place. Neck: The neck is supple, there is no thyromegaly, lymphadenopathy, tenderness or JVD. Cardiovascular: S1S2 is normal, There is a regular rate and rhythm. No murmur, rub or gallop is appreciated. Respiratory: Lungs are coarse to auscultation with decreased breath sounds at the bases. respirations are non-labored, breath sounds are equal. Gastrointestinal: Soft, non-distended, non-tender abdomen without masses or organomegaly noted. There is no rebound or guarding present. Bowel sounds are unremarkable. Musculoskeletal: Normal ROM, no tenderness, There is trace pedal edema. There is no calf tenderness or swelling. No cords were appreciated. SCDs are in place Groin: Exam deferred this morning Neurological: CN II-XII intact, there are no obvious motor or sensory deficits. Coordination appears grossly intact. Speech is normal. - Labs CBC & Chem 7: 08/07/22 04:40 08/07/22 04:40 Labs: Abnormal Lab Results - Last 24 Hours (Table) 08/06/22 08/06/22 08/06/22 Range/Units 11:25 16:23 20:37 RBC (4.30-5.90) m/uL Hgb (13.0-17.5) gm/dL Hct (39.0-53.0) % MCV (80.0-100.0) fL Lymphocytes # (1.0-4.8) k/uL Chloride (98-107) mmol/L BUN (9-20) mg/dL Glucose (74-99) mg/dL POC Glucose (mg/dL) 120 H 162 H 150 H (70-110) mg/dL Calcium (8.4-10.2) mg/dL Total Protein (6.3-8.2) g/dL Albumin (3.5-5.0) g/dL 08/07/22 08/07/22 08/07/22 Range/Units 04:40 04:40 06:58 RBC 2.54 L (4.30-5.90) m/uL Hgb 8.3 L (13.0-17.5) gm/dL Hct 25.7 L (39.0-53.0) % MCV 101.1 H (80.0-100.0) fL Lymphocytes # 0.6 L (1.0-4.8) k/uL Chloride 108 H (98-107) mmol/L BUN 27 H (9-20) mg/dL Glucose 139 H (74-99) mg/dL POC Glucose (mg/dL) 131 H (70-110) mg/dL Calcium 8.1 L (8.4-10.2) mg/dL Total Protein 5.5 L (6.3-8.2) g/dL Albumin 3.3 L (3.5-5.0) g/dL Assessment and Plan (1) CAD (coronary artery disease) Current Visit: No Status: Chronic Code(s): I25.10 - ATHSCL HEART DISEASE OF [place] CORONARY ARTERY W/O ANG PCTRS SNOMED Code(s): 89060067 (2) S/P CABG x 3 Current Visit: Yes Status: Acute Code(s): Z95.1 - PRESENCE OF AORTOCORONARY BYPASS GRAFT SNOMED Code(s): 441956979 (3) Pneumothorax, postprocedural Current Visit: Yes Status: Acute Code(s): J95.811 - POSTPROCEDURAL PNEUMOTHORAX SNOMED Code(s): 184373356 (4) Carotid artery disease Current Visit: Yes Status: Acute Code(s): I77.9 - DISORDER OF ARTERIES AND ARTERIOLES, UNSPECIFIED SNOMED Code(s): 532019503 (5) COPD (chronic obstructive pulmonary disease) Current Visit: Yes Status: Acute Code(s): J44.9 - CHRONIC OBSTRUCTIVE PULMONARY DISEASE, UNSPECIFIED SNOMED Code(s): 43720125 (6) Encephalopathy acute Current Visit: Yes Status: Acute Code(s): G93.40 - ENCEPHALOPATHY, UNSPECIFIED SNOMED Code(s): 20874249 (7) Smoker Current Visit: Yes Status: Acute Code(s): F17.200 - NICOTINE DEPENDENCE, UNSPECIFIED, UNCOMPLICATED SNOMED Code(s): 76178013 (8) Admits to alcohol consumption Current Visit: Yes Status: Acute Code(s): Z78.9 - OTHER SPECIFIED HEALTH STATUS SNOMED Code(s): 080243463 (9) Acute chest pain Current Visit: Yes Status: Acute Code(s): R07.9 - CHEST PAIN, UNSPECIFIED SNOMED Code(s): 885481809 (10) Elevated troponin Current Visit: Yes Status: Acute Code(s): R77.8 - OTHER SPECIFIED ABNORMALITIES OF PLASMA PROTEINS SNOMED Code(s): 048643547 (11) Unstable angina pectoris Current Visit: Yes Status: Acute Code(s): I20.0 - UNSTABLE ANGINA SNOMED Code(s): 6562386 (12) Acute non-ST elevation myocardial infarction (NSTEMI) Current Visit: No Status: Acute Code(s): I21.4 - NON-ST ELEVATION (NSTEMI) MYOCARDIAL INFARCTION SNOMED Code(s): 579993858 (13) Rheumatoid arthritis Current Visit: No Status: Acute Code(s): M06.9 - RHEUMATOID ARTHRITIS, UNSPECIFIED SNOMED Code(s): 00250819 (14) Hyperlipemia Current Visit: No Status: Chronic Code(s): E78.5 - HYPERLIPIDEMIA, UNSPECIFIED SNOMED Code(s): 20782058 (15) Hypertension Current Visit: No Status: Chronic Code(s): I10 - ESSENTIAL (PRIMARY) HYPERTENSION SNOMED Code(s): 71079551 (16) S/p immunosuppressive therapy Current Visit: No Status: Chronic Code(s): Z92.25 - PERSONAL HISTORY OF IMMUNOSUPPRESSION THERAPY SNOMED Code(s): 19426455 (17) Postoperative anemia Current Visit: Yes Status: Acute Code(s): D64.9 - ANEMIA, UNSPECIFIED SNOMED Code(s): 256719887 Plan: He appears more stable. Expectation is a chest tube be removed today by cardiothoracic surgery. He is most likely stable to go to the stepdown unit. He'll continue his current medications as ordered. Wait for further recommendations from consultants. We will reevaluate him in 24 hours.
--- NOTE | 2022-08-07 08:26 | P.PN ---
Subjective Progress Note Date: 08/07/22 PROGRESS NOTE The patient is a 62-year-old male with a known history of CAD, underwent CABG today. He is in the ICU intubated and sedated. He is in sinus mechanism with paced atrium. He received a GUIDRY to the LAD and radial to the ramus saphenous vein grafts to the RCA into the PDA with closure of the left atrial appendage. The patient is extubated, sitting up in the chair. He is complaining of sor eness in the chest. He is in sinus mechanism. Hemodynamically he stable on no vasopressors. He denies any dizziness or palpitations. He has no nausea or vomiting. August 03: The patient is sitting up in the chair, awake and alert, in sinus mechanism. His blood pressure is stable. His urinary output has decreased. He denies any chest discomfort. He denies any dizziness or palpitations. His chest x-ray raised a question of left lower lobe infiltrate. He has no evidence of air leak. His blood pressure was on the low side earlier and he has been started on midodrine. His renal functions have worsened. August 04: The patient is sitting up in the chair awake but confused. He was agitated during tonight. He is a nonfocal. He is afebrile. He continues to be in sinus mechanism. His urine output is stable. He has no evidence of ventricle tachycardia or atrial fibrillation. He is following simple commands. No evidence of fairly. August 05: The patient has been confused all night, he is sleeping at this time. He has been in sinus mechanism, hemodynamically stable with no arrhythmia. He had a CAT scan of the head yesterday that showed no evidence of bleed. August 06: The patient is more awake and alert today, sitting up in the chair. Continues to be in sinus mechanism. Complaining of his Hong catheter. He denies any dyspnea, chest discomfort, nausea or vomiting. Hemodynamically he is stable. His urinary output is stable. There is no malignant arrhythmia. He continues to have left-sided chest tube August 07: The patient is awake alert and oriented today, his confusion has resolved. He continues to be in sinus mechanism, hemodynamically stable. There is no leann dence of malignant arrhythmia. He continues to have left sided chest tube. He denies any nausea or vomiting. He had walked earlier and felt well. He is anxious to go home. His chest x-ray shows left apical pneumothorax Medications: Aspirin, Lipitor 40 mg daily, Plavix 75 mg daily, metoprolol 25 mg twice a day, fondaparinux 2.5 mg daily, Lipitor 40 mg daily PHYSICAL EXAMINATION: Blood pressure 123/89 heart rate 75, awake and alert LUNGS: Clear to auscultation with mild decrease in the breath sounds at the bases HEART: Regular rate and rhythm, S1, S2. No S3. No systolic murmur, no rub noted ABDOMEN: Soft, nontender, no organomegaly EXTREMETIES: No edema, Lab: BUN 27, creatinine 0.95, potassium 3.5, hemoglobin 8.3. IMPRESSION: 1. Status post CABG, stable extubated 2. History of hypertension 3. History of hyperlipidemia 4. History of carotid obstructive disease 5. Acute renal injury, resolved 6. Change in mental status with confusion, appears to be metabolic encephalopathy, resolved PLAN: 1. Continue present therapy 2. Increase physical activity 3. Transfer to telemetry 4. If stable probable DC in 48 hours Objective - Vital Signs Vital signs: Vital Signs Temp 98 F 08/07/22 05:00 Pulse 75 08/07/22 07:00 Resp 15 08/07/22 07:00 BP 123/89 08/07/22 07:00 Pulse Ox 93 L 08/07/22 07:00 FiO2 50 08/06/22 16:00 Intake & Output 08/06/22 08/07/22 08/07/22 18:59 06:59 18:59 Intake Total 703.375 740 Output Total 1270 565 Balance -566.625 175 Weight 91.2 kg Intake: IV 63 PRESSURE BAGS 3 Sodium Chloride 0.9% 1, 60 000 ml @ 20 mls/hr IV . Q24H [facility] Rx#:[id number] Intake, IV Titration 40.375 Amount Dexmedetomidine/0.9% NaCl 40.375 (Pmx) 400 mcg In Empty Bag 1 bag @ 0.2 MCG/KG/HR 4.75 mls/hr IV .Q21H4M [facility] Rx#:[id number] Oral 600 740 Output: Chest Tube Drainage 100 65 Left pleural chest tube 100 65 Urine 1170 500 Other: Voiding Method Indwelling Catheter Urinal # Voids 1 0 # Bowel Movements 1 ABP, PAP, CO, CI - Last Documented Arterial Blood Pressure 132/114 Pulmonary Artery Pressure 33/7 Cardiac Output 7.7 Cardiac Index 3.9 - Labs CBC & Chem 7: 08/07/22 04:40 08/07/22 04:40 Labs: Abnormal Lab Results - Last 24 Hours (Table) 08/06/22 08/06/22 08/06/22 Range/Units 11:25 16:23 20:37 RBC (4.30-5.90) m/uL Hgb (13.0-17.5) gm/dL Hct (39.0-53.0) % MCV (80.0-100.0) fL Lymphocytes # (1.0-4.8) k/uL Chloride (98-107) mmol/L BUN (9-20) mg/dL Glucose (74-99) mg/dL POC Glucose (mg/dL) 120 H 162 H 150 H (70-110) mg/dL Calcium (8.4-10.2) mg/dL Total Protein (6.3-8.2) g/dL Albumin (3.5-5.0) g/dL 08/07/22 08/07/22 08/07/22 Range/Units 04:40 04:40 06:58 RBC 2.54 L (4.30-5.90) m/uL Hgb 8.3 L (13.0-17.5) gm/dL Hct 25.7 L (39.0-53.0) % MCV 101.1 H (80.0-100.0) fL Lymphocytes # 0.6 L (1.0-4.8) k/uL Chloride 108 H (98-107) mmol/L BUN 27 H (9-20) mg/dL Glucose 139 H (74-99) mg/dL POC Glucose (mg/dL) 131 H (70-110) mg/dL Calcium 8.1 L (8.4-10.2) mg/dL Total Protein 5.5 L (6.3-8.2) g/dL Albumin 3.3 L (3.5-5.0) g/dL
[2022-08-07] MEDS: THIAMINE 100 MG TAB PO SCH (08:40)
[2022-08-07] MEDS: MULTIVITAMINS, THERA 1 EACH TAB PO SCH (08:40)
[2022-08-07] MEDS: CLOPIDOGREL 75 MG TAB PO SCH (08:40)
[2022-08-07] MEDS ORDERED: POTASSIUM CHLORIDE ER 10 MEQ TAB.ER.PRT PO STA (08:40)
[2022-08-07] MEDS: FOLIC ACID 1 MG TAB PO SCH (08:40)
[2022-08-07] MEDS ORDERED: FUROSEMIDE 10 MG/ML 2 ML VIAL IV STA (08:40)
[2022-08-07] MEDS: METOPROLOL TARTRATE 25 MG TAB PO SCH ×3 (08:40→20:36)
[2022-08-07] MEDS: ASPIRIN 81 MG PO SCH ×2 (08:40→16:50)
[2022-08-07] MEDS: FONDAPARINUX 2.5 MG/0.5 ML SYRINGE SQ SCH (08:52)
[2022-08-07] MEDS: VITAMIN A 10,000 UNIT (3000 MCG) CAPSULE PO SCH (08:52)
[2022-08-07] MEDS: VALSARTAN 80 MG TAB PO SCH (08:52)
--- NOTE | 2022-08-07 09:11 | P.PN ---
Subjective Progress Note Date: 08/07/22 On today's evaluation of 08/02/2022, the patient's postop day #1. The patient underwent three-vessel bypass surgery and the patient was weaned off the mechanical ventilator and the patient was extubated without any major difficulties. This morning she is on oxygen at 5 L nasal cannula and his pulse ox is currently at 93%. His chest x-ray showing some atelectatic changes in the left lung base. There is a large gastric bubble. [place]-Emanuel catheter still in place. There is thoracotomy wires over day mid chest area. The patient is using the incentive spirometer. The patient is falling approximately 500 mL on his incentive spirometer. Pain is under adequate control. In terms of chest tubes, the patient has 2 mediastinal chest tubes and 1 left lower chest tube. No evidence of air leak. Output from the chest tubes have been noted and there are minimal at this point in time. Note that the patient underwent GUIDRY to LAD and radial 2 the ramus and saphenous vein graft to RCA and closure of the left atrial appendage was also done. His current cardiac rhythm is normal sinus rhythm. No underlying arrhythmias at this point in time. Blood work from today shows hemoglobin of 8.7, the discomfort of 10.7, electrolytes all within normal limits. Blood sugars at 118. On today's evaluation of 08/03/2022, the patient is postop day #2. This morning, the patient was found to be somewhat delirious. He was having episodic confusions. Nevertheless, the neurologic exam is completely nonfocal and his moldable 4 extremities without any limitation. No change in his speech. No change in his vision. The patient is currently on oxygen and is currently on 5 L nasal cannula. Is using the incentive spirometer and is falling approximately 2 50 mL on his incentive spirometer. He continues to have some chest wall pain at the surgical wound site. He continues to have 2 mediastinal chest tubes and 1 lower chest tube. Output from the chest tubes are minimal at this point in time. Urine output was in order of 20 mL an hour. He developed an acute kidney injury and today's blood work shows a creatinine of 1.98 which is up compared to her normal baseline. His BUN is at 31. His sodium level is at 135 with a potassium level of 5.4. The patient was given a bolus of 250 mL of normal sali ne. His CVP was also low. Urine output improved subsequently. His blood gas shows a pH of 7.33 with a pCO2 of 43 and pO2 of 69. The rest of the blood work shows a hemoglobin of 8.4, the WBC count is at 14.4 and a platelet count is at 99 which is essentially stable compared to yesterday. No cardiac arrhythmias. His cardiac rhythm is sinus. He is currently postop day #2. On 08/04/2022, the patient is postop day #3. Remains confused in his mentation is not appropriate. Nevertheless, his neurologic exam remains nonfocal. He is currently sitting up on a recliner. No headaches. No seizure activity. No focal neurological deficits. Is currently on oxygen which is running at 6 L/m nasal cannula. Chest x-ray from today shows cardiomegaly. Sternal wires are intact. The patient has some left perihilar infiltrate and volume loss in the left. Note that the mediastinal chest tubes and removed and the patient has a left lower chest tube which is draining in order of 20 mL an hour and a total of 160 over the past 8-12 hours. No evidence of any air leak. His blood work from today shows normal electrolytes, his acute kidney injury is improved and the patient's BUN is at 28 with a creatinine of 0.9 and a sodium level is at 135. CBC still pending for now. Hemodynamically, he is on no pressors. He is in a normal sinus rhythm. Urine output is adequate. IV fluids are at 20 mL an hour of normal saline. The patient remains on DuoNeb nebulized treatments [id number]. He is using the incentive spirometer. He is falling approximately 500 on his incentive spirometer. He remains on a combination of aspirin and Plavix. He is on long-term prednisone therapy for his rheumatoid arthritis and this was resumed at a dose of 10 mg by mouth daily. No fever. He is on metoprolol 12.5 mg twice a day. On today's evaluation of 08/05/2022, the patient is postop day #4. The patient obviously state that he is bothered a yesterday and overnight he progressively more breathless, agitated, confused, lethargic and somnolent. He continue to follow simple commands. His neurologic exam is nonfocal. No seizure activity was noted. I started him on Precedex and Precedex was running at 0.6 mcg/kg/h. This morning, the Precedex was discontinued and the patient was more lethargic and obtunded. He has a sitter at the bedside and agitation is not significant. At same time, the patient became more hypoxic. His blood gas from yesterday showed a pH of 7.47 with a pCO2 of 33 and pO2 of 60. This was done and FiO2 of its liters. Currently is on a 50% Ventimask. Overnight, he was also given Ativan which was subsequently discontinued. He was also given Seroquel. In terms of his breathing, he seems to be slightly labored. The patient has diminished breath on the left. Chest exit from today shows a left-sided chest tube and the tube was malpositioned and there was a 20-30% pneumothorax on the left. She was manipulated. Airleak was obtained. A repeat chest x-ray is pending. Output from the chest tube is in order of 90 mL over the past 8 hours and 350 mL over the past 24 hours. He is afebrile. He has a limited cough, no significant sputum production. No evidence of any pneumonia and his chest x- ray. There is some oozing of blood around the right IJ Cordis. The [place]-Emanuel catheter [place] removed. His cardiac rhythm is sinus. In terms of his blood work, the results from 6.5, hemoglobin is at 6.8, platelet count of 86, BUN is at 25 with a creatinine of 0.8 and a sodium of 139. Glucose is 119. Calcium calcium is 7.5. Liver enzymes are not elevated. His ability to do incentive spirometer is extremely limited. He was doing very poor on his pulmonary toileting yesterday. Surgical once is striking and intact. Pulses in the lower extremities are present. Abdomen is slightly distended. No bowel movement since his surgery. 08/06/2022, postoperative day #5, much more stable, awake and alert and communicating. His mentation is essentially normalized and is currently off the Precedex. He is sitting up on a chair. There is a bowel movement today. Using the incentive spirometer. Pulling just less than the thousand. Chest x-ray from today shows a small left apical pneumothorax. Left-sided chest tube still in place and output is in order of 110 cc over the past 24 hours. Cardiac rhythm is sinus. Currently is on room air oxygen with a pulse ox of 92-93%. No other complaints otherwise for now. Blood workShowing a WBC count of 5.7 with a hemoglobin of 7.4. Sodium is at 142, BUN is at 23 with a creatinine of 0.8. Liver function tests are essentially within normal limits. No other active issues for now. He is afebrile. Abdomen is slightly distended. The patient is having adequate bowel movements. P the patient remains on aspirin and Plavix. The patient was given hydrocortisone yesterday stress dose and he was taken off the prednisone. He does not show any signs of bleeding. The right IJ Cordis is still in place. 08/07/2022, the patient is postop day #6. He is extremely well today. Is awake and alert and communicating and denies having any significant shortness of breath. The chest x-ray findings are unchanged and the patient continues to have a tiny 10% left apical pneumothorax. The Will catheter still in place and output is in order of 200 mL over the past 24 hours. As such, the catheter will be removed. His Hong catheter is out. His Cordis is out. His cardiac rhythm is sinus. Hemodynamically stable. Mental status is completely back to normal. No focal neurological deficits whatsoever. Remains on aspirin and Plavix. He is going to be started back on prednisone 10 mg by mouth daily and the stress dose hydrocortisone will be discontinued. Is using the SyMynd spirometer. His current approximately 1500. Objective - Vital Signs Vital signs: Vital Signs Temp 98 F 08/07/22 05:00 Pulse 75 08/07/22 07:00 Resp 15 08/07/22 07:00 BP 123/89 08/07/22 07:00 Pulse Ox 93 L 08/07/22 07:00 FiO2 50 08/06/22 16:00 Intake & Output 08/06/22 08/07/22 08/07/22 18:59 06:59 18:59 Intake Total 703.375 740 Output Total 1270 565 Balance -566.625 175 Weight 91.2 kg Intake: IV 63 PRESSURE BAGS 3 Sodium Chloride 0.9% 1, 60 000 ml @ 20 mls/hr IV . Q24H [facility] Rx#:[id number] Intake, IV Titration 40.375 Amount Dexmedetomidine/0.9% NaCl 40.375 (Pmx) 400 mcg In Empty Bag 1 bag @ 0.2 MCG/KG/HR 4.75 mls/hr IV .Q21H4M [facility] Rx#:[id number] Oral 600 740 Output: Chest Tube Drainage 100 65 Left pleural chest tube 100 65 Urine 1170 500 Other: Voiding Method Indwelling Catheter Urinal # Voids 1 0 # Bowel Movements 1 ABP, PAP, CO, CI - Last Documented Arterial Blood Pressure 132/114 Pulmonary Artery Pressure 33/7 Cardiac Output 7.7 Cardiac Index 3.9 - Exam Calm and comfortable on room air oxygen, the patient is currently comfortable, alert and awake and less lethargic, neurologic examination is nonfocal.acute Head exam was generally normal. There was no scleral icterus or corneal arcus. Mucous membranes were moist. Neck was supple and without jugular venous distension, thyromegaly, or carotid bruits. Carotids were easily palpable bilaterally. There was no adenopathy. Cardiac exam revealed the PMI to be normally situated and sized. The rhythm was regular and no extrasystoles were noted during several minutes of auscultation. The first and second heart sounds were normal and physiologic splitting of the second heart sound was noted. There were no murmurs, rubs, clicks, or gallops. Thoracotomy scars of dry clean and intact Lungs were clear to auscultation and percussion, and with normal diaphragmatic excursion. No wheezes or rales were noted. The patient has a left-sided chest tube. Breath sounds are slightly diminished on the left and there is scattered rhonchi and expiratory wheezes. Abdominal exam revealed normal bowel sounds. The abdomen was soft, non-tender, and without masses, organomegaly, or appreciable enlargement of the abdominal aorta. Abdomen is slightly distended. Nontender. Examination of the extremities revealed easily palpable radial, femoral and pedal pulses. There was no cyanosis, clubbing or edema. Surgical one-sided over the left radial and left lower extremity are dry clean Examination of the skin revealed no evidence of significant rashes, suspicious appearing nevi or other concerning lesions. Neurologically, the patient is alert and oriented 3. No focal neurological deficit at this point in time. - Labs CBC & Chem 7: 08/07/22 04:40 08/07/22 04:40 Labs: Abnormal Lab Results - Last 24 Hours (Table) 08/06/22 08/06/22 08/06/22 Range/Units 11:25 16:23 20:37 RBC (4.30-5.90) m/uL Hgb (13.0-17.5) gm/dL Hct (39.0-53.0) % MCV (80.0-100.0) fL Lymphocytes # (1.0-4.8) k/uL Chloride (98-107) mmol/L BUN (9-20) mg/dL Glucose (74-99) mg/dL POC Glucose (mg/dL) 120 H 162 H 150 H (70-110) mg/dL Calcium (8.4-10.2) mg/dL Total Protein (6.3-8.2) g/dL Albumin (3.5-5.0) g/dL 08/07/22 08/07/22 08/07/22 Range/Units 04:40 04:40 06:58 RBC 2.54 L (4.30-5.90) m/uL Hgb 8.3 L (13.0-17.5) gm/dL Hct 25.7 L (39.0-53.0) % MCV 101.1 H (80.0-100.0) fL Lymphocytes # 0.6 L (1.0-4.8) k/uL Chloride 108 H (98-107) mmol/L BUN 27 H (9-20) mg/dL Glucose 139 H (74-99) mg/dL POC Glucose (mg/dL) 131 H (70-110) mg/dL Calcium 8.1 L (8.4-10.2) mg/dL Total Protein 5.5 L (6.3-8.2) g/dL Albumin 3.3 L (3.5-5.0) g/dL Assessment and Plan Plan: Multivessel coronary artery disease, post thoracotomy and bypass surgery. The patient's surgery was done on 08/01/2022 and the patient is currently postop day #6. The patient underwent three-vessel bypass surgery including GUIDRY to LAD and radial 2 ramus and saphenous vein graft to RCA. Altered mentation, delirium, questionable alcoholism preoperatively along with possibility of postop delirium. CAT scan of the brain was done yesterday and was negative for any acute abnormalities. Neurologic exam remains nonfocal. Neurologically the patient is improved , back to normal and the patient is alert and oriented 3 and quite humorous Post thoracotomy, currently on room air oxygen Left-sided pneumothorax, , the chest tube will be removed today History of CAD with previous stent placement. History of hypertension. History of hyperlipidemia. History of myocardial infarction. History of rheumatoid arthritis. Patient has not been on long-term prednisone at 10 mg Gastroesophageal reflux disease. History of PTSD. Plan Stop the hydrocortisone up with the patient on 10 mg of prednisone as maintenance Remote the chest tube Repeated chest x-ray within few hours to reevaluate the left-sided pneumothorax Continue the use of incentive spirometer Patient is currently on room air oxygen. Mental status is improved. Continue aspirin and Plavix Continue metoprolol 12.5 mg by mouth twice a day as long as the patient is able to take his oral medications [place] for pain control insulin sliding scale insulin coverage and stop the insulin drip at this point in time Monitor mental status Monitor the hemoglobin and no transfusion now , hemoglobin is improved Sitter at the bedside Text To Speech Voice:We'll continue to follow, keep the patient ICU for now
[2022-08-07] MEDS: IPRATROPIUM-ALBUTEROL 3 ML NEB INHALATION SCH ×4 (09:39→21:39)
--- NOTE | 2022-08-07 09:42 | P.PN ---
Subjective Progress Note Date: 08/07/22 Principal diagnosis: Coronary artery disease, non-STEMI this admission, left internal carotid stenosis. History of coronary artery disease with previous PCI to the RCA 03/2022, hypertension, hyperlipidemia, pulmonary embolism, rheumatoid arthritis on chronic Rituxan and prednisone, obstructive sleep apnea without home CPAP use, chronic ongoing tobacco dependence, COPD, PTSD as [place] , peripheral neuropathy, COVID-19 infection in 2020, irritable bowel syndrome, GERD, family history of premature coronary artery disease (father diagnosed with myocardial infarction 44 years old) POD #6 triple vessel coronary artery bypass grafting using the in situ left internal mammary artery to left anterior descending artery, left radial artery from the aorta to the ramus intermedius coronary artery, reverse saphenous vein graft from the aorta to the RCA to the proximal posterior descending coronary artery, exclusion of the left atrial appendage using a 35 mm AtriCure clip, intraoperative graft flow measurements using the Facebook[employer] system, endoscopic harvesting of the left radial artery and the left greater saphenous vein, intraoperative transesophageal echocardiogram and epi-aortic ultrasound Postoperative acute blood loss anemia and thrombocytopenia, expected given hemodilution and cardiopulmonary bypass pump The patient was seen and examined in follow-up today 08/07/2022 at his bedside in the intensive care unit. Currently he is sitting up to the bedside and, is tolerating his breakfast, is awake, alert, oriented 3 and is in no acute distress. Denies any complaints of pain or shortness of breath at this time. Reports he did have a sore left shoulder yesterday last night, a shoulder x-ray was completed which showed no fracture or dislocation. He remains hemodynamically stable and is currently on no inotropic pressor support. Oxygen saturations are 95% on room air and he is achieving 1500 mL on his incentive spirometry with encouragement. Left pleural chest tube remains in place to low continuous wall suction -20 cm H2O. No air leak is present. Draining thin serosanguineous drainage with 25 mL output in the last 8 hours and 200 mL output in the last 24 hours. Bedside telemetry showing normal sinus rhythm heart rate 83 BPM. He reports he has been up ambulating in the intensive care unit hallway with standby assistance from nursing staff and tolerating well. Chest x-ray and laboratory results reviewed. Objective - Vital Signs Vital signs: Vital Signs Temp 98 F 08/07/22 05:00 Pulse 75 08/07/22 07:00 Resp 15 08/07/22 07:00 BP 123/89 08/07/22 07:00 Pulse Ox 93 L 08/07/22 07:00 FiO2 50 08/06/22 16:00 Intake & Output 08/06/22 08/07/22 08/07/22 18:59 06:59 18:59 Intake Total 703.375 740 Output Total 1270 565 Balance -566.625 175 Weight 91.2 kg Intake: IV 63 PRESSURE BAGS 3 Sodium Chloride 0.9% 1, 60 000 ml @ 20 mls/hr IV . Q24H [facility] Rx#:[id number] Intake, IV Titration 40.375 Amount Dexmedetomidine/0.9% NaCl 40.375 (Pmx) 400 mcg In Empty Bag 1 bag @ 0.2 MCG/KG/HR 4.75 mls/hr IV .Q21H4M [facility] Rx#:[id number] Oral 600 740 Output: Chest Tube Drainage 100 65 Left pleural chest tube 100 65 Urine 1170 500 Other: Voiding Method Indwelling Catheter Urinal # Voids 1 0 # Bowel Movements 1 ABP, PAP, CO, CI - Last Documented Arterial Blood Pressure 132/114 Pulmonary Artery Pressure 33/7 Cardiac Output 7.7 Cardiac Index 3.9 - Exam CONSTITUTIONAL: Cooperative, comfortable, no acute apparent distress. RESPIRATORY: Lungs sounds diminished to his bases bilaterally. Respirations are symmetrical, nonlabored. Currently on room air oxygen saturation 95%. Achieving 1500 mL on his incentive spirometry. Strong productive loose cough with thin cardenas colored sputum. CARDIOVASCULAR: S1, S2 present. Regular rate and rhythm, sinus rhythm on telemetry, heart rate 73 bpm. Sternum stable. Palpable peripheral pulses bilaterally. Trace upper extremity edema present. No calf pain or tenderness noted. Heart hugger, antiembolism stockings, SCDs present. GASTROINTESTINAL: Abdomen somewhat soft, nontender, slightly distended. Active bowel sounds present 4 quadrants. Bowel movement 2 yesterday 08/06/2022. Tolerating oral intake. GENITOURINARY: Continues to void. Urine output 300 mL in the last 8 hours. INTEGUMENTARY: Skin is warm and dry, no clubbing or cyanosis is present. Midline sternal chest incision well approximated and covered with dry, intact dressing. Left lower extremity EVH site well approximated without redness or drainage. Left radial artery harvest site well approximated. NEUROLOGIC: No focal deficits. MUSKULOSKELETAL: Able to move all extremities, strength equal bilaterally. Gait normal. PSYCHIATRIC: Alert and oriented to person place and time, appropriate affect, intact judgment and insight. INVASIVE LINES AND TUBES: Left pleural chest tube present and connected to wall suction, no air leak present, 200 mL of thin serosanguineous drainage in the last 24 hours. Atrial epicardial pacemaker wires present, grounded. - Allied health notes Allied health notes reviewed: nursing - Labs CBC & Chem 7: 08/07/22 04:40 08/07/22 04:40 Labs: Abnormal Lab Results - Last 24 Hours (Table) 08/06/22 08/06/22 08/06/22 Range/Units 11:25 16:23 20:37 RBC (4.30-5.90) m/uL Hgb (13.0-17.5) gm/dL Hct (39.0-53.0) % MCV (80.0-100.0) fL Lymphocytes # (1.0-4.8) k/uL Chloride (98-107) mmol/L BUN (9-20) mg/dL Glucose (74-99) mg/dL POC Glucose (mg/dL) 120 H 162 H 150 H (70-110) mg/dL Calcium (8.4-10.2) mg/dL Total Protein (6.3-8.2) g/dL Albumin (3.5-5.0) g/dL 08/07/22 08/07/22 08/07/22 Range/Units 04:40 04:40 06:58 RBC 2.54 L (4.30-5.90) m/uL Hgb 8.3 L (13.0-17.5) gm/dL Hct 25.7 L (39.0-53.0) % MCV 101.1 H (80.0-100.0) fL Lymphocytes # 0.6 L (1.0-4.8) k/uL Chloride 108 H (98-107) mmol/L BUN 27 H (9-20) mg/dL Glucose 139 H (74-99) mg/dL POC Glucose (mg/dL) 131 H (70-110) mg/dL Calcium 8.1 L (8.4-10.2) mg/dL Total Protein 5.5 L (6.3-8.2) g/dL Albumin 3.3 L (3.5-5.0) g/dL - Imaging and Cardiology Chest x-ray: report reviewed, image reviewed Assessment and Plan Assessment: Coronary artery disease, non-STEMI this admission, status post three-vessel CABG Left internal carotid stenosis greater than 70% per Doppler, 60% per CTA of the head and neck (although felt to be >70% per vascular and Dr. Johns) History of coronary artery disease with previous PCI to the RCA 03/2022 Hypertension Hyperlipidemia, treated, cholesterol 166, LDL 55.8, triglycerides 296 Pulmonary embolism Rheumatoid arthritis on chronic Rituxan and prednisone Obstructive sleep apnea without home CPAP use Chronic ongoing tobacco dependence COPD, FEV1 74% of predicted PTSD as [place] war Peripheral neuropathy COVID-19 infection in 2020 Irritable bowel syndrome GERD Family history of premature coronary artery disease (father diagnosed with myocardial infarction 44 years old) Postoperative acute blood loss anemia and thrombocytopenia, expected Confusion, likely secondary to metabolic encephalopathy, unknown etiology but may be multifactorial LILIANA, likely hypovolemia induced as well as initiation of toradol Left-sided apical pneumothorax Plan: Continue to maximize medical therapy with low-dose aspirin, Plavix, statin, and beta hiram. Will increase metoprolol tartrate as tolerated. Atorvastatin increased to 80 mg by mouth daily at bedtime per his home dose. Encourage incentive spirometry use 10 times every hour while awake. Bronchodilators per pulmonology. Increase activity, ambulate as tolerated, PT/OT/cardiac rehab following. Will monitor daily labs and chest x-rays. Electrolyte replacement per protocol. GI/DVT prophylaxis. Pain controlled current medication regimen. Increase acetaminophen to 1000 mg by mouth every 6 hours when necessary pain. Restarted patient on gabapentin 1200 mg by mouth daily at bedtime. Insulin management per internal medicine service. Patient is not diabetic, hemoglobin A1c 6%. Importance of risk modification including smoking cessation counseling and education reinforcement the patient. Monitor for EtOH withdrawal, CIWA protocol, continue folic acid and thiamine. Remove left pleural chest tube. Continue record strict accurate intake and output. Daily weights. Keep atrial epicardial pacemaker wires in place and grounded. Transfer to [facility] for cardiac stepdown unit when bed available. Diovan 80 mg by mouth daily started, the patient was on Diovan 80 mg by mouth twice a day at home. We will increase as tolerated. More recommendations to follow based on patient's clinical course. Time with Patient: Greater than 30
--- NOTE | 2022-08-07 10:17 | XR ---
EXAMINATION TYPE: XR chest 1V portable DATE OF EXAM: 08/07/2022 HISTORY: post chest tube removal COMPARISON: Same day study TECHNIQUE: Single view of the chest is submitted. FINDINGS: Left-sided chest tube has been removed. Left apical pneumothorax is smaller in size and measures 1 cm apical pleural distance and is estimated at less than 10%. Scattered pleural-parenchymal opacities p ersist throughout both lung garza. Post CABG changes noted. There is no evidence for focal infiltrate. The heart is stable. Hilar and mediastinal structures are within normal limits. Degenerative changes are seen of the dorsal spine. IMPRESSION: 1. Left-sided chest tube has been removed. Left apical pneumothorax is smaller in size and measures 1 cm apical pleural distance and is estimated at less than 10%. Scattered pleural-parenchymal opaciti es persist throughout both lung garza.
[2022-08-07 11:00] LABS: Glucose,Whole Blood 175 mg/dL (70-110)
[2022-08-07 16:34] LABS: Glucose,Whole Blood 179 mg/dL (70-110)
[2022-08-07] MEDS: ATORVASTATIN 80 MG TAB PO SCH ×2 (16:50→20:35)
[2022-08-07] MEDS: NITROGLYCERIN OINT 1 INCH/GM PACKET TOPICAL SCH (16:50)
[2022-08-07] MEDS: hydrALAZINE HCL 25 MG TAB PO SCH (16:50)
[2022-08-07] MEDS: MUPIROCIN 2% OINT 22 GM TUBE NASAL SCH (16:51)
[2022-08-07] MEDS: SIMETHICONE 80 MG CHEWABLE PO SCH (16:52)
[2022-08-07] MEDS: HEPARIN SODIUM,PORCINE/PF 5,000 UNIT/0.5 ML SYRINGE SQ SCH (16:52)
[2022-08-07] MEDS: MIDODRINE 5 MG TAB PO SCH (17:13)
[2022-08-07 20:12] LABS: Glucose,Whole Blood 140 mg/dL (70-110)
[2022-08-07] MEDS: GABAPENTIN 400 MG CAP PO SCH (20:36)
[2022-08-07] MEDS: SENNOSIDES-DOCUSATE SODIUM 1 EACH TAB PO SCH (20:37)
[2022-08-08] MEDS ORDERED: DEXTROSE 5% IN WATER 100 ML with AMIODARONE 150 MG IV ONE (03:53)
[2022-08-08] MEDS ORDERED: AMIODARONE 360 MG in DEXTROSE 5% IN WATER 200 ML IV ONE ×2 (03:54)
[2022-08-08] MEDS: ACETAMINOPHEN TAB 500 MG TAB PO PRN ×3 (04:42→23:57)
[2022-08-08 06:24] LABS: Glucose,Whole Blood 106 mg/dL (70-110)
[2022-08-08] MEDS: INSULIN ASPART (NovoLOG) 100 UNIT/ML VIAL SQ SCH ×4 (06:31→20:23)
[2022-08-08] MEDS: PANTOPRAZOLE 40 MG TABLET PO SCH (06:39)
[2022-08-08] MEDS: ASCORBIC ACID 500 MG TAB PO SCH ×2 (06:39→16:21)
[2022-08-08] MEDS: FERROUS SULFATE 325 MG TAB PO SCH ×2 (06:39→16:21)
--- NOTE | 2022-08-08 07:33 | XR ---
EXAMINATION TYPE: XR chest 1V portable DATE OF EXAM: 08/08/2022 COMPARISON: 08/07/2022 HISTORY: Postop CABG TECHNIQUE: Single frontal view of the chest is obtained. FINDINGS: There remains an approximate 5-10% left-sided pneumothorax with no mediastinal deviation. Left-sided atelectasis or infiltrate stable. Right lung clear. Cardiomegaly and postsurgical changes noted. Tiny left pleural effusion. IMPRESSION: 1. Stable 5-10% left-sided pneumothorax with left-sided consolidation and tiny effusion.
[2022-08-08] MEDS: IPRATROPIUM-ALBUTEROL 3 ML NEB INHALATION SCH ×4 (07:37→20:14)
[2022-08-08 07:51] LABS: HCT 27.8 % (39.0-53.0); HGB 8.7 gm/dL (13.0-17.5); Hypochromasia Slight; MCHC 31.2 g/dL (31.0-37.0); MCV 102.5 fL (80.0-100.0); Macrocytosis Slight; Mean Platelet Volume 8.9; Platelet Count 301 k/uL (150-450); RBC 2.71 m/uL (4.30-5.90); RDW 13.4 % (11.5-15.5); WBC 10.4 k/uL (3.8-10.6)
[2022-08-08 08:13] LABS: ALT 45 U/L (4-49); AST 39 U/L (17-59); African American GFR (CKD) >90 (>60 ml/min/1.73 sqM); Albumin 3.2 g/dL (3.5-5.0); Alkaline Phosphatase 72 U/L (38-126); Anion Gap 7 mmol/L; Blood Urea Nitrogen 23 mg/dL (9-20); Calcium 7.9 mg/dL (8.4-10.2); Carbon Dioxide 29 mmol/L (22-30); Chloride 105 mmol/L (98-107); Glucose 92 mg/dL (74-99); Non-African American GFR(CKD) >90 (>60 ml/min/1.73 sqM); Potassium 3.1 mmol/L (3.5-5.1); Sodium 141 mmol/L (137-145); Total Bilirubin 0.8 mg/dL (0.2-1.3); Total Protein 5.4 g/dL (6.3-8.2)
--- NOTE | 2022-08-08 08:37 | P.PN ---
Subjective Progress Note Date: 08/08/22 Principal diagnosis: Coronary artery disease, non-STEMI this admission, left internal carotid stenosis. History of coronary artery disease with previous PCI to the RCA 03/2022, hypertension, hyperlipidemia, pulmonary embolism, rheumatoid arthritis on chronic Rituxan and prednisone, obstructive sleep apnea without home CPAP use, chronic ongoing tobacco dependence, COPD, PTSD as [place] [employer] , peripheral neuropathy, COVID-19 infection in 2020, irritable bowel syndrome, GERD, family history of premature coronary artery disease (father diagnosed with myocardial infarction 44 years old) POD #7 triple vessel coronary artery bypass grafting using the in situ left internal mammary artery to left anterior descending artery, left radial artery from the aorta to the ramus intermedius coronary artery, reverse saphenous vein graft from the aorta to the RCA to the proximal posterior descending coronary artery, exclusion of the left atrial appendage using a 35 mm AtriCure clip, intraoperative graft flow measurements using the Homelocstim system, endoscopic harvesting of the left radial artery and the left greater saphenous vein, intraoperative transesophageal echocardiogram and epi-aortic ultrasound Postoperative acute blood loss anemia and thrombocytopenia, expected given hemodilution and cardiopulmonary bypass pump. Paroxysmal atrial fibrillation, a known common occurrence after cardiac surgery not a complication. The patient was seen and examined in follow-up today 08/08/2022 at his bedside on the cardiac stepdown unit. Currently sitting up to the bedside chair, is awake, alert, oriented 3 and is in no acute apparent distress. His is present at his bedside. The patient denies any complaints of shortness of breath or pain at this time, although states that he did have some pain to his left shoulder throughout the night. The patient is also complaining of having some weird dreams when he is sleeping. Oxygen saturations are 96% on room air and he is achieving 750-1000 mL on his incentive spirometry. Remote telemetry showing normal sinus rhythm heart rate 73 BPM. He remained hemodynamically stable and is currently on no inotropic or pressor support. He is been ambulating in the hallway with standby assistance of nursing staff. Left ple ural chest tube was removed without incident yesterday. Chest x-ray was reviewed which shows a tiny left apical pneumothorax, laboratory results reviewed. He has been afebrile the last 24 hours. Objective - Vital Signs Vital signs: Vital Signs Temp 98.6 F 08/08/22 03:10 Pulse 68 08/08/22 07:57 Resp 20 08/08/22 07:57 BP 104/62 08/08/22 04:45 Pulse Ox 96 08/08/22 07:38 FiO2 50 08/06/22 16:00 Intake & Output 08/07/22 08/08/22 08/08/22 18:59 06:59 18:59 Intake Total 365 237 Output Total 1 720 1 Balance 364 -483 -1 Weight 91.9 kg Intake: IV 5 Invasive Line 7 5 Oral 360 237 Output: Urine 0 720 Stool 1 1 Other: Voiding Method Urinal Urinal # Voids 0 2 ABP, PAP, CO, CI - Last Documented Arterial Blood Pressure 132/114 Pulmonary Artery Pressure 33/7 Cardiac Output 7.7 Cardiac Index 3.9 - Exam CONSTITUTIONAL: Cooperative, comfortable, no acute apparent distress. RESPIRATORY: Lungs sounds diminished to his bases bilaterally. Respirations are symmetrical, nonlabored. Currently on room air oxygen saturation 96%. Achieving 750-1000 mL on his incentive spirometry. Strong productive cough. CARDIOVASCULAR: S1, S2 present. Regular rate and rhythm, sinus rhythm on telemetry, heart rate 73 bpm. Sternum stable. Palpable peripheral pulses bilaterally. +1 edema present to his bilateral lower extremities. No calf pain or tenderness noted. Heart hugger, antiembolism stockings, SCDs present. GASTROINTESTINAL: Abdomen somewhat soft, nontender, slightly distended. Active bowel sounds present 4 quadrants. Bowel movement this a.m. Tolerating oral intake. GENITOURINARY: Continues to void. Urine output 720 mL in the last 8 hours. INTEGUMENTARY: Skin is warm and dry, no clubbing or cyanosis is present. Midline sternal chest incision well approximated and covered with dry, intact dressing. Left lower extremity EVH site well approximated without redness or drainage. Left radial artery harvest site well approximated. NEUROLOGIC: No focal deficits. MUSKULOSKELETAL: Able to move all extremities, strength equal bilaterally. Ga it normal. PSYCHIATRIC: Alert and oriented to person place and time, appropriate affect, intact judgment and insight. INVASIVE LINES AND TUBES: Atrial epicardial pacemaker wires present, grounded. - Allied health notes Allied health notes reviewed: nursing - Labs CBC & Chem 7: 08/08/22 07:21 08/08/22 07:21 Labs: Abnormal Lab Results - Last 24 Hours (Table) 08/07/22 08/07/2223 Range/Units 10:58 16:31 20:11 RBC (4.30-5.90) m/uL Hgb (13.0-17.5) gm/dL Hct (39.0-53.0) % MCV (80.0-100.0) fL Potassium (3.5-5.1) mmol/L BUN (9-20) mg/dL POC Glucose (mg/dL) 175 H 179 H 140 H (70-110) mg/dL Calcium (8.4-10.2) mg/dL Total Protein (6.3-8.2) g/dL Albumin (3.5-5.0) g/dL 08/08/22 08/08/22 Range/Units 07:21 07:21 RBC 2.71 L (4.30-5.90) m/uL Hgb 8.7 L (13.0-17.5) gm/dL Hct 27.8 L (39.0-53.0) % MCV 102.5 H (80.0-100.0) fL Potassium 3.1 L (3.5-5.1) mmol/L BUN 23 H (9-20) mg/dL POC Glucose (mg/dL) (70-110) mg/dL Calcium 7.9 L (8.4-10.2) mg/dL Total Protein 5.4 L (6.3-8.2) g/dL Albumin 3.2 L (3.5-5.0) g/dL - Imaging and Cardiology Chest x-ray: report reviewed, image reviewed Assessment and Plan Assessment: Coronary artery disease, non-STEMI this admission, status post three-vessel CABG Left internal carotid stenosis greater than 70% per Doppler, 60% per CTA of the head and neck (although felt to be >70% per vascular and Dr. Johns) History of coronary artery disease with previous PCI to the RCA 03/2022 Hypertension Hyperlipidemia, treated, cholesterol 166, LDL 55.8, triglycerides 296 Pulmonary embolism Rheumatoid arthritis on chronic Rituxan and prednisone Obstructive sleep apnea without home CPAP use Chronic ongoing tobacco dependence COPD, FEV1 74% of predicted PTSD as [place] war Peripheral neuropathy COVID-19 infection in 2020 Irritable bowel syndrome GERD Family history of premature coronary artery disease (father diagnosed with myocardial infarction 44 years old) Postoperative acute blood loss anemia and thrombocytopenia, expected Confusion, likely secondary to metabolic encephalopathy, unknown etiology but may be multifactorial LILIANA, likely hypovolemia induced as well as initiation of toradol Left-sided apical pneumothorax Paroxysmal atrial fibrillation, a known common occurrence after cardiac surgery not a complication Plan: Continue to maximize medical therapy with low-dose aspirin, Plavix, statin, and beta hiram. Will increase metoprolol tartrate as tolerated. Encourage incentive spirometry use 10 times every hour while awake. Bronchodilators per pulmonology. Increase activity, ambulate as tolerated, PT/OT/cardiac rehab following. Will monitor daily labs and chest x-rays. Electrolyte replacement per protocol. GI/DVT prophylaxis. Pain controlled current medication regimen. Continue gabapentin 1200 mg by mouth daily at bedtime. Importance of risk modification including smoking cessation counseling and education reinforcement the patient. Monitor for EtOH withdrawal, CIWA protocol, continue folic acid and thiamine. Lasix 20 mg IV 1 now, followed by potassium chloride 20 mEq by mouth 1. Continue record strict accurate intake and output. Daily weights. Keep atrial epicardial pacemaker wires in place and grounded. Continue Diovan 80 mg by mouth daily with hold parameters. We will increase as tolerated. More recommendations to follow based on patient's clinical course. Time with Patient: Greater than 30
[2022-08-08] MEDS: FOLIC ACID 1 MG TAB PO SCH (08:45)
[2022-08-08] MEDS: THIAMINE 100 MG TAB PO SCH (08:45)
[2022-08-08] MEDS: MULTIVITAMINS, THERA 1 EACH TAB PO SCH (08:45)
[2022-08-08] MEDS: METOPROLOL TARTRATE 25 MG TAB PO SCH ×2 (08:45→20:27)
[2022-08-08] MEDS: VITAMIN A 10,000 UNIT (3000 MCG) CAPSULE PO SCH (08:45)
[2022-08-08] MEDS: POTASSIUM CHLORIDE ER 20 MEQ TAB.ER PO SCH ×2 (08:45→08:53)
[2022-08-08] MEDS: FONDAPARINUX 2.5 MG/0.5 ML SYRINGE SQ SCH (08:45)
[2022-08-08] MEDS: CLOPIDOGREL 75 MG TAB PO SCH (08:46)
[2022-08-08] MEDS: VALSARTAN 80 MG TAB PO SCH (08:46)
[2022-08-08] MEDS: predniSONE 10 MG TAB PO SCH (08:46)
[2022-08-08] MEDS: ASPIRIN 81 MG PO SCH (08:46)
[2022-08-08] MEDS ORDERED: FUROSEMIDE 10 MG/ML 2 ML VIAL IV ONE (10:00)
[2022-08-08] MEDS ORDERED: AMIODARONE 450 MG in DEXTROSE 5% IN WATER 250 ML IV SCH ×2 (10:00)
[2022-08-08] MEDS ORDERED: POTASSIUM CHLORIDE ER 20 MEQ TAB.ER PO ONE (10:00)
--- NOTE | 2022-08-08 10:03 | P.PN ---
Subjective PROGRESS NOTE The patient is a 62-year-old male with a known history of CAD, underwent CABG today. He is in the ICU intubated and sedated. He is in sinus mechanism with paced atrium. He received a GUIDRY to the LAD and radial to the ramus saphenous vein grafts to the RCA into the PDA with closure of the left atrial appendage. The patient is extubated, sitting up in the chair. He is complaining of soreness in the chest. He is in sinus mechanism. Hemodynamically he stable on no vasopressors. He denies any dizziness or palpitations. He has no nausea or vomiting. August 03: The patient is sitting up in the chair, awake and alert, in sinus mechanism. His blood pressure is stable. His urinary output has decreased. He denies any chest discomfort. He denies any dizziness or palpitations. His chest x-ray raised a question of left lower lobe infiltrate. He has no evidence of air leak. His blood pressure was on the low side earlier and he has been started on midodrine. His renal functions have worsened. August 04: The patient is sitting up in the chair awake but confused. He was agitated during tonight. He is a nonfocal. He is afebrile. He continues to be in sinus mechanism. His urine output is stable. He has no evidence of ventricle tachycardia or atrial fibrillation. He is following simple commands. No evidence of fairly. August 05: The patient has been confused all night, he is sleeping at this time. He has been in sinus mechanism, hemodynamically stable with no arrhythmia. He had a CAT scan of the head yesterday that showed no evidence of bleed. August 06: The patient is more awake and alert today, sitting up in the chair. Continues to be in sinus mechanism. Complaining of his Hong catheter. He denies any dyspnea, chest discomfort, nausea or vomiting. Hemodynamically he is stable. His urinary output is stable. There is no malignant arrhythmia. He continues to have left-sided chest tube August 07: The patient is awake alert and oriented today, his confusion has resolved. He continues to be in sinus mechanism, hemodynamically stable. There is no evidence of malignant arrhythmia. He continues to have left sided chest tube. He denies any nausea or vomiting. He had walked earlier and felt well. He is anxious to go home. His chest x-ray shows left apical pneumothorax 08/08 Patient seen and examined. Patient anxious to go home. He denies any chest pain or pressure. He still is pacing wires in place. Denies any lightheadedness or dizziness. Blood pressures labile 110s to 140s. He had episode of A. fib with heart rates in the 140s overnight for 1.5 hrs. PHYSICAL EXAMINATION: Vitals reviewed Gen: awake and alert LUNGS: Clear to auscultation with mild decrease in the breath sounds at the bases HEART: Regular rate and rhythm, S1, S2. No S3. No systolic murmur, no rub noted ABDOMEN: Soft, nontender, no organomegaly EXTREMETIES: No edema, IMPRESSION: 1. Status post CABG, stable extubated 2. History of hypertension 3. History of hyperlipidemia 4. History of carotid obstructive disease 5. Acute renal injury, resolved 6. Change in mental status with confusion, appears to be metabolic encephalopathy, resolved PLAN: Patient did have one episode of A. fib with RVR with heart rates in the 140s. Transition to oral amiodarone. He is on fondaparinux for concern of heparin- induced thrombocytopenia, labs pending. Continue with current supportive care. Likely discharge home tomorrow if remains stable. Likely pull atrial lead today. Replace K Objective - Vital Signs Vital signs: Vital Signs Temp 98.4 F 08/08/22 08:00 Pulse 79 08/08/22 08:00 Resp 18 08/08/22 08:00 BP 144/75 08/08/22 08:00 Pulse Ox 96 08/08/22 08:00 FiO2 50 08/06/22 16:00 Intake & Output 08/07/22 08/08/22 08/08/22 18:59 06:59 18:59 Intake Total 365 237 118 Output Total 1 720 1 Balance 364 -483 117 Weight 91.9 kg Intake: IV 5 Invasive Line 7 5 Oral 360 237 118 Output: Urine 0 720 Stool 1 1 Other: Voiding Method Urinal Urinal # Voids 0 2 ABP, PAP, CO, CI - Last Documented Arterial Blood Pressure 132/114 Pulmonary Artery Pressure 33/7 Cardiac Output 7.7 Cardiac Index 3.9 - Labs CBC & Chem 7: 08/08/22 07:21 08/08/22 07:21 Labs: Abnormal Lab Results - Last 24 Hours (Table) 08/07/22 08/07/22 08/07/22 Range/Units 10:58 16:31 20:11 RBC (4.30-5.90) m/uL Hgb (13.0-17.5) gm/dL Hct (39.0-53.0) % MCV (80.0-100.0) fL Potassium (3.5-5.1) mmol/L BUN (9-20) mg/dL POC Glucose (mg/dL) 175 H 179 H 140 H (70-110) mg/dL Calcium (8.4-10.2) mg/dL Total Protein (6.3-8.2) g/dL Albumin (3.5-5.0) g/dL 08/08/22 08/08/22 Range/Units 07:21 07:21 RBC 2.71 L (4.30-5.90) m/uL Hgb 8.7 L (13.0-17.5) gm/dL Hct 27.8 L (39.0-53.0) % MCV 102.5 H (80.0-100.0) fL Potassium 3.1 L (3.5-5.1) mmol/L BUN 23 H (9-20) mg/dL POC Glucose (mg/dL) (70-110) mg/dL Calcium 7.9 L (8.4-10.2) mg/dL Total Protein 5.4 L (6.3-8.2) g/dL Albumin 3.2 L (3.5-5.0) g/dL
[2022-08-08] MEDS: AMIODARONE 200 MG TAB PO SCH ×2 (10:41→20:26)
[2022-08-08 11:40] LABS: Glucose,Whole Blood 118 mg/dL (70-110)
--- NOTE | 2022-08-08 11:49 | P.PN ---
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 Reports PCP was attempting to acquire insurance authorization for carotid Doppler. Denies diaphoresis ,fever or chills. Denies nausea, vomiting, diarrhea or abdominal pain. Reports since March he has taken over 100 nitroglycerin sublinguals in addition to being on his long-acting Imdur. Reports he has decreased his nicotine intake from 2 packs a day to 1 pack a day, usually drinks 2-3 beers sometimes 5 daily. Reports strong family history of CAD, father with CABG, aneurysms and carotid stenosis. Chest x-ray reported no acute pulmonary process. EKG reported sinus rhythm, troponin 0.054, 0.061, 0.044. Afebrile, normal WBC. Hemoglobin 13.6, platelets 188, MCV 93.9, INR 1.1, sodium 138, potassium 3.9, bicarb 24, BUN 17, creatinine 0.91, magnesium 2.1. Evaluated by cardiology, patient is scheduled for Lexiscan stress test, carotid Doppler. 08/26/2022 yesterday completed Lexiscan stress test-reported abnormal. Scheduled for cardiac catheterization today. Carotid ultrasound reported bilateral plaque 70% severe stenosis of the proximal left ICA. Maintained on heparin drip. Denies any further chest pain while at rest. 07/28/2022 completed cardiac catheterization this morning, reporting severe stenosis involving the ostium of the LAD in the proximal left circumflex, significant disease in the ramus intermedius, mild disease in the RCA with pat ent stent and collaterals from the right coronary artery through the septals certified physician's assistant. Cardiothoracic surgery consulted regarding further evaluation for CABG. maintained on heparin drip.Evaluated by vascular surgery regarding left high-grade ICA stenosis greater than 70% per carotid duplex. Renal function stable postcardiac catheterization and CTA of head and neck ordered as per vascular surgery. Denies chest pain, palpitations or shortness of breath. 07/29/2022 workup in progress for CABG on Monday as per CTS. Echo reporting normal LV systolic function, EF 55-60% . Telemetry sinus rhythm. denies chest pain, palpitations or shortness of breath. Denies lightheadedness, dizziness or focal deficits. Head/Neck CTA pending. KUB reporting no acute radiographic process, mildly prominent colonic stool volume noted. 08/02/2022 status post CABG, postop day #1. Extubated last night. Maintaining O2 sats in the low to mid 90s on 5 L nasal cannula. Chest x-ray reporting few linear lucencies within the left axillary region compatible with soft tissue gas, improved, slight interval worsening of left basilar atelectasis . Incentive spirometer up to 500 .Cardiac output 7.7, cardiac index 3.9. Telemetry sinus rhythm. Pain currently controlled. Blood sugars stable on insulin drip. 08/03/2022 Worsening renal function. Receiving a fluid bolus. Telemetry sinus rhythm.developed delirium early this a.m. mild confusion, suspicious at times of staff. Moves all extremities, speech clear, no facial droop no numbness or weakness. Continue O2 sats in the 90s on 5 L nasal cannula. Chest x-ray pending. Reports chest tube discomfort. 08/04/2022 narcotics discontinued yesterday. sleepy, delirious. Staff reports patient becomes agitated upon awakening. Last Ativan received in the early am, around 0400. CIWA protocol in place. inspecting supervisor at bedside. Telemetry sinus rhythm. Chest x-ray reporting low lung volumes, patchy airspace opacity's within the left mid to lower lung may represent infiltrate versus atelectasis. Pleural chest tube 1 remaining. Maintaining O2 sats in the high 90s on 4 L nasal cannula. Renal function improving. Blood sugars controlled. 08/05/2022 Confusion, delirium, paranoia and agitation increased during the night, Precedex drip initiated,CIWA protocol discontinued. Telemetry sinus rhythm. Ventimask weaned off, currently maintaining O2 sats in the 90s on 4 L nasal cannula. Hemoglobin 6.8, platelets 86, no transfusion at this time as per cardiothoracic surgery. Earlier x-ray today reported a new small left apical pneumothorax , manipulated , positive air leak .Repeat chest x-ray reported stable left pneumothorax. 08/08/2022 currently on cardiac stepdown unit. Significant clinical improvement, alert and oriented 3, telemetry sinus rhythm. During the slot machine department floorperson hours, telemetry reporting paroximal afib up into the 160s. Transitioning to oral amiodarone. Potassium 3.1, receiving supplementation. Magnesium level pending. Vital signs stable, maintaining O2 sats in the 90s on room air. Chest x-ray reporting stable 5-10% left sided pneumothorax with left- sided consolidation and tiny effusion. Ambulating, tolerating exertion well. Blood sugars controlled. Maintained on Arixtra, platelets within normal limits, 229 reported 423. Objective - Vital Signs Vital signs: Vital Signs Temp 98.4 F 08/08/22 08:00 Pulse 71 08/08/22 10:44 Resp 18 08/08/22 10:44 BP 115/68 08/08/22 10:44 Pulse Ox 97 08/08/22 10:44 FiO2 50 08/06/22 16:00 Intake & Output 08/07/22 08/08/22 08/08/22 18:59 06:59 18:59 Intake Total 365 237 118 Output Total 1 720 1 Balance 364 -483 117 Weight 91.9 kg Intake: IV 5 Invasive Line 7 5 Oral 360 237 118 Output: Urine 0 720 Stool 1 1 Other: Voiding Method Urinal Urinal # Voids 0 2 ABP, PAP, CO, CI - Last Documented Arterial Blood Pressure 132/114 Pulmonary Artery Pressure 33/7 Cardiac Output 7.7 Cardiac Index 3.9 - Exam - Exam General: Alert and oriented 3 ,Sitting up in bed, no acute distress HEENT: [Atraumatic ,PERRL. EOMI. ] Neck: Supple, no JVD Cardiac: [Heart regular in rate and rhythm. No S3. No S4. No clicks, rubs. No murmur.] Lungs: Unlabored,clear to auscultation bilaterally, bilateral bases diminished. Abdomen: [Soft, nontender, nondistended .No mass. No organomegaly.+BS. No guarding, no rigidity. Extremes: [No edema no cyanosis, normal pulses Skin: [Warm and dry, No rash.] Neurologic: Cranial nerves II through XII grossly intact, no focal deficits - Labs CBC & Chem 7: 08/08/22 07:21 08/08/22 07:21 Labs: Abnormal Lab Results - Last 24 Hours (Table) 08/07/22 08/07/22 08/08/22 Range/Units 16:31 20:11 07:21 RBC 2.71 L (4.30-5.90) m/uL Hgb 8.7 L (13.0-17.5) gm/dL Hct 27.8 L (39.0-53.0) % MCV 102.5 H (80.0-100.0) fL Potassium (3.5-5.1) mmol/L BUN (9-20) mg/dL POC Glucose (mg/dL) 179 H 140 H (70-110) mg/dL Calcium (8.4-10.2) mg/dL Total Protein (6.3-8.2) g/dL Albumin (3.5-5.0) g/dL 08/08/22 Range/Units 07:21 RBC (4.30-5.90) m/uL Hgb (13.0-17.5) gm/dL Hct (39.0-53.0) % MCV (80.0-100.0) fL Potassium 3.1 L (3.5-5.1) mmol/L BUN 23 H (9-20) mg/dL POC Glucose (mg/dL) (70-110) mg/dL Calcium 7.9 L (8.4-10.2) mg/dL Total Protein 5.4 L (6.3-8.2) g/dL Albumin 3.2 L (3.5-5.0) g/dL Assessment and Plan Assessment: Chest pain, midsternal With bilateral carotid burning pressure ,elevated troponins, abnormal Lexiscan stress test, cardiac catheterization reporting severe stenosis involving the ostium of the LAD and proximal left circumflex with significant disease in the ramus intermedius. Status post CABG 08/01/2022 secondary to multi-vessel CAD Left-sided pneumothorax, NSTEMI this admission Acute toxic,metabolic encephalopathy, multifactorial secondary to all the above, resolved Paroxysmal atrial fibrillation, postop, expected outcome Acute renal failure, resolved CAD, history of recent NSTEMI,s/p PCI RCA 04/03/22 Proximal left ICA 70% severe stenosis Hypertension Hyperlipidemia Gastroesophageal reflux disease Obesity, BMI 32.3 Ongoing nicotine dependence, decreased from 2 packs to 1 pack per day, smoking cessation reinforced COPD Daily alcohol dependence, monitor for Etoh withdrawal. History of PE History of rheumatoid arthritis Plan: Continue on current medication regime ,monitoring and symptomatic treatment. Potassium supplementation underway, magnesium level pending. Increase ambulation as tolerated. Aggressive pulmonary toileting. Prognosis guarded given multiple complex medical issues. The impression and plan of care has been dictated as directed. : I performed a history and examination of this patient, discussed the same with the dictator. I agree with the dictator's note ,documented as a scribe. Any additional findings or plans will be noted.
--- NOTE | 2022-08-08 13:11 | P.PN ---
Subjective Progress Note Date: 08/08/22 The patient is seen today 08/08/2022 in follow-up on the selective care unit. Postoperative day #7 He is up ambulating in his room. Awake and alert in no acute distress. Oriented 3. Chest x-ray reveals a stable 5-10% left-sided pneumothorax with left sided consolidation and tiny effusion. Right lung remains clear. Left-sided chest tube was removed yesterday. White count 10.4. Hemoglobin 8.7. Sodium 141. Potassium 3.1. Bicarb 29. BUN 23. Creatinine 0.87. He is maintaining good O2 saturations in the 90s on room air. He's afebrile. Hemodynamically stable. He continues to work well with the incentive spirometer pulling nearly 1000 ML's. Objective - Vital Signs Vital signs: Vital Signs Temp 98.4 F 08/08/22 08:00 Pulse 80 08/08/22 12:17 Resp 18 08/08/22 12:07 BP 115/68 08/08/22 10:44 Pulse Ox 97 08/08/22 10:44 FiO2 50 08/06/22 16:00 Intake & Output 08/07/22 08/08/22 08/08/22 18:59 06:59 18:59 Intake Total 365 237 118 Output Total 1 720 2 Balance 364 -483 116 Weight 91.9 kg Intake: IV 5 Invasive Line 7 5 Oral 360 237 118 Output: Urine 0 720 Stool 1 2 Other: Voiding Method Urinal Urinal # Voids 0 2 ABP, PAP, CO, CI - Last Documented Arterial Blood Pressure 132/114 Pulmonary Artery Pressure 33/7 Cardiac Output 7.7 Cardiac Index 3.9 - Exam GENERAL EXAM: Alert, active, pleasant 62-year-old male patient, on room air, comfortable in no apparent distress. HEAD: Normocephalic. EYES: Normal reaction of pupils, equal size. NOSE: Clear with pink turbinates. THROAT: No erythema or exudates. NECK: No masses, no JVD. CHEST: Sternal dressing dry and intact. Heart other place. Chest tubes removed. Pacer wires grounded. LUNGS: Equal air entry with faint crackles in left base. CVS: S1 and S2 normal with no audible murmur, regular rhythm. ABDOMEN: No hepatosplenomegaly, normal bowel sounds, no guarding or rigidity. SPINE: No scoliosis or deformity SKIN: No rashes CENTRAL NERVOUS SYSTEM: No focal deficits, tone is normal in all 4 extremities. EXTREMITIES: There is trace peripheral edema. No clubbing, no cyanosis. Peripheral pulses are intact. - Labs CBC & Chem 7: 08/08/22 07:21 08/08/22 07:21 Labs: Abnormal Lab Results - Last 24 Hours (Table) 08/07/22 08/07/22 08/08/22 Range/Units 16:31 20:11 07:21 RBC 2.71 L (4.30-5.90) m/uL Hgb 8.7 L (13.0-17.5) gm/dL Hct 27.8 L (39.0-53.0) % MCV 102.5 H (80.0-100.0) fL Potassium (3.5-5.1) mmol/L BUN (9-20) mg/dL POC Glucose (mg/dL) 179 H 140 H (70-110) mg/dL Calcium (8.4-10.2) mg/dL Total Protein (6.3-8.2) g/dL Albumin (3.5-5.0) g/dL 08/08/22 08/08/22 Range/Units 07:21 11:37 RBC (4.30-5.90) m/uL Hgb (13.0-17.5) gm/dL Hct (39.0-53.0) % MCV (80.0-100.0) fL Potassium 3.1 L (3.5-5.1) mmol/L BUN 23 H (9-20) mg/dL POC Glucose (mg/dL) 118 H (70-110) mg/dL Calcium 7.9 L (8.4-10.2) mg/dL Total Protein 5.4 L (6.3-8.2) g/dL Albumin 3.2 L (3.5-5.0) g/dL Assessment and Plan Assessment: Multivessel coronary artery disease, post thoracotomy and bypass surgery. The patient's surgery was done on 08/01/2022 and the patient is currently postop day #7. The patient underwent three-vessel bypass surgery including GUIDRY to LAD and radial 2 ramus and saphenous vein graft to RCA. Altered mentation, delirium, questionable alcoholism preoperatively along with possibility of postop delirium. CAT scan of the brain was done and was negative for any acute abnormalities. Neurologic exam remains nonfocal. Neurologically the patient is improved, back to normal and the patient is alert and oriented 3 and quite humorous Post thoracotomy, currently on room air oxygen Left-sided pneumothorax, stable at 5-10%, the chest tube was removed History of CAD with previous stent placement. History of hypertension. History of hyperlipidemia. History of myocardial infarction. History of rheumatoid arthritis. Patient has not been on long-term prednisone at 10 mg Gastroesophageal reflux disease. History of PTSD. Plan: The patient was seen and evaluated Chest x-ray, medications and labs reviewed Remains alert and oriented 3 Remains stable and on room air Continues to work with the incentive spirometer Plan is for possible discharge tomorrow We'll continue to follow I have personally seen and examined the patient, performed the documentation and the assessment and plan as written. Number of minutes spent on the visit: 10.
[2022-08-08 13:58] VITALS: BMI 31.7
[2022-08-08 16:20] LABS: Glucose,Whole Blood 129 mg/dL (70-110)
[2022-08-08] MEDS: GABAPENTIN 400 MG CAP PO SCH (18:37)
[2022-08-08 19:41] LABS: Glucose,Whole Blood 120 mg/dL (70-110)
[2022-08-08] MEDS: ATORVASTATIN 80 MG TAB PO SCH (20:27)
[2022-08-09] MEDS: ACETAMINOPHEN TAB 500 MG TAB PO PRN ×2 (05:22→09:46)
[2022-08-09 05:56] LABS: Glucose,Whole Blood 108 mg/dL (70-110)
[2022-08-09] MEDS: INSULIN ASPART (NovoLOG) 100 UNIT/ML VIAL SQ SCH ×2 (06:07→12:40)
[2022-08-09] MEDS: FERROUS SULFATE 325 MG TAB PO SCH (06:15)
[2022-08-09] MEDS: ASCORBIC ACID 500 MG TAB PO SCH (06:15)
[2022-08-09] MEDS ORDERED: PANTOPRAZOLE 40 MG TABLET PO SCH (07:30)
[2022-08-09 08:12] LABS: HCT 27.1 % (39.0-53.0); HGB 8.4 gm/dL (13.0-17.5); Hypochromasia Moderate; MCH 30.7 pg (25.0-35.0); Mean Platelet Volume 9.4; Platelet Count 331 k/uL (150-450); Poikilocytosis Slight; RBC 2.74 m/uL (4.30-5.90); RDW 13.8 % (11.5-15.5); WBC 14.9 k/uL (3.8-10.6)
[2022-08-09 08:25] LABS: ALT 38 U/L (4-49); AST 28 U/L (17-59); African American GFR (CKD) >90 (>60 ml/min/1.73 sqM); Albumin 3.5 g/dL (3.5-5.0); Alkaline Phosphatase 84 U/L (38-126); Anion Gap 8 mmol/L; Blood Urea Nitrogen 19 mg/dL (9-20); Calcium 8.6 mg/dL (8.4-10.2); Carbon Dioxide 28 mmol/L (22-30); Chloride 103 mmol/L (98-107); Glucose 99 mg/dL (74-99); Magnesium 1.9 mg/dL (1.6-2.3); Non-African American GFR(CKD) >90 (>60 ml/min/1.73 sqM); Potassium 4.1 mmol/L (3.5-5.1); Sodium 139 mmol/L (137-145); Total Bilirubin 0.7 mg/dL (0.2-1.3); Total Protein 5.7 g/dL (6.3-8.2)
--- NOTE | 2022-08-09 08:30 | XR ---
EXAMINATION TYPE: XR chest 2V DATE OF EXAM: 08/09/2022 COMPARISON: 08/08/2022 TECHNIQUE: PA and lateral views submitted. HISTORY: Postoperative CABG FINDINGS: There remains an approximate 5-10% left-sided pneumothorax with no mediastinal deviation. Left-sided atelectasis or infiltrate stable. Right lung clear. Cardiomegaly and postsurgical changes noted. Tiny left pleural effusion. Suspect underlying COPD. IMPRESSION: 1. Stable 5-10% left-sided pneumothorax with left-sided consolidation and tiny effusion.
[2022-08-09] MEDS: MULTIVITAMINS, THERA 1 EACH TAB PO SCH (08:33)
[2022-08-09] MEDS: ASPIRIN 81 MG PO SCH (08:33)
[2022-08-09] MEDS: THIAMINE 100 MG TAB PO SCH (08:33)
[2022-08-09] MEDS: VALSARTAN 80 MG TAB PO SCH (08:33)
[2022-08-09] MEDS: CLOPIDOGREL 75 MG TAB PO SCH (08:33)
[2022-08-09] MEDS: FONDAPARINUX 2.5 MG/0.5 ML SYRINGE SQ SCH (08:33)
[2022-08-09] MEDS: FOLIC ACID 1 MG TAB PO SCH (08:33)
[2022-08-09] MEDS: VITAMIN A 10,000 UNIT (3000 MCG) CAPSULE PO SCH (08:33)
[2022-08-09] MEDS: AMIODARONE 200 MG TAB PO SCH (08:33)
[2022-08-09] MEDS: predniSONE 10 MG TAB PO SCH (08:33)
[2022-08-09] MEDS: METOPROLOL TARTRATE 25 MG TAB PO SCH (08:33)
[2022-08-09] MEDS ORDERED: POTASSIUM CHLORIDE ER 20 MEQ TAB.ER PO STA (09:29)
[2022-08-09] MEDS ORDERED: FUROSEMIDE 10 MG/ML 4 ML VIAL IV STA (09:29)
[2022-08-09] MEDS: IPRATROPIUM-ALBUTEROL 3 ML NEB INHALATION SCH ×2 (09:30→12:27)
--- NOTE | 2022-08-09 09:37 | P.PN ---
Subjective Progress Note Date: 08/09/22 Principal diagnosis: Coronary artery disease, non-STEMI this admission, left internal carotid stenosis. History of coronary artery disease with previous PCI to the RCA 03/2022, hypertension, hyperlipidemia, pulmonary embolism, rheumatoid arthritis on chronic Rituxan and prednisone, obstructive sleep apnea without home CPAP use, chronic ongoing tobacco dependence, COPD, PTSD as [place] war , peripheral neuropathy, COVID-19 infection in 2020, irritable bowel syndrome, GERD, family history of premature coronary artery disease (father diagnosed with myocardial infarction 44 years old) POD #8 triple vessel coronary artery bypass grafting using the in situ left internal mammary artery to left anterior descending artery, left radial artery from the aorta to the ramus intermedius artery, reverse saphenous vein graft from the aorta to the RCA and to the proximal posterior descending artery, exclusion of the left atrial appendage using a 35 mm AtriCure clip, intraoperat jailyn graft flow measurements using the Medistim system, endoscopic harvesting of the left radial artery and the left greater saphenous vein, intraoperative transesophageal echocardiogram and epi-aortic ultrasound Postoperative acute blood loss anemia and thrombocytopenia, expected given hemodilution and cardiopulmonary bypass pump Paroxysmal atrial fibrillation, known common occurrence after open heart surgery, not a complication The patient was seen and examined sitting up in a recliner on the cardiac stepdown unit. Currently in sinus rhythm, hemodynamically stable. No complaints of pain this morning except his right shoulder which he feels he pulled a muscle reaching for his tray last night, denies shortness of breath. Has ambulated in the hallway this morning already, received shower yesterday. Anticipates discharge to home with home care this afternoon. Labs, CXR reviewed. No new concerns Objective - Vital Signs Vital signs: Vital Signs Temp 98.4 F 08/09/22 08:25 Pulse 78 08/09/22 08:25 Resp 17 08/09/22 08:25 BP 131/72 08/09/22 08:25 Pulse Ox 98 08/09/22 08:25 FiO2 50 08/06/22 16:00 Intake & Output 08/08/22 08/09/22 08/09/22 18:59 06:59 18:59 Intake Total 336 180 Output Total 2 400 Balance 334 -400 180 Weight 91.9 kg 91.9 kg Intake: Oral 336 180 Output: Urine 400 Stool 2 Other: # Voids 2 ABP, PAP, CO, CI - Last Documented Arterial Blood Pressure 132/114 Pulmonary Artery Pressure 33/7 Cardiac Output 7.7 Cardiac Index 3.9 - Exam CONSTITUTIONAL: Appears comfortable, cooperative, no acute distress RESPIRATORY: Lungs sounds diminished bilaterally. Respirations even, nonlabored. Currently on room air with oxygen saturation 95%. Able to achieve 750 mL on incentive spirometry. Strong nonproductive cough. CARDIOVASCULAR: S1, S2 present. Regular rate and rhythm, sinus rhythm on telemetry. Sternum stable. Palpable peripheral pulses bilaterally. Bilateral lower extremity edema present. No calf pain or tenderness noted. Heart hugger, antiembolism stockings, SCDs present. GASTROINTESTINAL: Abdomen somewhat soft, nontender, distended. Active bowel sounds present 4 quadrants. Tolerating minimal diet. Positive bowel movement 08/06 GENITOURINARY: Continues to void INTEGUMENTARY: Skin is warm and dry. Anterior chest incision well approximated. Left lower extremity EVH site well approximated without redness or drainage. Left radial artery harvest site well approximated NEUROLOGIC: Cranial nerves II through XII intact MUSKULOSKELETAL: Able to move all extremities, strength equal bilaterally PSYCHIATRIC: Oriented to person, place, time, and situation - Allied health notes Allied health notes reviewed: nursing - Labs CBC & Chem 7: 08/09/22 07:53 08/09/22 07:41 Labs: Abnormal Lab Results - Last 24 Hours (Table) 08/08/22 08/08/22 08/08/22 Range/Units 11:37 16:19 19:39 WBC (3.8-10.6) k/uL RBC (4.30-5.90) m/uL Hgb (13.0-17.5) gm/dL Hct (39.0-53.0) % POC Glucose (mg/dL) 118 H 129 H 120 H (70-110) mg/dL Total Protein (6.3-8.2) g/dL 08/09/22 08/09/22 Range/Units 07:41 07:53 WBC 14.9 H (3.8-10.6) k/uL RBC 2.74 L (4.30-5.90) m/uL Hgb 8.4 L (13.0-17.5) gm/dL Hct 27.1 L (39.0-53.0) % POC Glucose (mg/dL) (70-110) mg/dL Total Protein 5.7 L (6.3-8.2) g/dL - Imaging and Cardiology Chest x-ray: report reviewed, image reviewed Assessment and Plan Assessment: Coronary artery disease, non-STEMI this admission, status post three-vessel CABG Left internal carotid stenosis greater than 70% per Doppler, 60% per CTA of the head and neck (although felt to be >70% per vascular and Dr. Johns) History of coronary artery disease with previous PCI to the RCA 03/2022 Hypertension Hyperlipidemia, treated, cholesterol 166, LDL 55.8, triglycerides 296 Pulmonary embolism Rheumatoid arthritis on chronic Rituxan and prednisone Obstructive sleep apnea without home CPAP use Chronic ongoing tobacco dependence COPD, FEV1 74% of predicted PTSD as [place] war Peripheral neuropathy COVID-19 infection in 2020 Irritable bowel syndrome GERD Family history of premature coronary artery disease (father diagnosed with myocardial infarction 44 years old) Postoperative acute blood loss anemia and thrombocytopenia, expected Confusion, toxic metabolic encephalopathy, unknown etiology but may be multifactorial, resolved LILIANA, likely hypovolemia induced as well as initiation of toradol, resolved Paroxysmal atrial fibrillation, known common occurrence after cardiac surgery Plan: Continue to maximize medical therapy with low-dose aspirin, Plavix, statin, beta hiram, ARB for afterload reduction Continue amiodarone for afib prophylaxis, no need for anticoagulation Encourage incentive spirometry use 10 times every hour while awake. Bronchodilators per pulmonology Increase activity, ambulate as tolerated, PT/OT/cardiac rehab following Will monitor daily labs and x-rays. Electrolyte replacement per protocol GI/DVT prophylaxis. Pain control with current medication regimen Insulin management per internal medicine service. Patient is not diabetic, hemoglobin A1c 6% Smoking cessation counseling and education reinforcement Monitor for EtOH withdrawal, CIWA protocol Strict accurate intake and output Daily weights Anticipate discharge to home with home care this afternoon More recommendations to follow
[2022-08-09] MEDS: MAGNESIUM SULFATE-D5W PMX 1 GM in DEXTROSE/WATER 1 100ML.BAG IVPB SCH ×2 (09:46→10:38)
--- NOTE | 2022-08-09 11:23 | P.PN ---
Subjective PROGRESS NOTE The patient is a 62-year-old male with a known history of CAD, underwent CABG today. He is in the ICU intubated and sedated. He is in sinus mechanism with paced atrium. He received a GUIDRY to the LAD and radial to the ramus saphenous vein grafts to the RCA into the PDA with closure of the left atrial appendage. The patient is extubated, sitting up in the chair. He is complaining of soreness in the chest. He is in sinus mechanism. Hemodynamically he stable on no vasopressors. He denies any dizziness or palpitations. He has no nausea or vomiting. August 03: The patient is sitting up in the chair, awake and alert, in sinus mechanism. His blood pressure is stable. His urinary output has decreased. He denies any chest discomfort. He denies any dizziness or palpitations. His chest x-ray raised a question of left lower lobe infiltrate. He has no evidence of air leak. His blood pressure was on the low side earlier and he has been started on midodrine. His renal functions have worsened. August 04: The patient is sitting up in the chair awake but confused. He was agitated during tonight. He is a nonfocal. He is afebrile. He continues to be in sinus mechanism. His urine output is stable. He has no evidence of ventricle tachycardia or atrial fibrillation. He is following simple commands. No evidence of fairly. August 05: The patient has been confused all night, he is sleeping at this time. He has been in sinus mechanism, hemodynamically stable with no arrhythmia. He had a CAT scan of the head yesterday that showed no evidence of bleed. August 06: The patient is more awake and alert today, sitting up in the chair. Continues to be in sinus mechanism. Complaining of his Hong catheter. He denies any dyspnea, chest discomfort, nausea or vomiting. Hemodynamically he is stable. His urinary output is stable. There is no malignant arrhythmia. He continues to have left-sided chest tube August 07: The patient is awake alert and oriented today, his confusion has resolved. He continues to be in sinus mechanism, hemodynamically stable. There is no evidence of malignant arrhythmia. He continues to have left sided chest tube. He denies any nausea or vomiting. He had walked earlier and felt well. He is anxious to go home. His chest x-ray shows left apical pneumothorax 08/08 Patient seen and examined. Patient anxious to go home. He denies any chest pain or pressure. He still is pacing wires in place. Denies any lightheadedness or dizziness. Blood pressures labile 110s to 140s. He had episode of A. fib with heart rates in the 140s overnight for 1.5 hrs. 08/09 Patient seen and examined. No further atrial fibrillation. Is maintained on amiodarone. Anxious to leave. PHYSICAL EXAMINATION: Vitals reviewed Gen: awake and alert LUNGS: Clear to auscultation with mild decrease in the breath sounds at the bases HEART: Regular rate and rhythm, S1, S2. No S3. No systolic murmur, no rub noted ABDOMEN: Soft, nontender, no organomegaly EXTREMETIES: No edema, IMPRESSION: 1. Status post CABG, stable extubated 2. History of hypertension 3. History of hyperlipidemia 4. History of carotid obstructive disease 5. Acute renal injury, resolved 6. Change in mental status with confusion, appears to be metabolic encephalopathy, resolved PLAN: Appears stable for discharge. Continue current regimen. Follow-up outpatient Objective - Vital Signs Vital signs: Vital Signs Temp 98.4 F 08/09/22 08:25 Pulse 80 08/09/22 09:40 Resp 17 08/09/22 08:25 BP 131/72 08/09/22 08:25 Pulse Ox 95 08/09/22 09:31 FiO2 50 08/06/22 16:00 Intake & Output 08/08/22 08/09/22 08/09/22 18:59 06:59 18:59 Intake Total 336 180 Output Total 2 400 1 Balance 334 -400 179 Weight 91.9 kg 91.9 kg Intake: Oral 336 180 Output: Urine 400 Stool 2 1 Other: Voiding Method Urinal # Voids 2 ABP, PAP, CO, CI - Last Documented Arterial Blood Pressure 132/114 Pulmonary Artery Pressure 33/7 Cardiac Output 7.7 Cardiac Index 3.9 - Labs CBC & Chem 7: 08/09/22 07:53 08/09/22 07:41 Labs: Abnormal Lab Results - Last 24 Hours (Table) 08/08/22 08/08/22 08/08/22 Range/Units 11:37 16:19 19:39 WBC (3.8-10.6) k/uL RBC (4.30-5.90) m/uL Hgb (13.0-17.5) gm/dL Hct (39.0-53.0) % POC Glucose (mg/dL) 118 H 129 H 120 H (70-110) mg/dL Total Protein (6.3-8.2) g/dL 08/09/22 08/09/22 Range/Units 07:41 07:53 WBC 14.9 H (3.8-10.6) k/uL RBC 2.74 L (4.30-5.90) m/uL Hgb 8.4 L (13.0-17.5) gm/dL Hct 27.1 L (39.0-53.0) % POC Glucose (mg/dL) (70-110) mg/dL Total Protein 5.7 L (6.3-8.2) g/dL
[2022-08-09 11:41] LABS: Glucose,Whole Blood 169 mg/dL (70-110)
--- NOTE | 2022-08-09 12:24 | P.PN ---
Subjective Progress Note Date: 08/09/22 The patient is seen today 08/08/2022 in follow-up on the selective care unit. Postoperative day #7 He is up ambulating in his room. Awake and alert in no acute distress. Oriented 3. Chest x-ray reveals a stable 5-10% left-sided pneumothorax with left sided consolidation and tiny effusion. Right lung remains clear. Left-sided chest tube was removed yesterday. White count 10.4. Hemoglobin 8.7. Sodium 141. Potassium 3.1. Bicarb 29. BUN 23. Creatinine 0.87. He is maintaining good O2 saturations in the 90s on room air. He's afebrile. Hemodynamically stable. He continues to work well with the incentive spirometer pulling nearly 1000 ML's. The patient is seen today 08/09/2022 in follow-up on the selective care unit. Postoperative day #8. He is sitting up in a chair at the bedside. Awake and alert in no acute distress. Denies any shortness of breath, cough or congestion. He is maintaining good O2 saturations in the 90s on room air. He's been afebrile. Hemodynamically stable. Chest x-ray continues to show a stable 5-10% left-sided pneumothorax with left-sided consolidation and tiny effusion. No change compared to previous. White count 14.9. Hemoglobin 8.4. Sodium 139. Potassium 4.1. Bicarb 28. BUN 19. Creatinine 0.88. AST 28. ALT 38. Glucose 169. He continues to work well with the incentive spirometer. He remains on bronchodilators. He is anticoagulated with Arixtra. Objective - Vital Signs Vital signs: Vital Signs Temp 98.4 F 08/09/22 08:25 Pulse 80 08/09/22 09:40 Resp 17 08/09/22 08:25 BP 131/72 08/09/22 08:25 Pulse Ox 95 08/09/22 09:31 FiO2 50 08/06/22 16:00 Intake & Output 08/08/22 08/09/22 08/09/22 18:59 06:59 18:59 Intake Total 336 180 Output Total 2 400 1 Balance 334 -400 179 Weight 91.9 kg 91.9 kg Intake: Oral 336 180 Output: Urine 400 Stool 2 1 Other: Voiding Method Urinal # Voids 2 ABP, PAP, CO, CI - Last Documented Arterial Blood Pressure 132/114 Pulmonary Artery Pressure 33/7 Cardiac Output 7.7 Cardiac Index 3.9 - Exam GENERAL EXAM: Alert, active, 62-year-old male patient, comfortable in no apparent distress. HEAD: Normocephalic. EYES: Normal reaction of pupils, equal size. NOSE: Clear with pink turbinates. THROAT: No erythema or exudates. NECK: No masses, no JVD. CHEST: Sternal dressing dry and intact. Heart hugger in place. LUNGS: Equal air entry with faint crackles in left base. CVS: S1 and S2 normal with no audible murmur, regular rhythm. ABDOMEN: No hepatosplenomegaly, normal bowel sounds, no guarding or rigidity. SPINE: No scoliosis or deformity SKIN: No rashes CENTRAL NERVOUS SYSTEM: No focal deficits, tone is normal in all 4 extremities. EXTREMITIES: Left radial harvest site clean dry well approximated. There is trace peripheral edema. No clubbing, no cyanosis. Peripheral pulses are intact. - Labs CBC & Chem 7: 08/09/22 07:53 08/09/22 07:41 Labs: Abnormal Lab Results - Last 24 Hours (Table) 08/08/22 08/08/22 08/09/22 Range/Units 16:19 19:39 07:41 WBC (3.8-10.6) k/uL RBC (4.30-5.90) m/uL Hgb (13.0-17.5) gm/dL Hct (39.0-53.0) % POC Glucose (mg/dL) 129 H 120 H (70-110) mg/dL Total Protein 5.7 L (6.3-8.2) g/dL 08/09/22 08/09/22 Range/Units 07:53 11:40 WBC 14.9 H (3.8-10.6) k/uL RBC 2.74 L (4.30-5.90) m/uL Hgb 8.4 L (13.0-17.5) gm/dL Hct 27.1 L (39.0-53.0) % POC Glucose (mg/dL) 169 H (70-110) mg/dL Total Protein (6.3-8.2) g/dL Assessment and Plan Assessment: Multivessel coronary artery disease, post thoracotomy and bypass surgery. The patient's surgery was done on 08/01/2022 and the patient is currently postop day #8. The patient underwent three-vessel bypass surgery including GUIDRY to LAD and radial 2 ramus and saphenous vein graft to RCA. Altered mentation, delirium, questionable alcoholism preoperatively along with possibility of postop delirium. CAT scan of the brain was done and was negative for any acute abnormalities. Neurologic exam remains nonfocal. Neurologically the patient is improved, back to normal and the patient is alert and oriented 3 and quite humorous Post thoracotomy, currently on room air oxygen Left-sided pneumothorax, stable at 5-10%, the chest tube was removed History of CAD with previous stent placement. History of hypertension. History of hyperlipidemia. History of myocardial infarction. History of rheumatoid arthritis. Patient has not been on long-term prednisone at 10 mg Gastroesophageal reflux disease. History of PTSD. Plan: The patient was seen and evaluated Chest x-ray, medications and labs reviewed Remains stable and on room air Continues to work with the incentive spirometer Plan is for possible today Follow-up in our office in 1 week I have personally seen and examined the patient, performed the documentation and the assessment and plan as written. Number of minutes spent on the visit: 10.
[2022-08-09 12:36] VITALS: BP 116/56; PULSE 70; RESP 18; TEMP 98.5
--- NOTE | 2022-08-09 12:59 | P.DS ---
Providers Date of admission: 07/25/22 20:46 Expected date of discharge: 08/09/22 Attending physician: Prakash Johns Consults: 07/25/22 20:43 Consult Physician Urgent Consulting Provider: Bao Catalan Consult Reason/Comments: Chest pain, unstable angina, elevated troponin Do you want consulting provider notified?: Yes 07/28/22 07:31 Consult Physician Routine Consulting Provider: Eladio Torres Consult Reason/Comments: cabg Do you want consulting provider notified?: Already Contacted 07/28/22 16:27 Consult Physician Routine Consulting Provider: Christ Hussein Consult Reason/Comments: Pulmonary Mangement Do you want consulting provider notified?: Yes, Notify in am Consult to Anesthesia Routine Consulting Provider: Anesthesia,Services Consult Reason/Comments: Cardiac Surgery Pre-Op 08/01/22 14:45 Consult Physician Routine Consulting Provider: Merritt Rasmussen Jr Consult Reason/Comments: med mgmt Do you want consulting provider notified?: Already Contacted 08/05/22 09:14 Consult Physician Routine Consulting Provider: Ousmane Hussein Consult Reason/Comments: post operative mental status change Do you want consulting provider notified?: Yes Primary care physician: Harris Pinto Hospital Course: FINAL DIAGNOSIS: 1. Coronary artery disease, non-STEMI this admission 2. Left internal carotid stenosis greater than 70%, asymptomatic 3. History of coronary artery disease with previous PCI to the RCA in March 2022 4. Hypertension 5. Hyperlipidemia, treated, cholesterol 166, LDL 56, triglycerides 296 6. Pulmonary embolism, not on oral anticoagulation 7. Rheumatoid arthritis on chronic Rituxan and prednisone 8. Obstructive sleep apnea without home CPAP use 9. Chronic ongoing tobacco dependence 10. COPD, FEV1 74% of predicted 11. PTSD as [place] [employer] 12. Peripheral neuropathy 13. Covid 19 infection in 2020 14. Irritable bowel syndrome 15. GERD 16. Family history of premature coronary artery disease 17. Postoperative acute blood loss anemia and thrombocytopenia, expected 18. Confusion, toxic metabolic encephalopathy, unknown etiology but may be multifactorial, resolved 19. LILIANA, likely hypovolemia, resolved 20. Paroxysmal atrial fibrillation PRINCIPAL PROCEDURE: 1. Triple-vessel coronary artery bypass grafting using the in situ left internal mammary artery to the left anterior descending artery, left radial artery from the aorta to the ramus intermedius artery, reverse saphenous vein graft from the aorta to the RCA and to the proximal posterior descending artery 2. Exclusion of the left atrial appendage using a 35 mm AtriCure clip 3. Intraoperative graft flow measurements using the Medistim system 4. Endoscopic harvesting of the left radial artery and the left greater saphenous vein 5. Intraoperative transesophageal echocardiogram and epi-aortic ultrasound HISTORY OF PRESENT ILLNESS: This is a 62 year old male who follow outpatient with Dr. Pinto for primary care and Dr. Catalan for cardiology. He presented to [facility] emergency room with complaints of chest pain and was ruled in for NSTEMI. He underwent heart catheterization which demonstrated severe stenosis involving the ostium of the LAD and proximal left circumflex as well as significant disease in the ramus intermedius. Transthoracic echocardiogram demonstrated preserved left ventricular systolic function with EF 55-60% and mild mitral regurgitation. Consultation was placed to Dr. Johns from cardiothoracic surgery. He was recommended to undergo surgical revascularization. The usual perioperative course was discussed in detail with the patient and his family, all risks and benefits were explained, all questions were answered, and consent was obtained to proceed with surgery. The patient was kept inpatient due to the nature of his disease process. HOSPITAL COURSE: The patient was brought to the preoperative area 08/01/22, prepared in the usual fashion, and subsequently taken to the operating room where Dr. Johns performed 3 vessel CABG. Upon completion of surgery the patient was transferred to the cardiovascular intensive care unit where he was recovered and monitored hemodynamically. He was extubated, all lines, tubes, and drips were discontinued when appropriate. He did have a bit of a ganga postoperative course with confusion which resolved without treatment as well as paroxysmal atrial fibrillation which resolved with amiodarone. Eventually he was stable and he was transferred to 3 S. cardiac stepdown unit for further monitoring and rehabilitation. His oxygen was titrated down, he continued to work with physical and occupational therapy, he was tolerating oral diet, his pain was controlled, and he was ready to be discharged to home with [facility] on postoperative day #8. He received written and verbal instruction regarding his medications, activity restrictions, signs and symptoms requiring physician notification, and follow-up appointments. Patient Condition at Discharge: Stable Plan - Discharge Summary Discharge Rx Participant: Yes New Discharge Prescriptions: New Amiodarone [Cordarone] 400 mg PO BID #45 tab Furosemide [Lasix] 40 mg PO DAILY #5 tablet Clopidogrel [Plavix] 75 mg PO DAILY #30 tab Aspirin 81 mg PO DAILY #30 tab Potassium Chloride ER [K-Dur 20] 20 meq PO DAILY #5 tab Multivitamins, Thera [Multivitamin (formulary)] 1 each PO DAILY tab Pantoprazole [Protonix] 40 mg PO AC-BRKFST #30 tab Acetaminophen Tab [Tylenol] 1,000 mg PO Q6HR PRN tab PRN Reason: Fever And/ Or Pain Continue HYDROcodone/APAP 7.5-325MG [[place] 7.5-325] 1 tab PO Q6HR PRN PRN Reason: Pain Atorvastatin [Lipitor] 80 mg PO HS predniSONE 10 mg PO HS Gabapentin 2,400 mg PO HS Metoprolol Tartrate [Lopressor] 25 mg PO BID #60 tab Albuterol Sulfate [Ventolin HFA] 1 - 2 puff INHALATION RT-Q6H PRN PRN Reason: Shortness Of Breath Changed Valsartan [Diovan] 80 mg PO DAILY #0 Discontinued valACYclovir HCL [Valtrex] 500 mg PO DAILY Omeprazole 40 mg PO DAILY Prasugrel [Effient] 10 mg PO DAILY #30 tab Nitroglycerin Sl Tabs [Nitrostat] 0.4 mg SUBLINGUAL Q5M PRN #100 tab PRN Reason: Chest Pain hydroCHLOROthiazide [Hydrodiuril] 25 mg PO DAILY Isosorbide Mononitrate ER [Imdur] 30 mg PO HS Discharge Medication List predniSONE 10 mg PO HS 03/30/21 [History] HYDROcodone/APAP 7.5-325MG [[place] 7.5-325] 1 tab PO Q6HR PRN 07/21/21 [History] Gabapentin 2,400 mg PO HS 04/03/22 [History] Metoprolol Tartrate [Lopressor] 25 mg PO BID #60 tab 04/05/22 [Rx] Albuterol Sulfate [Ventolin HFA] 1 - 2 puff INHALATION RT-Q6H PRN 07/25/22 [History] Atorvastatin [Lipitor] 80 mg PO HS 07/25/22 [History] Acetaminophen Tab [Tylenol] 1,000 mg PO Q6HR PRN tab 08/09/22 [Rx] Amiodarone [Cordarone] 400 mg PO BID #45 tab 08/09/22 [Rx] Aspirin 81 mg PO DAILY #30 tab 08/09/22 [Rx] Clopidogrel [Plavix] 75 mg PO DAILY #30 tab 08/09/22 [Rx] Furosemide [Lasix] 40 mg PO DAILY #5 tablet 08/09/22 [Rx] Multivitamins, Thera [Multivitamin (formulary)] 1 each PO DAILY tab 08/09/22 [Rx] Pantoprazole [Protonix] 40 mg PO AC-BRKFST #30 tab 08/09/22 [Rx] Potassium Chloride ER [K-Dur 20] 20 meq PO DAILY #5 tab 08/09/22 [Rx] Valsartan [Diovan] 80 mg PO DAILY #0 08/09/22 [Rx] Follow up Appointment(s)/Referral(s): [facility], [facility] [Other] - 1-2 Days (To be seen day after discharge, then 2-3 times per week for 4 weeks) Mary Grace Perez NPC [Nurse Practitioner] - 08/22/22 2:00 pm Bao Catalan MD [STAFF PHYSICIAN] - 08/22/22 2:30 pm Rehab Jory PAYTON,Cardiac [NON-STAFF] - 4 Weeks (You will receive a phone call in approximately 4-6 weeks for evaluation for cardiac rehab) Prakash Johns MD [STAFF PHYSICIAN] - 09/02/22 10:00 am Yuridia Hong DO [STAFF PHYSICIAN] - 09/14/22 10:00 am Christ Hussein DO [Doctor of Osteopathic Medicine] - 08/31/22 2:00 pm Harris Pinto MD [Primary Care Provider] - 08/23/22 3:30 pm Ambulatory/Diagnostic Orders: Complete Blood Count w/diff [LAB.AMB] Time Frame: 3 Days, Location: None Selected Comprehensive Metabolic Panel [LAB.AMB] Time Frame: 3 Days, Location: None S elected Activity/Diet/Wound Care/Special Instructions: DISCHARGE INSTRUCTIONS: 1. No driving for 4 weeks, or until physician gives their ok. 2. The patient should sleep in their own bed, no medical bed needed. 3. Stairs are not an issue. If the bedroom is upstairs, it is advised that the patient go up at night and down in the morning for the first week. Go slowly, using handrail and take 1 step at a time. 4. VERONICA hose are to be worn for 30 days post surgery or until physician discontinues. 5. Heart hugger is to be worn 100% of the time until physician disco ntinues.(except when showering) 6. No lifting, pushing, or pulling more than 10 pounds for 12 weeks. The physician will advise of any restriction changes. 7. The patient is expected to continue the prescribed walking program. 8. Continue pain control per as needed orders. 9. Continue with incentive spirometry and splinting/heart hugger until otherwise directed by the physician. 10. Must shower daily using liquid antibacterial soap 11. Routine sternal incision care. No powders, lotions, ointments on incisions. No dressings are necessary on incisions unless they are draining. Dermabond t ape is to remain on sternal incision until surgeon follow-up. 12. Please call surgeon/HAIR DRESSER for temp greater than 101 F or purulent drainage from incisions. 13. You should weigh yourself daily, record and bring log with you to follow up appointments. 14. All prescriptions given by surgeon for 30 days. Refills need to be filled through pediatric ophthalmologist/primary care physician. 15. A Red armband has been placed on the patient. It should be worn for 30 days post discharge from surgery and will be removed by the cardiac surgeons. If an ER visit is necessary, please make sure the number on the Red armband is called before going to ER. 16. You have been referred to and are expected to begin Cardiac Rehab in approximately 4-6 weeks. HOME HEALTH SERVICES TO PROVIDE: [facility], [facility] [address] [place] [address] RN SKILLED HOME CARE SERVICES FOR POST-OP SURGICAL PATIENTS WITH THE FOLLOWING: Coronary Artery Bypass Surgery (CABG), Mitral Valve Replacement/Repair ( MVR), Aortic Valve Replacement/Repair (AVR) RN TO CONTINUE EDUCATION FROM ``ROAD TO A HEALTH HEART PATIENT EDUCATION MANUAL (GIVEN TO PATIENT IN THE HOSPITAL) MEDICATION RECONCILIATION WITH EDUCATION NEEDED ON FIRST HOME VISIT EMPHASIZE IMPORTANCE OF WEARING BREAST SUPPORT/HEART HUGGER ENCOURAGE USE OF INCENTIVE SPIROMETER 10 X EVERY HOUR WHILE AWAKE ENCOURAGE UTILIZATION OF LOWER EXTREMITY COMPRESSION STOCKINGS/VERONICA HOSE and ELEVATE LEGS ABOVE LEVEL OF HEART WHILE AT REST. ENCOURAGE AMBULATION 3-5x/day INCREASING TOLERATES, WHILE AVOIDING EXTREMES IN TEMPERATURE FREQUENCY: RN TO OPEN THE PATIENT WITHIN 24 HOURS OF DISCHARGE FROM THE HOSPITAL WITH [place]HE[place] [facility] [place] 2-3 X A WEEK FOR 4 WEEKS ESTABLISHED BY PATIENT NEEDS. LABORATORY: CBC, CMP TO BE DRAWN ON THE THIRD DAY HOME, (RAN STAT) FAX RESULTS TO [phone]. TELEHEALTH PARAMETERS: WEIGHT: NOTIFY MD OF WEIGHT GAIN OF 2 LBS IN 24 HOURS OR 5 LBS IN ONE WEEK HR: NOTIFY MD OF HR <55 BPM OR HR>100 BPM BP: NOTIFY MD IF BP <90/55 OR BP>140/100 O2 SAT: NOTIFY MD IF PO2<93% ON ROOM AIR SEND TELEHEALTH REPORT TO DIABETES TRAINER AND CARDIOVASCULAR SURGEON THE FIRST WEEK OF CARE AND THEN BI-WEEKLY. PLEASE ADDITIONALLY COMMUNICATE ANY ABNORMALS AND NEW FINDINGS TO THE SURGEONS OFFICE. Discharge Disposition: HOME WITH HOME HEALTH SERVICES
--- NOTE | 2022-08-09 15:08 | P.PN ---
Subjective Progress Note Date: 08/09/22 H&P Date: 07/26/22 Chief Complaint: Chest pain History and Physical and Discharge Summary: This is a 62-year-old gentleman, works for [employer], with past medical history significant for recent NSTEMI,S/P PCI RCA 04/03/22,CAD, preserved EF ,hypertension, hyperlipidemia, chronic nicotine dependence, daily alcohol of 2-3 beers daily and multiple other medical issues presented to the ER with complaints of ongoing worsening midsternal and anterior neck including carotid burning pressure-"all occurring at the same time together -no radiation, occurs with climbing stairs, bending over,-feels like previous heart attack" since March. Reports PCP was attempting to acquire insurance authorization for carotid Doppler. Denies diaphoresis ,fever or chills. Denies nausea, vomiting, diarrhea or abdominal pain. Reports since March he has taken over 100 nitroglycerin sublinguals in addition to being on his long-acting Imdur. Reports he has decreased his nicotine intake from 2 packs a day to 1 pack a day, usually drinks 2-3 beers sometimes 5 daily. Reports strong family history of CAD, father with CABG, aneurysms and carotid stenosis. Chest x-ray reported no acute pulmonary process. EKG reported sinus rhythm, troponin 0.054, 0.061, 0.044. Afebrile, normal WBC. Hemoglobin 13.6, platelets 188, MCV 93.9, INR 1.1, sodium 138, potassium 3.9, bicarb 24, BUN 17, creatinine 0.91, magnesium 2.1. Evaluated by cardiology, patient is scheduled for Lexiscan stress test, carotid Doppler. 08/26/2022 yesterday completed Lexiscan stress test-reported abnormal. Scheduled for cardiac catheterization today. Carotid ultrasound reported bilateral plaque 70% severe stenosis of the proximal left ICA. Maintained on heparin drip. Denies any further chest pain while at rest. 07/28/2022 completed cardiac catheterization this morning, reporting severe stenosis involving the ostium of the LAD in the proximal left circumflex, significant disease in the ramus intermedius, mild disease in the RCA with pat ent stent and collaterals from the right coronary artery through the septals electrical technology instructor. Cardiothoracic surgery consulted regarding further evaluation for CABG. maintained on heparin drip.Evaluated by vascular surgery regarding left high-grade ICA stenosis greater than 70% per carotid duplex. Renal function stable postcardiac catheterization and CTA of head and neck ordered as per vascular surgery. Denies chest pain, palpitations or shortness of breath. 07/29/2022 workup in progress for CABG on Monday as per CTS. Echo reporting normal LV systolic function, EF 55-60% . Telemetry sinus rhythm. denies chest pain, palpitations or shortness of breath. Denies lightheadedness, dizziness or focal deficits. Head/Neck CTA pending. KUB reporting no acute radiographic process, mildly prominent colonic stool volume noted. 08/02/2022 status post CABG, postop day #1. Extubated last night. Maintaining O2 sats in the low to mid 90s on 5 L nasal cannula. Chest x-ray reporting few linear lucencies within the left axillary region compatible with soft tissue gas, improved, slight interval worsening of left basilar atelectasis . Incentive spirometer up to 500 .Cardiac output 7.7, cardiac index 3.9. Telemetry sinus rhythm. Pain currently controlled. Blood sugars stable on insulin drip. 08/03/2022 Worsening renal function. Receiving a fluid bolus. Telemetry sinus rhythm.developed delirium early this a.m. mild confusion, suspicious at times of staff. Moves all extremities, speech clear, no facial droop no numbness or weakness. Continue O2 sats in the 90s on 5 L nasal cannula. Chest x-ray pending. Reports chest tube discomfort. 08/04/2022 narcotics discontinued yesterday. sleepy, delirious. Staff reports patient becomes agitated upon awakening. Last Ativan received in the early am, around 0400. CIWA protocol in place. materials and processes manager at bedside. Telemetry sinus rhythm. Chest x-ray reporting low lung volumes, patchy airspace opacity's within the left mid to lower lung may represent infiltrate versus atelectasis. Pleural chest tube 1 remaining. Maintaining O2 sats in the high 90s on 4 L nasal cannula. Renal function improving. Blood sugars controlled. 08/05/2022 Confusion, delirium, paranoia and agitation increased during the night, Precedex drip initiated,CIWA protocol discontinued. Telemetry sinus rhythm. Ventimask weaned off, currently maintaining O2 sats in the 90s on 4 L nasal cannula. Hemoglobin 6.8, platelets 86, no transfusion at this time as per cardiothoracic surgery. Earlier x-ray today reported a new small left apical pneumothorax , manipulated , positive air leak .Repeat chest x-ray reported stable left pneumothorax. 08/08/2022 currently on cardiac stepdown unit. Significant clinical improvement, alert and oriented 3, telemetry sinus rhythm. During the angular developer hours, telemetry reporting paroximal afib up into the 160s. Transitioning to oral amiodarone. Potassium 3.1, receiving supplementation. Magnesium level pending. Vital signs stable, maintaining O2 sats in the 90s on room air. Chest x-ray reporting stable 5-10% left sided pneumothorax with left- sided consolidation and tiny effusion. Ambulating, tolerating exertion well. Blood sugars controlled. Maintained on Arixtra, platelets within normal limits, 229 reported 423. 08/09/2022 significant clinical improvement. Chest x-ray reporting stable 5-10% left-sided pneumothorax with left-sided consolidation and tiny effusion .Maintaining O2 sats in the 90s on room air. Afebrile, WBC 14.9. Hemoglobin 8.4, platelets 331. Electrolytes within normal limits, renal function stable. Blood sugars controlled. Objective - Vital Signs Vital signs: Vital Signs Temp 98.5 F 08/09/22 11:50 Pulse 70 08/09/22 13:16 Resp 18 08/09/22 13:16 BP 116/56 08/09/22 11:50 Pulse Ox 97 08/09/22 11:50 FiO2 50 08/06/22 16:00 Intake & Output 08/08/22 08/09/22 08/09/22 18:59 06:59 18:59 Intake Total 336 180 Output Total 2 400 702 Balance 334 -400 -522 Weight 91.9 kg 91.9 kg Intake: Oral 336 180 Output: Urine 400 700 Stool 2 2 Other: Voiding Method Urinal # Voids 2 ABP, PAP, CO, CI - Last Documented Arterial Blood Pressure 132/114 Pulmonary Artery Pressure 33/7 Cardiac Output 7.7 Cardiac Index 3.9 - Exam - Exam General: Alert and oriented 3 ,Sitting up in a chair, no acute distress HEENT: [Atraumatic ,PERRL. EOMI. ] Neck: Supple, no JVD Cardiac: [Heart regular in rate and rhythm. No S3. No S4. No clicks, rubs. No murmur.] Lungs: Unlabored,clear to auscultation bilaterally, bilateral bases diminished. Abdomen: [Soft, nontender, nondistended .+BS. No guarding, no rigidity. Extremes: [Trace edema no cyanosis, normal pulses Skin: [Warm and dry, No rash.] Neurologic: Cranial nerves II through XII grossly intact, no focal deficits - Labs CBC & Chem 7: 08/09/22 07:53 08/09/22 07:41 Labs: Abnormal Lab Results - Last 24 Hours (Table) 08/08/22 08/08/22 08/09/22 Range/Units 16:19 19:39 07:41 WBC (3.8-10.6) k/uL RBC (4.30-5.90) m/uL Hgb (13.0-17.5) gm/dL Hct (39.0-53.0) % POC Glucose (mg/dL) 129 H 120 H (70-110) mg/dL Total Protein 5.7 L (6.3-8.2) g/dL 08/09/22 08/09/22 Range/Units 07:53 11:40 WBC 14.9 H (3.8-10.6) k/uL RBC 2.74 L (4.30-5.90) m/uL Hgb 8.4 L (13.0-17.5) gm/dL Hct 27.1 L (39.0-53.0) % POC Glucose (mg/dL) 169 H (70-110) mg/dL Total Protein (6.3-8.2) g/dL Assessment and Plan Assessment: Chest pain, midsternal With bilateral carotid burning pressure ,elevated troponins, abnormal Lexiscan stress test, cardiac catheterization reporting severe stenosis involving the ostium of the LAD and proximal left circumflex with significant disease in the ramus intermedius. Status post CABG 08/01/2022 secondary to multi-vessel CAD Left-sided pneumothorax, 5-10%, stable. NSTEMI this admission Acute toxic,metabolic encephalopathy, multifactorial secondary to all the above, resolved Paroxysmal atrial fibrillation, postop, expected outcome Acute renal failure, resolved CAD, history of recent NSTEMI,s/p PCI RCA 04/03/22 Proximal left ICA 70% severe stenosis Hypertension Hyperlipidemia Gastroesophageal reflux disease Obesity, BMI 32.3 Ongoing nicotine dependence, decreased from 2 packs to 1 pack per day, smoking cessation reinforced COPD Daily alcohol dependence, monitor for Etoh withdrawal. History of PE History of rheumatoid arthritis Plan: Continue on current medication regime ,monitoring and symptomatic treatment. Discharge planning in progress as per cardiothoracic surgery. Maintain aggressive pulmonary toileting with incentive spirometer reinforced. Follow-up with PCP in one week after following up with CTS .Prognosis guarded given multiple complex medical issues. The impression and plan of care has been dictated as directed. : I performed a history and examination of this patient, discussed the same with the dictator. I agree with the dictator's note ,documented as a scribe. Any additional findings or plans will be noted.
== END 2022-08-09 13:38 | disposition home health service (06) | DRG 233 ==
LOC: EC 17:59 → 3SCARD 20:46 → 2SICU 08-01 07:52 → 3SCARD 08-07 16:51
PROVIDERS: ADMIT Surgery; ATTEND Surgery
PROC: B2111ZZ Fluoroscopy of Multiple Coronary Arteries using Low Osmolar Contrast (ICD-10-PCS; 2022-07-28)
PROC: 06BQ4ZZ Excision of Left Saphenous Vein, Percutaneous Endoscopic Approach (ICD-10-PCS; 2022-08-01)
PROC: 03BC4ZZ Excision of Left Radial Artery, Percutaneous Endoscopic Approach (ICD-10-PCS; 2022-08-01)
PROC: B24BZZ4 Ultrasonography of Heart with Aorta, Transesophageal (ICD-10-PCS; 2022-08-01)
PROC: 02L70CK Occlusion of Left Atrial Appendage with Extraluminal Device, Open Approach (ICD-10-PCS; 2022-08-01)
PROC: 5A1221Z Performance of Cardiac Output, Continuous (ICD-10-PCS; 2022-08-01)
PROC: 4A0 Measurement and Monitoring, Physiological Systems, Measurement (ICD-10-PCS; 2022-08-01)
PROC: 4A0335C Measurement of Arterial Flow, Coronary, Percutaneous Approach (ICD-10-PCS; 2022-08-01)
PROC: 02HQ32Z Insertion of Monitoring Device into Right Pulmonary Artery, Percutaneous Approach (ICD-10-PCS; 2022-08-01)
PROC: 4A133B3 Monitoring of Arterial Pressure, Pulmonary, Percutaneous Approach (ICD-10-PCS; 2022-08-01)
PROC: 4A1239Z Monitoring of Cardiac Output, Percutaneous Approach (ICD-10-PCS; 2022-08-01)
PROC: 02100Z9 Bypass Coronary Artery, One Artery from Left Internal Mammary, Open Approach (ICD-10-PCS; principal; 2022-08-01 08:00)
PROC: 4A023N7 Measurement of Cardiac Sampling and Pressure, Left Heart, Percutaneous Approach (ICD-10-PCS; 2022-08-01 08:00)
PROC: 02100AW Bypass Coronary Artery, One Artery from Aorta with Autologous Arterial Tissue, Open Approach (ICD-10-PCS; 2022-08-01 08:00)
PROC: 0210093 Bypass Coronary Artery, One Artery from Coronary Artery with Autologous Venous Tissue, Open Approach (ICD-10-PCS; 2022-08-01 08:00)
PROC: HZ2ZZZZ Detoxification Services for Substance Abuse Treatment (ICD-10-PCS; 2022-08-03)
DX: I21.4 Non-ST elevation (NSTEMI) myocardial infarction (principal); G92.8 Other toxic encephalopathy; T85.628A Displacement of other specified internal prosthetic devices, implants and grafts, initial encounter; N17.9 Acute kidney failure, unspecified; F05 Delirium due to known physiological condition; J93.82 Other air leak; J93.9 Pneumothorax, unspecified; D62 Acute posthemorrhagic anemia; D69.6 Thrombocytopenia, unspecified; J44.9 Chronic obstructive pulmonary disease, unspecified; E86.1 Hypovolemia; I48.0 Paroxysmal atrial fibrillation; M06.9 Rheumatoid arthritis, unspecified; I65.22 Occlusion and stenosis of left carotid artery; E66.9 Obesity, unspecified; F10.20 Alcohol dependence, uncomplicated; I10 Essential (primary) hypertension; I25.110 Atherosclerotic heart disease of native coronary artery with unstable angina pectoris; F17.210 Nicotine dependence, cigarettes, uncomplicated; E78.5 Hyperlipidemia, unspecified; E73.9 Lactose intolerance, unspecified; G47.33 Obstructive sleep apnea (adult) (pediatric); F43.10 Post-traumatic stress disorder, unspecified; K21.9 Gastro-esophageal reflux disease without esophagitis; K58.0 Irritable bowel syndrome with diarrhea; D75.89 Other specified diseases of blood and blood-forming organs; T40.605A Adverse effect of unspecified narcotics, initial encounter; T39.8X5A Adverse effect of other nonopioid analgesics and antipyretics, not elsewhere classified, initial encounter; G62.9 Polyneuropathy, unspecified; R09.02 Hypoxemia; Y81.1 Therapeutic (nonsurgical) and rehabilitative general- and plastic-surgery devices associated with adverse incidents; Z68.30 Body mass index [BMI] 30.0-30.9, adult; Z28.310 Unvaccinated for COVID-19; Z88.1 Allergy status to other antibiotic agents; Z87.828 Personal history of other (healed) physical injury and trauma; Z79.899 Other long term (current) drug therapy; Z79.82 Long term (current) use of aspirin; Z79.02 Long term (current) use of antithrombotics/antiplatelets; Z79.52 Long term (current) use of systemic steroids; Z86.14 Personal history of Methicillin resistant Staphylococcus aureus infection; I25.2 Old myocardial infarction; Z95.5 Presence of coronary angioplasty implant and graft; Z86.711 Personal history of pulmonary embolism; Z82.49 Family history of ischemic heart disease and other diseases of the circulatory system; Z86.16 Personal history of COVID-19; Z91.82 Personal history of military deployment; Z79.891 Long term (current) use of opiate analgesic; Z87.820 Personal history of traumatic brain injury; Z79.620 Long term (current) use of immunosuppressive biologic
CPT/HCPCS: 36415; 36600; 70450; 70496; 70498; 71045; 71046; 74018; 78452; 80048; 80053; 80061; 80074; 81003; 82140; 82330; 82607; 82746; 82805; 83036; 83735; 84132; 84443; 84484; 85025; 85027; 85610; 85730; 86022; 86850; 86891; 86900; 86901; 86920; 87070; 93005; 93017; 93306; 93458; 93880; 93922; 93970; 94002; 94150; 94640; 94760; 96365; 96366; 96375; 99291

== ENCOUNTER 2022-08-21 17:02 | Emergency (ER) | payer OTHER ==
[2022-08-21 17:20] VITALS: TEMP 98.3
[2022-08-21 17:51] LABS: Basophils % (A) 0 %; Eosinophils # (A) 0.2 k/uL (0-0.7); Eosinophils % (A) 3 %; HCT 28.8 % (39.0-53.0); HGB 8.8 gm/dL (13.0-17.5); Hypochromasia Marked; Lymphocytes # (A) 0.8 k/uL (1.0-4.8); Lymphocytes % (A) 9 %; MCH 28.7 pg (25.0-35.0); MCHC 30.6 g/dL (31.0-37.0); Monocytes # (A) 0.3 k/uL (0-1.0); Monocytes % (A) 4 %; Neutrophils % (A) 83 %; Platelet Count 429 k/uL (150-450); Poikilocytosis Slight; RBC 3.07 m/uL (4.30-5.90); RDW 14.7 % (11.5-15.5); WBC 8.4 k/uL (3.8-10.6)
[2022-08-21 18:02] LABS: ALT 23 U/L (4-49); African American GFR (CKD) >90 (>60 ml/min/1.73 sqM); Albumin 3.7 g/dL (3.5-5.0); Anion Gap 12 mmol/L; Blood Urea Nitrogen 15 mg/dL (9-20); Calcium 8.5 mg/dL (8.4-10.2); Carbon Dioxide 24 mmol/L (22-30); Chloride 100 mmol/L (98-107); Glucose 120 mg/dL (74-99); Non-African American GFR(CKD) 81 (>60 ml/min/1.73 sqM); Sodium 136 mmol/L (137-145); Total Bilirubin 0.6 mg/dL (0.2-1.3); Total Protein 6.4 g/dL (6.3-8.2)
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
[2022-08-21 18:13] LABS: INR 1.2 (<1.2); Partial Thromboplastin Time 23.1 sec (22.0-30.0)
--- NOTE | 2022-08-21 18:16 | XR ---
EXAMINATION TYPE: XR chest 2V DATE OF EXAM: 08/21/2022 6:00 PM COMPARISON: Chest x-ray 08/13/2022 TECHNIQUE: XR chest 2V . CLINICAL INDICATION:Male, 62 years old with history of difficulty breathing; FINDINGS: Lungs/Pleura: Slight interval decrease in size of small volume left-sided pleural effusion. Passive a telectasis of the left lung base. Hazy appearance to the perihilar interstitium concerning for infilt rate. Right lung remains clear. Pulmonary vascularity: Unremarkable. Heart/mediastinum: Cardiomediastinal silhouette is prominent in size. Postoperative changes are pres ent in the mediastinum. Sternotomy wires present. Musculoskeletal: Degenerative changes of the thoracolumbar spine and acromioclavicular joints. IMPRESSION: 1. Minimal improvement in small volume left pleural effusion. 2. Persistent left lower lobe infiltrate.
[2022-08-21 18:21] LABS: AST 35 U/L (17-59); Alkaline Phosphatase 91 U/L (38-126); Magnesium 2.2 mg/dL (1.6-2.3)
[2022-08-21] MEDS ORDERED: FUROSEMIDE 10 MG/ML 4 ML VIAL IV STA (18:46)
[2022-08-21 19:33] VITALS: BP 141/79; PULSE 62; RESP 16
== END 2022-08-21 19:46 | disposition home or self-care (01) ==
LOC: EC 17:02
DX: I25.810 Atherosclerosis of coronary artery bypass graft(s) without angina pectoris (principal); I11.0 Hypertensive heart disease with heart failure; I50.9 Heart failure, unspecified; J90 Pleural effusion, not elsewhere classified; K21.9 Gastro-esophageal reflux disease without esophagitis; E78.5 Hyperlipidemia, unspecified; I25.2 Old myocardial infarction; Z87.891 Personal history of nicotine dependence; Z88.1 Allergy status to other antibiotic agents; Z79.899 Other long term (current) drug therapy
CPT/HCPCS: 36415; 93005; 83880; 80053; 83735; 84484; 85025; 85610; 85730; 71046; 99284; 96374; J1940

== ENCOUNTER → 2022-09-16 | Outpatient (CLI) | payer OTHER ==
[2022-09-16 16:24] LABS: Basophils # (A) 0.11 X 10*3/uL (0.00-0.10); Eosinophils # (A) 0.36 X 10*3/uL (0.04-0.35); Eosinophils % (A) 3.1 %; HCT 31.7 % (39.6-50.0); HGB 9.3 g/dL (13.0-17.0); Immature Grans, Automated 0.5 %; Lymphocytes # (A) 1.47 X 10*3/uL (0.90-5.00); Lymphocytes % (A) 12.8 %; MCH 25.5 pg (27.0-32.0); MCHC 29.3 g/dL (32.0-37.0); MCV 86.8 fL (80.0-97.0); Mean Platelet Volume 10.1 fL (9.5-12.2); Monocytes # (A) 0.99 X 10*3/uL (0.20-1.00); Monocytes % (A) 8.6 %; NRBC Per 100 WBC 0 /100 WBCS (0.0-0.0); Neutrophils # (A) 8.53 X 10*3/uL (1.80-7.70); Platelet Count 286 X 10*3/uL (140-440); RBC 3.65 X 10*6/uL (4.40-5.60); RDW 15.9 % (11.5-14.5); WBC 11.52 X 10*3/uL (4.50-10.00)
[2022-09-16 16:44] LABS: African American GFR (CKD) 92.4 (60.0-200.0); Albumin 4.2 g/dL (3.8-4.9); Albumin/Globulin Ratio 2.1 (1.60-3.17); Anion Gap 9.4 mmol/L (10.00-18.00); Calcium 9.1 mg/dL (8.7-10.3); Carbon Dioxide 27.6 mmol/L (20.0-27.5); Magnesium 2.1 mg/dL (1.5-2.4); Non-African American GFR(CKD) 79.7 (60.0-200.0); Potassium 4.8 mmol/L (3.5-5.5); Total Bilirubin 0.4 mg/dL (0.30-1.20); Total Protein 6.2 g/dL (6.2-8.2)
== END | disposition home or self-care (01) ==
LOC: LABWHC1 09:47
PROVIDERS: ATTEND Family Medicine
DX: Z01.812 Encounter for preprocedural laboratory examination (principal); I10 Essential (primary) hypertension; I65.22 Occlusion and stenosis of left carotid artery; I25.2 Old myocardial infarction; I25.10 Atherosclerotic heart disease of native coronary artery without angina pectoris; G47.30 Sleep apnea, unspecified; M06.9 Rheumatoid arthritis, unspecified; R60.0 Localized edema
CPT/HCPCS: 36415; 80053; 83735; 85025

== ENCOUNTER 2022-10-17 20:04 | Emergency (ER) | payer OTHER ==
[2022-10-17 20:40] VITALS: RESP 18; TEMP 98.2
[2022-10-17] MEDS ORDERED: MORPHINE SULFATE 4 MG/ML SYRINGE IV STA (21:48)
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
[2022-10-17 22:26] LABS: ALT 13 U/L (4-49); AST 20 U/L (17-59); African American GFR (CKD) >90 (>60 ml/min/1.73 sqM); Albumin 3.6 g/dL (3.5-5.0); Alkaline Phosphatase 81 U/L (38-126); Anion Gap 6 mmol/L; Blood Urea Nitrogen 13 mg/dL (9-20); Calcium 8.4 mg/dL (8.4-10.2); Carbon Dioxide 25 mmol/L (22-30); Chloride 105 mmol/L (98-107); Glucose 124 mg/dL (74-99); Non-African American GFR(CKD) >90 (>60 ml/min/1.73 sqM); Sodium 136 mmol/L (137-145); Total Bilirubin 0.5 mg/dL (0.2-1.3)
[2022-10-17 22:35] LABS: Anisocytosis Slight; Basophils % (A) 0 %; Eosinophils # (A) 0.2 k/uL (0-0.7); Eosinophils % (A) 2 %; HCT 31.2 % (39.0-53.0); HGB 9.6 gm/dL (13.0-17.5); Hypochromasia Marked; Lymphocytes # (A) 1.7 k/uL (1.0-4.8); Lymphocytes % (A) 25 %; MCH 24.8 pg (25.0-35.0); MCHC 30.7 g/dL (31.0-37.0); Mean Platelet Volume 7.3; Monocytes # (A) 0.6 k/uL (0-1.0); Monocytes % (A) 8 %; Neutrophils # (A) 4.4 k/uL (1.3-7.7); Neutrophils % (A) 63 %; Platelet Count 245 k/uL (150-450); Poikilocytosis Slight; RBC 3.87 m/uL (4.30-5.90); RDW 16.4 % (11.5-15.5)
[2022-10-17 22:39] LABS: Partial Thromboplastin Time 22.9 sec (22.0-30.0); Prothrombin Time 10.4 sec (9.0-12.0)
[2022-10-17 22:41] LABS: MCV 80.8 fL (80.0-100.0)
--- NOTE | 2022-10-17 23:31 | CT ---
EXAM: CT Neck With Intravenous Contrast CLINICAL HISTORY: ITS.REASON CT Reason: carotid endart. on 10/11, now swelling TECHNIQUE: Routine carotid CT protocol was performed with intravenous contrast. NASCET criteria using the distal ICAs for comparison were used for evaluation of stenoses. CTDI is 51.2 mGy and DLP is 663.4 mGy-cm. This CT exam was performed using one or more of the following dose reduction techniques: automated exposure control, adjustment of the mA and/or kV according to patient size, and/or use of iterative reconstruction technique. COMPARISON: CTA neck 07/29/2022 FINDINGS: VASCULATURE: Right common carotid artery: Unremarkable. No occlusion or significant stenosis. No dissection. Right internal carotid artery: Unremarkable. Extracranial segment is patent with no occlusion or significant stenosis. No dissection. Right external carotid artery: Unremarkable. No occlusion. Right vertebral artery: Unremarkable. No occlusion or significant stenosis. No dissection. Left common carotid artery: No occlusion or significant stenosis. No dissection. Left internal carotid artery: There has been interval surgical intervention on the left carotid bifurcation with absence of the recently noted eccentric calcification. Slightly undulating appearance of the proximal internal carotid artery in the presumed postoperative region. Extracranial segment is patent with no occlusion or significant stenosis. No dissection. Left external carotid artery: Unremarkable. No occlusion. Left vertebral artery: Unremarkable. No occlusion or significant stenosis. No dissection. NECK: Bones/joints: Unremarkable. Soft tissues: There is asymmetric fullness of the left sternocleidomastoid muscle with regional fat stranding and hypodense edema about the carotid artery and sternocleidomastoid muscle. Lung apices: Clear. CAROTID STENOSIS REFERENCE USING NASCET CRITERIA: % ICA stenosis = (1 - narrowest ICA diameter/diameter of distal cervical ICA) x 100. Mild - <50% stenosis. Moderate - 50-69% stenosis. Severe - 70-94% stenosis. Near occlusion - 95-99% stenosis. Occluded - 100% stenosis. IMPRESSION: 1. There has been interval surgical intervention on the left carotid bifurcation, as noted above. The left common and internal carotid artery are widely patent without dissection, narrowing or occlusion. 2. There is asymmetric fullness of the left sternocleidomastoid muscle with regional fat stranding and hypodense edema about the carotid artery and sternocleidomastoid muscle. Differential consideration includes postoperative edema or cellulitis. No well-defined loculated abscess or hematoma.
[2022-10-18] MEDS ORDERED: MORPHINE SULFATE 4 MG/ML SYRINGE IV STA (00:25)
[2022-10-18 00:32] VITALS: BP 119/73; PULSE 70
== END 2022-10-18 02:15 | disposition home or self-care (01) ==
LOC: EC 20:04
DX: L03.221 Cellulitis of neck (principal); I10 Essential (primary) hypertension; J45.909 Unspecified asthma, uncomplicated; I25.2 Old myocardial infarction; K21.9 Gastro-esophageal reflux disease without esophagitis; E78.5 Hyperlipidemia, unspecified; I25.10 Atherosclerotic heart disease of native coronary artery without angina pectoris; Z87.891 Personal history of nicotine dependence; Z79.52 Long term (current) use of systemic steroids; Z79.899 Other long term (current) drug therapy; Z88.1 Allergy status to other antibiotic agents; Z95.5 Presence of coronary angioplasty implant and graft
CPT/HCPCS: 36415; 80053; 85025; 85610; 85730; 86140; 70498; 99284; 96365; 96375; 96376; J2270 ×2; J0690; Q9967

== ENCOUNTER → 2023-05-11 | Outpatient (CLI) | payer OTHER ==
[2023-05-11 15:18] LABS: ALT 25 U/L (10-49); AST 22 U/L (14-35); Albumin 4.1 g/dL (3.8-4.9); Albumin/Globulin Ratio 1.95 Ratio (1.60-3.17); Alkaline Phosphatase 86 U/L (41-126); BUN/Creat Ratio 19.89 Ratio (12.00-20.00); Blood Urea Nitrogen 17.9 mg/dL (9.0-27.0); Calcium 9.1 mg/dL (8.7-10.3); Carbon Dioxide 28.9 mmol/L (21.6-31.8); Chloride 106 mmol/L (96-109); Chol/HDL Ratio 4.42 Ratio; Globulin 2.1 g/dL (1.6-3.3); Glucose 80 mg/dL (70-110); LDL Cholesterol,Calculated 108.6 mg/dL (0.0-131.0); Potassium 4.4 mmol/L (3.5-5.5); Sodium 144 mmol/L (135-145); Total Bilirubin 0.7 mg/dL (0.3-1.2); Total Protein 6.2 g/dL (6.2-8.2)
[2023-05-11 15:25] LABS: Basophils # (A) 0.05 X 10*3/uL (0.00-0.10); Basophils % (A) 0.8 %; Eosinophils # (A) 0.08 X 10*3/uL (0.04-0.35); Eosinophils % (A) 1.2 %; HCT 44.6 % (39.6-50.0); HGB 14.8 g/dL (13.0-17.0); Lymphocytes # (A) 1.94 X 10*3/uL (0.90-5.00); Lymphocytes % (A) 29.1 %; MCH 32.2 pg (27.0-32.0); MCHC 33.2 g/dL (32.0-37.0); MCV 97.2 FL (80.0-97.0); Mean Platelet Volume 10.4 FL (9.5-12.2); Monocytes # (A) 0.87 X 10*3/uL (0.20-1.00); Monocytes % (A) 13.1 %; NRBC Per 100 WBC 0 X 10*3/uL (0.00-0.01); Neutrophils # (A) 3.61 X 10*3/uL (1.80-7.70); Neutrophils % (A) 54.1 %; Platelet Count 184 X 10*3/uL (140-440); RBC 4.59 X 10*6/uL (4.40-5.60); RDW 13.5 % (11.5-14.5); WBC 6.66 X 10*3/uL (4.50-10.00)
[2023-05-11 15:42] LABS: Erythrocyte Sedimentation Rate 2 mm/Hr (0-20)
== END | disposition home or self-care (01) ==
LOC: LABWHC1 08:20
PROVIDERS: ATTEND Internal Medicine Interventional Cardiology
DX: E78.2 Mixed hyperlipidemia (principal); M25.50 Pain in unspecified joint; M06.4 Inflammatory polyarthropathy; E78.79 Other disorders of bile acid and cholesterol metabolism; Z79.01 Long term (current) use of anticoagulants
CPT/HCPCS: 36415; 80053; 80061; 85025; 85652; 86140

== ENCOUNTER → 2024-09-03 | Outpatient (CLI) | payer MEDICARE ==
[2024-09-03 10:24] LABS: HCT 43.4 % (39.6-50.0); HGB 14.6 g/dL (13.0-17.0); MCH 33.1 pg (27.0-32.0); MCHC 33.6 g/dL (32.0-37.0); MCV 98.4 FL (80.0-97.0); Platelet Count 196 X 10*3/uL (140-440); RBC 4.41 X 10*6/uL (4.40-5.60); RDW 12.5 % (11.5-14.5); WBC 7.05 X 10*3/uL (4.50-10.00)
[2024-09-03 10:25] LABS: Basophils # (A) 0.04 X 10*3/uL (0.00-0.10); Basophils % (A) 0.6 %; Eosinophils # (A) 0.05 X 10*3/uL (0.04-0.35); Eosinophils % (A) 0.7 %; Lymphocytes # (A) 1.44 X 10*3/uL (0.90-5.00); Lymphocytes % (A) 20.4 %; Mean Platelet Volume 10.5 FL (9.5-12.2); Monocytes # (A) 0.57 X 10*3/uL (0.20-1.00); Monocytes % (A) 8.1 %; NRBC Per 100 WBC 0 X 10*3/uL (0.00-0.01); Neutrophils # (A) 4.92 X 10*3/uL (1.80-7.70); Neutrophils % (A) 69.8 %
[2024-09-03 10:45] LABS: ALT 29 U/L (10-49); AST 30 U/L (14-35); Albumin 4.1 g/dL (3.8-4.9); Albumin/Globulin Ratio 2.16 Ratio (1.60-3.17); Alkaline Phosphatase 62 U/L (41-126); BUN/Creat Ratio 16.67 Ratio (12.00-20.00); C Reactive Protein <0.30 mg/dL (0.00-0.80); Calcium 9.2 mg/dL (8.7-10.3); Carbon Dioxide 26.6 mmol/L (21.6-31.8); Chloride 104 mmol/L (96-109); Chol/HDL Ratio 3.33 Ratio; Globulin 1.9 g/dL (1.6-3.3); Glucose 117 mg/dL (70-110); LDL Cholesterol,Calculated 74.8 mg/dL (0.0-131.0); Potassium 5.2 mmol/L (3.5-5.5); Prostate Specific Antigen 0.75 ng/mL (0.000-4.500); Sodium 142 mmol/L (135-145); Total Bilirubin 0.8 mg/dL (0.3-1.2)
[2024-09-03 11:15] LABS: Erythrocyte Sedimentation Rate <1 mm/Hr (0-20)
== END | disposition home or self-care (01) ==
LOC: LABWHC1 07:08
PROVIDERS: ATTEND Family Medicine
DX: Z00.00 Encounter for general adult medical examination without abnormal findings (principal); I10 Essential (primary) hypertension; I25.2 Old myocardial infarction; M06.09 Rheumatoid arthritis without rheumatoid factor, multiple sites; E27.40 Unspecified adrenocortical insufficiency; I20.9 Angina pectoris, unspecified; M15.9 Polyosteoarthritis, unspecified; K21.9 Gastro-esophageal reflux disease without esophagitis; D84.9 Immunodeficiency, unspecified; M25.50 Pain in unspecified joint; M06.4 Inflammatory polyarthropathy; E78.79 Other disorders of bile acid and cholesterol metabolism; Z79.01 Long term (current) use of anticoagulants; Z79.620 Long term (current) use of immunosuppressive biologic; Z79.891 Long term (current) use of opiate analgesic
CPT/HCPCS: 36415; 80053; 80061; 84153; 84443; 85025; 85652; 86140